=== PATIENT | female | born 1990 | race African-American/Black ===

== ENCOUNTER 2018-03-04 03:10 | Emergency (ER) | payer SELFPAY ==
[2018-03-04 03:32] LABS: Absolute Lymphocytes (CBC) 1.7 K/uL (0.7-4.9); Absolute Monocytes 0.6 K/uL (0.1-1.3); Absolute Neutrophil 3.7 K/uL (1.8-8.0); Basophils % 0.8 % (0-1.3); Eosinophils % 1.5 % (0-4.4); Hematocrit 34.4 % (36.0-45.0); Lymphocytes % 27.9 % (15.3-44.8); MCH 33.1 pg (27.0-35.0); MCV 94.8 fL (80-100); MPV 7.9 fL (7.6-11.3); Monocytes % 9.7 % (3.3-12.3); RBC Red Blood Cell Count 3.63 M/uL (3.86-4.86)
[2018-03-04] MEDS ORDERED: NA CHLORIDE 0.9% 1,000 ML ONE (03:33)
[2018-03-04] MEDS ORDERED: ONDANSETRON 4 MG/2 ML VIAL ONE (03:33)
[2018-03-04 03:39] LABS: Urine Blood 2+ (NEG); Urine Glucose NEGATIVE (NEG); Urine Protein TRACE (NEG); Urine Specific Gravity 1.025 (1.005-1.030); Urine pH 8.5 (5.0-7.0)
--- NOTE | 2018-03-04 03:50 | ER ---
Nurse's Notes [facility] Name: Gayle Ball Age: 28 yrs Sex: Female : 1990 Arrival Date: 03/04/2018 Time: 03:11 Bed 20 Private MD: Diagnosis: Vomiting Presentation: 03/04 03:19 Presenting complaint: Patient states: "I have vomited 8 times since about 2330 last jd3 night.". Transition of care: patient was not received from another setting of care. Onset of symptoms was March 04, 2018. Risk Assessment: Do you want to hurt yourself or someone else? Patient reports no desire to harm self or others. Initial Sepsis Screen: Does the patient meet any 2 criteria? No. Patient's initial sepsis screen is negative. Does the patient have a suspected source of infection? No. Patient's initial sepsis screen is negative. Care prior to arrival: None. 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 - Social history:: Smoking status: Patient uses tobacco products, smokes one-half pack cigarettes per day. - Ebola Screening: : Patient negative for fever greater than or equal to 101.5 degrees Fahrenheit, and additional compatible Ebola Virus Disease symptoms. - Family history:: not pertinent. Screenin:24 Abuse screen: Denies threats or abuse. Nutritional screening: No deficits noted. jd3 Tuberculosis screening: No symptoms or risk factors identified. Fall Risk IV access (20 points). Ambulatory Aid- None/Bed Rest/Nurse Assist (0 pts). Gait- Normal/Bed Rest/Wheelchair (0 pts) Mental Status- Oriented to own ability (0 pts). Total Dill Fall Scale indicates No Risk (0-24 pts). Assessment: 03:22 General: Appears in no apparent distress. uncomfortable, Behavior is cooperative, jd3 appropriate for age, anxious. Pain: Denies pain. Neuro: Level of Consciousness is awake, alert, obeys commands, Oriented to person, place, time, situation, Appropriate for age. Cardiovascular: Capillary refill < 3 seconds Patient's skin is warm and dry. Respiratory: Airway is patent Respiratory effort is even, unlabored, Respiratory pattern is regular, symmetrical. GI: Abdomen is round non-distended, Abd is soft and non tender X 4 quads. Reports nausea, vomiting, Patient currently denies abdominal pain. : No signs and/or symptoms were reported regarding the genitourinary system. EENT: No signs and/or symptoms were reported regarding the EENT system. Derm: Skin is intact, Skin is dry, Skin is normal, Skin temperature is warm. Musculoskeletal: Circulation, motion, and sensation intact. Range of motion: intact in all extremities. 04:12 Reassessment: Patient appears in no apparent distress at this time. Patient and/or jd3 family updated on plan of care and expected duration. Pain level reassessed. Patient is alert, oriented x 3, equal unlabored respirations, skin warm/dry/pink. Patient states feeling better. Vital Signs: 03:21 BP 142 / 98; Pulse 82; Resp 18 S; Temp 98.4(O); Pulse Ox 100% ; Weight 56.7 kg (R); jd3 Height 5 ft. 0 in. (152.40 cm) (R); Pain 0/10; 03:21 Body Mass Index 24.41 (56.70 kg, 152.40 cm) jd3 ED Course: 03:11 Patient arrived in ED. am2 03:19 Michael Pederson, RN is Primary Nurse. jd3 03:20 Triage completed. jd3 03:22 Arm band placed on. jd3 03:24 George Billings MD is Attending Physician. shawanda 03:24 Patient has correct armband on for positive identification. Placed in gown. Bed in low jd3 position. Call light in reach. Side rails up X 1. 03:48 Anupama Edmondson MD is Referral Physician. shawanda 04:13 No provider procedures requiring assistance completed. IV discontinued, intact, jd3 bleeding controlled, No redness/swelling at site. Pressure dressing applied. Inserted saline lock: 20 gauge in right antecubital area, using aseptic technique. [facility] Administered Medications: 03:32 Drug: NS 0.9% 1000 ml Route: IV; Rate: 1 bolus; Site: right antecubital; jd3 04:06 Follow up: Response: No adverse reaction; IV Status: Completed infusion jd3 03:32 Drug: Zofran 4 mg Route: IVP; Site: right antecubital; jd3 03:55 Follow up: Response: Nausea is decreased; Vomiting decreased jd3 03:54 Drug: Rocephin - (cefTRIAXone) 1 grams Route: IVPB; Infused Over: 30 mins; Site: right jd3 antecubital; 04:06 Follow up: Response: No adverse reaction; IV Status: Completed infusion jd3 03:55 Drug: Zithromax 1 grams Route: PO; jd3 04:06 Follow up: Response: No adverse reaction jd3 03:55 Drug: Flagyl 500 mg Route: PO; jd3 04:06 Follow up: Response: No adverse reaction jd3 Outcome: 03:49 Discharge ordered by MD. mayberry 04:14 Discharged to home ambulatory. jd3 04:14 Condition: stable 04:14 Discharge instructions given to patient, Instructed on discharge instructions, follow up and referral plans. medication usage, Demonstrated understanding of instructions, follow-up care, medications. 04:15 Patient left the ED. jd3 Signatures: George Billings MD MD cha Moreno, Amanda am2 Davies, Jonathon RN RN jd3 Corrections: (The following items were deleted from the chart) 03:26 03:22 GI: Abdomen is round non-distended, Bowel sounds present X 4 quads. Abd is soft jd3 and non tender X 4 quads. Reports nausea, vomiting, Patient currently denies abdominal pain, jd3
--- NOTE | 2018-03-04 03:50 | EDPHYS ---
Physician Documentation [facility] Name: Gayle Ball Age: 28 yrs Sex: Female : 1990 Arrival Date: 03/04/2018 Time: 03:11 Bed 20 Private MD: ED Physician George Billings HPI: 03/04 03:46 This 28 yrs old Black Female presents to ER via Ambulatory with complaints of Vomiting. shawanda 03:46 The patient presents to the emergency department with nausea, vomiting, that is shawanda continuous, 8 times since the onset of symptoms. Onset: The symptoms/episode began/occurred yesterday. Possible causes: unknown. The symptoms are aggravated by nothing. The symptoms are alleviated by nothing. Associated signs and symptoms: The patient has no apparent associated signs or symptoms. Severity of symptoms: At their worst the symptoms were mild moderate in the emergency department the symptoms are unchanged. The patient has not experienced similar symptoms in the past. 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 - Social history:: Smoking status: Patient uses tobacco products, smokes one-half pack cigarettes per day. - Ebola Screening: : Patient negative for fever greater than or equal to 101.5 degrees Fahrenheit, and additional compatible Ebola Virus Disease symptoms. - Family history:: not pertinent. ROS: 03:46 Constitutional: Negative for fever, chills, and weight loss, Eyes: Negative for injury, shawanda pain, redness, and discharge, ENT: Negative for injury, pain, and discharge, Neck: Negative for injury, pain, and swelling, Cardiovascular: Negative for chest pain, palpitations, and edema, Respiratory: Negative for shortness of breath, cough, wheezing, and pleuritic chest pain, Back: Negative for injury and pain, : Negative for injury, bleeding, discharge, and swelling, MS/Extremity: Negative for injury and deformity, Skin: Negative for injury, rash, and discoloration, Neuro: Negative for headache, weakness, numbness, tingling, and seizure, Psych: Negative for depression, anxiety, suicide ideation, homicidal ideation, and hallucinations, Allergy/Immunology: Negative for hives, rash, and allergies, Endocrine: Negative for neck swelling, polydipsia, polyuria, polyphagia, and marked weight changes, Hematologic/Lymphatic: Negative for swollen nodes, abnormal bleeding, and unusual bruising. 03:46 Abdomen/GI: Positive for nausea, vomiting. 03:46 : Positive for vaginal bleeding, vaginal discharge. Exam: 03:46 Constitutional: This is a well developed, well nourished patient who is awake, alert, shawanda and in no acute distress. Head/Face: Normocephalic, atraumatic. Eyes: Pupils equal round and reactive to light, extra-ocular motions intact. Lids and lashes normal. Conjunctiva and sclera are non-icteric and not injected. Cornea within normal limits. Periorbital areas with no swelling, redness, or edema. ENT: Nares patent. No nasal discharge, no septal abnormalities noted. Tympanic membranes are normal and external auditory canals are clear. Oropharynx with no redness, swelling, or masses, exudates, or evidence of obstruction, uvula midline. Mucous membranes moist. Neck: Trachea midline, no thyromegaly or masses palpated, and no cervical lymphadenopathy. Supple, full range of motion without nuchal rigidity, or vertebral point tenderness. No Meningismus. Chest/axilla: Normal chest wall appearance and motion. Nontender with no deformity. No lesions are appreciated. Cardiovascular: Regular rate and rhythm with a normal S1 and S2. No gallops, murmurs, or rubs. Normal PMI, no JVD. No pulse deficits. Respiratory: Lungs have equal breath sounds bilaterally, clear to auscultation and percussion. No rales, rhonchi or wheezes noted. No increased work of breathing, no retractions or nasal flaring. Abdomen/GI: Soft, non-tender, with normal bowel sounds. No distension or tympany. No guarding or rebound. No evidence of tenderness throughout. Back: No spinal tenderness. No costovertebral tenderness. Full range of motion. Skin: Warm, dry with normal turgor. Normal color with no rashes, no lesions, and no evidence of cellulitis. MS/ Extremity: Pulses equal, no cyanosis. Neurovascular intact. Full, normal range of motion. Neuro: Awake and alert, GCS 15, oriented to person, place, time, and situation. Cranial nerves II-XII grossly intact. Motor strength 5/5 in all extremities. Sensory grossly intact. Cerebellar exam normal. Normal gait. Psych: Awake, alert, with orientation to person, place and time. Behavior, mood, and affect are within normal limits. 03:46 : CVA tenderness, is absent, Pelvic Exam: The exam is refused by the patient/guardian. The risks and consequences are understood by the patient. Vital Signs: 03:21 BP 142 / 98; Pulse 82; Resp 18 S; Temp 98.4(O); Pulse Ox 100% ; Weight 56.7 kg (R); jd3 Height 5 ft. 0 in. (152.40 cm) (R); Pain 0/10; 03:21 Body Mass Index 24.41 (56.70 kg, 152.40 cm) jd3 MDM: 03:24 Patient medically screened. [facility] 03:50 Data reviewed: vital signs, nurses notes, lab test result(s), CBC, electrolytes, shawanda urinalysis. 03/04 03:17 Order name: Basic Metabolic Panel 03/04 03:17 Order name: CBC with Diff; Complete Time: 03:45 03/04 03:17 Order name: Creatinine for Radiology 03/04 03:17 Order name: Hepatic Function 03/04 03:17 Order name: Lipase 03/04 03:34 Order name: Urine Dipstick--Ancillary (enter results); Complete Time: 03:45 ga 03/04 03:17 Order name: IV Saline Lock; Complete Time: 03:25 03/04 03:17 Order name: Labs collected and sent; Complete Time: 03:25 03/04 03:34 Order name: Urine --Ancillary (enter results); Complete Time: 03:45 ga 03/04 03:26 Order name: Urine Test (obtain specimen); Complete Time: 03:33 [facility] 03/04 03:26 Order name: Urine Dipstick-Ancillary (obtain specimen); Complete Time: 03:33 [facility] Administered Medications: 03:32 Drug: NS 0.9% 1000 ml Route: IV; Rate: 1 bolus; Site: right antecubital; jd3 04:06 Follow up: Response: No adverse reaction; IV Status: Completed infusion jd3 03:32 Drug: Zofran 4 mg Route: IVP; Site: right antecubital; jd3 03:55 Follow up: Response: Nausea is decreased; Vomiting decreased jd3 03:54 Drug: Rocephin - (cefTRIAXone) 1 grams Route: IVPB; Infused Over: 30 mins; Site: right jd3 antecubital; 04:06 Follow up: Response: No adverse reaction; IV Status: Completed infusion jd3 03:55 Drug: Zithromax 1 grams Route: PO; jd3 04:06 Follow up: Response: No adverse reaction jd3 03:55 Drug: Flagyl 500 mg Route: PO; jd3 04:06 Follow up: Response: No adverse reaction jd3 Disposition: 03/04/18 03:49 Discharged to Home. Impression: Vomiting. - Condition is Stable. - Discharge Instructions: Nausea and Vomiting, Adult, Sexually Transmitted Disease, Sexually Transmitted Disease, [id number], Nausea and Vomiting, Adult, [id number], Safe Sex. - Prescriptions for Flagyl 500 mg Oral Tablet - take 1 tablet by ORAL route every 12 hours for 7 days; 14 tablet. Zofran 4 mg Oral Tablet - take 1 tablet by ORAL route every 12 hours As needed; 14 tablet. - Medication Reconciliation Form, Thank You Letter, Antibiotic Education, Prescription Opioid Use form. - Follow up: Private Physician; When: 2 - 3 days; Reason: Recheck today's complaints, Continuance of care, Re-evaluation by your physician. Follow up: Anupama Edmondson MD; When: 2 - 3 days; Reason: Recheck today's complaints, Re-evaluation by your physician. - Problem is new. - Symptoms have improved. Signatures: Dispatcher [employer] George Carranza MD MD cha Antunez, Elena, RN Michael Lacey ea, RN RN jd3 Corrections: (The following items were deleted from the chart) 04:15 03:49 03/04/2018 03:49 Discharged to Home. Impression: Vomiting. Condition is Stable. jd3 Forms are Medication Reconciliation Form, Thank You Letter, Antibiotic Education, Prescription Opioid Use. Follow up: Private Physician; When: 2 - 3 days; Reason: Recheck today's complaints, Continuance of care, Re-evaluation by your physician. Follow up: Anupama Edmondson; When: 2 - 3 days; Reason: Recheck today's complaints, Re-evaluation by your physician. Problem is new. Symptoms have improved. shawanda
[2018-03-04] MEDS ORDERED: CEFTRIAXONE/SWI 1gm 1 GM/10 ML SYR ONE (03:56)
[2018-03-04] MEDS ORDERED: AZITHROMYCIN 250 MG TAB ONE (03:56)
[2018-03-04] MEDS ORDERED: metroNIDAZOLE 500 MG TABLET ONE (03:59)
[2018-03-04 04:00] LABS: ALT/SGPT 14 U/L (12-78); AST/SGOT 16 U/L (15-37); Albumin 3.9 g/dL (3.4-5.0); Alkaline Phosphatase 60 U/L (45-117); BUN Blood Urea Nitrogen 11 mg/dL (7-18); Bicarbonate 31 mmol/L (21-32); Bilirubin Direct < 0.1 mg/dL (0-0.2); Bilirubin Total 0.1 mg/dL (0.2-1.0); Glucose Level 105 mg/dL (74-106); Lipase 152 U/L (73-393); Potassium 3.5 mmol/L (3.5-5.1); Protein, Total 8.2 g/dL (6.4-8.2); Sodium Level 141 mmol/L (136-145)
== END 2018-03-04 04:15 | disposition home or self-care (01) ==
LOC: ER 03:10
DX: R11.10 Vomiting, unspecified (principal); F17.210 Nicotine dependence, cigarettes, uncomplicated
CPT/HCPCS: 36415; 80048; 80076; 81003; 81025; 83690; 85025; 96361; 96374; 96375; 99283; J0696; J2405; J7030

== ENCOUNTER 2019-01-30 15:14 | Emergency (ER) | payer SELFPAY ==
--- OUTSIDE RECORDS SUMMARY | 2019-01-30 15:17 | XMS REPORT ---
:1990 [facility] [address] [place] [address] Care Team Providers Name Role Phone Unavailable Unavailable Unavailable Problems This patient has no known problems. Allergies, Adverse Reactions, Alerts This patient has no known allergies or adverse reactions. Medications This patient has no known medications.
[2019-01-30] MEDS ORDERED: NA CHLORIDE 0.9% 1,000 ML ONE (16:12)
[2019-01-30 16:37] LABS: Absolute Lymphocytes (CBC) 2.5 K/uL (0.7-4.9); Basophils % 0.8 % (0-1.3); Hematocrit 41.9 % (36.0-45.0); Lymphocytes % 29.2 % (15.3-44.8); MPV 7.6 fL (7.6-11.3); RBC Red Blood Cell Count 4.64 M/uL (3.86-4.86)
[2019-01-30 16:53] LABS: Albumin 4.6 g/dL (3.4-5.0); Bilirubin Direct 0.2 mg/dL (0-0.2); Bilirubin Total 0.8 mg/dL (0.2-1.0); Potassium 3.4 mmol/L (3.5-5.1); Protein, Total 9.8 g/dL (6.4-8.2)
[2019-01-30 17:29] LABS: Urine Blood 2+ (NEG); Urine Glucose NEGATIVE (NEG); Urine Protein 2+ (NEG); Urine Specific Gravity 1.015 (1.005-1.030); Urine pH 5.5 (5.0-7.0)
[2019-01-30 17:30] LABS: Urine Specific Gravity 1.015 (1.005-1.030)
[2019-01-30 17:35] LABS: Barbiturates NEGATIVE (NEGATIVE); Benzodiazepines NEGATIVE (NEGATIVE); Cocaine POSITIVE (NEGATIVE); METHAMPHETAM POSITIVE (NEGATIVE); Methadone NEGATIVE (NEGATIVE); Opiates NEGATIVE (NEGATIVE); Phencyclidine NEGATIVE (NEGATIVE); THC Cannibis POSITIVE (NEGATIVE)
--- NOTE | 2019-01-30 18:07 | ER ---
Nurse's Notes [facility] Name: Gayle Ball Age: 29 yrs Sex: Female : 1990 Arrival Date: 01/30/2019 Time: 15:16 Bed 17 Private MD: Diagnosis: Dehydration;Cocaine abuse;Cannabis abuse;Other stimulant abuse-methamphetamine Presentation: 01/30 15:17 Presenting complaint: EMS states: pt was fleeing from [facility], when she was caught, she tw2 started saying she felt faint and nauseous and dizziness, states she does have a hx of dizziness whenever she stands, hr in 120's bp 117/82. Transition of care: patient was not received from another setting of care. Onset of symptoms was January 30, 2019. Risk Assessment: Do you want to hurt yourself or someone else? Patient reports no desire to harm self or others. Initial Sepsis Screen: Does the patient meet any 2 criteria? No. Patient's initial sepsis screen is negative. Does the patient have a suspected source of infection? No. Patient's initial sepsis screen is negative. Care prior to arrival: None. 15:17 Method Of Arrival: EMS: [facility] tw2 15:17 Acuity: CAMILA 3 tw2 15:19 Presenting complaint: Patient states: i have anemia and i dont know if i have been tw2 taking care of it, i have a headache, i feel thirst and i havent been able to drink anything since we went to the [facility] earlier today and it was so hot outside. Triage Assessment: 15:23 General: Appears in no apparent distress. Behavior is cooperative, appropriate for age. tw2 15:23 Pain: Complains of pain in headache. 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 - Social history:: Smoking status: Patient uses tobacco products, 1 pack every 3 or 4 days, Patient uses street drugs, cocaine, marijuana, several times a day of marijuana, i use cocaine recreation like not that often so like maybe 2 times a month. - Ebola Screening: : Patient denies travel to an Ebola-affected area in the 21 days before illness onset. Screenin:25 Abuse screen: Denies threats or abuse. Nutritional screening: No deficits noted. tw2 Tuberculosis screening: No symptoms or risk factors identified. Fall Risk None identified. Assessment: 15:50 General: Appears in no apparent distress. comfortable, Behavior is calm, cooperative, ca1 appropriate for age. Pain: Denies pain. Neuro: Level of Consciousness is awake, alert, obeys commands, Oriented to person, place, time, situation, Reports dizziness. Cardiovascular: Heart tones S1 S2 present Capillary refill < 3 seconds Patient's skin is warm and dry. Pulses Rhythm is sinus tachycardia. Respiratory: Airway is patent Respiratory effort is even, unlabored, Respiratory pattern is regular, symmetrical, Breath sounds are clear bilaterally. GI: Abdomen is flat, non-distended, Bowel sounds present X 4 quads. Abd is soft and non tender X 4 quads. : No deficits noted. No signs and/or symptoms were reported regarding the genitourinary system. EENT: No deficits noted. No signs and/or symptoms were reported regarding the EENT system. Derm: Skin is intact, is healthy with good turgor, Skin is pink, warm \T\ dry. Musculoskeletal: Circulation, motion, and sensation intact. Capillary refill < 3 seconds, Range of motion: intact in all extremities. 16:42 Reassessment: Patient appears in no apparent distress at this time. Patient and/or ca1 family updated on plan of care and expected duration. Pain level reassessed. Patient is alert, oriented x 3, equal unlabored respirations, skin warm/dry/pink. 17:24 Reassessment: Patient appears in no apparent distress at this time. Patient and/or ca1 family updated on plan of care and expected duration. Pain level reassessed. Patient is alert, oriented x 3, equal unlabored respirations, skin warm/dry/pink. 18:11 Reassessment: Patient appears in no apparent distress at this time. Patient and/or ca1 family updated on plan of care and expected duration. Pain level reassessed. Patient is alert, oriented x 3, equal unlabored respirations, skin warm/dry/pink. Vital Signs: 15:21 BP 116 / 82; Pulse 112; Resp 17; Temp 98.6(TE); Pulse Ox 99% on R/A; Weight 56.7 kg tw2 (R); Height 5 ft. 0 in. (152.40 cm); Pain 4/10; 15:50 BP 120 / 96; Pulse 107; Resp 16 S; Pulse Ox 98% on R/A; ca1 16:15 BP 119 / 91 Supine; Pulse 96; Resp 16; Pulse Ox 98% on R/A; dh3 16:17 BP 112 / 97 Sitting; Pulse 103; Resp 16; Pulse Ox 100% on R/A; dh3 16:19 BP 119 / 94 Standing; Pulse 114; Resp 17; Pulse Ox 98% on R/A; dh3 16:42 BP 121 / 106; Pulse 99; Resp 17 S; Pulse Ox 100% on R/A; ca1 17:24 BP 135 / 105; Pulse 88; Resp 15 S; Pulse Ox 100% on R/A; ca1 18:11 BP 129 / 94; Pulse 89; Resp 18 S; Pulse Ox 98% on R/A; ca1 15:21 Body Mass Index 24.41 (56.70 kg, 152.40 cm) tw2 ED Course: 15:16 Patient arrived in ED. as 15:19 Triage completed. tw2 15:21 Arm band placed on. tw2 15:32 Jaymie Mckeon, SABRINA is Primary Nurse. ca1 15:37 Hans Jean NP is PHCP. pm1 15:37 French Otrega MD is Attending Physician. pm1 15:50 Patient has correct armband on for positive identification. Bed in low position. Call ca1 light in reach. Side rails up X 1. Pulse ox on. NIBP on. Warm blanket given. 16:20 No provider procedures requiring assistance completed. Inserted saline lock: 22 gauge ca1 in right antecubital area, using aseptic technique. 17:23 Urine collected: clean catch specimen, cloudy, Amount Voided: 90mL. ca1 18:12 IV discontinued, intact, bleeding controlled, No redness/swelling at site. Pressure ca1 dressing applied. Administered Medications: 16:20 Drug: NS 0.9% 1000 ml Route: IV; Rate: 1000 ml; Site: right antecubital; ca1 17:30 Follow up: Response: No adverse reaction; IV Status: Completed infusion ca1 Outcome: 18:06 Discharge ordered by . pm1 18:12 Discharged to home ambulatory, with family. ca1 18:12 Condition: stable 18:12 Discharge instructions given to patient, Instructed on discharge instructions, follow up and referral plans. Demonstrated understanding of instructions, follow-up care. 18:12 Patient left the ED. ca1 Signatures: Dian Villanueva Patrick, FINANCIAL CONTROLLER FINANCIAL CONTROLLER pm1 Claudia Green RN RN tw2 Saundra Garcia 3 Jaymie Mckeon RN RN ca1 Corrections: (The following items were deleted from the chart) 15:24 15:23 Pain: Denies pain. tw2 tw2
--- NOTE | 2019-01-30 18:07 | EDPHYS ---
Physician Documentation [facility] Name: Gayle Ball Age: 29 yrs Sex: Female : 1990 Arrival Date: 01/30/2019 Time: 15:16 Bed 17 Private MD: ED Physician French Ortega HPI: 01/30 16:10 This 29 yrs old Black Female presents to ER via EMS with complaints of Dizziness. pm1 16:10 The patient presents with dizziness. Onset: The symptoms/episode began/occurred just pm1 prior to arrival. Context: occurred outdoors, occurred while the patient was arguing, running, from the police. just prior to the episode the patient experienced no apparent symptoms. Modifying factors: The symptoms are alleviated by nothing, the symptoms are aggravated by nothing. Associated signs and symptoms: Pertinent negatives: abdominal pain, chest pain, numbness, shortness of breath, tingling. Severity of symptoms: in the emergency department the symptoms have resolved Pain is currently a 0 / 10. The patient has not recently seen a physician. patient reports some dizziness [place] today patient was arguing with the doper operator and attempted to flee from them. She started to feel dizzy and was brought to the ER by EMS. 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 - Social history:: Smoking status: Patient uses tobacco products, 1 pack every 3 or 4 days, Patient uses street drugs, cocaine, marijuana, several times a day of marijuana, i use cocaine recreation like not that often so like maybe 2 times a month. - Ebola Screening: : Patient denies travel to an Ebola-affected area in the 21 days before illness onset. ROS: 16:10 Constitutional: Negative for fever, chills, and weight loss, Eyes: Negative for injury, pm1 pain, redness, and discharge, ENT: Negative for injury, pain, and discharge, Neck: Negative for injury, pain, and swelling, Cardiovascular: Negative for chest pain, palpitations, and edema, Respiratory: Negative for shortness of breath, cough, wheezing, and pleuritic chest pain, Abdomen/GI: Negative for abdominal pain, nausea, vomiting, diarrhea, and constipation, Back: Negative for injury and pain, : Negative for injury, bleeding, discharge, and swelling, MS/Extremity: Negative for injury and deformity, Skin: Negative for injury, rash, and discoloration. 16:10 Neuro: Positive for dizziness, Negative for numbness, tingling, weakness. Exam: 16:10 Constitutional: This is a well developed, well nourished patient who is awake, alert, pm1 and in no acute distress. Head/Face: Normocephalic, atraumatic. Eyes: Pupils equal round and reactive to light, extra-ocular motions intact. Lids and lashes normal. Conjunctiva and sclera are non-icteric and not injected. Cornea within normal limits. Periorbital areas with no swelling, redness, or edema. ENT: Nares patent. No nasal discharge, no septal abnormalities noted. Tympanic membranes are normal and external auditory canals are clear. Oropharynx with no redness, swelling, or masses, exudates, or evidence of obstruction, uvula midline. Mucous membranes moist. Neck: Trachea midline, no thyromegaly or masses palpated, and no cervical lymphadenopathy. Supple, full range of motion without nuchal rigidity, or vertebral point tenderness. No Meningismus. Chest/axilla: Normal chest wall appearance and motion. Nontender with no deformity. No lesions are appreciated. Cardiovascular: Regular rate and rhythm with a normal S1 and S2. No gallops, murmurs, or rubs. Normal PMI, no JVD. No pulse deficits. Respiratory: Lungs have equal breath sounds bilaterally, clear to auscultation and percussion. No rales, rhonchi or wheezes noted. No increased work of breathing, no retractions or nasal flaring. Abdomen/GI: Soft, non-tender, with normal bowel sounds. No distension or tympany. No guarding or rebound. No evidence of tenderness throughout. Back: No spinal tenderness. No costovertebral tenderness. Full range of motion. Skin: Warm, dry with normal turgor. Normal color with no rashes, no lesions, and no evidence of cellulitis. MS/ Extremity: Pulses equal, no cyanosis. Neurovascular intact. Full, normal range of motion. 16:10 Neuro: Orientation: is normal, Mentation: is normal, Motor: is normal, moves all fours, strength is normal, strength is 5/5 in all extremities, Sensation: is normal, no obvious gross deficits. Vital Signs: 15:21 BP 116 / 82; Pulse 112; Resp 17; Temp 98.6(TE); Pulse Ox 99% on R/A; Weight 56.7 kg tw2 (R); Height 5 ft. 0 in. (152.40 cm); Pain 4/10; 15:50 BP 120 / 96; Pulse 107; Resp 16 S; Pulse Ox 98% on R/A; ca1 16:15 BP 119 / 91 Supine; Pulse 96; Resp 16; Pulse Ox 98% on R/A; dh3 16:17 BP 112 / 97 Sitting; Pulse 103; Resp 16; Pulse Ox 100% on R/A; dh3 16:19 BP 119 / 94 Standing; Pulse 114; Resp 17; Pulse Ox 98% on R/A; dh3 16:42 BP 121 / 106; Pulse 99; Resp 17 S; Pulse Ox 100% on R/A; ca1 17:24 BP 135 / 105; Pulse 88; Resp 15 S; Pulse Ox 100% on R/A; ca1 18:11 BP 129 / 94; Pulse 89; Resp 18 S; Pulse Ox 98% on R/A; ca1 15:21 Body Mass Index 24.41 (56.70 kg, 152.40 cm) tw2 MDM: 16:04 Patient medically screened. pm1 18:04 Data reviewed: vital signs. Data interpreted: Pulse oximetry: on room air is 100 %. pm1 Interpretation: normal. Counseling: I had a detailed discussion with the patient and/or guardian regarding: the historical points, exam findings, and any diagnostic results supporting the discharge/admit diagnosis, lab results, the need for outpatient follow up, to return to the emergency department if symptoms worsen or persist or if there are any questions or concerns that arise at home. 01/30 16:10 Order name: Basic Metabolic Panel; Complete Time: 17:32 pm1 01/30 16:10 Order name: CBC with Diff; Complete Time: 17:32 pm1 01/30 16:10 Order name: LFT's; Complete Time: 17:32 pm1 01/30 16:10 Order name: Magnesium; Complete Time: 17:32 pm1 01/30 16:10 Order name: CPK; Complete Time: 17:32 pm1 01/30 16:10 Order name: Urine Drug Screen; Complete Time: 18:03 pm1 01/30 16:10 Order name: EKG; Complete Time: 16:12 pm1 01/30 16:10 Order name: Cardiac monitoring; Complete Time: 16:30 pm1 01/30 16:10 Order name: EKG - Nurse/Tech; Complete Time: 16:30 pm1 01/30 16:10 Order name: IV Saline Lock; Complete Time: 16:31 pm1 01/30 16:10 Order name: ETOH Level; Complete Time: 17:32 pm1 01/30 17:23 Order name: Urine Dipstick--Ancillary (enter results); Complete Time: 17:32 ss 01/30 17:24 Order name: Urine --Ancillary (enter results); Complete Time: 17:32 ss 01/30 16:10 Order name: Labs collected and sent; Complete Time: 16:30 pm1 01/30 16:10 Order name: O2 Per Protocol; Complete Time: 16:30 pm1 01/30 16:10 Order name: O2 Sat Monitoring; Complete Time: 16:30 pm1 01/30 16:10 Order name: Orthostatics; Complete Time: 16:13 pm1 01/30 16:10 Order name: Urine Dipstick-Ancillary (obtain specimen); Complete Time: 17:23 pm1 01/30 16:10 Order name: Urine Test (obtain specimen); Complete Time: 17:22 pm1 Administered Medications: 16:20 Drug: NS 0.9% 1000 ml Route: IV; Rate: 1000 ml; Site: right antecubital; ca1 17:30 Follow up: Response: No adverse reaction; IV Status: Completed infusion ca1 Disposition: 01/30/19 18:06 Discharged to Home. Impression: Other stimulant abuse - methamphetamine, Dehydration, Cocaine abuse, Cannabis abuse. - Condition is Stable. - Discharge Instructions: Stimulant Use Disorder-Cocaine, Dehydration, Adult, Cannabis Use Disorder, Stimulant Use Disorder-Methamphetamines, Rehydration, Adult. - Medication Reconciliation Form, Thank You Letter, Antibiotic Education, Prescription Opioid Use form. - Follow up: Emergency Department; When: As needed; Reason: Worsening of condition. Follow up: Private Physician; When: 2 - 3 days; Reason: Recheck today's complaints, Continuance of care, Re-evaluation by your physician. - Problem is new. - Symptoms have improved. Addendum: 02/01/2019 15:36 Co-signature as Attending Physician, French Ortega MD. g s Signatures: Dispatcher [employer] EDMS Hans Jean NP FABRIC WORKER LEADER pm1 Claudia Green RN RN tw2 French Ortega MD MD Acob, Jaymie, RN RN ca1 Corrections: (The following items were deleted from the chart) 01/30 18:12 18:06 01/30/2019 18:06 Discharged to Home. Impression: Other stimulant abuse - ca1 methamphetamineDehydration; Cocaine abuse; Cannabis abuse. Condition is Stable. Forms are Medication Reconciliation Form, Thank You Letter, Antibiotic Education, Prescription Opioid Use. Follow up: Emergency Department; When: As needed; Reason: Worsening of condition. Follow up: Private Physician; When: 2 - 3 days; Reason: Recheck today's complaints, Continuance of care, Re-evaluation by your physician. Problem is new. Symptoms have improved. pm1
--- NOTE | 2019-01-31 10:00 | EKG ---
Test Date: 2019-01-30 Test Time: 16:25:20 Ring Conductor: EDITH MEASUREMENT RESULTS: Intervals: Rate: 89 [place]: 144 QRSD: 74 QT: 380 QTc: 462 [place]: P: 14 [place]: 144 QRS: 71 T: 60 INTERPRETIVE STATEMENTS: Normal sinus rhythm T wave abnormality, consider anterior ischemia Prolonged QT Abnormal ECG No previous ECG available for comparison Electronically Signed On 01-31-19 09:59:50 CDT by Joshua Headley
== END 2019-01-30 18:12 | disposition home or self-care (01) ==
LOC: ER 15:14
DX: E86.0 Dehydration (principal); F14.10 Cocaine abuse, uncomplicated; F12.10 Cannabis abuse, uncomplicated; F15.10 Other stimulant abuse, uncomplicated; Z72.0 Tobacco use
CPT/HCPCS: 36415; 80048; 80076; 80307; 80320; 81003; 81025; 82550; 83735; 85025; 93005; 96360; 99284; J7030

== ENCOUNTER 2019-03-28 13:55 | Emergency (ER) | payer SELFPAY ==
[2019-03-28] MEDS ORDERED: KETOROLAC 30 MG/ML INJ ONE (14:47)
[2019-03-28] MEDS ORDERED: CEFTRIAXONE 1000 MG/VIAL ONE (14:47)
[2019-03-28] MEDS ORDERED: LIDOCAINE 1% MPF 2 ML AMPULE ONE (14:47)
--- NOTE | 2019-03-28 14:51 | EDPHYS ---
Physician Documentation [facility] Name: Gayle Ball Age: 29 yrs Sex: Female : 1990 Arrival Date: 03/28/2019 Time: 13:58 Bed 11 Private MD: None, None ED Physician Connor Almanzar HPI: 03/28 14:48 This 29 yrs old Black Female presents to ER via Ambulatory with complaints of Sore ma2 Throat, Weakness. 14:48 The patient presents with sore throat, dysphagia. The patient describes throat pain as ma2 constant. Onset: The symptoms/episode began/occurred gradually, 1 day(s) ago. Severity of symptoms: At their worst the symptoms were moderate, in the emergency department the symptoms are unchanged. Associated signs and symptoms: Pertinent negatives diarrhea, dysphagia, flu-like symptoms, headache. The patient has not experienced similar symptoms in the past. 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 - Social history:: Smoking status: Patient uses tobacco products, "A FEW A NIGHT", Patient/guardian denies using alcohol, street drugs, The patient lives with family, with spouse. - Ebola Screening: : Patient denies exposure to infectious person Patient denies travel to an Ebola-affected area in the 21 days before illness onset. - Family history:: not pertinent. ROS: 14:48 Constitutional: Negative for fever, chills, and weight loss. ma2 14:48 All other systems are negative. Exam: 14:48 Constitutional: This is a well developed, well nourished patient who is awake, alert, ma2 and in no acute distress. Head/Face: Normocephalic, atraumatic. Eyes: Pupils equal round and reactive to light, extra-ocular motions intact. Lids and lashes normal. Conjunctiva and sclera are non-icteric and not injected. Cornea within normal limits. Periorbital areas with no swelling, redness, or edema. ENT: tonsillitis, otherwsie Nares patent. No nasal discharge, no septal abnormalities noted. Tympanic membranes are normal and external auditory canals are clear. Oropharynx with no redness, swelling, or masses, exudates, or evidence of obstruction, uvula midline. Mucous membranes moist. Neck: Trachea midline, no thyromegaly or masses palpated, and no cervical lymphadenopathy. Supple, full range of motion without nuchal rigidity, or vertebral point tenderness. No Meningismus. Chest/axilla: Normal chest wall appearance and motion. Nontender with no deformity. No lesions are appreciated. Cardiovascular: Regular rate and rhythm with a normal S1 and S2. No gallops, murmurs, or rubs. Normal PMI, no JVD. No pulse deficits. Respiratory: Lungs have equal breath sounds bilaterally, clear to auscultation and percussion. No rales, rhonchi or wheezes noted. No increased work of breathing, no retractions or nasal flaring. Abdomen/GI: Soft, non-tender, with normal bowel sounds. No distension or tympany. No guarding or rebound. No evidence of tenderness throughout. Back: No spinal tenderness. No costovertebral tenderness. Full range of motion. Skin: Warm, dry with normal turgor. Normal color with no rashes, no lesions, and no evidence of cellulitis. MS/ Extremity: Pulses equal, no cyanosis. Neurovascular intact. Full, normal range of motion. Neuro: Awake and alert, GCS 15, oriented to person, place, time, and situation. Cranial nerves II-XII grossly intact. Motor strength 5/5 in all extremities. Sensory grossly intact. Cerebellar exam normal. Normal gait. Vital Signs: 14:02 BP 133 / 99; Pulse 106; Resp 14; Temp 99.8(TE); Pulse Ox 98% on R/A; Weight 58.97 kg; ss Height 5 ft. 0 in. (152.40 cm); Pain 8/10; 15:09 BP 128 / 96; Pulse 99; Resp 16; Temp 99.5; Pulse Ox 99% on R/A; rv 14:02 Body Mass Index 25.39 (58.97 kg, 152.40 cm) ss MDM: 14:23 Patient medically screened. ma2 14:48 Differential diagnosis: gastroesophageal reflux disease, laryngitis, pharyngitis. Data ma2 reviewed: vital signs, nurses notes. Counseling: I had a detailed discussion with the patient and/or guardian regarding: the historical points, exam findings, and any diagnostic results supporting the discharge/admit diagnosis, the presence of at least one elevated blood pressure reading (>120/80) during this emergency department visit, the need for outpatient follow up. Response to treatment: the patient's symptoms have markedly improved after treatment. 03/28 14:17 Order name: Flu rv 03/28 14:17 Order name: Strep; Complete Time: 14:42 rv 03/28 14:39 Order name: Throat Culture EDMS Administered Medications: 14:56 Drug: TORadol 60 mg Route: IM; Site: right deltoid; rv 15:22 Follow up: Response: No adverse reaction rv 14:57 Drug: Rocephin (cefTRIAXone) 1 grams Route: IM; Site: right gluteus; rv 15:22 Follow up: Response: No adverse reaction rv Disposition: 03/28/19 14:50 Discharged to Home. Impression: Acute pharyngitis. - Condition is Stable. - Discharge Instructions: Sore Throat, [id number]. - Prescriptions for Tylenol- Codeine #3 300-30 mg Oral Tablet - take 2 tablet by ORAL route every 6 hours As needed; 30 tablet. Zithromax Z- Berny 250 mg Oral Tablet - take 1 tablet by ORAL route as directed for 5 days Day 1 - take two (2) tablets one time. Day 2, 3, 4 , 5 take one (1) tablet once daily.; 6 tablet. Medrol (Berny) 4 mg Oral Tablets, Dose Pack - take 1 tablet by ORAL route as directed - follow package instructions; 1 packet. - Medication Reconciliation Form, Thank You Letter, Antibiotic Education, Prescription Opioid Use form. - Follow up: Private Physician; When: Tomorrow; Reason: Continuance of care. Signatures: Dispatcher [facility] Radha White RN RN ss Connor Almanzar MD MD nj2 Nick Sutton RN RN rv Corrections: (The following items were deleted from the chart) 15:22 14:50 03/28/2019 14:50 Discharged to Home. Impression: Acute pharyngitis. Condition is rv Stable. Forms are Medication Reconciliation Form, Thank You Letter, Antibiotic Education, Prescription Opioid Use. Follow up: Private Physician; When: Tomorrow; Reason: Continuance of care. ma2
--- NOTE | 2019-03-28 14:51 | ER ---
Nurse's Notes [facility] Name: Gayle Ball Age: 29 yrs Sex: Female : 1990 Arrival Date: 03/28/2019 Time: 13:58 Bed 11 Private MD: None, None Diagnosis: Acute pharyngitis Presentation: 03/28 14:01 Presenting complaint: Patient states: SORE THROAT AND L EAR PAIN THAT BEGAN LAST NIGHT. ss Transition of care: patient was not received from another setting of care. Onset of symptoms was March 27, 2019. Risk Assessment: Do you want to hurt yourself or someone else? Patient reports no desire to harm self or others. Initial Sepsis Screen: Does the patient meet any 2 criteria? HR > 90 bpm. Does the patient have a suspected source of infection? No. Patient's initial sepsis screen is negative. Care prior to arrival: None. 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 - Social history:: Smoking status: Patient uses tobacco products, "A FEW A NIGHT", Patient/guardian denies using alcohol, street drugs, The patient lives with family, with spouse. - Ebola Screening: : Patient denies exposure to infectious person Patient denies travel to an Ebola-affected area in the 21 days before illness onset. - Family history:: not pertinent. Screenin:20 Abuse screen: Denies threats or abuse. Denies injuries from another. Nutritional rv screening: No deficits noted. Tuberculosis screening: No symptoms or risk factors identified. Fall Risk None identified. Assessment: 14:18 General: Appears in no apparent distress. ill, Behavior is calm, cooperative. Pain: rv Complains of pain in throat. Neuro: Level of Consciousness is awake, alert, obeys commands, Oriented to person, place, time, situation. Cardiovascular: Patient's skin is warm and dry. Respiratory: Airway is patent Respiratory effort is even, Breath sounds are clear bilaterally. GI: No signs and/or symptoms were reported involving the gastrointestinal system. : No signs and/or symptoms were reported regarding the genitourinary system. EENT: Throat complains of soreness. Derm: Skin is intact. Musculoskeletal: No signs and/or symptoms reported regarding the musculoskeletal system. 15:08 Reassessment: Patient appears in no apparent distress at this time. No changes from rv previously documented assessment. Reassessment: PATIENT UPDATED ON THE DISCHARGE PLANS. MONITORING FOR ANY SIGNS OF REACTION AFTER GIVING THE SHOT. Vital Signs: 14:02 BP 133 / 99; Pulse 106; Resp 14; Temp 99.8(TE); Pulse Ox 98% on R/A; Weight 58.97 kg; ss Height 5 ft. 0 in. (152.40 cm); Pain 8/10; 15:09 BP 128 / 96; Pulse 99; Resp 16; Temp 99.5; Pulse Ox 99% on R/A; rv 14:02 Body Mass Index 25.39 (58.97 kg, 152.40 cm) ED Course: 13:58 Patient arrived in ED. ag5 13:58 None, None is Private Physician. ag5 14:02 Triage completed. ss 14:02 Arm band placed on right wrist. ss 14:10 Nick Sutton RN is Primary Nurse. rv 14:20 Patient has correct armband on for positive identification. Call light in reach. rv Cardiac monitoring not applicable on this patient. 14:23 Connor Almanzar MD is Attending Physician. ma2 15:09 No provider procedures requiring assistance completed. Patient did not have IV access rv during this emergency room visit. Administered Medications: 14:56 Drug: TORadol 60 mg Route: IM; Site: right deltoid; rv 15:22 Follow up: Response: No adverse reaction rv 14:57 Drug: Rocephin (cefTRIAXone) 1 grams Route: IM; Site: right gluteus; rv 15:22 Follow up: Response: No adverse reaction rv Outcome: 14:50 Discharge ordered by . ma2 15:09 Discharged to home ambulatory. rv 15:09 Condition: good 15:09 Discharge instructions given to patient, Instructed on discharge instructions, follow up and referral plans. medication usage, Demonstrated understanding of instructions, follow-up care, medications, Prescriptions given X 3. 15:22 Patient left the ED. rv Signatures: Radha White RN RN ss Connor Almanzar MD MD ma2 Nick Sutton RN RN Niranjan Hernandez 5
[2019-03-28 15:35] VITALS: BP 128/96; TEMP 99.5; O2SAT 99
== END 2019-03-28 15:22 | disposition home or self-care (01) ==
LOC: ER 13:55
DX: J02.9 Acute pharyngitis, unspecified (principal); Z72.0 Tobacco use
CPT/HCPCS: 87070; 87081; 87804; 96372; 99283; J2001

== ENCOUNTER 2019-07-10 08:05 | Emergency (ER) | payer SELFPAY ==
--- OUTSIDE RECORDS SUMMARY | 2019-07-10 08:08 | XMS REPORT ---
:1990 [facility] Address [address] [place] [address] [address] [place] [address] Care Team Providers Name Role Phone Unavailable Unavailable Unavailable Problems This patient has no known problems. Allergies, Adverse Reactions, Alerts This patient has no known allergies or adverse reactions. Medications This patient has no known medications.
--- NOTE | 2019-07-10 08:58 | EDPHYS ---
Physician Documentation [facility] Name: Gayle Ball Age: 29 yrs Sex: Female : 1990 Arrival Date: 07/10/2019 Time: 08:07 Bed 6 Private MD: ED Physician Marcial Lamb HPI: 07/10 08:56 This 29 yrs old Black Female presents to ER via Ambulatory with complaints of Flu kb Symptoms. 08:56 The patient or guardian reports cough, flu symptoms, arthralgias, low-grade fever. kb Onset: The symptoms/episode began/occurred 3 day(s) ago. Severity of symptoms: At their worst the symptoms were moderate, in the emergency department the symptoms are unchanged. Modifying factors: The symptoms are alleviated by nothing, the symptoms are aggravated by nothing. Associated signs and symptoms: Pertinent positives: fever, rhinorrhea, sore throat, Pertinent negatives: chest pain, diarrhea, ear ache, nausea, vomiting. The patient has not experienced similar symptoms in the past. The patient has not recently seen a physician. Pt reports body aches, ear pain and sore throat for 3 days. Son recently diagnosed with flu. 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 - Coronavirus screen:: The patient has NOT traveled to [place], [place], or [place] in the past 14 days. Proceed with normal triage process as indicated. - Social history:: Smoking status: Patient reports the use of cigarette tobacco products, smokes one-half pack cigarettes per day. - Ebola Screening: : Patient denies exposure to infectious person Patient denies travel to an Ebola-affected area in the 21 days before illness onset. ROS: 08:55 Neck: Negative for injury, pain, and swelling, Cardiovascular: Negative for chest pain, kb palpitations, and edema, Abdomen/GI: Negative for abdominal pain, nausea, vomiting, diarrhea, and constipation, Back: Negative for injury and pain, MS/Extremity: Negative for injury and deformity, Skin: Negative for injury, rash, and discoloration, Neuro: Negative for headache, weakness, numbness, tingling, and seizure. 08:55 Constitutional: Positive for body aches, chills, fatigue, fever, malaise. 08:55 ENT: Positive for ear pain, rhinorrhea, sinus congestion, sore throat. 08:55 Respiratory: Positive for cough, Negative for dyspnea on exertion, hemoptysis, orthopnea, pleurisy, shortness of breath, sputum production, wheezing. Exam: 08:55 Constitutional: This is a well developed, well nourished patient who is awake, alert, kb and in no acute distress. Head/Face: Normocephalic, atraumatic. Neck: Trachea midline, no thyromegaly or masses palpated, and no cervical lymphadenopathy. Supple, full range of motion without nuchal rigidity, or vertebral point tenderness. No Meningismus. Chest/axilla: Normal chest wall appearance and motion. Nontender with no deformity. No lesions are appreciated. Cardiovascular: Regular rate and rhythm with a normal S1 and S2. No gallops, murmurs, or rubs. Normal PMI, no JVD. No pulse deficits. Respiratory: Lungs have equal breath sounds bilaterally, clear to auscultation and percussion. No rales, rhonchi or wheezes noted. No increased work of breathing, no retractions or nasal flaring. Abdomen/GI: Soft, non-tender, with normal bowel sounds. No distension or tympany. No guarding or rebound. No evidence of tenderness throughout. Skin: Warm, dry with normal turgor. Normal color with no rashes, no lesions, and no evidence of cellulitis. MS/ Extremity: Pulses equal, no cyanosis. Neurovascular intact. Full, normal range of motion. Neuro: Awake and alert, GCS 15, oriented to person, place, time, and situation. Cranial nerves II-XII grossly intact. Motor strength 5/5 in all extremities. Sensory grossly intact. Cerebellar exam normal. Normal gait. 08:55 ENT: External ear(s): are unremarkable, Ear canal(s): are normal, TM's: are normal, Nose: is normal, Mouth: is normal, Posterior pharynx: Airway: normal, no evidence of obstruction, Tonsils: bilaterally enlarged, with erythema, Uvula: normal, midline, swelling, that is mild, erythema, that is moderate, exudate, is not appreciated. Vital Signs: 08:19 BP 117 / 88; Pulse 84; Resp 15; Temp 98.5(O); Pulse Ox 98% on R/A; Weight 64.86 kg; ss Height 4 ft. 11 in. (149.86 cm); Pain 9/10; 08:19 Body Mass Index 28.88 (64.86 kg, 149.86 cm) ss MDM: 08:11 Patient medically screened. kb 08:55 Data reviewed: vital signs, nurses notes. Data interpreted: Pulse oximetry: on room air kb is 98 %. Interpretation: normal. Counseling: I had a detailed discussion with the patient and/or guardian regarding: the historical points, exam findings, and any diagnostic results supporting the discharge/admit diagnosis, lab results, the need for outpatient follow up, a family practitioner, to return to the emergency department if symptoms worsen or persist or if there are any questions or concerns that arise at home. 07/10 08:14 Order name: Flu; Complete Time: 08:48 ae4 07/10 08:14 Order name: Strep; Complete Time: 08:48 ae4 Administered Medications: 09:00 Drug: Bicillin L-A 1.2 million units Route: IM; Site: right gluteus; ae4 09:25 Follow up: Response: No adverse reaction ae4 Disposition: 21:23 Co-signature as Attending Physician, Marcial Lamb MD I agree with the assessment and kdr plan of care. Disposition: 07/10/19 08:57 Discharged to Home. Impression: Streptococcal pharyngitis. - Condition is Stable. - Discharge Instructions: Strep Throat, [id number]. - Medication Reconciliation Form, Thank You Letter, Antibiotic Education, Prescription Opioid Use form. - Follow up: Emergency Department; When: As needed; Reason: Worsening of condition. Follow up: Private Physician; When: 2 - 3 days; Reason: Recheck today's complaints, Continuance of care, Re-evaluation by your physician. Signatures: Dispatcher [employer] EDShannon Myles, BROKER ASSISTANT-C RAMON-Marcial Gerber MD MD kdr Smirch, Shelby, RN RN Venkatesh Abreu RN RN ae4 Corrections: (The following items were deleted from the chart) 09:24 08:57 07/10/2019 08:57 Discharged to Home. Impression: Streptococcal pharyngitis. ae4 Condition is Stable. Forms are Medication Reconciliation Form, Thank You Letter, Antibiotic Education, Prescription Opioid Use. Follow up: Emergency Department; When: As needed; Reason: Worsening of condition. Follow up: Private Physician; When: 2 - 3 days; Reason: Recheck today's complaints, Continuance of care, Re-evaluation by your physician. kb
--- NOTE | 2019-07-10 08:58 | ER ---
Nurse's Notes [facility] Name: Gayle Ball Age: 29 yrs Sex: Female : 1990 Arrival Date: 07/10/2019 Time: 08:07 Bed 6 Private MD: Diagnosis: Streptococcal pharyngitis Presentation: 07/10 08:16 Presenting complaint: Patient states: cough, fever, body aches, ear pain and headache x ss 2 days. Child at home was recently diagnosed with the flu. Transition of care: patient was not received from another setting of care. Onset of symptoms was July 08, 2019. Risk Assessment: Do you want to hurt yourself or someone else? Patient reports no desire to harm self or others. Initial Sepsis Screen: Does the patient meet any 2 criteria? No. Patient's initial sepsis screen is negative. Does the patient have a suspected source of infection? No. Patient's initial sepsis screen is negative. Care prior to arrival: None. 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 - Coronavirus screen:: The patient has NOT traveled to [place], [place], or [place] in the past 14 days. Proceed with normal triage process as indicated. - Social history:: Smoking status: Patient reports the use of cigarette tobacco products, smokes one-half pack cigarettes per day. - Ebola Screening: : Patient denies exposure to infectious person Patient denies travel to an Ebola-affected area in the 21 days before illness onset. Screenin:30 Abuse screen: Denies threats or abuse. Nutritional screening: No deficits noted. ae4 Tuberculosis screening: No symptoms or risk factors identified. Never had TB. Fall Risk None identified. Assessment: 08:23 General: Appears uncomfortable, unkempt, Behavior is anxious. General: Smells of ae4 cigarette smoke.. Pain: Complains of pain in Patient reports generalized body aches. Neuro: Level of Consciousness is awake, alert, obeys commands, Oriented to person, place, time, situation. Cardiovascular: Heart tones S1 S2 present Patient's skin is warm and dry. Rhythm is regular. Respiratory: Airway is patent Respiratory effort is even, unlabored, Respiratory pattern is regular, Breath sounds are clear bilaterally. GI: No signs and/or symptoms were reported involving the gastrointestinal system. : No signs and/or symptoms were reported regarding the genitourinary system. EENT: Throat has enlarged tonsils Reports nasal congestion painful swalllowing. Derm: Skin is normal. Musculoskeletal: Reports muscle aches. Vital Signs: 08:19 BP 117 / 88; Pulse 84; Resp 15; Temp 98.5(O); Pulse Ox 98% on R/A; Weight 64.86 kg; ss Height 4 ft. 11 in. (149.86 cm); Pain 9/10; 08:19 Body Mass Index 28.88 (64.86 kg, 149.86 cm) ED Course: 08:07 Patient arrived in ED. as 08:10 Marcial Lamb MD is Attending Physician. kdr 08:11 Shannon [facility]itez [facility]-C [facility] kb 08:14 Venkatesh Castano, RN is Primary Nurse. ae4 08:18 Triage completed. ss 08:19 Arm band placed on right wrist. 08:29 Bed in low position. Call light in reach. Side rails up X 1. Adult w/ patient. Cardiac ae4 monitor on. Pulse ox on. 09:24 No provider procedures requiring assistance completed. Patient did not have IV access ae4 during this emergency room visit. Administered Medications: 09:00 Drug: Bicillin L-A 1.2 million units Route: IM; Site: right gluteus; ae4 09:25 Follow up: Response: No adverse reaction ae4 Outcome: 08:57 Discharge ordered by . kb 09:24 Discharged to home ambulatory, with family. ae4 09:24 Condition: stable 09:24 Discharge instructions given to patient, Instructed on discharge instructions, follow up and referral plans. Demonstrated understanding of instructions. 09:24 Patient left the ED. ae4 Signatures: Shannon Benitez FNP-C FNP-Marcial Gerber MD MD kdr Martinez, Amelia as Smirch, Shelby, RN RN Eyad, Venkatesh, RN RN ae4
[2019-07-10] MEDS ORDERED: PEN G BENZ LA 1.2MU/2ML SYRINGE IM ONE (08:59)
[2019-07-10 09:31] VITALS: BP 117/88; TEMP 98.5; O2SAT 98
== END 2019-07-10 09:24 | disposition home or self-care (01) ==
LOC: ER 08:05
DX: J02.0 Streptococcal pharyngitis (principal)
CPT/HCPCS: 87081; 87804; 96372; 99284; J0561

== ENCOUNTER 2021-11-23 20:54 | Emergency (ER) | payer SELFPAY ==
--- OUTSIDE RECORDS SUMMARY | 2021-11-23 20:57 | XMS REPORT | Continuity of Care Document ---
:1990 Author Organization [facility] t Address [address] [place] [address] Dr. Stout [address] [place] [id number] Care Team Providers Name Role Phone Unavailable Unavailable Unavailable Problems This patient has no known problems. Allergies, Adverse Reactions, Alerts This patient has no known allergies or adverse reactions. Medications This patient has no known medications. Procedures This patient has no known procedures. Results This patient has no known results.
--- NOTE | 2021-11-23 21:35 | ER ---
Nurse's Notes [facility] Name: Gayle Ball Age: 31 yrs Sex: Female : 1990 Arrival Date: 11/23/2021 Time: 20:55 Bed 12 Private MD: Diagnosis: Otitis media, unspecified, left ear Presentation: 11/23 21:01 Chief complaint: Patient states: I am having left ear pain that has been present for jb4 about a month. Tonight is the worst and I am dizzy. Coronavirus screen: At this time, the client does not indicate any symptoms associated with coronavirus-19. Ebola Screen: No symptoms or risks identified at this time. Initial Sepsis Screen: Does the patient meet any 2 criteria? HR > 90 bpm. Yes Does the patient have a suspected source of infection? No. Patient's initial sepsis screen is negative. Risk Assessment: Do you want to hurt yourself or someone else? Patient reports no desire to harm self or others. Onset of symptoms was November 23, 2021. Transition of care: patient was not received from another setting of care. 21:01 Method Of Arrival: Wheelchair jb4 21:01 Acuity: CAMILA 3 jb4 Triage Assessment: 21:51 General: Appears in no apparent distress. Behavior is crying, inappropriate for age, vc1 restless. Pain: Complains of pain in left ear Pain does not radiate. Pain currently is 10 out of 10 on a pain scale. Pain began aprox 2-3 weeks Is continuous, Aggravated by cold, air. EENT: Reports pain in left ear. Historical: - Allergies: 21:02 No Known Allergies; jb4 - Home Meds: 21:02 None [Active]; jb4 - PMHx: 21:02 None; jb4 - PSHx: 21:02 ; jb4 - Immunization history:: Adult Immunizations up to date. - Social history:: Smoking status: Patient reports the use of cigarette tobacco products, smokes .25 packs per day. Screenin:50 Abuse screen: Denies threats or abuse. Nutritional screening: No deficits noted. vc1 Tuberculosis screening: No symptoms or risk factors identified. Fall Risk None identified. Vital Signs: 21:01 BP 127 / 96; Pulse 103; Resp 20; Temp 98.4; Pulse Ox 100% on R/A; Weight 65.77 kg (R); jb4 Height 5 ft. 1 in. (154.94 cm) (R); Pain 10/10; 21:01 Body Mass Index 27.40 (65.77 kg, 154.94 cm) jb4 ED Course: 20:55 Patient arrived in ED. bp1 21:01 Arm band placed on right wrist. jb4 21:02 Triage completed. jb4 21:21 Shannon Benitez FNP-C is [facility]. kb 21:21 Jus Trujillo MD is Attending Physician. kb 21:53 No provider procedures requiring assistance completed. Patient did not have IV access vc1 during this emergency room visit. 22:01 Patient has correct armband on for positive identification. Bed in low position. Adult vc1 w/ patient. Administered Medications: 21:33 Drug: HYDROcodone-acetaminophen 5 mg-325 mg 1 tabs Route: PO; vc1 21:34 Drug: Augmentin (Amoxicillin-Clavulanate) 875 mg Route: PO; vc1 Medication: 22:02 VIS not applicable for this client. vc1 Outcome: 21:34 Discharge ordered by . kb 21:53 Discharged to home ambulatory, with family. vc1 21:53 Condition: improved 21:53 Discharge instructions given to significant other. 22:02 Patient left the ED. vc1 Signatures: Shannon Benitez FNP-C FNP-Ckb Bryson, James RN RN jb4 Samantha Flores Vanessa, RN RN vc1 Corrections: (The following items were deleted from the chart) 21:03 21:01 Pulse 103bpm; Resp 20bpm; Pulse Ox 100% RA; Temp 98.4F; 65.77 kg Reported; Height jb4 5 ft. 1 in. Reported; BMI: 27.4; Pain 10/10; jb4
--- NOTE | 2021-11-23 21:35 | EDPHYS ---
Physician Documentation [facility] Name: Gayle Ball Age: 31 yrs Sex: Female : 1990 Arrival Date: 11/23/2021 Time: 20:55 Bed 12 Private MD: ED Physician Jus Trujillo HPI: 11/23 21:33 This 31 yrs old Black Female presents to ER via Wheelchair with complaints of Ear Pain, kb Dizziness. 21:33 The patient presents with pain, severe. The complaints affect the left ear. Onset: The kb symptoms/episode began/occurred 3 week(s) ago, and became worse today. Modifying factors: The symptoms are alleviated by nothing, the symptoms are aggravated by nothing. Associated signs and symptoms: The patient has no apparent associated signs or symptoms. Severity of symptoms: At their worst the symptoms were severe in the emergency department the symptoms are unchanged. The patient has not experienced similar symptoms in the past. The patient has not recently seen a physician. Historical: - Allergies: 21:02 No Known Allergies; jb4 - Home Meds: 21:02 None [Active]; jb4 - PMHx: 21:02 None; jb4 - PSHx: 21:02 ; jb4 - Immunization history:: Adult Immunizations up to date. - Social history:: Smoking status: Patient reports the use of cigarette tobacco products, smokes .25 packs per day. ROS: 21:33 Constitutional: Negative for fever, chills, and weight loss. kb 21:33 ENT: Positive for ear pain. 21:33 All other systems are negative. Exam: 21:32 Constitutional: This is a well developed, well nourished patient who is awake, alert, kb and in no acute distress. Head/Face: Normocephalic, atraumatic. Cardiovascular: Regular rate and rhythm with a normal S1 and S2. No gallops, murmurs, or rubs. No pulse deficits. Respiratory: Respirations even and unlabored. No increased work of breathing. Talking in full sentences Skin: Warm, dry with normal turgor. Normal color. MS/ Extremity: Pulses equal, no cyanosis. Neurovascular intact. Full, normal range of motion. Neuro: Awake and alert, GCS 15, oriented to person, place, time, and situation. Moves all extremities. Normal gait. Psych: Awake, alert, with orientation to person, place and time. Behavior, mood, and affect are within normal limits. 21:32 ENT: External ear(s): are unremarkable, Ear canal(s): are normal, TM's: bulging, on the left, erythema, that is moderate, on the left, fluid levels, on the left. Vital Signs: 21:01 BP 127 / 96; Pulse 103; Resp 20; Temp 98.4; Pulse Ox 100% on R/A; Weight 65.77 kg (R); jb4 Height 5 ft. 1 in. (154.94 cm) (R); Pain 10/10; 21:01 Body Mass Index 27.40 (65.77 kg, 154.94 cm) jb4 MDM: 21:21 Patient medically screened. kb 21:32 Data reviewed: vital signs, nurses notes. Data interpreted: Pulse oximetry: on room air kb is 100 %. Interpretation: normal. Counseling: I had a detailed discussion with the patient and/or guardian regarding: the historical points, exam findings, and any diagnostic results supporting the discharge/admit diagnosis, the need for outpatient follow up, a family practitioner, to return to the emergency department if symptoms worsen or persist or if there are any questions or concerns that arise at home. Administered Medications: 21:33 Drug: HYDROcodone-acetaminophen 5 mg-325 mg 1 tabs Route: PO; vc1 21:34 Drug: Augmentin (Amoxicillin-Clavulanate) 875 mg Route: PO; vc1 Disposition: 11/24 07:49 Co-signature as Attending Physician, Jus Trujillo MD. mh7 Disposition Summary: 11/23/21 21:34 Discharge Ordered Location: Home kb Condition: Stable kb Diagnosis - Otitis media, unspecified, left ear kb Followup: kb - With: Emergency Department - When: As needed - Reason: Worsening of condition Followup: kb - With: Private Physician - When: 2 - 3 days - Reason: Recheck today's complaints, Continuance of care, Re-evaluation by your physician Discharge Instructions: - Discharge Summary Sheet kb - Otitis Media, Adult, [id number] kb Forms: - Medication Reconciliation Form kb - Thank You Letter kb - Antibiotic Education kb - Prescription Opioid Use kb Prescriptions: - Amoxicillin 875 mg Oral Tablet - take 1 tablet by ORAL route every 12 hours for 10 days; 20 tablet; Refills: 0, kb Product Selection Permitted Signatures: Shannon Benitez, Unruly Leo, RN RN jb4 Jus Trujillo MD MD mh7 Mila Engle RN RN vc1
[2021-11-23] MEDS ORDERED: HYDROCODONE/APAP 5/325 MG TAB ONE (21:37)
[2021-11-23] MEDS ORDERED: AMOX/K CLAV 875 MG TAB ONE (21:37)
[2021-11-23 22:20] VITALS: BP 127/96; TEMP 98.4; O2SAT 100
== END 2021-11-23 22:02 | disposition home or self-care (01) ==
LOC: ER 20:54
DX: H66.92 Otitis media, unspecified, left ear (principal); F17.210 Nicotine dependence, cigarettes, uncomplicated
CPT/HCPCS: 99283

== ENCOUNTER 2023-01-26 01:40 | Emergency (ER) | payer SELFPAY ==
[2023-01-26] MEDS ORDERED: ACETAMINOPHEN 500 MG TAB ONE (04:09)
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
[2023-01-26 04:54] VITALS: TEMP 98.5; O2SAT 100
[2023-01-26 04:58] VITALS: BP 100/76
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
== END 2023-01-26 04:34 | disposition home or self-care (01) ==
LOC: ER 01:40
DX: S10.93XA Contusion of unspecified part of neck, initial encounter (principal)
CPT/HCPCS: 70450; 70498; 99283; Q9967

== ENCOUNTER 2023-04-28 17:56 | Emergency (ER) | payer SELFPAY ==
--- NOTE | 2023-04-28 18:18 | ER ---
Nurse's Notes [facility] Name: Gayle Ball Age: 33 yrs Sex: Female : 1990 Arrival Date: 04/28/2023 Time: 17:56 Bed 8 Private MD: Diagnosis: Otitis media, unspecified, right ear;Dental abscess Presentation: 04/28 18:05 Chief complaint: Patient states: She has been having right ear pain and right lower ap3 tooth pain for approx 2 days. patient reports the pain to be a 10/10 on the pain scale at this time. Coronavirus screen: At this time, the client does not indicate any symptoms associated with coronavirus-19. Ebola Screen: No symptoms or risks identified at this time. Initial Sepsis Screen: Does the patient meet any 2 criteria? HR > 90 bpm. Does the patient have a suspected source of infection? No. Patient's initial sepsis screen is negative. Risk Assessment: Do you want to hurt yourself or someone else? Patient reports no desire to harm self or others. Onset of symptoms was April 26, 2023. 18:05 Method Of Arrival: Ambulatory ap3 18:05 Acuity: CAMILA 4 ap3 Triage Assessment: 18:07 General: Appears uncomfortable, Behavior is calm, cooperative, appropriate for age. ap3 Pain: Complains of pain in right ear, lower right first molar, lower right second molar and lower right third molar Pain currently is 10 out of 10 on a pain scale. Pain began gradually, 2-3 days ago. EENT: Reports pain in right ear. Neuro: Level of Consciousness is awake, alert, obeys commands, Oriented to person, place, time, situation, Appropriate for age. Cardiovascular: Patient's skin is warm and dry. Respiratory: Airway is patent Respiratory effort is even, unlabored, Respiratory pattern is regular, symmetrical. 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 - Social history:: Smoking status: Patient reports the use of cigarette tobacco products, smokes one-half pack cigarettes per day. Screenin:08 [facility] ED Fall Risk Assessment (Adult) History of falling in the last 3 months, ap3 including since admission No falls in past 3 months (0 pts). Abuse screen: Denies threats or abuse. Nutritional screening: No deficits noted. Tuberculosis screening: No symptoms or risk factors identified. Assessment: 18:00 General: Appears in no apparent distress. uncomfortable, Behavior is calm, cooperative, ko1 appropriate for age. Pain: Complains of pain in lower right first molar (#30) and lower right second bicuspid (#29) and mouth and right ear and lower right third molar and lower right second molar and lower right first molar. Neuro: No deficits noted. Cardiovascular: No deficits noted. Respiratory: No deficits noted. GI: No deficits noted. : No deficits noted. EENT: No deficits noted. Derm: No deficits noted. Musculoskeletal: No deficits noted. Vital Signs: 18:05 BP 141 / 78; Pulse 118; Resp 19; Temp 98; Pulse Ox 100% ; Weight 77.11 kg; ap3 18:05 Pain 10/10; ap3 18:05 Pain Scale: Adult ap3 ED Course: 17:58 Patient arrived in ED. mg5 17:59 Shannon Benitez FNP-C is [facility]. kb 17:59 Elan Jurado MD is Attending Physician. kb 18:00 Provided Education on: na. Door closed. Noise minimized. Lights dimmed. Warm blanket ko1 given. 18:00 No provider procedures requiring assistance completed. ko1 18:07 Triage completed. ap3 18:08 Arm band placed on right wrist. ap3 18:08 Patient has correct armband on for positive identification. Bed in low position. Call ap3 light in reach. Side rails up X 1. Pulse ox on. NIBP on. 18:29 Jenny Welsh, SABRINA is Primary Nurse. ko1 18:30 Patient did not have IV access during this emergency room visit. ko1 Administered Medications: 18:31 Drug: Acetaminophen PO 1000 mg PO once Route: PO; hb 18:31 Follow up: Response: Medication administered at discharge. hb 18:31 Drug: Amoxicillin-Clavulanate PO 875 mg PO once Route: PO; hb 18:31 Follow up: Response: Medication administered at discharge. hb Medication: 18:08 VIS not applicable for this client. ap3 Outcome: 18:18 Discharge ordered by MD. mora 18:24 Discharged to home ambulatory, hb 18:24 Condition: stable 18:24 Discharge instructions given to patient, Instructed on discharge instructions, follow up and referral plans. medication usage, Demonstrated understanding of instructions, follow-up care, medications, Prescriptions given X 2, 19:05 Patient left the ED. as6 Signatures: Shannon Benitez, RAMON-C JAVA GROOVY DEVELOPER-Susie Jackson, SABRINA RN Rosaline Ruggiero RN RN ap3 Khalif Jaimes RN RN as6 Jenny Welsh RN RN ko1 Lilia France mg5
--- NOTE | 2023-04-28 18:18 | EDPHYS ---
Physician Documentation [facility] Name: Gayle Ball Age: 33 yrs Sex: Female : 1990 Arrival Date: 04/28/2023 Time: 17:56 Bed 8 Private MD: ED Physician Elan Jurado HPI: 04/28 18:16 This 33 yrs old Black Female presents to ER via Ambulatory with complaints of Ear Pain. kb 18:16 Patient is a 33-year-old female who presents for right ear pain and right dental pain kb that started 2 days ago. Denies fever.. 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 - Social history:: Smoking status: Patient reports the use of cigarette tobacco products, smokes one-half pack cigarettes per day. ROS: 18:15 Constitutional: Negative for fever, chills, and weight loss, kb 18:15 ENT: Positive for dental pain, ear pain, 18:15 All other systems are negative, Exam: 18:15 Constitutional: This is a well developed, well nourished patient who is awake, alert, kb and in no acute distress. Head/Face: Normocephalic, atraumatic. Cardiovascular: Regular rate Respiratory: Respirations even and unlabored. No increased work of breathing. Talking in full sentences Skin: Warm, dry with normal turgor. Normal color. MS/ Extremity: Pulses equal, no cyanosis. Neurovascular intact. Full, normal range of motion. Neuro: Awake and alert, GCS 15, oriented to person, place, time, and situation. Moves all extremities. Normal gait. 18:15 ENT: External ear(s): are unremarkable, Ear canal(s): are normal, TM's: erythema, that is moderate, on the right, Dental exam: abscess, that is mild, specifically in the lower right second bicuspid (#29), gum swelling, pain, that is moderate, specifically in the lower right second bicuspid (#29) and lower right first molar (#30), Vital Signs: 18:05 BP 141 / 78; Pulse 118; Resp 19; Temp 98; Pulse Ox 100% ; Weight 77.11 kg; ap3 18:05 Pain 10/10; ap3 18:05 Pain Scale: Adult ap3 MDM: 17:59 Patient medically screened. kb 18:15 Differential diagnosis: otitis media, otitis externa, ruptured TM, foreign body, acute kb otalgia, dental abscess, toothache, dental caries. Data reviewed: vital signs, nurses notes. Counseling: I had a detailed discussion with the patient and/or guardian regarding the historical points, exam findings, and any diagnostic results supporting the discharge/admit diagnosis, the need for outpatient follow up, a dentist, to return to the emergency department if symptoms worsen or persist or if there are any questions or concerns that arise at home. Administered Medications: 18:31 Drug: Acetaminophen PO 1000 mg PO once Route: PO; hb 18:31 Follow up: Response: Medication administered at discharge. hb 18:31 Drug: Amoxicillin-Clavulanate PO 875 mg PO once Route: PO; hb 18:31 Follow up: Response: Medication administered at discharge. Disposition: 18:35 I reviewed the patient's care provided by the Advanced Practice Provider and agree with jr the diagnosis and treatment plan. Disposition Summary: 04/28/23 18:18 Discharge Ordered Notes: Location: Home kb Condition: Stable kb Diagnosis - Otitis media, unspecified, right ear kb - Dental abscess kb Followup: kb - With: Emergency Department - When: As needed - Reason: Worsening of condition Followup: kb - With: Private Physician - When: 2 - 3 days - Reason: Recheck today's complaints, Continuance of care, Re-evaluation by your physician Discharge Instructions: - Discharge Summary Sheet kb - Otitis Media, Adult, [id number] kb - Dental Abscess, [id number] kb Forms: - Medication Reconciliation Form kb - Thank You Letter kb - Antibiotic Education kb - Prescription Opioid Use kb - Patient Portal Instructions kb - Leadership Thank You Letter kb Prescriptions: - Augmentin 875-125 mg Oral Tablet - take 1 tablet ORAL route every 12 hours for 10 days; 20 tablet; Refills: 0, kb Product Selection Permitted Signatures: Shannon Benitez, RAMON-C RAMON-Susie Jackson, RN RN hb Rosaline Ruggiero, RN RN ap3 Elan Jurado MD MD [id number]
[2023-04-28] MEDS ORDERED: ACETAMINOPHEN 500 MG TAB ONE (18:36)
[2023-04-28 19:24] VITALS: BP 141/78; TEMP 98; O2SAT 100
== END 2023-04-28 19:05 | disposition home or self-care (01) ==
LOC: ER 17:56
DX: H66.91 Otitis media, unspecified, right ear (principal); K04.7 Periapical abscess without sinus
CPT/HCPCS: 99283

== ENCOUNTER 2023-04-29 02:35 | Emergency (ER) | payer SELFPAY ==
--- NOTE | 2023-04-29 03:14 | EDPHYS ---
Physician Documentation [facility] Name: Gayle Ball Age: 33 yrs Sex: Female : 1990 Arrival Date: 04/29/2023 Time: 02:35 Bed 12 Private MD: ED Physician Kain Reeder HPI: 04/29 02:40 This 33 yrs old Black Female presents to ER via Unassigned with complaints of Ear Pain, sp4 rt side face pain. 02:41 Based on medical record patient was here on 04/28/2023 at 6 PM and was diagnosed with sp4 otitis media and dental abscess prescribed Augmentin p.o. . 03:30 Patient states she has developed moderate to severe right facial pain right dental pain sp4 that seems to be coming from the lower teeth #32, 31 and 30. Patient also reports associated right ear pain. Patient states that pain is intolerable. She was here yesterday and was given p.o. Tylenol and prescribed p.o. Augmentin. Patient is back with worsening right facial pain on the right dental pain.. 03:30 Patient is currently at EGA 26 weeks and 3 days, -0-0-2. sp4 Historical: - Allergies: 02:54 No Known Allergies; pf1 - PMHx: 02:54 None; pf1 - PSHx: 02:54 ; pf1 - Immunization history:: Adult Immunizations not up to date, Client reports having NOT received the Covid vaccine. Last tetanus immunization: > 10 years ago Flu vaccine is not up to date. - Social history:: Smoking status: Patient reports the use of cigarette tobacco products, denies chronic smoking, but will smoke occasionally, Patient/guardian denies using alcohol, street drugs. - Family history:: not pertinent. ROS: 03:30 Constitutional: Negative for fever, chills, and weight loss, ENT: Positive right facial sp4 pain, right lower dental pain, right ear pain 03:30 All other systems are negative, Exam: 03:30 Constitutional: This is a well developed, well nourished patient who is awake, alert, sp4 uncomfortable appearing female moderate distress secondary to pain. Head/Face: Normocephalic, atraumatic. Eyes: Pupils equal round and reactive to light, extra-ocular motions intact. Lids and lashes normal. Conjunctiva and sclera are not injected. Cornea within normal limits. Periorbital areas with no swelling, redness, or edema. ENT: Nares patent. No nasal discharge, no septal abnormalities noted. Tympanic membranes are normal and external auditory canals are clear. Oropharynx with no redness, swelling, or masses, exudates, or evidence of obstruction, uvula midline. Mucous membranes moist. There is moderate to severe decay teeth #32, 31, and 30. These dental structures decayed all the way to the gumline. There is moderate to severe tenderness and sensitivity right lower gingiva. There is extensive dental carious with associated periodontal disease with gum inflammation and irritation. Neck: Trachea midline, no thyromegaly or masses palpated, and no cervical lymphadenopathy. Supple, full range of motion without nuchal rigidity, or vertebral point tenderness. Chest/axilla: Normal chest wall appearance and motion. Nontender with no deformity. No lesions are appreciated. Cardiovascular: Regular rate and rhythm with a normal S1 and S2. No gallops, murmurs, or rubs. Normal PMI, no JVD. No pulse deficits. Respiratory: Lungs have equal breath sounds bilaterally, clear to auscultation and percussion. No rales, rhonchi or wheezes noted. No increased work of breathing, no retractions or nasal flaring. Abdomen/GI: Soft, non-tender, with normal bowel sounds. No distension or tympany. No guarding or rebound. No evidence of tenderness throughout. Positive gravid abdomen Back: No spinal tenderness. No costovertebral tenderness. Skin: Warm, dry with normal turgor. Normal color with no rashes, no lesions, and no evidence of cellulitis. MS/ Extremity: Pulses equal, no cyanosis. Neurovascular intact. Full, normal range of motion. Neuro: Awake and alert, GCS 15, oriented to person, place, time, and situation. Cranial nerves II-XII grossly intact. Motor strength 5/5 in all extremities. Sensory grossly intact. Psych: Awake, alert, with orientation to person, place and time. Behavior, mood, and affect are within normal limits Vital Signs: 02:51 BP 103 / 63; Pulse 70; Resp 16; Temp 97.8; Pulse Ox 98% on R/A; Weight 77.11 kg; Height pf1 5 ft. 0 in. ; Pain 10/10; 02:51 Body Mass Index 33.20 (77.11 kg, 152.4 cm) pf1 02:51 Pain Scale: Adult pf1 Procedures: 03:35 Nerve block: (dental) of right inferior alveolar nerve, Medication: Marcaine 0.5%, sp4 Amount: 10 mls were injected, Effect: the patient has resolution of the pain, Pain has completely resolved, Set up for procedure. Performed by Kain Reeder MD Patient tolerated well. Patient reported complete resolution of pain after the dental block. MDM: 03:04 Patient medically screened. sp4 03:33 Differential diagnosis: otitis media, otitis externa, foreign body, acute otalgia, sp4 cerumen impaction, barotrauma , serotympanum. Data reviewed: vital signs, nurses notes, old medical records. Consideration of Admission/Observation Escalation of care including admission/observation considered. ED course: Dental block was performed with bupivacaine 0.5 % with complete resolution of pain.. Patient was strongly advised to see dentist KENDRA for evaluation for dental extractions tooth #32, 31, 30. . Administered Medications: 03:15 Drug: [place] PO 10 mg-325 mg 1 tabs PO once Route: PO; pf1 03:39 Follow up: Response: No adverse reaction; Marked relief of symptoms; Pain is decreased; pf1 RASS: Alert and Calm (0) 03:15 Drug: Rocephin (cefTRIAXone) IM 1 grams IM once Route: IM; Site: right gluteus; pf1 03:39 Follow up: Response: No adverse reaction pf1 03:15 Drug: Promethazine PO 25 mg PO once Route: PO; pf1 03:39 Follow up: Response: No adverse reaction; Marked relief of symptoms; Pain is decreased; pf1 RASS: Alert and Calm (0) 03:25 Drug: Bupivacaine Infiltration (0.5 %) 20 ml 10 ml Infiltration once {Note: pf1 administered per Dr. Reeder.} Volume: 10 ml; Route: Infiltration; 03:38 Follow up: Response: No adverse reaction; Marked relief of symptoms; Pain is decreased; pf1 RASS: Alert and Calm (0) Disposition Summary: 04/29/23 03:13 Discharge Ordered Notes: Please visit Dentist KENDRA for dental extraction Location: Home sp4 Problem: new sp4 Symptoms: have improved sp4 Condition: Stable sp4 Diagnosis - Dental root caries sp4 - Dental caries, unspecified sp4 - Right upper dental pain sp4 - Dental decay teeth #32, 31, 30 sp4 Followup: sp4 - With: Curt Chicas DDS - When: 1 - 2 days - Reason: Recheck today's complaints Discharge Instructions: - Discharge Summary Sheet sp4 - Dental Pain, [id number] sp4 Forms: - Patient Portal Instructions sp4 Prescriptions: - acetaminophen-codeine 300-30 mg Oral tablet - take 1 tablet ORAL route every 8 hours PRN pain, Limit to 3 tablets per day; sp4 20 tablet; Refills: 0, Product Selection Permitted Signatures: Reina Angelo RN RN pf1 Kain Reeder MD MD sp4
--- NOTE | 2023-04-29 03:14 | ER ---
Nurse's Notes [facility] Name: Gayle Ball Age: 33 yrs Sex: Female : 1990 Arrival Date: 04/29/2023 Time: 02:35 Bed 12 Private MD: Diagnosis: Dental root caries;Dental caries, unspecified;Right upper dental pain;Dental decay teeth #32, 31, 30 Presentation: 04/29 02:51 Chief complaint: Patient states: right lower mouth/tooth pain of 10 that radiates to pf1 right ear,onset 2 days. Patient stated was seen here yesterday, was prescribed antibiotics, but has not been filled yet. Patient stated is currently 6 months . Coronavirus screen: Vaccine status: Patient reports being unvaccinated. Client denies travel out of the [place] in the last 14 days. Client presents with at least one sign or symptom that may indicate coronavirus-19. Ebola Screen: Patient negative for fever greater than or equal to 101.5 degrees Fahrenheit, and additional compatible Ebola Virus Disease symptoms. Initial Sepsis Screen: Does the patient meet any 2 criteria? No. Patient's initial sepsis screen is negative. Does the patient have a suspected source of infection? No. Patient's initial sepsis screen is negative. Risk Assessment: Do you want to hurt yourself or someone else? Patient reports no desire to harm self or others. 02:51 Method Of Arrival: Ambulatory pf1 02:51 Acuity: CAMILA 5 pf1 Triage Assessment: 02:57 General: see nurse assessment. pf1 Historical: - Allergies: 02:54 No Known Allergies; pf1 - PMHx: 02:54 None; pf1 - PSHx: 02:54 ; pf1 - Immunization history:: Adult Immunizations not up to date, Client reports having NOT received the Covid vaccine. Last tetanus immunization: > 10 years ago Flu vaccine is not up to date. - Social history:: Smoking status: Patient reports the use of cigarette tobacco products, denies chronic smoking, but will smoke occasionally, Patient/guardian denies using alcohol, street drugs. - Family history:: not pertinent. Screenin:57 [facility] ED Fall Risk Assessment (Adult) History of falling in the last 3 months, pf1 including since admission No falls in past 3 months (0 pts) Confusion or Disorientation No (0 pts) Intoxicated or Sedated No (0 pts) Impaired Gait No (0 pts) Mobility Assist Device Used No (0 pt) Altered Elimination No (0 pt) Score/Fall Risk Level 0 - 2 = Low Risk Oriented to surroundings, Maintained a safe environment, Educated pt \T\ family on fall prevention, incl call for assistance when getting out of bed, Assessed \T\ reinforced patient's understanding of fall precautions, Provided non-skid footwear, Hourly rounding (assess needs \T\ fall precautionary measures) done, Used ambulatory aids as needed (educated on \T\ assisted with), Used gait belt as appropriate. Abuse screen: Denies threats or abuse. Nutritional screening: No deficits noted. Tuberculosis screening: No symptoms or risk factors identified. Assessment: 02:55 General: Appears in no apparent distress. uncomfortable, well groomed, well developed, pf1 Behavior is cooperative, appropriate for age, restless. Pain: Complains of pain in mouth Pain currently is 10 out of 10 on a pain scale. Neuro: No deficits noted. Level of Consciousness is awake, alert, obeys commands, Oriented to person, place, time, situation. Cardiovascular: No deficits noted. Capillary refill < 3 seconds Patient's skin is warm and dry. Respiratory: No deficits noted. Airway is patent Respiratory effort is even, unlabored, Respiratory pattern is regular, symmetrical. GI: No deficits noted. No signs and/or symptoms were reported involving the gastrointestinal system. : No deficits noted. No signs and/or symptoms were reported regarding the genitourinary system. EENT: Reports pain. EENT: Reports pain in right lower mouth/tooth pain that radiates to right ear. Derm: No deficits noted. No signs and/or symptoms reported regarding the dermatologic system. Vital Signs: 02:51 BP 103 / 63; Pulse 70; Resp 16; Temp 97.8; Pulse Ox 98% on R/A; Weight 77.11 kg; Height pf1 5 ft. 0 in. ; Pain 10/10; 02:51 Body Mass Index 33.20 (77.11 kg, 152.4 cm) pf1 02:51 Pain Scale: Adult pf1 ED Course: 02:39 Patient arrived in ED. gm2 02:40 Kain Reeder MD is Attending Physician. sp4 02:54 Triage completed. pf1 02:57 Patient has correct armband on for positive identification. Bed in low position. Call pf1 light in reach. 02:57 Arm band placed on right wrist. pf1 02:57 No provider procedures requiring assistance completed. pf1 03:10 Curt Chicas DDS is Referral Physician. sp4 03:40 Provided Education on: follow up with dentist and prescription. pf1 03:40 Patient did not have IV access during this emergency room visit. pf1 Administered Medications: 03:15 Drug: Gary PO 10 mg-325 mg 1 tabs PO once Route: PO; pf1 03:39 Follow up: Response: No adverse reaction; Marked relief of symptoms; Pain is decreased; pf1 RASS: Alert and Calm (0) 03:15 Drug: Rocephin (cefTRIAXone) IM 1 grams IM once Route: IM; Site: right gluteus; pf1 03:39 Follow up: Response: No adverse reaction pf1 03:15 Drug: Promethazine PO 25 mg PO once Route: PO; pf1 03:39 Follow up: Response: No adverse reaction; Marked relief of symptoms; Pain is decreased; pf1 RASS: Alert and Calm (0) 03:25 Drug: Bupivacaine Infiltration (0.5 %) 20 ml 10 ml Infiltration once {Note: pf1 administered per Dr. Reeder.} Volume: 10 ml; Route: Infiltration; 03:38 Follow up: Response: No adverse reaction; Marked relief of symptoms; Pain is decreased; pf1 RASS: Alert and Calm (0) Medication: 03:41 VIS not applicable for this client. pf1 Outcome: 03:13 Discharge ordered by . sp4 03:39 Discharged to home ambulatory, with friend, pf1 03:39 Condition: improved 03:39 Discharge instructions given to patient, Instructed on discharge instructions, follow up and referral plans. Demonstrated understanding of instructions, follow-up care, medications, Prescriptions given X 1, 03:41 Patient left the ED. pf1 Signatures: Reina Angelo RN RN pf1 Kain Reeder MD MD sp4 Janeth Lassiter 2
[2023-04-29] MEDS ORDERED: CEFTRIAXONE 1000 MG/VIAL ONE (03:22)
[2023-04-29] MEDS ORDERED: PROMETHAZINE 25 MG TABLET ONE (03:22)
[2023-04-29] MEDS ORDERED: WATER FOR INJ,STERILE 10 ML ONE (03:23)
[2023-04-29] MEDS ORDERED: BUPIVACAINE 0.5% PF 10 ML VIAL ONE (03:35)
[2023-04-29 04:00] VITALS: BP 103/63; TEMP 97.8; O2SAT 98
== END 2023-04-29 03:41 | disposition home or self-care (01) ==
LOC: ER 02:35
DX: K02.7 Dental root caries (principal)
CPT/HCPCS: 96372; 99284; J0696; Q0169

== ENCOUNTER → 2023-06-05 | Emergency (ER) | payer SELFPAY ==
--- NOTE | 2023-06-05 06:35 | ER ---
Nurse's Notes [facility] Name: Gayle Ball Age: 33 yrs Sex: Female : 1990 Arrival Date: 06/05/2023 Time: 05:30 Bed 15 Private MD: Diagnosis: Upper respiratory infection, TM erythema/otitis media right side Presentation: 06/05 06:00 Chief complaint: Patient states: headache and right ear pain that started yesterday. as6 Coronavirus screen: At this time, the client does not indicate any symptoms associated with coronavirus-19. Ebola Screen: No symptoms or risks identified at this time. Initial Sepsis Screen: Does the patient meet any 2 criteria? No. Patient's initial sepsis screen is negative. Does the patient have a suspected source of infection? No. Patient's initial sepsis screen is negative. Risk Assessment: Do you want to hurt yourself or someone else? Patient reports no desire to harm self or others. Onset of symptoms was June 04, 2023. 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 - Social history:: Smoking status: Patient reports the use of cigarette tobacco products, smokes one-half pack cigarettes per day. Screenin:11 [facility] ED Fall Risk Assessment (Adult) History of falling in the last 3 months, tm6 including since admission No falls in past 3 months (0 pts). Abuse screen: Denies threats or abuse. Denies injuries from another. Nutritional screening: No deficits noted. Tuberculosis screening: No symptoms or risk factors identified. Assessment: 05:59 General: Appears in no apparent distress. Behavior is calm, cooperative. Pain: tm6 Complains of pain in right ear. 06:11 Pain: Pain currently is 9 out of 10 on a pain scale. Quality of pain is described as tm6 sharp, Pain began 1 day ago. Neuro: Level of Consciousness is awake, alert, obeys commands, Oriented to person, place, time, situation. Cardiovascular: Capillary refill < 3 seconds Patient's skin is warm and dry. Respiratory: Airway is patent Respiratory effort is even, unlabored, Respiratory pattern is regular, symmetrical. GI: Abdomen is round. : No signs and/or symptoms were reported regarding the genitourinary system. EENT: Reports pain in left ear Pain is 9 out of 10 on a pain scale. since yesterday evening. Derm: No signs and/or symptoms reported regarding the dermatologic system. Musculoskeletal: No signs and/or symptoms reported regarding the musculoskeletal system. Vital Signs: 05:58 BP 124 / 70; Pulse 111; Resp 19 S; Temp 98.6(TE); Pulse Ox 97% on R/A; Weight 82.1 kg as6 (R); Height 5 ft. 0 in. (R); Pain 9/10; 06:11 BP 108 / 67; Pulse 111; Pulse Ox 100% on R/A; Pain 9/10; tm6 06:46 BP 103 / 62; Pulse 114; Pulse Ox 100% on R/A; tm6 05:58 Body Mass Index 35.35 (82.10 kg, 152.4 cm) as6 05:58 Pain Scale: Adult as6 06:11 Pain Scale: Adult tm6 ED Course: 05:32 Patient arrived in ED. jj6 05:58 Arm band placed on. as6 05:59 Fernanda Pierce, RN is Primary Nurse. tm6 06:00 Triage completed. as6 06:11 Patient has correct armband on for positive identification. Bed in low position. Side tm6 rails up X2. Provided Education on: VS monitoring. Client placed on continuous cardiac and pulse oximetry monitoring. NIBP monitoring applied. Door closed. Noise minimized. Lights dimmed. Warm blanket given. 06:20 Mirza Martinez MD is Attending Physician. sp3 06:47 No provider procedures requiring assistance completed. Patient did not have IV access tm6 during this emergency room visit. Administered Medications: No medications were administered Medication: 06:11 VIS not applicable for this client. tm6 Outcome: 06:34 Discharge ordered by . sp3 06:47 Discharged to home ambulatory, tm6 06:47 Condition: stable 06:47 Discharge instructions given to patient, Instructed on discharge instructions, medication usage, Demonstrated understanding of instructions, follow-up care, medications, Prescriptions given X 1 06:47 Patient left the ED. tm6 Signatures: Mirza Martinez MD MD sp3 Kristen Mir6 Khalif Jaimes RN RN as6 Fernanda Pierce RN RN tm6
--- NOTE | 2023-06-05 06:35 | EDPHYS ---
Physician Documentation [facility] Name: Gayle Ball Age: 33 yrs Sex: Female : 1990 Arrival Date: 06/05/2023 Time: 05:30 Bed 15 Private MD: ED Physician Mirza Martinez HPI: 06/05 06:31 This 33 yrs old Black Female presents to ER via Ambulatory with complaints of Ear Pain, sp3 Headache. 06:31 33-year-old female who is 31 weeks presents with right-sided ear pain. Patient sp3 has had multiple episodes of this and prior has pain control related which she states she has already had her root canals that aspect is improved. Headache is mild and right-sided. Patient also has upper respiratory congestion. She is still not found an OB doctor because she states she only recently found out she was and she recently got her insurance in order. She states this is the week that she will get seen. Patient denies fever, left-sided headache, sore throat, chest pain, shortness of breath, back pain, abdominal pain, syncope, near syncope, rash, known sick contacts, travel history, or any other signs or symptoms on ROS at this time.. 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 - Social history:: Smoking status: Patient reports the use of cigarette tobacco products, smokes one-half pack cigarettes per day. ROS: 06:32 Constitutional: Negative for fever, chills, and weight loss, Eyes: Negative for injury, sp3 pain, redness, and discharge, Neck: Negative for injury, pain, and swelling, Cardiovascular: Negative for chest pain, palpitations, and edema, Respiratory: Negative for shortness of breath, cough, wheezing, and pleuritic chest pain, Abdomen/GI: Negative for abdominal pain, nausea, vomiting, diarrhea, and constipation, Back: Negative for injury and pain, MS/Extremity: Negative for injury and deformity, Skin: Negative for injury, rash, and discoloration, Neuro: Negative for headache, weakness, numbness, tingling, and seizure, Psych: Negative for depression, anxiety, suicide ideation, homicidal ideation, and hallucinations, Allergy/Immunology: Negative for hives, rash, and allergies, Endocrine: Negative for neck swelling, polydipsia, polyuria, polyphagia, and marked weight changes, Hematologic/Lymphatic: Negative for swollen nodes, abnormal bleeding, and unusual bruising, 06:32 All other systems are negative, Exam: 06:33 Constitutional: This is a well developed, well nourished patient who is awake, alert, sp3 and in no acute distress. Head/Face: Normocephalic, atraumatic. Eyes: Pupils equal round and reactive to light, extra-ocular motions intact. Lids and lashes normal. Conjunctiva and sclera are non-icteric and not injected. Cornea within normal limits. Periorbital areas with no swelling, redness, or edema. Neck: Trachea midline, no thyromegaly or masses palpated, and no cervical lymphadenopathy. Supple, full range of motion without nuchal rigidity, or vertebral point tenderness. No Meningismus. Chest/axilla: Normal chest wall appearance and motion. Nontender with no deformity. No lesions are appreciated. Cardiovascular: Regular rate and rhythm with a normal S1 and S2. No gallops, murmurs, or rubs. Normal PMI, no JVD. No pulse deficits. Respiratory: Lungs have equal breath sounds bilaterally, clear to auscultation and percussion. No rales, rhonchi or wheezes noted. No increased work of breathing, no retractions or nasal flaring. Back: No spinal tenderness. No costovertebral tenderness. Full range of motion. Skin: Warm, dry with normal turgor. Normal color with no rashes, no lesions, and no evidence of cellulitis. MS/ Extremity: Pulses equal, no cyanosis. Neurovascular intact. Full, normal range of motion. Neuro: Awake and alert, GCS 15, oriented to person, place, time, and situation. Cranial nerves II-XII grossly intact. Motor strength 5/5 in all extremities. Sensory grossly intact. Cerebellar exam normal. Normal gait. 06:33 ENT: Right TM with mild erythema.. 06:33 Abdomen/GI: Gravid uterus consistent with dates., Vital Signs: 05:58 BP 124 / 70; Pulse 111; Resp 19 S; Temp 98.6(TE); Pulse Ox 97% on R/A; Weight 82.1 kg as6 (R); Height 5 ft. 0 in. (R); Pain 9/10; 06:11 BP 108 / 67; Pulse 111; Pulse Ox 100% on R/A; Pain 9/10; tm6 06:46 BP 103 / 62; Pulse 114; Pulse Ox 100% on R/A; tm6 05:58 Body Mass Index 35.35 (82.10 kg, 152.4 cm) as6 05:58 Pain Scale: Adult as6 06:11 Pain Scale: Adult tm6 MDM: 06:20 Patient medically screened. sp3 06:33 Data reviewed: vital signs, nurses notes, old medical records. ED course: Will treat sp3 with Zithromax given and symptoms. I have urged patient to follow-up with OB and get proper care. No other emergency noted patient will be safely discharged home at this time. Heart rate on my exam was in the 90s.. Administered Medications: No medications were administered Disposition Summary: 06/05/23 06:34 Discharge Ordered Notes: Location: Home sp3 Condition: Stable sp3 Diagnosis - Upper respiratory infection, TM erythema/otitis media right side sp3 Followup: sp3 - With: Private Physician - When: Upon discharge from the Emergency Department - Reason: Continuance of care Discharge Instructions: - Discharge Summary Sheet sp3 - Upper Respiratory Infection, Adult sp3 Forms: - Medication Reconciliation Form sp3 - Thank You Letter sp3 - Antibiotic Education sp3 - Prescription Opioid Use sp3 - Patient Portal Instructions sp3 - Leadership Thank You Letter sp3 Prescriptions: - Zithromax Z-Berny 250 mg Oral Tablet - take 1 tablet ORAL route as directed for 5 days Day 1 - take two (2) tablets sp3 one time. Day 2, 3, 4 , 5 take one (1) tablet once daily.; 6 tablet; Refills: 0, Product Selection Permitted Signatures: Mirza Martinez MD MD sp3 Khalif Jaimes, RN RN as6
[2023-06-05 09:13] VITALS: TEMP 98.6
[2023-06-05 09:20] VITALS: BP 103/62; O2SAT 100
== END ==
LOC: ER 05:30
DX: O99.513 Diseases of the respiratory system complicating pregnancy, third trimester (principal); J06.9 Acute upper respiratory infection, unspecified; H66.91 Otitis media, unspecified, right ear; Z3A.33 33 weeks gestation of pregnancy; Z11.52 Encounter for screening for COVID-19
CPT/HCPCS: 99283

== ENCOUNTER → 2023-06-29 | Emergency (ER) | payer OTHER, SELFPAY ==
[~2023-06-29] MED LIST: ACETAMINOPHEN 500 MG TAB ONE; CEFTRIAXONE 1000 MG/VIAL ONE; NA CHLORIDE 0.9% 2,000 ML ONE
--- OUTSIDE RECORDS SUMMARY | 2023-06-29 13:24 | XMS REPORT | Continuity of Care Document ---
Author Name Unknown Address [address] [facility] [address] [place] [address] [facility] thconnect Address 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 Name Role Phone Pcp, Patient Does Not Have A Primary Care Physic raimundo MARY KAY THURSTON Attending Clinician Unavail able [facility] Attending Clinician Unavail able Jessie Mills RN Attending Clinician Unavailab le [facility] Admitting Clinician Unavail able Payers Payer Name Policy Type Policy Number Effective Date Expirati on Date Source Problems Condition Name Condition Details Condition Category Status Onset Date Resolution Date Last Treatment Date Treating Clinician Comments Source Well woman exam Well woman exam Disease Active 2016-06 00:00: 00 [facility] Tobacco use disorder Tobacco use disorder Disease Active 2016-06 00:00: 00 [facility] Depo-Prove ra contracept bowen status Depo-Prove ra contracept bowen status Disease Active 09-02 00:00: 00 [facility] Over weight Over weight Disease Active 09-02 00:00: 00 [facility] Contracept bowen management Contracept bowen management Disease Active 00:00: 00 [facility] Umbilical hernia, recurrence not specified Umbilical hernia, recurrence not specified Disease Active 00:00: 00 [facility] Allergies, Adverse Reactions, Alerts Allergy Name Allergy Type Status Severity Reaction(s) Onset Date Inactive Date Treating Clinician Comments Source NO KNOWN ALLERGIE S Drug Class Active [facility] Social History Social Habit Start Date Stop Date Quantity Comments Source History of tobacco use 2003-06-15 00:00:00 Cigarette Smoker [facility] of Social function 2019-03-08 00:00:00 2019-03-08 00:00:00 [facility] Alcohol intake 2018-10-03 00:00:00 2018-10-03 00:00:00 0 /d [facility] Tobacco use and exposure 2017-05-15 00:00:00 2017-05-15 00:00:00 Smokeless tobacco non-user [facility] Cigarettes smoked current (pack per day) - Reported 2017-05-15 00:00:00 2017-05-15 00:00:00 [facility] Cigarette pack-years 2017-05-15 00:00:00 2017-05-15 00:00:00 [facility] Sex Ass[birth year] At 1990 00:00:00 1990 00:00:00 [facility] Smoking Status Start Date Stop Date Source Smokes tobacco daily 2017-05-15 00:00:00 [facility] Medications Ordered Medication Name Filled Medication Name Start Date Stop Date Current Medication? Ordering Clinician Indication Dosage Frequency Signature (SIG) Comments Components Source ibuprofen 800 mg tablet 10-03 00:00: 00 Yes [id number] 800mg Take 1 tablet by mouth every 8 (eight) hours as needed (HEADACHE) . [facility] ibuprofen 800 mg tablet 10-03 00:00: 00 Yes [id number] 800mg Take 1 tablet by mouth every 8 (eight) hours as needed (HEADACHE) . [facility] HYDROcodone -acetaminop hen 5-325 mg tablet 2016-06 09:52: 37 Yes 1{tbl} Take 1 tablet by mouth every 6 (six) hours as needed. [facility] ferrous sulfate (IRON) 325 mg (65 mg iron) tablet 2016-06 09:52: 37 Yes 325mg Take 325 mg by mouth daily. [facility] HYDROcodone -acetaminop hen 5-325 mg tablet 2016-06 09:52: 37 Yes 1{tbl} Take 1 tablet by mouth every 6 (six) hours as needed. [facility] ferrous sulfate (IRON) 325 mg (65 mg iron) tablet 2016-06 09:52: 37 Yes 325mg Take 325 mg by mouth daily. [facility] metroNIDAZO LE 500 mg tablet 2016-06 00:00: 00 Yes [id number] 500mg Take 1 tablet by mouth 2 (two) times daily. [facility] metroNIDAZO LE 500 mg tablet 2016-06 00:00: 00 Yes [id number] 500mg Take 1 tablet by mouth 2 (two) times daily. [facility] Immunizations Ordered Immunization Name Filled Immunization Name Date Status Comments Source TD, NOS Unknown Completed [facility] TDAP Unknown Completed [facility] TD, NOS Unknown Completed [facility] TDAP Unknown Completed [facility] Encounters Start Date/Time End Date/Time Encounter Type Admission Type Attending [facility] Care Department Encounter ID Source 2023-06-26 00:00:00 2023-06-26 00:00:00 Outpatient [facility]G [facility] PRIV [id number] [facility] 2023-06-24 00:00:00 2023-06-24 00:00:00 Outpatient [facility] José Luis_G [facility] PRIV [id number] [facility] 2023-06-24 00:00:00 2023-06-24 00:00:00 Nurse Triage Jessie Mills [facility] [id number] [facility] 2023-06-23 00:00:00 2023-06-23 00:00:00 Outpatient PRIV PRIV [id number] [facility] Medical Notes Date/Time Note Provider Source 2023-06-24 11:41:00 [id number]+[id number]+ [id number]/YVUqbxP9wUqL82 08-07-091:41:00 Regardinmo preg - trouble walking - tightness in stomach - pain in vaginal area----- Message from Ruth Daly sent at 06/24/2023 11:41 AM 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 she has been having trouble walking and a tight feeling in her stomach x 1.5 weeks. Pain in vaginal area as if the baby is coming out.[phone] (home) [id number] encounter [id number]:41:40Telephon e encounter [id number]. [id number] for patient [id number] ed C-CDA narrative [id number] A Esber RN[address] Z[id number] [id number]- 10T11:41:401.2.840.456003.1.72.3. 15|[id number]. [id number] Jessie Mills RN [facility] 2023-06-24 11:41:00 [id number] [id number] HPajhWzqrw+dZmsahZqojvT9hdLreJt77 08-07-091:41:00 Reason for DispositionSecond attempt to contact family AND no contact made. Phone number verified.Protocols used: No Contact or Duplicate Contact Toqr-CPMQI-KZEE makes 2 unsuccessful attempts to reach patient. Message left on voicemail, if still needing to speak with a nurse call the AC. RN will close this encounter. [id number] encounter [id number]:50:28Telephon e encounter [id number]. [id number] for patient [id number] ed C-CDA narrative [address] D[id number] 2[id number]- 10T11:50:281.2.840.839432.1.72.3. 15|[id number]. [id number] [facility]"
[2023-06-29 14:11] LABS: Absolute Lymphocytes (CBC) 0.7 K/uL (0.7-4.9); Hematocrit 23.2 % (36.0-45.0); Lymphocytes % 6.7 % (15.3-44.8); MCV 71.9 fL (80-100); MPV 6.3 fL (7.6-11.3); Platelets 296 thou/uL (152-406); RBC Red Blood Cell Count 3.23 M/uL (3.86-4.86)
[2023-06-29 14:49] LABS: Albumin 2.4 g/dL (3.4-5.0); Bilirubin Total 0.5 mg/dL (0.2-1.0); Potassium 3.8 mEq/L (3.5-5.1); Protein, Total 7.2 g/dL (6.4-8.2)
[2023-06-29 14:49] LABS: SARS-CoV-2 Antigen Rapid Res Negative (Negative)
--- NOTE | 2023-06-29 14:55 | RAD REPORT ---
EXAM DESCRIPTION: US - OB Limited - 06/29/2023 2:46 pm CLINICAL HISTORY: ABD CRAMPING, , pain COMPARISON: <Comparisons> FINDINGS: A single cephalic presenting gestation is identified. Heart rate normal. Calculated ZA is 7.8 cm, lower end of normal range. Placenta is anterior, grade 2.
--- NOTE | 2023-06-29 15:09 | ER ---
Nurse's Notes [facility] [place] Name: Gayle Ball Age: 33 yrs Sex: Female : 1990 Arrival Date: 06/29/2023 Time: 13:21 Bed 1 Private MD: Diagnosis: 35 weeks gestation of ;Acute upper respiratory infection, unspecified;Fever, unspecified;Anemia, unspecified;Iron deficiency anemia, unspecified Presentation: 06/29 13:41 Chief complaint: Patient states: body aches, sore throat, and cough that began last aa5 night. Pt also c/o pain to right side of abdomen. Pt reports being 35 weeks . Coronavirus screen: cough unrelated to allergies. Ebola Screen: Patient denies travel to an Ebola-affected area in the 21 days before illness onset. Initial Sepsis Screen: Does the patient meet any 2 criteria? HR > 90 bpm. Does the patient have a suspected source of infection? No. Patient's initial sepsis screen is negative. Risk Assessment: Do you want to hurt yourself or someone else? Patient reports no desire to harm self or others. Onset of symptoms was June 2023. 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 - Social history:: Smoking status: Patient reports the use of cigarette tobacco products, denies chronic smoking, but will smoke occasionally. - Family history:: not pertinent. Screenin:06 [facility] ED Fall Risk Assessment (Adult) History of falling in the last 3 months, ap3 including since admission No falls in past 3 months (0 pts). Abuse screen: Denies threats or abuse. Nutritional screening: No deficits noted. Tuberculosis screening: No symptoms or risk factors identified. Assessment: 14:43 General: Appears distressed, uncomfortable, ill, Behavior is calm, cooperative, ko1 appropriate for age. Pain: Complains of pain in generalized. Neuro: No deficits noted. Cardiovascular: Rhythm is sinus tachycardia. Respiratory: No deficits noted. GI: No deficits noted. : No deficits noted. EENT: No deficits noted. Derm: No deficits noted. Musculoskeletal: No deficits noted. Vital Signs: 13:41 BP 125 / 79; Pulse 127; Resp 16 S; Temp 99.3(O); Pulse Ox 99% on R/A; Weight 84.82 kg aa5 (R); Height 5 ft. 0 in. (R); 14:43 BP 131 / 82; Pulse 112; Resp 16; Pulse Ox 100% on R/A; ko1 13:41 Body Mass Index 36.52 (84.82 kg, 152.4 cm) aa5 Vitals: 14:13 Heart Tones 162, found in RLQ. ko1 ED Course: 13:24 Patient arrived in ED. im 13:33 George Billings MD is Attending Physician. shawanda 13:40 Arm band placed on. aa5 13:42 Triage completed. aa5 13:44 Loni Stroud, RN is Primary Nurse. ph 14:06 Strep Sent. ap3 14:06 Flu Sent. ap3 14:06 SARS RAPID Sent. ap3 14:06 Comprehensive Metabolic Panel Sent. ap3 14:06 CBC with Diff Sent. ap3 14:06 Initial lab(s) drawn, by me, sent to lab. Inserted saline lock: 20 gauge in right ap3 antecubital area, using aseptic technique. Blood collected. 14:07 Patient has correct armband on for positive identification. Bed in low position. Call ap3 light in reach. Side rails up X2. Adult w/ patient. 14:43 Provided Education on: . Pulse ox on. NIBP on. Door closed. Noise minimized. Lights ko1 dimmed. Warm blanket given. 14:48 US OB Limited In Process Unspecified. EDMS 15:40 No provider procedures requiring assistance completed. IV discontinued, intact, ko1 bleeding controlled, No redness/swelling at site. Pressure dressing applied. Administered Medications: 14:27 Drug: Acetaminophen PO 1000 mg PO once Route: PO; tl4 14:28 Drug: NS 0.9% IV 1000 ml IV at 1 bolus Per protocol; 1000 mL bolus Route: IV; Rate: 1 tl4 bolus; Site: right antecubital; 14:28 Drug: NS 0.9% IV 1000 ml IV at 1 bolus Per protocol; 1000 mL bolus Route: IV; Rate: 1 tl4 bolus; Site: right antecubital; 15:21 Drug: Rocephin IV 1 grams IV at per protocol once; Given slow IV push per pharmacy ko1 instructions Route: IV; Rate: per protocol; Site: right antecubital; Medication: 15:40 VIS not applicable for this client. ko1 Outcome: 15:09 Discharge ordered by . shawanda 15:40 Discharged to home ambulatory, ko1 15:40 Condition: stable 15:40 Discharge instructions given to patient, Instructed on discharge instructions, follow up and referral plans. medication usage, Demonstrated understanding of instructions, follow-up care, medications, Prescriptions given X 3, 15:50 Patient left the ED. ko1 Signatures: Dispatcher [employer] EDMS George Billings MD MD cha Calderon, Audri, RN RN aa5 Loni Struod RN RN Rosaline Melgar RN RN ap3 Jenny Welsh RN RN ko1 Thelma Chapman Toni tl4
--- NOTE | 2023-06-29 15:09 | EDPHYS ---
Physician Documentation [facility] Name: Gayle Ball Age: 33 yrs Sex: Female : 1990 Arrival Date: 06/29/2023 Time: 13:21 Bed 1 Private MD: ED Physician George Billings HPI: 06/29 15:00 This 33 yrs old Black Female presents to ER via Wheelchair with complaints of Flu shawanda Symptoms, 35 weeks . 15:00 The patient presents to the emergency department with abdominal pain, described as shawanda achy. The estimated gestational age is 35 weeks. course: care: private OB physician. Previous pregnancies: in previous pregnancies patient has had vaginal delivery. Associated signs and symptoms: Pertinent positives: fever. The patient or guardian reports cough, that is intermittent, flu symptoms, arthralgias, low-grade fever, myalgias. Modifying factors: The symptoms are alleviated by nothing. the symptoms are aggravated by nothing. Onset: The symptoms/episode began/occurred 2 day(s) ago. 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 - Social history:: Smoking status: Patient reports the use of cigarette tobacco products, denies chronic smoking, but will smoke occasionally. - Family history:: not pertinent. ROS: 15:00 Eyes: Negative for injury, pain, redness, and discharge, Neck: Negative for injury, shawanda pain, and swelling, Cardiovascular: Negative for chest pain, palpitations, and edema, Abdomen/GI: Negative for abdominal pain, nausea, vomiting, diarrhea, and constipation, Back: Negative for injury and pain, : Negative for injury, bleeding, discharge, and swelling, MS/Extremity: Negative for injury and deformity, Skin: Negative for injury, rash, and discoloration, Neuro: Negative for headache, weakness, numbness, tingling, and seizure, Psych: Negative for depression, anxiety, suicide ideation, homicidal ideation, and hallucinations, Allergy/Immunology: Negative for hives, rash, and allergies, Endocrine: Negative for neck swelling, polydipsia, polyuria, polyphagia, and marked weight changes, Hematologic/Lymphatic: Negative for swollen nodes, abnormal bleeding, and unusual bruising, 15:00 Constitutional: Positive for body aches, chills, fatigue, fever, malaise, 15:00 Cardiovascular: Positive for palpitations, 15:00 Respiratory: Positive for cough, 15:00 Abdomen/GI: Positive for abdominal distension, 15:00 : Negative for urinary symptoms, urinary frequency, small amounts, hematuria, burning with urination, difficulty urinating, Exam: 15:00 Constitutional: This is a well developed, well nourished patient who is awake, alert, shawanda and in no acute distress. Head/Face: Normocephalic, atraumatic. Eyes: Pupils equal round and reactive to light, extra-ocular motions intact. Lids and lashes normal. Conjunctiva and sclera are non-icteric and not injected. Cornea within normal limits. Periorbital areas with no swelling, redness, or edema. Neck: Trachea midline, no thyromegaly or masses palpated, and no cervical lymphadenopathy. Supple, full range of motion without nuchal rigidity, or vertebral point tenderness. No Meningismus. Chest/axilla: Normal chest wall appearance and motion. Nontender with no deformity. No lesions are appreciated. Cardiovascular: Regular rate and rhythm with a normal S1 and S2. No gallops, murmurs, or rubs. Normal PMI, no JVD. No pulse deficits. Respiratory: Lungs have equal breath sounds bilaterally, clear to auscultation and percussion. No rales, rhonchi or wheezes noted. No increased work of breathing, no retractions or nasal flaring. Abdomen/GI: Soft, non-tender, with normal bowel sounds. No distension or tympany. No guarding or rebound. No evidence of tenderness throughout. Back: No spinal tenderness. No costovertebral tenderness. Full range of motion. Skin: Warm, dry with normal turgor. Normal color with no rashes, no lesions, and no evidence of cellulitis. MS/ Extremity: Pulses equal, no cyanosis. Neurovascular intact. Full, normal range of motion. Neuro: Awake and alert, GCS 15, oriented to person, place, time, and situation. Cranial nerves II-XII grossly intact. Motor strength 5/5 in all extremities. Sensory grossly intact. Cerebellar exam normal. Normal gait. Psych: Awake, alert, with orientation to person, place and time. Behavior, mood, and affect are within normal limits. 15:00 ENT: Mouth: Oral mucosa: normal, pink and intact, Gums: normal with healthy appearance, Tongue: is normal, Posterior pharynx: Tonsils: with erythema, Vital Signs: 13:41 BP 125 / 79; Pulse 127; Resp 16 S; Temp 99.3(O); Pulse Ox 99% on R/A; Weight 84.82 kg aa5 (R); Height 5 ft. 0 in. (R); 14:43 BP 131 / 82; Pulse 112; Resp 16; Pulse Ox 100% on R/A; ko1 13:41 Body Mass Index 36.52 (84.82 kg, 152.4 cm) aa5 MDM: 13:33 Patient medically screened. [facility] 15:07 Differential diagnosis: bronchitis, flu, URI, viral Infection, bacterial infection, shawanda URI, bronchitis, pneumonia UTI. Antibiotic administration: The patient is discharged and will get outpatient antibiotics, Amoxicillin. Differential Diagnosis sepsis, flu. Data reviewed: vital signs, nurses notes, lab test result(s), CBC, electrolytes, Flu: negative hepatic panel. Consideration of Admission/Observation Escalation of care including admission/observation considered. I considered the following discharge prescriptions or medication management in the emergency department Medications were administered in the Emergency Department. See MAR. Test considered but Not performed: X-ray: NO CHEST X RAY. Historians other than the Patient: Family Member: GRADFATHER. 06/29 13:34 Order name: CBC with Diff; Complete Time: 14:54 [facility] 06/29 13:34 Order name: Comprehensive Metabolic Panel; Complete Time: 14:54 [facility] 06/29 13:34 Order name: SARS RAPID; Complete Time: 14:54 [facility] 06/29 13:34 Order name: Flu; Complete Time: 14:54 [facility] 06/29 13:34 Order name: Strep [facility] 06/29 14:37 Order name: Throat Culture [facility] 06/29 14:03 Order name: US OB Limited; Complete Time: 14:59 [facility] 06/29 13:34 Order name: FHT's; Complete Time: 14:13 [facility] 06/29 14:10 Order name: Labs - recollect needed: recollect sars, use foam tip; Complete Time: 14:27 bd Administered Medications: 14:27 Drug: Acetaminophen PO 1000 mg PO once Route: PO; tl4 14:28 Drug: NS 0.9% IV 1000 ml IV at 1 bolus Per protocol; 1000 mL bolus Route: IV; Rate: 1 tl4 bolus; Site: right antecubital; 14:28 Drug: NS 0.9% IV 1000 ml IV at 1 bolus Per protocol; 1000 mL bolus Route: IV; Rate: 1 tl4 bolus; Site: right antecubital; 15:21 Drug: Rocephin IV 1 grams IV at per protocol once; Given slow IV push per pharmacy ko1 instructions Route: IV; Rate: per protocol; Site: right antecubital; Disposition Summary: 06/29/23 15:09 Discharge Ordered Notes: Location: Home shawanda Problem: new shawanda Symptoms: have improved shawanda Condition: Stable shawanda Diagnosis - 35 weeks gestation of shawanda - Acute upper respiratory infection, unspecified shawanda - Fever, unspecified shawanda - Anemia, unspecified shawanda - Iron deficiency anemia, unspecified shawanda Followup: [facility] - With: Private Physician - When: 2 - 3 days - Reason: Recheck today's complaints, Continuance of care, Re-evaluation by your physician Discharge Instructions: - Discharge Summary Sheet shawanda - Iron Deficiency Anemia, Adult shawanda - Anemia shawanda - Iron-Rich Diet shawanda - Fever, Adult shawanda - Care shawanda - Upper Respiratory Infection, Adult shawanda - Viral Respiratory Infection shawanda - Cool Mist Vaporizer shawanda - Upper Respiratory Infection, Adult, [id number] shawanda - Viral Respiratory Infection, [id number] shawanda - Cough, Adult shawanda - Preventing Iron Deficiency Anemia, Adult shawanda Forms: - Medication Reconciliation Form [facility] - Thank You Letter [facility] - Antibiotic Education [facility] - Prescription Opioid Use [facility] - Patient Portal Instructions [facility] - Leadership Thank You Letter [facility] Prescriptions: - ondansetron 4 mg Oral Tablet,disintegrating - take 1 tablet ORAL route every 6 to 8 hours for 3 days as needed for nausea and shawanda vomiting; 15 tablet; Refills: 0, Product Selection Permitted - Augmentin 875-125 mg Oral Tablet - take 1 tablet ORAL route every 12 hours for 10 days; 20 tablet; Refills: 0, shawanda Product Selection Permitted - Ferrous Sulfate 325 mg (65 mg Iron) Oral Tablet - take 1 tablet ORAL route every 8 hours; 90 tablet; Refills: 0, Product [facility] Selection Permitted Signatures: Dispatcher [employer] Hilda Mcdonald Corey, MD MD cha Calderon, Audri, RN RN aa5 Jenny Welsh RN RN ko1 Farhad Slaughter4
[2023-06-29 15:59] VITALS: BP 131/82; TEMP 99.3; O2SAT 100
== END ==
LOC: ER 13:21
DX: O99.513 Diseases of the respiratory system complicating pregnancy, third trimester (principal); J06.9 Acute upper respiratory infection, unspecified; O99.013 Anemia complicating pregnancy, third trimester; D50.9 Iron deficiency anemia, unspecified; Z3A.35 35 weeks gestation of pregnancy; O99.333 Smoking (tobacco) complicating pregnancy, third trimester; F17.210 Nicotine dependence, cigarettes, uncomplicated; Z11.52 Encounter for screening for COVID-19
CPT/HCPCS: 87070; 85025; 36415; 87081; 80053; 87804 ×2; 76815; 96374; 99284; 87811; J7030; J0696

== ENCOUNTER 2023-09-29 13:08 | Emergency (ER) | payer OTHER ==
--- OUTSIDE RECORDS SUMMARY | 2023-09-29 13:12 | XMS REPORT | Continuity of Care Document ---
Author Name Unknown Address [address] [facility] [place] [address] [facility] thconnect Address [address] [facility] [address] [place] [address] Care Team Providers Care Funding Analyst Name Role Phone PCP, PATIENT DOES NOT HAVE A Primary Care Physic raimundo Unavailable SARA Attending Clinician Unavailable MARY KAY TAFOYA Attending Clinician Unavail able MOY HUTTON Attending Clinician Unavailable Reinaldo TAPIA, Moy Benavides Attending Clinician [phone] Visit, [facility] Nurse Attending Clinician Unava ilmaksim Tafoya Mary Kay RUIZ Attending Clinician + Doctor Unassigned, [place] Attending Clinician U Mindy Stoner MD Attending Clinician [phone] MARGIE NEWBERRY Attending Clinician MARGIE Arnold Attending Clinician Miguel Mcgowan CRNA Attending Clinician [phone] MINDY PULLIAM Attending Clinician Unavailable EDILIA_DIONISIO_José Luis_Bailey Attending Clinician Unavail able Jessie Mills RN Attending Clinician Unavailab MYO Rose Admitting Clinician Unavailable SARA Admitting Clinician Unavailable Moy Hutton MD Admitting Clinician [phone] MARGIE NEWBERRY Admitting Clinician MINDY Addison Admitting Clinician Mindy Jensen MD Admitting Clinician _DIONISIO_José Luis_Bailey Admitting Clinician Unavail able Payers Payer Name Policy Type Policy Number Effective Date Expirati on Date Source [employer] [place] [id number] 2023 00:00:00 [facility] JAMEY [id number] 2023 00:00:00 Problems Condition Name Condition Details Condition Category Status Onset Date Resolution Date Last Treatment Date Treating Clinician Comments Source Liveborn infant, of [place] , born in hospital by delivery Liveborn infant, of [place] , born in hospital by delivery Disease Active 07-21 00:00: 00 [facility] Other immediate hemorrhage Other immediate hemorrhage Disease Active 07-21 00:00: 00 [facility] Acute on chronic anemia Acute on chronic anemia Disease Active 07-21 00:00: 00 [facility] Obesity (BMI 30-39.9) Obesity (BMI 30-39.9) Disease Active 07-20 00:00: 00 [facility] 38 weeks gestation of 38 weeks gestation of Disease Active 07-20 00:00: 00 [facility] History of section History of section Disease Active 07-14 00:00: 00 Overview: Formattin g of this note might be different from the original. x2 [facility] Multiparit y Multiparit y Disease Active 07-14 00:00: 00 [facility] Supervisio n of high-risk with insufficie nt care Supervisio n of high-risk with insufficie nt care Disease Active 07-14 00:00: 00 [facility] History of pre-eclamp wendy History of pre-eclamp wendy Disease Active 07-14 00:00: 00 Overview: Formattin g of this note might be different from the original. With first baby in [facility] Obesity in Obesity in Disease Active 07-10 00:00: 00 [facility] Obesity (BMI 30-39.9) Obesity (BMI 30-39.9) Disease Active 07-10 00:00: 00 [facility] Tobacco use in Tobacco use in Disease Active 2016-06 00:00: 00 [facility] Well woman exam Well woman exam Disease Active 2016-06 00:00: 00 [facility] Tobacco use disorder Tobacco use disorder Disease Active 2016-06 00:00: 00 [facility] Depo-Prove ra contracept bowen status Depo-Prove ra contracept bowen status Disease Active 09-02 00:00: 00 [facility] Over weight Over weight Disease Active 09-02 00:00: 00 [facility] Contracept bowen management Contracept bowen management Disease Active 00:00: 00 [facility] Umbilical hernia, recurrence not specified Umbilical hernia, recurrence not specified Disease Active 00:00: 00 [facility] Allergies, Adverse Reactions, Alerts Allergy Name Allergy Type Status Severity Reaction(s) Onset Date Inactive Date Treating Clinician Comments Source NO KNOWN ALLERGIE S Drug Class Active [facility] Social History Social Habit Start Date Stop Date Quantity Comments Source ASSERTION 2022-11-05 00:00:00 [facility] History of tobacco use 2003-06-15 00:00:00 Passive smoker [facility] Alcohol intake 2023-07-29 00:00:00 2023-07-29 00:00:00 0 /d [facility] Tobacco use and exposure 2023-07-20 00:00:00 2023-07-20 00:00:00 Smokeless tobacco non-user [facility] Education - What is the highest level of school you have completed or the highest degree you have received? 2023-07-20 00:00:00 2023-07-20 00:00:00 12th grade [facility] Cigarettes smoked current (pack per day) - Reported 2023-07-20 00:00:00 2023-07-20 00:00:00 [facility] Cigarette pack-years 2023-07-20 00:00:00 2023-07-20 00:00:00 [facility] History of Social function 2023-07-14 00:00:00 2023-07-14 00:00:00 [facility] Sex Assigned At 1990 00:00:00 1990 00:00:00 [facility] Smoking Status Start Date Stop Date Source Ex-smoker 2023-07-20 00:00:00 2023-07-20 [facility] Sm[facility] tobacco daily 2017-05-15 00:00:00 [facility] Medications Ordered Medication Name Filled Medication Name Start Date Stop Date Current Medication? Ordering Clinician Indication Dosage Frequency Signature (SIG) Comments Components Source acetaminoph en (TYLENOL) tablet 1,000 mg 07-30 03:00: 00 07-30 05:06 :00 No 1000mg 1,000 mg, Oral, ONCE, 1 dose, On Thu07/29/23 at 2100, Routine [facility] PNV 67-iron ps-folate no.1-dha (VITAFOL ULTRA) 29 mg iron- 1 mg-200 mg Cap 07-23 00:00: 00 Yes 1{tbl} Take 1 tablet by mouth in the morning. If insurance does not cover can substituen t with any other mediation that contains components . [facility] medroxyPROG ESTERone (DEPO-PROVE RA) injection 150 mg 07-22 14:30: 00 Yes 150mg 150 mg, Intramuscu lar, [id number], First dose on Thu07/22/23 at 0830, Until Discontinu ed, Routine [facility] HYDROcodone -acetaminop hen 5-325 mg tablet 07-22 08:33: 21 07-22 00:00 :00 No 1{tbl} Take 1 tablet by mouth every 6 (six) hours as needed. [facility] ferrous sulfate (IRON) 325 mg (65 mg iron) tablet 07-22 08:33: 21 07-22 00:00 :00 No 325mg Take 1 tablet by mouth in the morning. [facility] ferrous sulfate 325 mg (65 mg iron) tablet 07-22 00:00: 00 Yes [id number] 325mg Take 1 tablet by mouth in the morning and 1 tablet in the evening. [facility] ibuprofen 600 mg tablet 07-22 00:00: 00 Yes [id number] 600mg Take 1 tablet by mouth every 6 (six) hours. [facility] gabapentin 300 mg capsule 07-22 00:00: 00 Yes [id number] 300mg Take 1 capsule by mouth in the morning and 1 capsule at noon and 1 capsule in the evening. [facility] docusate 100 mg capsule 07-22 00:00: 00 Yes [id number] 200mg Take 2 capsules by mouth once daily as needed for Constipati on. [facility] HYDROcodone -acetaminop hen 5-325 mg tablet 07-22 00:00: 00 07-30 05:59 :00 No [id number] 1{tbl} Take 1 tablet by mouth every 6 (six) hours as needed for Pain (scale 7-10) (Alternate with Ibuprofen) for up to 7 days. Indication s: acute pain [facility] vitamin w/FA tablet 07-22 00:00: 00 07-23 00:00 :00 No [id number] 1{tbl} Take 1 tablet by mouth in the morning. [facility] ibuprofen (IBU) tablet 600 mg 07-21 20:14: 00 Yes 600mg 600 mg, Oral, Q6H ABX, First dose (after last modificati on) on Thu07/21/23 at 1415, Until Discontinu ed, Routine [facility] acetaminoph en (TYLENOL) tablet 650 mg 07-21 15:00: 00 Yes 650mg 650 mg, Oral, Q6H ABX, First dose (after last reorder) on Thu07/21/23 at 0900, Until Discontinu ed, Routine [facility] gabapentin (NEURONTIN) capsule 300 mg 07-21 14:45: 00 Yes 300mg 300 mg, Oral, TID, First dose on Thu07/21/23 at 0845, Until Discontinu ed, Routine [facility] HYDROcodone -acetaminop hen (NORCO 5) 5-325 mg tablet 1 tablet 07-21 14:34: 49 Yes 1{tbl} 1 tablet, Oral, Q6HPRN, Starting on Thu07/21/23 at 0834, Until Discontinu ed, Routine, Pain (scale 7-10), Alternate with Ibuprofen [facility] ferrous sulfate tablet 325 mg 07-21 14:00: 00 Yes 325mg 325 mg, Oral, BID, First dose on Thu07/21/23 at 0800, Until Discontinu ed, [facility]am (UNASYN) 3 g in NaCl 0.9% (NS) 100 mL MINI-BAG 07-21 02:00: 00 07-21 02:57 :00 No 3g 3 g, IV Piggyback, ONCE, 1 dose, On Thu07/20/23 at 2014, Administer over 30 Minutes, 100 mL
Reas on for Anti-Infec tive: Empiric Non-Surgic al Prophylaxi s
Durat ion of therapy: Once (ED) [facility] methylergon ovine (METHERGINE ) injection 0.2 mg 07-20 22:00: 00 07-21 02:43 :10 No .2mg 0.2 mg, Intramuscu lar, Q4H, First dose on Thu07/20/23 at 1600, Until Discontinu ed, Routine [facility] miSOPROStoL (CYTOTEC) tablet 800 mcg 07-20 22:00: 00 07-21 02:43 :10 No 800ug 800 mcg, Oral, QID, First dose on Thu07/20/23 at 1600, Until Discontinu ed, Routine [facility] rho(D) immune globulin (RHOGAM) syringe 300 mcg 07-20 20:12: 19 Yes 300ug 300 mcg, Intramuscu lar, ONCE, For 1 dose, Conditiona l, Routine [facility] HYDROcodone -acetaminop hen (NORCO 5) 5-325 mg tablet 2 tablet 07-20 20:11: 45 07-21 14:35 :53 No 2{tbl} 2 tablet, Oral, Q6HPRN, Starting on Thu07/20/23 at 1411, Until Thu07/21/23 at 0835, Routine, Pain (scale 7-10), Alternate with Ibuprofen [facility] HYDROcodone -acetaminop hen (NORCO 5) 5-325 mg tablet 1 tablet 07-20 20:11: 41 07-21 14:35 :53 No 1{tbl} 1 tablet, Oral, Q6HPRN, Starting on Thu07/20/23 at 1411, Until Thu07/21/23 at 0835, Routine, Pain (scale 4-6), Alternate with Ibuprofen [facility] ibuprofen (IBU) tablet 600 mg 07-20 20:11: 11 07-21 14:35 :53 No 600mg 600 mg, Oral, Q6HPRN, Starting on Thu07/20/23 at 1411, Until Thu07/21/23 at 0835, Routine, Pain (scale 1-3) [facility] diphenhydrA MINE (BENADRYL) injection 25 mg 07-20 20:10: 18 Yes 25mg 25 mg, Slow IV Push, Q6HPRN, Starting on Thu07/20/23 at 1410, Until Discontinu ed, Routine, Itching [facility] diphenhydrA MINE (BENADRYL) tablet 25 mg 07-20 20:10: 18 Yes 25mg 25 mg, Oral, Q6HPRN, Starting on Thu07/20/23 at 1410, Until Discontinu ed, Routine, Sleep, Itching [facility] ondansetron (ZOFRAN (PF)) injection 4 mg 07-20 20:10: 18 Yes 4mg 4 mg, Slow IV Push, Q8HPRN, Starting on Thu07/20/23 at 1410, Until Discontinu ed, Routine, Nausea and Vomiting (N/V) [facility] bisacodyL (DULCOLAX) suppository 10 mg 07-20 20:10: 18 Yes 10mg 10 mg, Rectal, QDAILYPRN, Starting on Thu07/20/23 at 1410, Until Discontinu ed, Routine, Constipati on [facility] simethicone (GAS RELIEF (SIMETHICON E)) chewable tablet 160 mg 07-20 20:10: 18 Yes 160mg 160 mg, Oral, PC+HSPRN, Starting on Thu07/20/23 at 1410, Until Discontinu ed, Routine, Gas [facility] docusate (COLACE) capsule 200 mg 07-20 20:10: 18 Yes 200mg 200 mg, Oral, QDAILYPRN, Starting on Thu07/20/23 at 1410, Until Discontinu ed, Routine, Constipati on [facility] magnesium hydroxide (MILK OF MAGNESIA) 400 mg/5 mL suspension 30 mL 07-20 20:10: 18 Yes 30mL 30 mL, Oral, QDAILYPRN, Starting on Thu07/20/23 at 1410, Until Discontinu ed, Routine, Constipati on [facility] lactated ringers IV infusion 1,000 mL 07-20 20:10: 18 Yes 1000mL at 125 mL/hr, 1,000 mL, IV Infusion, PRN, 1 dose, Starting on Thu07/20/23 at 1410, Until Discontinu ed, Routine [facility] acetaminoph en (TYLENOL) tablet 650 mg 07-20 15:45: 00 07-20 20:12 :17 No 650mg 650 mg, Oral, ONCE, 1 dose, On Thu07/20/23 at 0945, Routine [facility] sodium citrate-cit lyn acid (BICITRA) 500-334 mg/5 mL solution 30 mL 07-20 15:34: 08 07-20 18:31 :00 No 30mL 30 mL, Oral, PRE-PROCED URE ONCE, 1 dose, Starting on Thu07/20/23 at 0934, Until Thu07/22/23 at 2359, Routine, Surgery/Pr ocedure [facility] acetaminoph en (TYLENOL) tablet 650 mg 07-20 15:30: 00 07-20 17:30 :00 No 650mg 650 mg, Oral, ONCE, 1 dose, On Thu07/20/23 at 0930, Routine [facility] lactated ringers IV infusion 1,000 mL 07-20 14:45: 00 07-20 20:12 :17 No 1000mL at 125 mL/hr, 1,000 mL, IV Infusion, CONTINUOUS , Starting on Thu07/20/23 at 0845, Until Thu07/20/23 at 1412, Routine [facility] lactated ringers IV infusion 1,000 mL 07-20 14:30: 00 07-20 13:45 :00 No 1000mL at 999 mL/hr, 1,000 mL, IV Infusion, ONCE, 1 dose, On Thu07/20/23 at 0830, STAT [facility] HYDROcodone -acetaminop hen 5-325 mg tablet 07-20 14:12: 20 Yes 1{tbl} Take 1 tablet by mouth every 6 (six) hours as needed. [facility] ferrous sulfate (IRON) 325 mg (65 mg iron) tablet 07-20 14:12: 20 Yes 325mg Take 1 tablet by mouth in the morning. [facility] Iron Fum & P-FA-Vit B & C No.9 (INTEGRA PLUS) 125 mg iron- 1 mg Cap 07-16 00:00: 00 07-22 00:00 :00 No [id number] 1{tbl} Take 1 tablet by mouth in the morning. [facility] HYDROcodone -acetaminop hen 5-325 mg tablet 07-14 14:19: 36 Yes 1{tbl} Take 1 tablet by mouth every 6 (six) hours as needed. [facility] ferrous sulfate (IRON) 325 mg (65 mg iron) tablet 07-14 14:19: 36 Yes 325mg Take 1 tablet by mouth in the morning. [facility] cfv80-zwuj- folic acid 29 mg iron- 1 mg per tablet 07-14 00:00: 00 07-22 00:00 :00 No [id number] 1{tbl} Take 1 tablet by mouth in the morning. [facility] fluconazole (DIFLUCAN) tablet 150 mg 07-10 18:15: 00 07-10 18:20 :00 No 150mg 150 mg, Oral, DAILY, 1 dose, First dose on Thu07/10/23 at 1215, KENDRA
Re ason for Anti-Infec tive: Empiric Therapy for Suspected Infection< br>Empiric Therapy Site: Pelvic
Duration of therapy: Once (ED) [facility] HYDROcodone -acetaminop hen 5-325 mg tablet 07-10 13:40: 20 Yes 1{tbl} Take 1 tablet by mouth every 6 (six) hours as needed. [facility] ferrous sulfate (IRON) 325 mg (65 mg iron) tablet 07-10 13:40: 20 Yes 325mg Take 325 mg by mouth daily. [facility] ibuprofen 800 mg tablet 10-03 00:00: 00 07-22 00:00 :00 No [id number] 800mg Take 1 tablet by mouth every 8 (eight) hours as needed (HEADACHE) . [facility] HYDROcodone -acetaminop hen 5-325 mg tablet 2016-06 09:52: 37 Yes 1{tbl} Take 1 tablet by mouth every 6 (six) hours as needed. [facility] ferrous sulfate (IRON) 325 mg (65 mg iron) tablet 2016-06 09:52: 37 Yes 325mg Take 325 mg by mouth daily. [facility] metroNIDAZO LE 500 mg tablet 2016-06 00:00: 00 07-22 00:00 :00 No [id number] 500mg Take 1 tablet by mouth 2 (two) times daily. [facility] Immunizations Ordered Immunization Name Filled Immunization Name Date Status Comments Source TD, NOS Unknown Completed [facility] TDAP Unknown Completed [facility] TD, NOS Unknown Completed [facility] TDAP Unknown Completed [facility] TD, NOS Unknown Completed [facility] TDAP Unknown Completed [facility] TD, NOS Unknown Completed [facility] TDAP Unknown Completed [facility] TD, NOS Unknown Completed [facility] TDAP Unknown Completed [facility] TD, NOS Unknown Completed [facility] TDAP Unknown Completed [facility] TD, NOS Unknown Completed [facility] TDAP Unknown Completed [facility] TD, NOS Unknown Completed [facility] TDAP Unknown Completed [facility] TD, NOS Unknown Completed [facility] TDAP Unknown Completed [facility] TD, NOS Unknown Completed [facility] TDAP Unknown Completed [facility] TD, NOS Unknown Completed [facility] TDAP Unknown Completed [facility] TD, NOS Unknown Completed [facility] TDAP Unknown Completed [facility] TD, NOS Unknown Completed [facility] TDAP Unknown Completed [facility] TD, NOS Unknown Completed [facility] TDAP Unknown Completed [facility] TD, NOS Unknown Completed [facility] TDAP Unknown Completed [facility] TD, NOS Unknown Completed [facility] TDAP Unknown Completed [facility] TD, NOS Unknown Completed [facility] TDAP Unknown Completed [facility] TD, NOS Unknown Completed [facility] TD, NOS Unknown Completed [facility] TDAP Unknown Completed [facility] TDAP Unknown Completed [facility] TD, NOS Unknown Completed [facility] TDAP Unknown Completed [facility] TD, NOS Unknown Completed [facility] TDAP Unknown Completed [facility] TD, NOS Unknown Completed [facility] TDAP Unknown Completed [facility] TD, NOS Unknown Completed [facility] TDAP Unknown Completed [facility] TD, NOS Unknown Completed [facility] TDAP Unknown Completed [facility] Vital Signs Vital Name Observation Time Observation Value Comments S ource Systolic blood pressure 2023-07-30 06:15:00 119 mm[Hg] [facility] Diastolic blood pressure 2023-07-30 06:15:00 76 mm[Hg] [facility] Oxygen saturation in Arterial blood by Pulse oximetry 2023-07-30 06:15:00 98 /min [facility] Heart rate 2023-07-30 06:00:00 95 /min [facility] Body temperature 2023-07-30 02:17:00 37 Christina [facility] Respiratory rate 2023-07-30 02:17:00 16 /min [facility] Body height 2023-07-30 02:17:00 152.4 cm [facility] Body weight 2023-07-30 02:17:00 83.915 kg [facility] BMI 2023-07-30 02:17:00 36.13 kg/m2 [facility] Systolic blood pressure 2023-07-29 19:26:00 143 mm[Hg] [facility] Diastolic blood pressure 2023-07-29 19:26:00 88 mm[Hg] [facility] Heart rate 2023-07-29 19:26:00 80 /min [facility] Body temperature 2023-07-29 19:26:00 36.78 Christina [facility] Respiratory rate 2023-07-29 19:26:00 18 /min [facility] Body height 2023-07-29 19:26:00 152.4 cm [facility] Body weight 2023-07-29 19:26:00 90.175 kg [facility] BMI 2023-07-29 19:26:00 38.83 kg/m2 [facility] Systolic blood pressure 2023-07-22 14:09:00 123 mm[Hg] [facility] Diastolic blood pressure 2023-07-22 14:09:00 66 mm[Hg] [facility] Heart rate 2023-07-22 14:09:00 82 /min [facility] Body temperature 2023-07-22 14:09:00 36.61 Christina [facility] Respiratory rate 2023-07-22 14:09:00 18 /min [facility] Oxygen saturation in Arterial blood by Pulse oximetry 2023-07-22 14:09:00 100 /min [facility] Body weight 2023-07-20 16:56:00 89.4 kg [facility] BMI 2023-07-20 16:56:00 38.49 kg/m2 [facility] Body height 2023-07-20 11:05:00 152.4 cm [facility] Heart rate 2023-07-21 05:30:00 85 /min [facility] Oxygen saturation in Arterial blood by Pulse oximetry 2023-07-21 05:30:00 100 /min [facility] Systolic blood pressure 2023-07-21 05:00:00 123 mm[Hg] [facility] Diastolic blood pressure 2023-07-21 05:00:00 86 mm[Hg] [facility] Body temperature 2023-07-21 01:53:00 36.5 Christina [facility] Respiratory rate 2023-07-21 01:53:00 20 /min [facility] Body weight 2023-07-20 16:56:00 89.4 kg [facility] BMI 2023-07-20 16:56:00 38.49 kg/m2 [facility] Body height 2023-07-20 11:05:00 152.4 cm [facility] Systolic blood pressure 2023-07-14 20:18:00 118 mm[Hg] [facility] Diastolic blood pressure 2023-07-14 20:18:00 80 mm[Hg] [facility] Heart rate 2023-07-14 20:18:00 103 /min [facility] 2023-07-14 20:18:00 36.33 Christina [facility] Respiratory rate 2023-07-14 20:18:00 18 /min [facility] Body height 2023-07-14 20:18:00 165.1 cm [facility] Body weight 2023-07-14 20:18:00 87.091 kg [facility] BMI 2023-07-14 20:18:00 31.95 kg/m2 [facility] Heart rate 2023-07-10 17:45:00 98 /min [facility] Oxygen saturation in Arterial blood by Pulse oximetry 2023-07-10 17:45:00 100 /min [facility] Systolic blood pressure 2023-07-10 16:00:00 122 mm[Hg] [facility] Diastolic blood pressure 2023-07-10 16:00:00 81 mm[Hg] [facility] Body temperature 2023-07-10 16:00:00 36.67 Christina [facility] Respiratory rate 2023-07-10 16:00:00 20 /min [facility] Body height 2023-07-10 15:53:00 165.1 cm [facility] Body weight 2023-07-10 15:53:00 87.408 kg [facility] BMI 2023-07-10 15:53:00 32.07 kg/m2 [facility] Procedures Procedure Date / Time Performed Performing Clinician Source SGOT (ASPARTATE AMINO TRANSFER) 2023-07-30 02:36:00 Moy Hutton [facility] CREATININE 2023-07-30 02:36:00 Moy Hutton [facility] ALANINE AMINO TRANSFERASE(SGPT 2023-07-30 02:36:00 Moy Hutton [facility] LACTATE DEHYDROGENASE 2023-07-30 02:36:00 Moy Hutton [facility] URIC ACID 2023-07-30 02:36:00 Moy Hutton [facility] CBC WITH DIFF 2023-07-30 02:36:00 Moy Hutton [facility] URINALYSIS 2023-07-30 02:36:00 Moy Hutton [facility] PROTEIN CREAT RATIO URINE RANDOM 2023-07-30 02:36:00 Moy Hutton [facility] CONSENT/REFUSAL FOR DIAGNOSIS AND TREATMENT 2023-07-30 01:53:27 Doctor Unassigned, [place] [facility] NO SHOW OR MISSED APPOINTMENT POLICY ACKNOWLEDGEMENT 2023-07-29 18:54:25 Doctor Unassigned, [place] [facility] PREPARE PACKED RBC 2023-07-22 20:50:51 Fleming-So sylvain, [facility] CBC WITH DIFF 2023-07-21 10:04:00 Bernadette-Kobi , [facility] CBC WITH DIFF 2023-07-21 10:04:00 Bernadette-Kobi , [facility] CBC WITH DIFF 2023-07-21 02:10:00 Bernadette-Kobi , [facility] CBC WITH DIFF 2023-07-21 02:10:00 Bernadette-Kobi , [facility] TRANSFUSE PACKED RBC 2023-07-21 00:35:00 Bernadette- Kobi [facility] TRANSFUSE PACKED RBC 2023-07-21 00:35:00 Lemuel Peace [facility] PREPARE PACKED RBC 2023-07-21 00:14:00 Fleming-So sylvain [facility] PREPARE PACKED RBC 2023-07-21 00:14:00 Fleming[facility]So [facility] PREPARE PACKED RBC 2023-07-20 21:46:07 Fleming-So [facility], [facility] PREPARE PACKED RBC 2023-07-20 21:46:07 Fleming-So [facility] TRANSFUSE PACKED RBC 2023-07-20 17:38[facility]00 [facility] TRANSFUSE PACKED RBC 2023-07-20 17:38:00 [facility] HEPATITIS B SURFACE ANTIGEN 2023-07-20 15:56:00 [facility] HB ABO GROUPING 2023-07-20 15:56:00 [facility] RHO (D) IMMUNE GLOBULIN 2023-07-20 15:56:00 [facility] ADC OR HILDA ONLY - RPR 2023-07-20 15:56:00 Ca rpio-Peace, [facility] HIV 1/2 AG-AB WITH REFLEX 2023-07-20 15:56:[address] [facility] HEPATITIS B SURFACE ANTIGEN 2023-07-20 15:56:00 LemuelPeace, [facility] HB ABO GROUPING 2023-07-20 15:56:00 [facility] RHO (D) IMMUNE GLOBULIN 2023-07-20 15:56:00 [facility] ADC OR HILDA ONLY - RPR 2023-07-20 15:56:00 [facility] HIV 1/2 AG-AB WITH REFLEX 2023-07-20 15:56:00 [facility] URINE DRUG (IMMUNOASSAY) - COMPREHENSIVE DRUG SCREEN 2023-07-20 13:38:00 Fleming-Peace, [facility] CBC WITH DIFF 2023-07-20 13:38:00 [facility] URINE DRUG (IMMUNOASSAY) - COMPREHENSIVE DRUG SCREEN 2023-07-20 13:38:00 FlemingPhil [facility] CBC WITH DIFF 2023-07-20 13:38:00 [facility] EXTERNAL PROVIDER RECORDS 2023-07-15 06:01:00 Do ctor Unassigned, [place] [facility] NON-STRESS TEST 2023-07-14 21:58:30 Neil Tafoya [facility] GROUP B STREPTOCOCCUS BY PCR 2023-07-14 21:58:00 Mary Kay Tafoya [facility] CBC WITH DIFF 2023-07-14 21:07:00 Mary Kay Tafoya [facility] RUBELLA SCREEN IGG 2023-07-14 21:07:00 Paulina Tafoya [facility] HEPATITIS B SURFACE ANTIGEN 2023-07-14 21:07:00 Mary Kay Tafoya [facility] HB ABO GROUPING 2023-07-14 21:07:00 Mary Kay Tafoya [facility] HIV 1/2 AG-AB WITH REFLEX 2023-07-14 21:07:00 Mary Kay Tafoya [facility] SYPHILIS IGG/IGM 2023-07-14 21:07:00 Edie Tafoya [facility] AUTHORIZATION FOR RELEASE OF PHI 2023-07-14 06:01:00 Doctor Unassigned, [place] [facility] URINALYSIS 2023-07-10 16:35:00 Adum, Mindy Charlton [facility] ADC CLC OR LCC ONLY - WET PREP 2023-07-10 16:35:00 Adum, Mindy Charlton [facility] ASSIGNMENT OF BENEFITS 2023-07-10 15:52:02 Docto r Unassigned, [place] [facility] CONSENT/REFUSAL FOR DIAGNOSIS AND TREATMENT 2023-07-10 15:44:33 Doctor Unassigned, [place] [facility] SECTION [facility] SECTION [facility] Encounters Start Date/Time End Date/Time Encounter Type Admission Type Attending Clinicians Care Facility Care Department Encounter ID Source 2023-07-30 01:23:24 Outpatient P [facility] [id number] [facility] 2023-09-09 00:00:00 2023-09-09 00:00:00 Outpatient ROSS_DOUGLAS GALARZA [facility] [id number] [facility] Outre h Program 2023-08-27 09:30:00 2023-08-27 09:30:00 Outpatient R MARY KAY TAFOYA [facility] [id number] [facility] 2023-07-29 20:02:00 2023-07-30 01:20:00 Outpatient P MOY HUTTON [facility] [id number] [facility] 2023-07-29 20:02:00 2023-07-30 01:20:00 Hospital Encounter Moy Hutton [facility] 1.2840.114 350.1.13.10 4.2.7.2.686 [id number] [facility] 2023-07-29 13:00:00 2023-07-29 13:44:14 Outpatient MARY KAY BARRAGAN [facility] [id number] [facility] 2023-07-29 13:00:00 2023-07-29 13:44:14 [facility] Kay [facility]afoya [facility] FIELD SUPPORT REP [facility] MATERNAL & CHILD [facility] 1.840.114 350.1.13.10 4.2.7.2.686 [id number] [facility] 2023-07-29 00:00:00 2023-07-29 00:00:00 Orders Only Doctor Unassigned, [place] [facility] 1..114 350.1.13.10 4.2.7.2.686 [id number] [facility] 2023-07-29 00:00:00 2023-07-29 00:00:00 Telephone Mary Kay Tafoya [facility] FIELD SUPPORT REP [facility] 1..114 350.1.13.10 4.2.7.2.686 [id number] [facility] 2023-07-28 08:30:00 2023-07-28 08:30:00 Outpatient MARY KAY BARRAGAN [facility] [id number] [facility] 2023-07-23 00:00:00 2023-07-23 00:00:00 Telephone Mindy Pulliam [facility] 1..114 350.1.13.10 4.2.7.2.686 [id number] [facility] 2023-07-20 05:10:00 2023-07-22 14:15:00 Inpatient MARGIE WARRENMAHI S, [facility] [id number] [facility] 2023-07-20 05:10:00 2023-07-22 14:15:00 [facility] 1.2.840.114 350.1.13.10 4.2.7.2.686 [id number] [facility] 2023-07-21 20:02:04 2023-07-21 20:02:04 Anesthesia Event Miguel Ambrose [facility] 1.2.840.114 350.1.13.10 4.2.7.2.686 [id number] [facility] 2023-07-21 12:45:00 2023-07-21 12:45:00 Outpatient R MARY KAY TAFOYA [facility] [id number] [facility] 2023-07-20 00:00:00 2023-07-20 00:00:00 Surgery James bustillo [facility] 1.2.840.114 350.1.13.10 4.2.7.2.686 [id number] [facility] 2023-07-16 00:00:00 2023-07-16 00:00:00 Telephone Mary Kay Tafoya [facility] FIELD SUPPORT [facility] 1.2.840.114 350.1.13.10 4.2.7.2.686 [id number] [facility] 2023-07-15 00:00:00 2023-07-15 00:00:00 Orders Only Doctor Unassigned, [place] [facility] 1.2.840.114 350.1.13.10 4.2.7.2.686 [id number] [facility] 2023-07-14 13:00:00 2023-07-14 15:27:03 Initial Visit Mary Kay Tafoya [facility] FIELD SUPPORT REP [facility] 1.2.840.114 350.1.13.10 4.2.7.2.686 [id number] [facility] 2023-07-14 13:00:00 2023-07-14 15:27:03 Outpatient R MARY KAY TAFOYA [facility] [id number] [facility] 2023-07-14 12:30:00 2023-07-14 14:14:30 Outpatient R MARY KAY TAFOYA [facility] [id number] [facility] 2023-07-14 00:00:00 2023-07-14 00:00:00 Orders Only Doctor Unassigned, [place] [facility] 1.2840.114 350.1.13.10 4.2.7.2.686 [id number] [facility] 2023-07-10 09:54:00 2023-07-10 13:35:00 Outpatient X ADUM, MINDY [facility] [id number] [facility] 2023-07-10 09:54:00 2023-07-10 13:35:00 Emergency AdumMindy [facility] 1.2.840.114 350.1.13.10 4.2.7.2.686 [id number] [facility] 2023-07-10 00:00:00 2023-07-10 00:00:00 Orders Only Doctor Unassigned, [place] [facility] 1.2840.114 350.1.13.10 4.2.7.2.686 [id number] [facility] 2023-07-08 13:45:00 2023-07-08 13:45:00 Outpatient R MARY KAY TAFOYA [facility] [id number] [facility] 2023-07-03 08:00:00 2023-07-03 08:00:00 Outpatient R MARY KAY TAFOYA [facility] [id number] [facility] 2023-07-03 00:00:00 2023-07-03 00:00:00 Telephone Kykavya Mary Kay Wu [facility] FIELD SUPPORT REP [facility] 1.2.840.114 350.1.13.10 4.2.7.2.686 [id number] [facility] 2023-07-01 00:00:00 2023-07-01 00:00:00 Outpatient GC_S[facility]OM[facility]_ Shelton_G PRIV PRIV [id number] [facility] 2023-06-26 00:00:00 2023-06-26 00:00:00 Outpatient GC_[facility]OM[facility]_ Shelton_G PRIV PRIV [id number] [facility] 2023-06-24 00:00:00 2023-06-24 00:00:00 Outpatient GC_[facility]OM[facility]_ Shelton_G PRIV PRIV [id number] [facility] 2023-06-24 00:00:00 2023-06-24 00:00:00 Nurse Triage Jessie Mills [facility] 1.2.840.114 350.1.13.10 4.2.7.2.686 [id number] [facility] 2023-06-23 00:00:00 2023-06-23 00:00:00 Outpatient PRIV PRIV [id number] [facility] Results Test Description Test Time Test Comments Results Result Co mments Source [facility] Transferase (SGPT)2023-07-30 03:01:18* Test Item Value Reference Range Interpretation Comme nts ALTv (test code = 1742-6) 28 U/L 5-35 Lab Interpretation (test cod e = 15265-8) Normal [facility]act[facility] Abwocjbohvuip8769-14-12 03:01:18* Test Item Value Reference Range Interpretation Comme nts LDH (test code = 7985094464) 441 U/L 120-246 H Lab Interpretation (test cod e = 59967-1) Abnormal [facility] Vjucjqmgge9854-97-24 03:00:58* Test Item Value Reference Range Interpretation Comme [facility] CREATININE (test code = 2160-0) 0.61 mg/dL 0.50-1.04 eGFR (test code = 17273-6) 119.7 mL/min/1.73m2 CKD-EPI eGFR (20 21). Assuming creatinine has been stable day-to-day for at least three months, the eGFR indicates Category G1 (>= 90 mL/min/1.73 m2) [facility] (Asparate Amino Transfer)2023-07-30 03:00:58* Test Item Value Reference Range Interpretation Comme [facility] AST(SGOT) (test code = 1773259960) 49 U/L 13-40 H Lab Interpretation (test cod e = 89278-6) Abnormal [facility] with Xyfrwngngwqr9924-26-88 02:49:53* Test Item Value Reference Range Interpretation Comme nts WBC (test code = 6690-2) 12.32 4.30-11.10 H RBC (test code = 789-8) 3.34 3.93-5.25 L HGB (test code = 718-7) 8.6 g/dL 11.6-15.0 L HCT (test code = 4544-3) 28.4 % 35.7-45.2 L MCV (test code = 787-2) 85.0 fL 80.6-95.5 MCH (test code = 785-6) 25.7 pg 25.9-32.8 L MCHC (test code = 786-4) 30.3 g/dL 31.6-35.1 L RDW-SD (test code = 68371-9) 73.4 fL 39.0-49.9 H RDW-CV (test code = 788-0) 23.9 % 12.0-15.5 H PLT (test code = 777-3) 412 166-358 H MPV (test code = 67121-0) 8.3 fL 9.5-12.9 L NRBC/100 WBC (test code = 3607408811) 0.3 0.0-10.0 NRBC x10^3 (test code = 2591317046) 0.04 See_Comment [Automated messa ge] The system which generated this result transmitted reference range: 10*3/?L. The reference range was not used to interpret this result as normal/abnormal. GRAN MAT (NEUT) % (test code = 770-8) 68.5 % IMM GRAN % (test code = 0835839583) 0.80 % LYMPH % (test code = 736-9) 20.0 % MONO % (test code = 5905-5) 8.5 % EOS % (test code = 713-8) 1.9 % BASO % (test code = 706-2) 0.3 % GRAN MAT x10^3(ANC) (test code = 9181195296) 8.42 10*3/uL 1.88-7.09 H IMM GRAN x10^3 (test code = 3642604379) 0.10 10*3/uL 0.00-0.06 H LYMPH x10^3 (test code = 731-0) 2.47 10*3/uL 1.32-3.29 MONO x10^3 (test code = 742-7) 1.05 10*3/uL 0.33-0.92 H EOS x10^3 (test code = 711-2) 0.24 10*3/uL 0.03-0.39 BASO x10^3 (test code = 704-7) 0.04 10*3/uL 0.01-0.07 Lab Interpretation (test code = 23845-9) Abnormal [facility] with Owpiugywwsqj8916-56-47 13:58:25* Test Item Value Reference Range Interpretation Comme nts WBC (test code = 6690-2) 16.08 4.30-11.10 H RBC (test code = 789-8) 3.06 3.93-5.25 L HGB (test code = 718-7) 7.8 g/dL 11.6-15.0 L HCT (test code = 4544-3) 24.5 % 35.7-45.2 L MCV (test code = 787-2) 80.1 fL 80.6-95.5 L MCH (test code = 785-6) 25.5 pg 25.9-32.8 L MCHC (test code = 786-4) 31.8 g/dL 31.6-35.1 RDW-SD (test code = 34295-1) 54.5 fL 39.0-49.9 H RDW-CV (test code = 788-0) 19.0 % 12.0-15.5 H PLT (test code = 777-3) 242 166-358 MPV (test code = 70077-8) 8.9 fL 9.5-12.9 L NRBC/100 WBC (test code = 6098441328) 0.9 0.0-10.0 NRBC x10^3 (test code = 7268259010) 0.15 See_Comment [Automated message] The system which generated this result transmitted reference range: 10*3/?L. The reference range was not used to interpret this result as normal/abnormal. SEG % (test code = 65221-0) 84 % 33-76 H BAND % (test code = 08622-7) 4 % 0-1 H LYMPH % (test code = 63618-3) 12 % 14-54 L ANC (test code = 753-4) 14.15 10*3/uL 1.88-7.09 H POLYCHROMASIA (test code = 29958-2) 2+ See_Comment [Automated message] The system which generated this result transmitted reference range: 2+. The reference range was not used to interpret this result as normal/abnormal. Lab Interpretation (test code = 08069-6) Abnormal [facility] with Ajqqupulygfa4794-41-63 13:58:25* Test Item Value Reference Range Interpretation Comme nts WBC (test code = 6690-2) 16.08 4.30-11.10 H RBC (test code = 789-8) 3.06 3.93-5.25 L HGB (test code = 718-7) 7.8 g/dL 11.6-15.0 L HCT (test code = 4544-3) 24.5 % 35.7-45.2 L MCV (test code = 787-2) 80.1 fL 80.6-95.5 L MCH (test code = 785-6) 25.5 pg 25.9-32.8 L MCHC (test code = 786-4) 31.8 g/dL 31.6-35.1 RDW-SD (test code = 33221-9) 54.5 fL 39.0-49.9 H RDW-CV (test code = 788-0) 19.0 % 12.0-15.5 H PLT (test code = 777-3) 242 166-358 MPV (test code = 33336-3) 8.9 fL 9.5-12.9 L NRBC/100 WBC (test code = 1445582917) 0.9 0.0-10.0 NRBC x10^3 (test code = 8472726036) 0.15 See_Comment [Automated message] The system which generated this result transmitted reference range: 10*3/?L. The reference range was not used to interpret this result as normal/abnormal. SEG % (test code = 12704-3) 84 % 33-76 H BAND % (test code = 24529-5) 4 % 0-1 H LYMPH % (test code = 40216-1) 12 % 14-54 L ANC (test code = 753-4) 14.15 10*3/uL 1.88-7.09 H POLYCHROMASIA (test code = 63378-5) 2+ See_Comment [Automated message] The system which generated this result transmitted reference range: 2+. The reference range was not used to interpret this result as normal/abnormal. Lab Interpretation (test code = 97186-3) Abnormal [facility] with Uplsgqhrotcu9816-56-34 13:58:25* Test Item Value Reference Range Interpretation Comme nts WBC (test code = 6690-2) 16.08 4.30-11.10 H RBC (test code = 789-8) 3.06 3.93-5.25 L HGB (test code = 718-7) 7.8 g/dL 11.6-15.0 L HCT (test code = 4544-3) 24.5 % 35.7-45.2 L MCV (test code = 787-2) 80.1 fL 80.6-95.5 L MCH (test code = 785-6) 25.5 pg 25.9-32.8 L MCHC (test code = 786-4) 31.8 g/dL 31.6-35.1 RDW-SD (test code = 27441-8) 54.5 fL 39.0-49.9 H RDW-CV (test code = 788-0) 19.0 % 12.0-15.5 H PLT (test code = 777-3) 242 166-358 MPV (test code = 47675-1) 8.9 fL 9.5-12.9 L NRBC/100 WBC (test code = 3255307178) 0.9 0.0-10.0 NRBC x10^3 (test code = 1541201019) 0.15 See_Comment [Automated message] The system which generated this result transmitted reference range: 10*3/?L. The reference range was not used to interpret this result as normal/abnormal. SEG % (test code = 38011-4) 84 % 33-76 H BAND % (test code = 35132-9) 4 % 0-1 H LYMPH % (test code = 70913-1) 12 % 14-54 L ANC (test code = 753-4) 14.15 10*3/uL 1.88-7.09 H POLYCHROMASIA (test code = 50642-5) 2+ See_Comment [Automated message] The system which generated this result transmitted reference range: 2+. The reference range was not used to interpret this result as normal/abnormal. Lab Interpretation (test code = 07084-2) Abnormal [facility] with Zldn5594-87-65 02:59:40* Test Item Value Reference Range Interpretation Comme nts WBC (test code = 6690-2) 17.58 4.30-11.10 H RBC (test code = 789-8) 3.50 3.93-5.25 L HGB (test code = 718-7) 9.1 g/dL 11.6-15.0 L HCT (test code = 4544-3) 28.3 % 35.7-45.2 L MCV (test code = 787-2) 80.9 fL 80.6-95.5 MCH (test code = 785-6) 26.0 pg 25.9-32.8 MCHC (test code = 786-4) 32.2 g/dL 31.6-35.1 RDW-SD (test code = 36349-7) 55.5 fL 39.0-49.9 H RDW-CV (test code = 788-0) 19.5 % 12.0-15.5 H PLT (test code = 777-3) 232 166-358 MPV (test code = 56392-3) 8.6 fL 9.5-12.9 L NRBC/100 WBC (test code = 0473839081) 0.8 0.0-10.0 NRBC x10^3 (test code = 7853578031) 0.14 See_Comment [Automated message] The system which generated this result transmitted reference range: 10*3/?L. The reference range was not used to interpret this result as normal/abnormal. GRAN MAT (NEUT) % (test code = 770-8) 77.6 % IMM GRAN % (test code = 6869536875) 1.20 % LYMPH % (test code = 736-9) 12.2 % MONO % (test code = 5905-5) 8.6 % EOS % (test code = 713-8) 0.1 % BASO % (test code = 706-2) 0.3 % GRAN MAT x10^3(ANC) (test code = 7764245758) 13.64 10*3/uL 1.88-7.09 H IMM GRAN x10^3 (test code = 9184706288) 0.21 10*3/uL 0.00-0.06 H LYMPH x10^3 (test code = 731-0) 2.15 10*3/uL 1.32-3.29 MONO x10^3 (test code = 742-7) 1.51 10*3/uL 0.33-0.92 H EOS x10^3 (test code = 711-2) 0.03-0.39 L BASO x10^3 (test code = 704-7) 0.06 10*3/uL 0.01-0.07 Lab Interpretation (test code = 19388-3) Abnormal [facility] with Yzpf0508-32-96 02:59:40* Test Item Value Reference Range Interpretation Comme nts WBC (test code = 6690-2) 17.58 4.30-11.10 H RBC (test code = 789-8) 3.50 3.93-5.25 L HGB (test code = 718-7) 9.1 g/dL 11.6-15.0 L HCT (test code = 4544-3) 28.3 % 35.7-45.2 L MCV (test code = 787-2) 80.9 fL 80.6-95.5 MCH (test code = 785-6) 26.0 pg 25.9-32.8 MCHC (test code = 786-4) 32.2 g/dL 31.6-35.1 RDW-SD (test code = 33509-8) 55.5 fL 39.0-49.9 H RDW-CV (test code = 788-0) 19.5 % 12.0-15.5 H PLT (test code = 777-3) 232 166-358 MPV (test code = 03180-7) 8.6 fL 9.5-12.9 L NRBC/100 WBC (test code = 4572563937) 0.8 0.0-10.0 NRBC x10^3 (test code = 8619297569) 0.14 See_Comment [Automated message] The system which generated this result transmitted reference range: 10*3/?L. The reference range was not used to interpret this result as normal/abnormal. GRAN MAT (NEUT) % (test code = 770-8) 77.6 % IMM GRAN % (test code = 3984090762) 1.20 % LYMPH % (test code = 736-9) 12.2 % MONO % (test code = 5905-5) 8.6 % EOS % (test code = 713-8) 0.1 % BASO % (test code = 706-2) 0.3 % GRAN MAT x10^3(ANC) (test code = 2711016666) 13.64 10*3/uL 1.88-7.09 H IMM GRAN x10^3 (test code = 3872820659) 0.21 10*3/uL 0.00-0.06 H LYMPH x10^3 (test code = 731-0) 2.15 10*3/uL 1.32-3.29 MONO x10^3 (test code = 742-7) 1.51 10*3/uL 0.33-0.92 H EOS x10^3 (test code = 711-2) 0.03-0.39 L BASO x10^3 (test code = 704-7) 0.06 10*3/uL 0.01-0.07 Lab Interpretation (test code = 66576-7) Abnormal [facility] with Iwsf6217-43-32 02:59:40* Test Item Value Reference Range Interpretation Comme nts WBC (test code = 6690-2) 17.58 4.30-11.10 H RBC (test code = 789-8) 3.50 3.93-5.25 L HGB (test code = 718-7) 9.1 g/dL 11.6-15.0 L HCT (test code = 4544-3) 28.3 % 35.7-45.2 L MCV (test code = 787-2) 80.9 fL 80.6-95.5 MCH (test code = 785-6) 26.0 pg 25.9-32.8 MCHC (test code = 786-4) 32.2 g/dL 31.6-35.1 RDW-SD (test code = 21738-1) 55.5 fL 39.0-49.9 H RDW-CV (test code = 788-0) 19.5 % 12.0-15.5 H PLT (test code = 777-3) 232 166-358 MPV (test code = 04628-1) 8.6 fL 9.5-12.9 L NRBC/100 WBC (test code = 9671913779) 0.8 0.0-10.0 NRBC x10^3 (test code = 0417550614) 0.14 See_Comment [Automated message] The system which generated this result transmitted reference range: 10*3/?L. The reference range was not used to interpret this result as normal/abnormal. GRAN MAT (NEUT) % (test code = 770-8) 77.6 % IMM GRAN % (test code = 8077331735) 1.20 % LYMPH % (test code = 736-9) 12.2 % MONO % (test code = 5905-5) 8.6 % EOS % (test code = 713-8) 0.1 % BASO % (test code = 706-2) 0.3 % GRAN MAT x10^3(ANC) (test code = 1839967656) 13.64 10*3/uL 1.88-7.09 H IMM GRAN x10^3 (test code = 7191417132) 0.21 10*3/uL 0.00-0.06 H LYMPH x10^3 (test code = 731-0) 2.15 10*3/uL 1.32-3.29 MONO x10^3 (test code = 742-7) 1.51 10*3/uL 0.33-0.92 H EOS x10^3 (test code = 711-2) 0.03-0.39 L BASO x10^3 (test code = 704-7) 0.06 10*3/uL 0.01-0.07 Lab Interpretation (test code = 78592-9) Abnormal [facility] () IMMUNE [id number] 22:18:07* Test Item Value Reference Range Interpretation Comme nts RHIG CANDIDATE? (test code = 5188) No- see comment Patient is not a candidate for RhIg- Patient is Rh Positive.Performed at [facility] Blood [address] Free: [phone] No. [id number] [facility] () IMMUNE [id number] 22:18:07* Test Item Value Reference Range Interpretation Comme nts RHIG CANDIDATE? (test code = 5188) No- see comment Patient is not a candidate for RhIg- Patient is Rh Positive.Performed at [facility] Blood [place] [address]Toll Free: [phone] No. [id number] [facility] () IMMUNE [id number] 22:18:07* Test Item Value Reference Range Interpretation Comme nts RHIG CANDIDATE? (test code = 5188) No- see comment Patient is not a candidate for RhIg- Patient is Rh Positive.Performed at [facility] Laboratory [facility] Blood [id number] [place], [place] [address]Toll Free: [phone] No. [id number] [facility] Packed RBC (in units), 2 Units 2023-07-20 21:46:07* Test Item Value Reference Range Interpretation Comme nts Cross Match Result (test code = 4409) Compatible ISBT Blood Type Code (test code = 721384) 7300 Unit Blood Type (test code = 4410) B Pos Unit Number (test code = 4411) [id number] Blood Expiration Date & Time (test code = 845732) [id number] Status Information (test code = 4412) Issued Product Identification (test code = 4413) Red Blood Cells Product Code (test code = 4414) [id number] Performed at [facility] Laboratory [facility] Blood [place] [address]Toll Free: [phone] No. [id number] [facility] Packed RBC (in units), 2 Units 2023-07-20 21:46:07* Test Item Value Reference Range Interpretation Comme nts Cross Match Result (test code = 4409) Compatible ISBT Blood Type Code (test code = 410806) 7300 Unit Blood Type (test code = 4410) B Pos Unit Number (test code = 4411) [id number] Blood Expiration Date & Time (test code = 068876) [id number] Status Information (test code = 4412) Issued Product Identification (test code = 4413) Red Blood Cells Product Code (test code = 4414) [id number] Performed at [facility] Laboratory Services [facility] Blood [address] [place], [place] [id number] Free: [phone] No. [id number] [facility] Packed RBC (in units), 2 Units 2023-07-20 21:46:07* Test Item Value Reference Range Interpretation Comme nts Cross Match Result (test code = 4409) Compatible ISBT Blood Type Code (test code = 556604) 7300 Unit Blood Type (test code = 4410) B Pos Unit Number (test code = 4411) [id number] Blood Expiration Date & Time (test code = 914618) [id number] Status Information (test code = 4412) Issued Product Identification (test code = 4413) Red Blood Cells Product Code (test code = 4414) [id number] Performed at [facility] Laboratory Services - [facility] Blood [address] [place], [place] [id number] Free: [phone] No. [id number] [facility] History and Physical Notes Date/Time Note Provider Source 2023-07-20 10:04:59 RJ6ipIh0a/cie5On+X26 AP6pO/awaR6Ed/z6x9tdyT 6+PZhTq97zFvfeOCM6F2to7438-10-95E00:04:59F ormatting of this note is different from the original.ANTEPARTUM HISTORY & PHYSICALIDENTIFYING DATAJulisa Ball is 33 year old, Black or , 38w5d, female with RAMONE 07/29/2023, by Other Basis.: 1990MRN: [id number] Care Physician: PATIENT DOES NOT HAVE A PCPHospital Day: 1CHIEF COMPLAINTcontractionsHISTORY OF PRESENT HEKZBYY14 year old @38w5d presents with low back pain pain comes and goes. Denies vaginal bleeding or leakage.Previous CS x2.PNC: [facility] ClinicPAST OBSTETRIC HISTORYOB HistoryGravida Para Term AB Living3 2 2 0 0 2SAB IAB Ectopic Multiple Live Births0 0 0 0 2# Outcome Date GA Lbr Karel/2nd Weight Sex Delivery Anes PTL Lv3 Current2 Term 2012 39w0d SEC N LIV1 Term 2009 40w0d SEC N LIVComplications: Preeclampsia in periodObstetric CommentsCS x 2PAST MEDICAL HISTORYProblem list:Patient Active Problem ListDiagnosis Date NotedObesity (BMI 30-39.9) 8 weeks gestation of 07/20/2023History of section 07/14/2023Multiparity 07/14/2023Supervision of high-risk with insufficient care 07/14/2023History of pre-eclampsia 07/14/2023Obesity in 07/10/2023Tobacco use in 05/15/2017Umbilical hernia, recurrence not specified 08/13/2015Operations:Past Surgical History:Procedure Laterality DateCESAREAN SECTION 2009, 2013x 2DIAGNOSTIC LAPAROSCOPY 09/06/2016DIAGNOSTIC LAPAROSCOPY N/A 09/06/2016Surgeon: Moy Hutton MD; Location: [facility] OR [facility] OVARIAN CYST DRAINAGE 09/06/2016Prior surgeries at outside hospitals: nonePast Medical History:Diagnosis DateAbnormal uterine bleeding 2015while on the depo proveraAnemia 2009during pregnancyScreen for STD (sexually transmitted disease) 2009unsure the name thinks gonorrheaTobacco use disorder 05/15/2017Umbilical herniastates that she was diagnosed at and was never repairedCURRENT HEALTH STATUSMedications:Current Facility-Administered MedicationsMedication Dose Route Frequency Last Rate Last Adminacetaminophen (TYLENOL) tablet 650 mg 650 mg Oral ONCEacetaminophen (TYLENOL) tablet 650 mg 650 mg Oral ONCEceFAZolin (ANCEF) 2,000 mg in NaCl 0.9% (NS) 100 mL MINI-BAG 2,000 mg IV Piggyback O.R. HOLDING ONCElactated ringers IV infusion 1,000 mL 1,000 mL IV Infusion CONTINUOUS 125 mL/hr at 07/20/23 0755 1,000 mL at 07/20/23 0755lactated ringers IV infusion 1,000 mL 1,000 mL IV Infusion CONTINUOUSlactated ringers IV infusion 500 mL 500 mL IV Infusion ONCEsodium citrate-citric acid (BICITRA) 500-334 mg/5 mL solution 30 mL 30 mL Oral PRE-PROCEDURE ONCEAllergies and drug reactions: Patient has no known allergies.HOME MEDICATIONSMedications Prior to AdmissionMedication Sig Dispense Refill Last DoseIron Fum & P-FA-Vit B & C No.9 (INTEGRA PLUS) 125 mg iron- 1 mg Cap Take 1 tablet by mouth in the morning. 30 capsule 1prenatal ruy17-fdym-uvoeg acid 29 mg iron- 1 mg per tablet Take 1 tablet by mouth in the morning. 90 tablet 3ibuprofen 800 mg tablet Take 1 tablet by mouth every 8 (eight) hours as needed (HEADACHE). 21 tablet 0 Not Takingferrous sulfate (IRON) 325 mg (65 mg iron) tablet Take 1 tablet by mouth in the morning. Not TakingmetroNIDAZOLE 500 mg tablet Take 1 tablet by mouth 2 (two) times daily. 14 tablet 0 Not TakingHYDROcodone-acetaminophen 5-325 mg tablet Take 1 tablet by mouth every 6 (six) hours as needed. Not TakingLast taken: yesterdaySOCIAL HISTORYTobacco History:Social HistoryTobacco UseSmoking Status Every DayPacks/day: 0.50Years: 13.00Additional pack years: 0.00Total pack years: 6.50Types: CigarettesStart date: 06/15/2003Smokeless Tobacco NeverDrug History:Social HistorySubstance and Sexual ActivityDrug Use NoAlcohol History:Social HistorySubstance and Sexual ActivityAlcohol Use NoAlcohol/week: 0.0 standard drinks of alcoholFAMILY HISTORYFamily HistoryProblem Relation Age of OnsetDiabetes FatherCancer Maternal AuntUnsure what kind or ageCancer Maternal Grandmotherunsure what type or ageArthritis NoFHxAsthma NoFHxBirth defects NoFHxBreast Cancer NoFHxOvarian Cancer NoFHxColon Cancer NoFHxUterine Cancer NoFHxDepression NoFHxGenetic NoFHxHeart NoFHxHigh cholesterol NoFHxHypertension NoFHxMental retardation NoFHxPsychiatry NoFHxOsteoporosis NoFHxNeurological NoFHxREVIEW OF SYSTEMSGeneral: (+) fatigueConstitutional: negativeEyes: negativeENT/Mouth: negativeCardiovascular: negativeRespiratory: negativeGastrointestinal:painGenitourinary : negativeMusculoskeletal: negativeSkin/breast: negativeNeurological: negativePsychiatric: negativeEndocrine: negativeHemat/Lymph: anemiaAllergic/Immuno:noneVITAL SIGNSBP: (121-135)/(78-92)Temp: [37 ?C (98.6 ?F)-37.3 ?C (99.1 ?F)]Temp source: Oral (07/20 0700)Pulse: [83-102]Resp: [18-22]SpO2: [99 %-100 %]Height: [152.4 cm (5')]Weight: [89.4 kg (197 lb 3.2 oz)]BMI (calculated): [38.51]PHYSICAL EXAMINATIONSGeneral: well-developed, well-nourishedLungs: clear to auscultation bilaterallyCardiology: regular rate and rhythmAbdomen: tenderness - normalGU: OB pelvic exam performed? 1 cm by RNExtremities: no clubbing, cyanosis, or edemaNeuro: cranial nerves II through XII grossly intact; sensation grossly intact; muscle strength 5 out of 5 in all four extremitiesREVIEW OF LABORATORY, PATHOLOGY, AND RADIOLOGY DATALab results:CBC BMP PT/INRWBC x10^3 (/CMM)Date Value03/06/2010 7.6WBC (10*3/?L)Date Value07/20/2023 11.50 (H)NA (mmol/L)Date Value10/03/2018 144No results found for: "PT"RBC x10^6 (/CMM)Date Value03/06/2010 3.48 (L)RBC (10*6/?L)Date Value07/20/2023 2.89 (L)K (mmol/L)Date Value10/03/2018 3.4 (L)INR (no units)Date Value10/03/2018 1.0PLT x10^3 (/CMM)Date Value03/06/2010 407 (H)PLT (10*3/?L)Date Value07/20/2023 267CALCIUM (mg/dL)Date Value10/03/2018 9.6HGBDate Value07/20/2023 6.5 g/dL (L)03/06/2010 10.5 G/DL (L)CL (mmol/L)Date Value10/03/2018 105aPTTHCT (%)Date Value07/20/2023 22.1 (L)03/06/2010 31.9 (L)BUN (mg/dL)Date Value10/03/2018 18APTT Patient (Seconds)Date Value10/03/2018 28CREATININEDate Value10/03/2018 0.80 mg/dL03/06/2010 0.80 MG/DLGLUCOSE (mg/dL)Date Value10/03/2018 93CO2 TOTAL (mmol/L)Date Value10/03/2018 31Type & Screen Rubella VaricellaABO & RH (no units)Date Value07/14/2023 B POSITIVERUBELLA (no units)Date Value07/16/2009 POSITIVERubella screen IgG (no units)Date Value07/14/2023 PositiveNo results found for: "VZVG"ANTIBODY SCREEN (no units)Date Value02/19/2010 NEGATIVEHep B HIVSyphilis HBsAg (no units)Date Value02/19/2010 NEGATIVEHIV 1/2 Ab (no units)Date Value01/18/2010 NEGATIVENo results found for: "SYPG"Group B StrepChlamydia Group B Streptococcus Screen Culture (no units)Date Value01/18/2010(0000)[id number] JULISA BALL 20 YRS GROU P B STREP SCREEN CULTURE DATE:SOURCE: VAGINAL/ANAL RECEIVE DATE: 01/19/10410VAGANA START DATE: 01/19/10410FINAL REPORT:01/22/10 1137NO GROUP B STREPTOCOCCI ISOLATEDChlamydia Amplified Assay (no units)Date Value08/20/2009 NEGATIVEC. trachomatis Nucleic Acid (no units)Date Value07/10/2023 NegativeX-ray results: nonePlacenta Accreta ScreeningPrior ? : YesScreening outcome:A positive screening outcome indicates a history of prior delivery or prior uterine surgery, AND the presence of either a placenta low lying/previa or ultrasound suspicion of PASD in the current .Negative screening.DELIVERY PLANRepeat CSFETAL HEART [id number] cat 1Contractions q2-3 minASSESSMENT AND PLAN33 year old @38w5d with painful contractions--previous CSX 2--severe anaemiaWill transfuse RBCs prior to repeat CSNPOAdmit to L&DInformed [place] [address]-3Fpgovge and physical htjoTV2469-50-61G69:12:22History and physical noteTXT1.2.840.177654.1.13.104.2.7.2.50086 9|[id number] for patient dqof11356-5Sazjxqp and physical noteLNNARRATIVEFormatted C-CDA narrative text[address] Jm[id number] JJDDASDLDEFXRRWU6516-07-89J30:12:221.2.840 .053145.1.72.3.15|1.2.840.671818.1.13.104. 2.7.2.727879_[id number] [facility] Notes Date/Time Note Provider Source 2023-07-29 19:58:43 8baI6Wk1pWgUhMZ8hzwn+REXkE2Ju29/uAb BtITDTIk99qdjaTSjLzmCxM943yQt0163-8 9:58:43 Patient arrived ambulatory to ED c/o high BP and bilateral lower extremity swelling. Patient delivered 07/20/[address] Newberry. Patient states heavy vaginal bleeding stating 10+ pads changed today. BP at [facility] systolic 140's. 61084-5Ilgaxhszt department Triage yozrLT3444-60-91H36:02:49Emergency department Triage noteTXT1.2.840.746332.1.13.104.2.7. 2.326702|[id number] for patient oxhb73030-8Bjcwqwmsy department NoteLNNARRATIVEFormatted C-CDA narrative [id number]-Zlkpr McInnis RNUT[address] Mo[id number] 6XXUFYEZSEOOADAKCZDEVER0450-17-06P3 0:02:491.2.840.286815.1.72.3.15|1.2 .840.427515.1.13.104.2.7.2.727879_2 [id number] Lianet Flores RN [facility] 2023-07-29 15:13:46 cst9xtfs3PDTsIu45YyIXcVnXGpiXnFipTP 0w+oV8Nut2vxUwf6FtLlcHVC8YqWi6809-2 07-29T15:13:46 Pt called clinic to inform us she can not make it to [facility] for evaluation per providers orders at ID today. Pt states she went to [facility] for evaluation and was turned away. Educated pt to go to [facility] ER for evaluation. Strict er warnings given. Pt verbalized understanding.Ena Nicolas RN 07/29/23 3:15 PM 91728-4Gvonvmcey encounter RgekTK9810-95-33S57:16:27Telephone encounter NoteTXT1.2.840.551402.1.13.104.2.7. 2.409749|[id number] for patient wegu48420-6PeiuKRXNDJNULAZKvxwoeoux C-CDA narrative textUT[address] Yo[id number] 4XBWXZDIRZWLJUJBMIFDOCD1559-81-18T1 5:16:271.2.840.153514.1.72.3.15|1.2 .840.313372.1.13.104.2.7.2.727879_2 [id number] [facility] 2023-07-23 14:29:52 rB/ZOËKsfiKorTYUgKshqVmmwMUjozCnhBD CPWIUrdF1q8BUNz991W5psDwxuOga2798-6 4:29:52 Pt says pharmacy is telling her med called in by Dr Pulliam is discontinued they need new rx for alternative. They do have Vitasol Ultra. 91628-5Fzavvtwhv encounter RflpKG0398-87-70A14:30:52Telephone encounter NoteTXT1.2.840.149470.1.13.104.2.7. 2.055730|[id number] for patient whjz61293-0GmpfUXBEMYSSMQHFomcjxxzv C-CDA narrative [id number] [address] HqsvO[id number] 8WWLVBRYVDYADCUGOTTMDLM1994-27-76C3 4:30:521.2.840.696050.1.72.3.15|1.2 .840.473080.1.13.104.2.7.2.727879_2 [id number] Tameka Santiago [facility] 2023-07-22 07:14:25 ky64c+FMf4kL0BiisV5lda0a/eN0VkmyS5U w4QvkjJWYEby1ZMg7LuD56Xu6IcI01882-7 07:14:25 Problem: Discharge Planning - PostpartumGoal: Adequate for dischargeOutcome: Progressing as expectedGoal: Mood stableOutcome: Progressing as expectedProblem: Complications of hemorrhage (risk or actual)Goal: Absence of active bleedingOutcome: Progressing as expectedGoal: Absence of complicationsOutcome: Progressing as expectedProblem: PainGoal: Control of pain at or below patient's documented comfort goalOutcome: Progressing as expectedGoal: Reduction in pain sensationOutcome: Progressing as expected 13524-8Wnbf of care uikoFW6172-10-90P32:14:27Plan of care noteTXT1.2.840.252927.1.13.104.2.7. 2.914322|[id number] for patient onut72726-5FyjpHHZJYAJCVFTIfbekkrze C-CDA narrative [id number] Avilez RN[address] Mf[id number] 3MLKEZQQHFJYPIQRBXKKQRM1535-60-17G9 7:14:271.2.840.252461.1.72.3.15|1.2 .840.471352.1.13.104.2.7.2.727879_2 [id number] Felicia Avilez RN [facility] 2023-07-21 13:50:00 yS2VxWnG3cx0hWBVje+gGciuubLIp96IgHO XAqM9sIy/42q9zxdURvl2ousRRVLa1114-5 07-21T13:50:00 Images from the original note were not included.This note was copied from a baby's chart.Stopping Breast Milk ProductionBreast stimulation encourages milk production. The more milk is removed the body responds by making more milk. When the breast stays full it signals the body to stop making milk. Breast fullness and swelling can be painful. This is normal and may last 3- 4 days.Helpful tips to stop breast milk productionDo not bind your breast. This can lead to plugged ducts, mastitis, and increased pain.Wear a supportive bra day and night. Nursing pads are helpful for leaking milk.Talk to your provider about over the counter pain relievers such as ibuprofen or acetaminophen to help relieve pain.Ice packs or cold cabbage leaves on the breast can help decrease swelling and pain. Use 3-4 times per day for 15-20 minutes.Drink when you are thirsty. Drinking less fluids does not help and can make you dehydrated.If your breasts become very uncomfortable express just enough milk to reduce the pressure.Call your healthcare providerCall your healthcare provider right away if you have any of the following:A fever or chillsExtreme tiredness and body aches, as if you have the fluBurning or pain in one or both breastsRed streaks on a breastHard or lumpy spots in one or both breastsA feeling of warmth or heat in one or both breastsIt can take some women up to 10 days or longer for the breasts to stop making milk. Please contact your primary care provider for questions or concerns.If you have a fever over 101?F (38.3?C), pain and/or redness in a specificarea of the breast, feel like you are coming down with the flu, it couldbe a sign of breast or other infection. It may be temporarily necessaryto remove a majority of the milk from the breasts by hand expressionor pumping to help the infection clear, along with the use of antibiotics.Contact your primary care provider.Melissa RICHTER, RN, IBCLC 09564-6Hjinbqzpsn TbwuHQ5700-87-91A74:04:00Obstetrics NoteTXT1.2.840.302326.1.13.104.2.7. 2.919987|[id number] for patient bonf74273-8GvqtBWLPZCONVRKQpopwnyyq C-CDA narrative [id number] K Randolph RNUT[address] Qu[id number] 5HSPWYSHZULEZYBCANQPEWQ5210-50-28I2 5:04:001.2.840.028203.1.72.3.15|1. .840.362736.1.13.104.2.7.2.727879_2 [id number] Melissa Worthington RN [facility] 2023-07-21 08:53:38 g1OI2yqZUzXuh+ESOSM16hFrc3vA6bWLwqB SWRP0qtiNJaa24aF6epkWoU1yfW4N3769-7 08:53:38 Delivery Date: 07/20/2023 Delivery Time: 1:14 PMDELIVERY BY SECTIONDate of Service: : 07/20/2023 at 1:14 PMAdmitted for: contraction, prior CS x2, 38w5d, Repeat Lower uterine transverse section with no extension, no BTL, Pfannenstiel, Closed with 0- vicryl, EBL 500 cc, No complications none, Findings: FTLMC, some bladder adhesionsDelivery SummaryNewborn Sex: maleNewborn Weight: 2900 g1 Minute 5 Minute 10 MinuteApgar Totals: 8 9Primary Indication:The patient was taken to the operating room for a repeat section due to: labor/previous CS x2 at 38w5d weeks.Procedures:Repeat Lower uterine transverse section with no extensionSpecimens Removed:PlacentaSurgeon:Margie Fleming-Peace, MDReport:Prophylactic antibiotic, Ancef 2 grams was given before patient was taken to OR. 1 unit of blood started for severe anemia. After arrival to the operating room patient was placed in the supine position with left lateral tilt after administration of spinal anesthesia.LaparotomyA pfannenstiel incision was made through the anterior abdominal wall with #10 scalpel. The incision was extended sharply with the #10 scalpel through the subcutaneous tissue to the level of fascia. The fascia was entered sharply with a #10 scalpel (Pfannenstiel) in the midline and extended in semi-elliptical fashion with Jc scissor. The underlying muscles were dissected off the overlying fascia by grasping the superior aspect of fascia with two joann clamps and blunt dissection was used along the midline. The fascia was further from rectus muscle with Jc scissor and/or cautery. In similar fashion, the lower aspect of fascia was also grsaped with two Joann clamps and both blunt and sharp dissection was used to separate fascia from rectus muscle. The rectus muscles were in the midline bluntly with Mary Ann hemostat. The peritoneum was then entered bluntly. The peritoneal incision was then extended superiorly and inferiorly under direct visualization with care being taken to avoid bladder and bowel. There were minimal filmy adhesions which were taken down with autery and/or Metzebaum scissor. The peritoneal incision was enlarged bluntly by lateral traction from the surgeon's and litigation legal assistant's hand.DeliveryA bladder flap was not developed. A low transverse hysterotomy was made then with #10 scalpel and extended laterally and cephalad with fingers in a low transverse fashion with Manu Oro technique with care being taken to avoid injury to the fetus. The amniotic (membranes) were then entered with spontaneous rupture of membrane, and the amniotic fluid was noted to be clear . The head was delivered manually without aid of vaginal hand. The head was flexed and delivered through the hysterotomy incision in a non-traumatic fashion with aid of fundal pressure applied by the special ed assistant surgeon . The body was delivered with traction on the head along with fundal pressure.After delivery of body-bulb suction was performed from oropharynx and nostril with removal of clear amniotic fluid. Fetus was delivered in cephalic presentation. With delivery the baby, no extension was noted.Delayed cord clamping was performed for 30-60 seconds.Placenta was delivered spontaneously with steady traction on cord and manual separation of placenta from uterine wall.ClosureUterine cavity was cleaned after placental delivery with lap sponge x 2. The hysterotomy was closed in two layers using 0 vicryl with continuous locking stitches and followed by vertical imbricating stitches. Hemostasis was achieved as needed with electrocautery and 1 figure eight suture ligation. The ovaries/tubes/uterine surface were evaluated. They were found to be normal.Oozing in serosal surface so agent-powde placed.NoFascia was closed with running stitches using 0 vicryl. Hemostasis was checked for and found to be adequate. The subcutaneous tissue was irrigated and hemostasis was achieved where needed with electrocautery. Subcutaneous layer was closed with 2-0 plain gut. The skin was then closed with subcutaneous stitches using 2-0 vicryl sutures. The incision was cleaned and covered with a compression bandage and the procedure considered to be complete at this time.Intraoperative Complications: noneEBL: 500Uterotonics: noneDisposition:The patient tolerated the procedure well. She was recovered in Birthing Room in stable condition, with a contracted uterus and normal transvaginal bleeding. The infant was sent to Transition Nursery. A segment of the cord was obtained for umbilical cord gases. Cord blood gas was not available at time of operative note entered. Please see [facility] for update. The placenta was not sent to pathology. 61735-6Uyeeo and delivery summary evdvDF9825-37-02K81:58:39Labor and delivery summary noteTXT1.2.840.576462.1.13.104.2.7. 2.688663|[id number] for patient srzd98025-9CkwgWGQORAGMUOOYtodtnkus C-CDA narrative textUT[address] Zg[id number] 0DLABOIZCQEKLQLXQBLRZGO8149-11-10Q4 8:58:391.2.840.153482.1.72.3.15|1.2 .840.974853.1.13.104.2.7.2.727879_2 [id number] [facility] 2023-07-21 08:05:33 /nLDZXZpC6J4qEcyuC6dh51urRnDDOZQZXS nv/SdoLDOfhwj71PngqrnpAWdpolW5069-6 2-06T08:05:33 Problem: Discharge Planning - PostpartumGoal: Adequate for dischargeOutcome: Progressing as expectedGoal: Mood stableOutcome: Progressing as expectedProblem: Complications of hemorrhage (risk or actual)Goal: Absence of active bleedingOutcome: Progressing as expectedGoal: Absence of complicationsOutcome: Progressing as expectedProblem: PainGoal: Control of pain at or below patient's documented comfort goalOutcome: Progressing as expectedGoal: Reduction in pain sensationOutcome: Progressing as expected 32167-4Qkio of care kqqaNR8445-54-25N46:05:37Plan of care noteTXT1.2.840.050041.1.13.104.2.7. 2.682112|[id number] for patient klrn54515-6PemeJHMBHWKLSPHVcfangcgj C-CDA narrative bsbh017801171Ygozizx N Kamla BENNETT[address] [id number] 1AYNZJVRFMMGYWEQTXHOJPE1660-86-26F7 8:05:371.2.840.422796.1.72.3.15|1.2 .840.203585.1.13.104.2.7.2.727879_2 [id number] Jennifer Youssefre RN [facility] 2023-07-20 20:55:40 i5sWHf57zJvpCMR+L7zC0Q6bjXL9vMQnoQh X8Jj81xXa2or4Y/njDOxx5ubXGz0t1272-5 07-20T20:55:40 Problem: Discharge Planning - PostpartumGoal: Adequate for dischargeOutcome: Progressing as expectedGoal: Mood stableOutcome: Progressing as expectedProblem: Complications of hemorrhage (risk or actual)Goal: Absence of active bleedingOutcome: Progressing as expectedGoal: Absence of complicationsOutcome: Progressing as expectedProblem: PainGoal: Control of pain at or below patient's documented comfort goalOutcome: Progressing as expectedGoal: Reduction in pain sensationOutcome: Progressing as expected 51305-8Lhbv of care nerbKO5042-88-53H05:55:56Plan of care noteTXT1.2.840.285900.1.13.104.2.7. 2.551086|[id number] for patient azer30720-1MlmwAHBFZDYQFMORdpatkuka C-CDA narrative [id number] Polanco RN[id number] 8BLRRYQWQUCDJWBLXUXTWXC3479-93-84Q5 0:55:561.2.840.946936.1.72.3.15|1.2 .840.993889.1.13.104.2.7.2.727879_2 [id number] Yanni Polanco RN [facility] 2023-07-20 07:05:39 XaQjKNYSvl4HyvWrPNBQxFLuLNVuZBXz+w0 mbwxk9j4uBzimwj5GhhS6EzBjvBt12048-4 07:05:39 Name/ MRN / Age / Gender:Julisa Ball, [id number] year old femaleBMI:Estimated body mass index is 38.51 kg/m? as calculated from the following:Height as of this encounter: 1.524 m (5').Weight as of this encounter: 89.4 kg (197 lb 3.2 oz).Allergies:Patient has no known allergies.Last Vitals:BP Readings from Last 1 Encounters:07/20/23 135/89Pulse Readings from Last 1 Encounters:07/20/23 94SpO2 Readings from Last 1 Encounters:07/20/23 100%Date of Surgery:Surgeon: * Surgery not found *Procedure: LABOR CONSULTOR Location: * No surgery found *Anesthesia Preop Eval (physical exam)Anesthesia Preop: Sjxv-sy-GrqlYVB Status VerifiedClear Liquids: > 2 HoursSolid Food/Non-Clear Liquids: > 8 HoursPONV Risk Factors: female and non-smokerAnesthesia HistoryAnesthesia History NegativePrevious Anesthetics/AirwaysCardiovascularNe gative Cardiac ROSPulmonary(+) Cigarette useNeuro/Musculoskeletal(+) ObesityGI/HepaticNegative GI/Hepatic ROSHematology(+) AnemiaRenalNegative Renal ROSSkin(+) Current IV access and 18gEndo/OtherNegative Endo/Other ROSOther(+) Cigarette useOB/GYNP: 2Gestational Age: 36w1xGzxrk c-sections: x 2PediatricPediatric N/ANeonatalNeonatal N/APreoperative Medication InstructionsContinue taking all prescribed medications except:JOSE CRUZ inhibitors, ARBs, diuretics, all oral diabetes medicationsAnticoagulant Therapy: Defer to surgeonsInsulin: Take 1/2 dose the night prior to surgery. Hold on DOS.Phentermine: Alert [facility] anesthesiologistSGLT2 Inhibitors: "gliflozins" to be held for 3 days prior to elective surgeriesGLP1 Agonosit: stop 7 days prior to surgeryMAC Cases: Continue taking JOSE CRUZ inhibitors and ARBsASA ClassificationASA: 3ASA Comments: [id number]/H 6.9/23.7Qep9HPD45+smokerCurrent Medications:No outpatient medications have been marked as taking for the 07/20/23 encounter (Hospital Encounter).Previous Surgeries:Past Surgical History:Procedure Laterality Date SECTION 2009, 2013x 2 DIAGNOSTIC LAPAROSCOPY 09/06/2016 DIAGNOSTIC LAPAROSCOPY N/A 09/06/2016Surgeon: Moy Hutton MD; Location: [facility] Location HB OVARIAN CYST DRAINAGE 09/06/2016Anesthesia Physical ExamGeneralno apparent distress and alert and oriented x 3Neuro/PsychneurologicalDentalno notable dental hxAbdominal(+) obesity and gravidAirwayMallampati score:IITM distance:> 5 cmNeck ROM: fullMouth opening:normal(+) Normal faciesExtremityNormal extremityPulmonarypulmonary exam normal OtherCardiovascularRhythm:regularRa te: normalAnesthesia PlanASA Status: 3 78519-8Wogwilpnoutqwa Preoperative evaluation and management vtpeCE8383-69-44N55:15:15Anesthesio logy Preoperative evaluation and management noteTXT1.2.840.700815.1.13.104.2.7. 2.086651|[id number] for patient dvoh76593-2Kvsjmfpr operation noteLNNARRATIVEFormatted C-CDA narrative textNACR-NURSE INSTANT POTATO PROCESSING SUPERVISOR,CERTIFIED REGISTERED NURSE ANESTHETISTNACR-NURSE INSTANT POTATO PROCESSING SUPERVISOR,CERTIFIED REGISTERED NURSE ANESTHETISTUTPRESBYTER[facility] - [address] Vm[id number] 3MJIJATFEXJVFQLDRWSJLBU4684-34-93K7 7:15:151.2.840.255535.1.72.3.15|1.2 .840.332319.1.13.104.2.7.2.727879_2 [id number] NACR-NURSE INSTANT POTATO PROCESSING SUPERVISOR,CERTIFI ED REGISTERED NURSE INSTANT POTATO PROCESSING SUPERVISOR [facility] 2023-07-20 05:04:00 q4uuBPXNF3dDAceapCEKxa5SCv7eHVelM8c +ZbZFUhAW28OCqn2VKwyd8iAvLoFV4074-5 05:04:00 Pt arrived c/o contractions that began at 10pm on 07/19/2023. Pt reports contractions A4Sfdynbz. Dr. PulliamAayeV4F0Epkvyrrhzcfesy signed by Molly Marcus RN at 07/20/2023 5:05 AM JTI38864-2Qfqgnrqsk department Triage bglyME9313-12-32R51:05:29[facility] Triage noteTXT1.2.840.369538.1.13.104.2.7. 2.099905|[id number] for patient jjof36402-0Jnmvclvge department NoteLNNARRATIVEFormatted C-CDA narrative [id number] A Diaz RN[address] Vz[id number] 5XRKHMUJJJTUENUXMJJSGSS9309-58-13Q6 5:05:291.2.840.715904.1.72.3.15|1.2 .840.239124.1.13.104.2.7.2.727879_2 [id number] Molly Marcus RN [facility] 2023-07-17 15:10:30 UpQba6beZhvMHfFj83U8kYmJR/S3epF8iBU spbtTDSydJZqaOs6nq/rtD6SAAzEH5028-7 07-17T15:10:30 Report called and given to Charu BENNETT. Pt to report to L&D for iron infusionDamilola C Kysipe, WHCNP 07/17/2023 3:10 PM 19777-2Jnalqducd encounter EvpnDN0626-26-72E88:11:35Telephone encounter NoteTXT1.2.840.594817.1.13.104.2.7. 2.436697|[id number] for patient hwmu87297-0SiegXWIUIJJPDZSByfittdbe C-CDA narrative text[address] Ozg[id number] 2FOLSUSSTEPCPNADKBZHFYC5079-64-85Y2 5:11:351.2.840.118487.1.72.3.15|1.2 .840.910175.1.13.104.2.7.2.727879_2 [id number] [facility] 2023-07-17 14:25:53 s5wb8AjHHZc2tuPCrQRGY85c13xubdQapj9 /QADw1EQhvt4ZXr2BAOM7szlqsK8X6606-7 07-17T14:25:53 Patient notified of low H/H and need for IV iron transfusion. Pt instructed to go to [place] L&D for IV iron transfusion today. Pt notified of iron/pnv rx sent to pharmacy on file. Pt states she is at Food [employer] appointment now and will go to L&D when she is done. Will route to provider. NORBERT SANTIAGO RN 07/17/2023 2:27 PM 39749-6Dobtzzpyh encounter FjzbTD5204-24-64F78:28:17Telephone encounter NoteTXT1.2.840.483895.1.13.104.2.7. 2.224362|[id number] for patient ckrq22552-5WykiZYJTBRTHTTITobnjahzk C-CDA narrative vtmb399107102Omrxdv Rodriguez [id number] 6MUGNQQYTULVRWCXRGVSDZY6534-21-89B6 4:28:171.2.840.903312.1.72.3.15|1.2 .840.751658.1.13.104.2.7.2.727879_2 [id number] Norbert Santiago RN [facility] 2023-07-17 09:57:44 jW/tS9xnlnZkNv6Mdpv9wGYFKJaB+Sbq9LR eWkYPMlUIn6+kQsRDMfJ4zslKxmDQ3163-6 09:57:44 Attempt#2. Called, no answer. Left VM. NORBERT SANTIAGO RN 07/17/2023 9:58 AM 80104-0Wnsykvbig encounter ZwngHE9181-78-54Q91:58:03Telephone encounter NoteTXT1.2.840.553411.1.13.104.2.7. 2.493229|[id number] for patient abys04649-1GibkOGWHPEBWBQNWypugsjcm C-CDA narrative [id number] Rodriguez [id number] 6VWYVIVOXSEZYDXEGOXVAWQ5663-97-93V0 9:58:031.2.840.307895.1.72.3.15|1.2 .840.287173.1.13.104.2.7.2.727879_2 [id number] Norbert Santiago RN [facility] 2023-07-16 14:24:33 jVRdQbKNe8qJHViY+gU5tET5gBCvRUhHG5v 4/3VrP50n8/HslIhvNMd1ZfRIkO0q4256-5 :24:33Addended by: MARY KAY WELCH on: 07/16/2023 02:24 PMModules accepted: Orders 15136-0Spyudjux GqwsmpwkXY6459-38-05O81:24:33Addend um DocumentTXT1.2.840.843130.1.13.104. 2.7.2.552518|[id number] for patient qmib21886-4LzbiZQHNDGOAJJQWxcajxnhc C-CDA narrative text[id number] 8LSHYAGBYEFSDSHIQIIPPLT7947-85-84G0 4:24:331.2.840.994900.1.72.3.15|1.2 .840.113762.1.13.104.2.7.2.727879_2 [id number] [facility] 2023-07-16 14:24:32 EFdBUlGSC0cmfcPFNJygtDg01c9U2T+wJOI Nrhr9vWWroWb55Rr6tOmMx7Q90T1o0209-8 4:24:32 Attempt#1. Called, no answer. Left VM. NORBERT SANTIAGO RN 07/16/2023 2:24 PM 54030-3Hsgxdehnt encounter MhfjLI2172-70-83O53:24:54Telephone encounter NoteTXT1.2.840.509514.1.13.104.2.7. 2.297741|[id number] for patient xage10218-1DixpNZNIVLNNUFGIfqeuvouq C-CDA narrative [id number] Rodriguez RN[id number] 0CWBZYTECLKKGOQLVNJMGXX2824-78-16X0 4:24:541.2.840.956115.1.72.3.15|1.2 .840.246392.1.13.104.2.7.2.727879_2 [id number] Norbert Santiago RN [facility] 2023-07-16 14:10:10 JFaWsfUm3yAAwU/jdIaeNsiJ31WL1HttPhS 6hRVvuk90ICxz37k5XZbZf7mqWNs69500-4 4:10:10 Please notify the patient her H/H is very low, please advise her she will need to go to L&D for IV iron infusion. I will call to get her set up once she is notifiedIron/pnv sent to pharmacy on FRANCIS Umanzor 07/16/2023 2:11 PM 12473-3Mpftufvaw encounter RiinDT5492-26-68R42:24:29Telephone encounter NoteTXT1.2.840.516471.1.13.104.2.7. 2.113641|[id number] for patient wulo09397-7UclrMEMHUIRPZBHKptgubvfh C-CDA narrative text[address] Fo[id number] 5QNHYHYHKDPKOJTEAUGZMJJ7314-20-44N1 4:24:291.2.840.533992.1.72.3.15|1.2 .840.668814.1.13.104.2.7.2.727879_2 [id number] [facility] 2023-07-10 09:54:07 3Z+iQtWjNaZ/UwSqP1r2zGe7I/vOYf/ASN7 HmKhAkNsGlWIcqD6+MsJZUjyvp+ML2247-4 1-26T09:54:07 Pt report to SABRINA Koch in L&D. Pt taken to unit via wheelchair by ERT. 60366-5Eqsnnttuu department OngyBM5832-74-73M93:54:28Emergency department NoteTXT1.2.840.524207.1.13.104.2.7. 2.972932|[id number] for patient shon63978-5DuaaGPRXJLZIHAWZjveupshb C-CDA narrative [id number] N Dewoody RN[address] Dpzl[id number] 0KXMGAYBDCSCXZOANZSVJBU3951-57-40G0 9:54:281.2.840.524601.1.72.3.15|1.2 .840.134824.1.13.104.2.7.2.727879_2 [id number] Reva Feldman RN [facility] 2023-07-03 14:35:04 k5pjV8JenchTsCDUgk322SMlghY+oWMcZ5q QMLYXb8CdjcuGGU5WjbaPOdDi5PWG0726-9 07-03T14:35:04 Pt in clinic for appointment. Pt scheduled this AM and no showed. Per pt she thought appointment was this afternoon. Okay to work pt in per provider. Pt declined, has no documents for financial screening. Pt reports RAMONE 07/29/2023 determined by [facility] at the [facility]. Pt reports intermittent vaginal bleeding and abdominal pain 01/22. Pt ambulating with walker due to pain per pt. Pt denies any DFM and or LOF. Provider notified. Per provider pt to go to [facility] L&D for evaluation. Pt to follow up in clinic for New ob visit. Strict er warnings given. Pt verbalized understanding and reports will go to hospital now.Ena Nicolas RN 07/03/23 2:39 PM 96994-6Kdwxxwiiq encounter RaziUC5138-79-90O10:40:42Telephone encounter NoteTXT1.2.840.954013.1.13.104.2.7. 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 she has been having trouble walking and a tight feeling in her stomach x 1.5 weeks. Pain in vaginal area as if the baby is coming out.[phone] (home) 06940-1Lhemugmvk encounter TqwlMB5401-04-77U70:41:40Telephone encounter NoteTXT1.2.840.598114.1.13.104.2.7. 2.841410|[id number] for patient cwop99046-2YhpiMCDRBSBOWGNNflzkclzo C-CDA narrative [id number] A Esber RNUT[id number] 9JADPAPOLYSHWECDTEBJCMO0825-39-15V4 1:41:401.2.840.261382.1.72.3.15|1.2 .840.770317.1.13.104.2.7.2.727879_1 [id number] Jessie Mills RN [facility] 2023-06-24 11:41:00 bYDRZh23LfegorqsAJ6HcgkhiMA9m1ZUKXU ajhWzqrw+xOmsygUoefvU7fiYyjPa8904-7 1:41:00 Reason for DispositionSecond attempt to contact family AND no contact made. Phone number verified.Protocols used: No Contact or Duplicate Contact Ezci-GCUMZ-EZRA makes 2 unsuccessful attempts to reach patient. Message left on voicemail, if still needing to speak with a nurse call the . RN will close this encounter. 59335-4Hllyujojs encounter UuomBJ8426-48-13W17:50:28Telephone encounter NoteTXT1.2.840.664965.1.13.104.2.7. 2.616165|[id number] for patient kwdk30762-7XsmdGNZFYAGDGUWMepvgauzm C-CDA narrative textUT[id number] 7PCKXGFBBBJUHLKCZQNFJSF1697-04-67T1 1:50:281.2.840.861281.1.72.3.15|1.2 .840.695337.1.13.104.2.7.2.727879_1 [id number] [facility]
[2023-09-29] MEDS ORDERED: LIDOCAINE 1% MPF 5 ML VIAL ONE (13:32)
--- NOTE | 2023-09-29 13:54 | ER ---
Nurse's Notes [facility] Name: Gayle Ball Age: 33 yrs Sex: Female : 1990 Arrival Date: 09/29/2023 Time: 13:08 Bed 18 Private MD: Diagnosis: Laceration without foreign body of right wrist Presentation: 09/28 13:17 Chief complaint: Patient states: accidentally put her right hand through a window , iw laceration to right wrist , bleeding has stopped , dressing applied. Coronavirus screen: At this time, the client does not indicate any symptoms associated with coronavirus-19. Ebola Screen: Patient negative for fever greater than or equal to 101.5 degrees Fahrenheit, and additional compatible Ebola Virus Disease symptoms Patient denies exposure to infectious person. Patient denies travel to an Ebola-affected area in the 21 days before illness onset. No symptoms or risks identified at this time. Initial Sepsis Screen: Does the patient meet any 2 criteria? No. Patient's initial sepsis screen is negative. Does the patient have a suspected source of infection? No. Patient's initial sepsis screen is negative. Risk Assessment: Do you want to hurt yourself or someone else? Patient reports no desire to harm self or others. Onset of symptoms was September 29, 2023. 13:17 Method Of Arrival: Ambulatory iw 13:17 Acuity: CAMILA 4 iw 13:20 Complicating Factors: There are no complicating factors for this patient. 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 - Infectious Disease History:: Denies. - Social history:: Smoking status: Patient denies any tobacco usage or history of. Screenin:21 [facility] ED Fall Risk Assessment (Adult) History of falling in the last 3 months, mb9 including since admission No falls in past 3 months (0 pts) Confusion or Disorientation No (0 pts) Intoxicated or Sedated No (0 pts) Impaired Gait No (0 pts) Mobility Assist Device Used No (0 pt) Altered Elimination No (0 pt) Score/Fall Risk Level 0 - 2 = Low Risk Oriented to surroundings, Maintained a safe environment, Educated pt \T\ family on fall prevention, incl call for assistance when getting out of bed. Abuse screen: Denies threats or abuse. Nutritional screening: No deficits noted. Tuberculosis screening: No symptoms or risk factors identified. Assessment: 13:19 General: Appears in no apparent distress. Behavior is calm, cooperative. Pain: mb9 Complains of pain in right wrist. Neuro: Pantoja Agitation-Sedation Scale (RASS): 0 - Alert and Calm Level of Consciousness is awake, alert, obeys commands, Oriented to person, place, time, situation, Appropriate for age. Cardiovascular: Patient's skin is warm and dry. Respiratory: Airway is patent Respiratory effort is even, unlabored, Respiratory pattern is regular, symmetrical. GI: No signs and/or symptoms were reported involving the gastrointestinal system. : No signs and/or symptoms were reported regarding the genitourinary system. EENT: No signs and/or symptoms were reported regarding the EENT system. Derm: Skin is pink, warm \T\ dry. Musculoskeletal: Range of motion: intact in all extremities. Injury Description: Laceration sustained to right wrist is 0.5 to 2.5 cm long, not bleeding. Vital Signs: 13:20 BP 103 / 78; Pulse 101; Resp 18; Temp 98; Pulse Ox 100% ; Weight 81.65 kg; Height 5 ft. mb9 4 in. ; 13:54 BP 107 / 76; Pulse 90; Resp 16; Pulse Ox 100% on R/A; mb9 13:20 Body Mass Index 30.90 (81.65 kg, 162.56 cm) mb9 ED Course: 13:09 Patient arrived in ED. im 13:10 Shannon Benitez FNP-C is PHCP. kb 13:10 Tr Verma MD is Attending Physician. kb 13:14 Arm band placed on. mb9 13:14 Placed in gown. Bed in low position. Call light in reach. Side rails up X 1. Client mb9 placed on continuous cardiac and pulse oximetry monitoring. NIBP monitoring applied. 13:18 Triage completed. iw 13:19 Maria Luz Uriarte RN is Primary Nurse. mb9 13:49 Assist provider with laceration repair on right wrist that was 2.5 cm. or less using mb9 sutures. Set up tray. Performed by Shannon LENNON Dressed with Kerlix, Xeroform, Patient tolerated well. 13:49 Wound care: to laceration located on right wrist was cleaned with Hibiclens, soaked in mb9 normal saline solution, dressed with Kerlix. 13:50 Provided Education on: wound care. mery 13:50 Patient did not have IV access during this emergency room visit. [email or web address] Administered Medications: 13:43 Drug: Lidocaine Infiltration (1 %) 1 vials 5 ml Infiltration once; to bedside Volume: 5 mb9 ml; Route: Infiltration; Medication: 13:21 VIS not applicable for this client. [email or web address] Outcome: 13:53 Discharge ordered by MD. mora 13:54 Discharged to home ambulatory, mbRia 13:54 Condition: stable 13:54 Discharge instructions given to patient, Instructed on discharge instructions, follow up and referral plans. Demonstrated understanding of instructions, follow-up care, 13:58 Patient left the ED. mery Signatures: Shannon Benitez, SAJI NAVARRO-Fabienne Escobar, RN RN Maria Luz Laam RN RN [email or web address] Thelma Chapman
--- NOTE | 2023-09-29 13:54 | EDPHYS ---
Physician Documentation [facility] Name: Gayle Ball Age: 33 yrs Sex: Female : 1990 Arrival Date: 09/29/2023 Time: 13:08 Bed 18 Private MD: ED Physician Tr Verma HPI: 09/28 13:57 This 33 yrs old Black Female presents to ER via Ambulatory with complaints of kb Laceration To Hand. 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 States she was taking out an old window to put a new one in and accidentally cut her wrist on the glass. . 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 - Infectious Disease History:: Denies. - Social history:: Smoking status: Patient denies any tobacco usage or history of. ROS: 13:56 Constitutional: As per HPI kb Exam: 13:56 Constitutional: This is a well developed, well nourished patient who is awake, alert, kb and in no acute distress. Head/Face: Normocephalic, atraumatic. ENT: Moist Mucous membranes Cardiovascular: Regular rate Respiratory: Respirations even and unlabored. No increased work of breathing. Talking in full sentences MS/ Extremity: Pulses equal, no cyanosis. Neurovascular intact. Full, normal range of motion. Neuro: Awake and alert, GCS 15, oriented to person, place, time, and situation. Moves all extremities. Normal gait. 13:56 Skin: injury, laceration(s), the wound is approximately 2 cm(s), of the right wrist, that can be described as clean, no foreign body, irregular, without bleeding, 13:58 Constitutional: The patient appears anxious, kb Vital Signs: 13:20 BP 103 / 78; Pulse 101; Resp 18; Temp 98; Pulse Ox 100% ; Weight 81.65 kg; Height 5 ft. mb9 4 in. ; 13:54 BP 107 / 76; Pulse 90; Resp 16; Pulse Ox 100% on R/A; mb9 13:20 Body Mass Index 30.90 (81.65 kg, 162.56 cm) mb9 Laceration: 13:56 Wound Repair of 2cm ( 0.8in ) subcutaneous laceration to right wrist. Irregularly kb shaped.. Distal neuro/vascular/tendon intact. Anesthesia: Local anesthetic administered with 2.5 mls of 1% lidocaine. Wound prep: Extensive cleansing with hibiclenz by me, Wound irrigation with saline by me. Skin closed with 4 4-0 Prolene using simple sutures and sterile technique. Patient tolerated well. MDM: 13:10 Patient medically screened. kb 13:57 Differential diagnosis: superficial laceration, tendon injury, vascular injury. Data kb reviewed: vital signs, nurses notes. Counseling: I had a detailed discussion with the patient and/or guardian regarding the historical points, exam findings, and any diagnostic results supporting the discharge/admit diagnosis, the need for outpatient follow up, a family practitioner, to return to the emergency department if symptoms worsen or persist or if there are any questions or concerns that arise at home. 09/28 13:28 Order name: Dressing - Wound; Complete Time: 13:50 kb 09/28 13:28 Order name: Gloves, Sterile: size 6; Complete Time: 13:32 kb 09/28 13:28 Order name: Prolene, Sutures: 4.0; Complete Time: 13:33 kb 09/28 13:28 Order name: Setup Suture Tray; Complete Time: 13:33 kb Administered Medications: 13:43 Drug: Lidocaine Infiltration (1 %) 1 vials 5 ml Infiltration once; to bedside Volume: 5 mb9 ml; Route: Infiltration; Disposition Summary: 09/29/23 13:53 Discharge Ordered Condition: Stable kb Diagnosis - Laceration without foreign body of right wrist kb Followup: kb - With: Emergency Department - When: As needed - Reason: Worsening of condition Followup: kb - With: Private Physician - When: 2 - 3 days - Reason: Recheck today's complaints, Continuance of care, Re-evaluation by your physician Discharge Instructions: - Discharge Summary Sheet kb - Laceration Care, Adult, Tfzp-wj-Bxzl kb Forms: - Medication Reconciliation Form kb - Thank You Letter kb - Antibiotic Education kb - Prescription Opioid Use kb - Patient Portal Instructions kb - Leadership Thank You Letter kb Addendum: 10/02/2023 01:03 I was immediately available for consultation during this patient's visit. I did not e c2 personally see the patient or discuss the patient with the JUAN. . Signatures: Shannon Benitez, Maria Luz Underwood, RN RN mb9 Tr Verma MD MD ec2
[2023-09-29 18:11] VITALS: BP 107/76; TEMP 98; O2SAT 100
== END 2023-09-29 13:58 | disposition home or self-care (01) ==
LOC: ER 13:08
PROC: 0HQDXZZ Repair Right Lower Arm Skin, External Approach (ICD-10-PCS; principal; 2023-09-29)
DX: S61.511A Laceration without foreign body of right wrist, initial encounter (principal)
CPT/HCPCS: 99284; 12001; J2001

== ENCOUNTER 2023-10-22 21:15 | Emergency (ER) | payer OTHER ==
--- OUTSIDE RECORDS SUMMARY | 2023-10-22 21:18 | XMS REPORT | Continuity of Care Document ---
Author Name Unknown Address [address] [facility] [address] [place] [address] [facility] thconnect Address [address] [facility] [address] [place] [address] Care Team Providers Care Stereoptic Projection Topographer Name Role Phone PCP, PATIENT DOES NOT HAVE A Primary Care Physic raimundo Unavailable SARA Attending Clinician Unavailable MARY KAY TAFOYA Attending Clinician Unavail able MOY HUTTON Attending Clinician Unavailable Moy Hutton MD Attending Clinician [phone] [facility]ician Unava ilmaksim Tafoya Mary Kay RUIZ Attending Clinician + Doctor Unassigned, [place] Attending Clinician Mindy White MD Attending Clinician [phone] MARGIE NEWBERRY Attending Clinician MARGIE Arnold Attending Clinician Miguel Mcgowan CRNA Attending Clinician [phone] MINDY PULLIAM Attending Clinician Unavailable EDILIA_DIONISIO_José Luis_Bailey Attending Clinician Unavail able Jessie Mills RN Attending Clinician Unavailab MOY Rose Admitting Clinician Unavailable SARA Admitting Clinician Unavailable Moy Hutton MD Admitting Clinician [phone] FLEMING-PEACE, MARGIE Admitting Clinician MINDY Addison Admitting Clinician Mindy Jensen MD Admitting Clinician _DIONISIO_José Luis_Bailey Admitting Clinician Unavail able Payers Payer Name Policy Type Policy Number Effective Date Expirati on Date Source [place] [id number] 2023 00:00:00 [facility] [id number] 2023 00:00:00 Problems Condition Name Condition Details Condition Category Status Onset Date Resolution Date Last Treatment Date Treating Clinician Comments Source Liveborn infant, of [place] , born in hospital by delivery Liveborn infant, of [place] , born in hospital by delivery Disease Active 07-21 00:00: 00 [facility] Other immediate hemorrhage Other immediate hemorrhage Disease Active 07-21 00:00: 00 [facility] Acute on chronic anemia Acute on chronic anemia Disease Active 07-21 00:00: 00 [facility] Obesity (BMI 30-39.9) Obesity (BMI 30-39.9) Disease Active 2 00:00: 00 [facility] 38 weeks gestation of 38 weeks gestation of Disease Active 07-20 00:00: 00 [facility] History of section History of section Disease Active 07-14 00:00: 00 Overview: Formattin g of this note might be different from the original. x2 [facility] Multiparit y Multiparit y Disease Active 07-14 00:00: 00 [facility] Supervisio n of high-risk with insufficie nt care Supervisio n of high-risk with insufficie nt care Disease Active 07-14 00:00: 00 [facility] History of pre-eclamp wendy History of pre-eclamp wendy Disease Active 07-14 00:00: 00 Overview: Formattin g of this note might be different from the original. With first baby in [facility] Obesity in Obesity in Disease Active 07-10 00:00: 00 [facility] Obesity (BMI 30-39.9) Obesity (BMI 30-39.9) Disease Active 07-10 00:00: 00 [facility] Tobacco use in Tobacco use in Disease Active 2016-06 00:00: 00 [facility] Well woman exam Well woman exam Disease Active 2016-06 00:00: 00 [facility] Tobacco use disorder Tobacco use disorder Disease Active 2016-06 00:00: 00 [facility] Depo-Prove ra contracept bowen status Depo-Prove ra contracept bowen status Disease Active 09-02 00:00: 00 [facility] Over weight Over weight Disease Active 09-02 00:00: 00 [facility] Contracept bowen management Contracept bowen management Disease Active 00:00: 00 [facility] Umbilical hernia, recurrence not specified Umbilical hernia, recurrence not specified Disease Active 00:00: 00 [facility] Allergies, Adverse Reactions, Alerts Allergy Name Allergy Type Status Severity Reaction(s) Onset Date Inactive Date Treating Clinician Comments Source NO KNOWN ALLERGIE S Drug Class Active [facility] Social History Social Habit Start Date Stop Date Quantity Comments Source ASSERTION 2022-11-05 00:00:00 [facility] History of tobacco use 2003-06-15 00:00:00 Passive smoker [facility] Alcohol intake 2023-07-29 00:00:00 2023-07-29 00:00:00 0 /d [facility] Tobacco use and exposure 2023-07-20 00:00:00 2023-07-20 00:00:00 Smokeless tobacco non-user [facility] Education - What is the highest level of school you have completed or the highest degree you have received? 2023-07-20 00:00:00 2023-07-20 00:00:00 12th grade [facility] Cigarettes smoked current (pack per day) - Reported 2023-07-20 00:00:00 2023-07-20 00:00:00 [facility] Cigarette pack-years 2023-07-20 00:00:00 2023-07-20 00:00:00 [facility] History of Social function 2023-07-14 00:00:00 2023-07-14 00:00:00 [facility] Sex Assigned At 1990 00:00:00 1990 00:00:00 [facility] Smoking Status Start Date Stop Date Source Ex-smoker 2023-07-20 00:00:00 2023-07-20 [facility]00 [facility] Sm[facility] tobacco daily 2017-05-15 00:00:00 [facility] Medications Ordered Medication Name Filled Medication Name Start Date Stop Date Current Medication? Ordering Clinician Indication Dosage Frequency Signature (SIG) Comments Components Source acetaminoph en (TYLENOL) tablet 1,000 mg 07-30 03:00: 00 07-30 05:06 :00 No 1000mg 1,000 mg, Oral, ONCE, 1 dose, On Thu07/29/23 at 2100, Routine [facility] PNV 67-iron ps-folate no.1-dha (VITAFOL ULTRA) 29 mg iron- 1 mg-200 mg Cap 07-23 00:00: 00 Yes 1{tbl} Take 1 tablet by mouth in the morning. If insurance does not cover can substituen t with any other mediation that contains components . [facility] medroxyPROG ESTERone (DEPO-PROVE RA) injection 150 mg 07-22 14:30: 00 Yes 150mg 150 mg, Intramuscu lar, [id number], First dose on Thu07/22/23 at 0830, Until Discontinu ed, Routine [facility] HYDROcodone -acetaminop hen 5-325 mg tablet 07-22 08:33: 21 07-22 00:00 :00 No 1{tbl} Take 1 tablet by mouth every 6 (six) hours as needed. [facility] ferrous sulfate (IRON) 325 mg (65 mg iron) tablet 07-22 08:33: 21 07-22 00:00 :00 No 325mg Take 1 tablet by mouth in the morning. [facility] ferrous sulfate 325 mg (65 mg iron) tablet 07-22 00:00: 00 Yes [id number] 325mg Take 1 tablet by mouth in the morning and 1 tablet in the evening. [facility] ibuprofen 600 mg tablet 07-22 00:00: 00 Yes [id number] 600mg Take 1 tablet by mouth every 6 (six) hours. [facility] gabapentin 300 mg capsule 07-22 00:00: 00 Yes [id number] 300mg Take 1 capsule by mouth in the morning and 1 capsule at noon and 1 capsule in the evening. [facility] docusate 100 mg capsule 07-22 00:00: 00 Yes [id number] 200mg Take 2 capsules by mouth once daily as needed for Constipati on. [facility] HYDROcodone -acetaminop hen 5-325 mg tablet 07-22 00:00: 00 07-30 05:59 :00 No [id number] 1{tbl} Take 1 tablet by mouth every 6 (six) hours as needed for Pain (scale 7-10) (Alternate with Ibuprofen) for up to 7 days. Indication s: acute pain [facility] vitamin w/FA tablet 07-22 00:00: 00 07-23 00:00 :00 No [id number] 1{tbl} Take 1 tablet by mouth in the morning. [facility] ibuprofen (IBU) tablet 600 mg 07-21 20:14: 00 Yes 600mg 600 mg, Oral, Q6H ABX, First dose (after last modificati on) on Thu07/21/23 at 1415, Until Discontinu ed, Routine [facility] acetaminoph en (TYLENOL) tablet 650 mg 07-21 15:00: 00 Yes 650mg 650 mg, Oral, Q6H ABX, First dose (after last reorder) on Thu07/21/23 at 0900, Until Discontinu ed, Routine [facility] gabapentin (NEURONTIN) capsule 300 mg 07-21 14:45: 00 Yes 300mg 300 mg, Oral, TID, First dose on Thu07/21/23 at 0845, Until Discontinu ed, Routine [facility] HYDROcodone -acetaminop hen (NORCO 5) 5-325 mg tablet 1 tablet 07-21 14:34: 49 Yes 1{tbl} 1 tablet, Oral, Q6HPRN, Starting on Thu07/21/23 at 0834, Until Discontinu ed, Routine, Pain (scale 7-10), Alternate with Ibuprofen [facility] ferrous sulfate tablet 325 mg 07-21 14:00: 00 Yes 325mg 325 mg, Oral, BID, First dose on Thu07/21/23 at 0800, Until Discontinu ed, Routine [facility] ampicillin- sulbactam (UNASYN) 3 g in NaCl 0.9% (NS) 100 mL MINI-BAG 07-21 02:00: 00 07-21 02:57 :00 No 3g 3 g, IV Piggyback, ONCE, 1 dose, On Thu07/20/23 at 2014, Administer over 30 Minutes, 100 mL
Reas on for Anti-Infec tive: Empiric Non-Surgic al Prophylaxi s
Durat ion of therapy: Once (ED) [facility] methylergon ovine (METHERGINE ) injection 0.2 mg 07-20 22:00: 00 07-21 02:43 :10 No .2mg 0.2 mg, Intramuscu lar, Q4H, First dose on Thu07/20/23 at 1600, Until Discontinu ed, Routine [facility] miSOPROStoL (CYTOTEC) tablet 800 mcg 07-20 22:00: 00 07-21 02:43 :10 No 800ug 800 mcg, Oral, QID, First dose on Thu07/20/23 at 1600, Until Discontinu ed, Routine [facility] rho(D) immune globulin (RHOGAM) syringe 300 mcg 07-20 20:12: 19 Yes 300ug 300 mcg, Intramuscu lar, ONCE, For 1 dose, Conditiona l, Routine [facility] HYDROcodone -acetaminop hen (NORCO 5) 5-325 mg tablet 2 tablet 07-20 20:11: 45 07-21 14:35 :53 No 2{tbl} 2 tablet, Oral, Q6HPRN, Starting on Thu07/20/23 at 1411, Until Thu07/21/23 at 0835, Routine, Pain (scale 7-10), Alternate with Ibuprofen [facility] HYDROcodone -acetaminop hen (NORCO 5) 5-325 mg tablet 1 tablet 07-20 20:11: 41 07-21 14:35 :53 No 1{tbl} 1 tablet, Oral, Q6HPRN, Starting on Thu07/20/23 at 1411, Until Thu07/21/23 at 0835, Routine, Pain (scale 4-6), Alternate with Ibuprofen [facility] ibuprofen (IBU) tablet 600 mg 07-20 20:11: 11 07-21 14:35 :53 No 600mg 600 mg, Oral, Q6HPRN, Starting on Thu07/20/23 at 1411, Until Thu07/21/23 at 0835, Routine, Pain (scale 1-3) [facility] diphenhydrA MINE (BENADRYL) injection 25 mg 07-20 20:10: 18 Yes 25mg 25 mg, Slow IV Push, Q6HPRN, Starting on Thu07/20/23 at 1410, Until Discontinu ed, Routine, Itching [facility] diphenhydrA MINE (BENADRYL) tablet 25 mg 07-20 20:10: 18 Yes 25mg 25 mg, Oral, Q6HPRN, Starting on Thu07/20/23 at 1410, Until Discontinu ed, Routine, Sleep, Itching [facility] ondansetron (ZOFRAN (PF)) injection 4 mg 07-20 20:10: 18 Yes 4mg 4 mg, Slow IV Push, Q8HPRN, Starting on Thu07/20/23 at 1410, Until Discontinu ed, Routine, Nausea and Vomiting (N/V) [facility] bisacodyL (DULCOLAX) suppository 10 mg 07-20 20:10: 18 Yes 10mg 10 mg, Rectal, QDAILYPRN, Starting on Thu07/20/23 at 1410, Until Discontinu ed, Routine, Constipati on [facility] simethicone (GAS RELIEF (SIMETHICON E)) chewable tablet 160 mg 07-20 20:10: 18 Yes 160mg 160 mg, Oral, PC+HSPRN, Starting on Thu07/20/23 at 1410, Until Discontinu ed, Routine, Gas [facility] docusate (COLACE) capsule 200 mg 07-20 20:10: 18 Yes 200mg 200 mg, Oral, QDAILYPRN, Starting on Thu07/20/23 at 1410, Until Discontinu ed, Routine, Constipati on [facility] magnesium hydroxide (MILK OF MAGNESIA) 400 mg/5 mL suspension 30 mL 07-20 20:10: 18 Yes 30mL 30 mL, Oral, QDAILYPRN, Starting on Thu07/20/23 at 1410, Until Discontinu ed, Routine, Constipati on [facility] lactated ringers IV infusion 1,000 mL 07-20 20:10: 18 Yes 1000mL at 125 mL/hr, 1,000 mL, IV Infusion, PRN, 1 dose, Starting on Thu07/20/23 at 1410, Until Discontinu ed, Routine [facility] acetaminoph en (TYLENOL) tablet 650 mg 07-20 15:45: 00 07-20 20:12 :17 No 650mg 650 mg, Oral, ONCE, 1 dose, On Thu07/20/23 at 0945, Routine [facility] sodium citrate-cit lyn acid (BICITRA) 500-334 mg/5 mL solution 30 mL 07-20 15:34: 08 07-20 18:31 :00 No 30mL 30 mL, Oral, PRE-PROCED URE ONCE, 1 dose, Starting on Thu07/20/23 at 0934, Until Thu07/22/23 at 2359, Routine, Surgery/Pr ocedure [facility] acetaminoph en (TYLENOL) tablet 650 mg 07-20 15:30: 00 07-20 17:30 :00 No 650mg 650 mg, Oral, ONCE, 1 dose, On Thu07/20/23 at 0930, Routine [facility] lactated ringers IV infusion 1,000 mL 07-20 14:45: 00 07-20 20:12 :17 No 1000mL at 125 mL/hr, 1,000 mL, IV Infusion, CONTINUOUS , Starting on Thu07/20/23 at 0845, Until Thu07/20/23 at 1412, Routine [facility] lactated ringers IV infusion 1,000 mL 07-20 14:30: 00 07-20 13:45 :00 No 1000mL at 999 mL/hr, 1,000 mL, IV Infusion, ONCE, 1 dose, On Thu07/20/23 at 0830, STAT [facility] HYDROcodone -acetaminop hen 5-325 mg tablet 07-20 14:12: 20 Yes 1{tbl} Take 1 tablet by mouth every 6 (six) hours as needed. [facility] ferrous sulfate (IRON) 325 mg (65 mg iron) tablet 07-20 14:12: 20 Yes 325mg Take 1 tablet by mouth in the morning. [facility] Iron Fum & P-FA-Vit B & C No.9 (INTEGRA PLUS) 125 mg iron- 1 mg Cap 07-16 00:00: 00 07-22 00:00 :00 No [id number] 1{tbl} Take 1 tablet by mouth in the morning. [facility] HYDROcodone -acetaminop hen 5-325 mg tablet 07-14 14:19: 36 Yes 1{tbl} Take 1 tablet by mouth every 6 (six) hours as needed. [facility] ferrous sulfate (IRON) 325 mg (65 mg iron) tablet 07-14 14:19: 36 Yes 325mg Take 1 tablet by mouth in the morning. [facility] cdd73-miza- folic acid 29 mg iron- 1 mg per tablet 07-14 00:00: 00 07-22 00:00 :00 No [id number] 1{tbl} Take 1 tablet by mouth in the morning. [facility] fluconazole (DIFLUCAN) tablet 150 mg 07-10 18:15: 00 07-10 18:20 :00 No 150mg 150 mg, Oral, DAILY, 1 dose, First dose on Thu07/10/23 at 1215, KENDRA
Re ason for Anti-Infec tive: Empiric Therapy for Suspected Infection< br>Empiric Therapy Site: Pelvic
Duration of therapy: Once (ED) [facility] HYDROcodone -acetaminop hen 5-325 mg tablet 07-10 13:40: 20 Yes 1{tbl} Take 1 tablet by mouth every 6 (six) hours as needed. [facility] ferrous sulfate (IRON) 325 mg (65 mg iron) tablet 07-10 13:40: 20 Yes 325mg Take 325 mg by mouth daily. [facility] ibuprofen 800 mg tablet - 00:00: 00 07-22 00:00 :00 No [id number] 800mg Take 1 tablet by mouth every 8 (eight) hours as needed (HEADACHE) . [facility] HYDROcodone -acetaminop hen 5-325 mg tablet 2016-06 09:52: 37 Yes 1{tbl} Take 1 tablet by mouth every 6 (six) hours as needed. [facility] ferrous sulfate (IRON) 325 mg (65 mg iron) tablet 2016-06 09:52: 37 Yes 325mg Take 325 mg by mouth daily. [facility] metroNIDAZO LE 500 mg tablet 2016-06 00:00: 00 07-22 00:00 :00 No [id number] 500mg Take 1 tablet by mouth 2 (two) times daily. [facility] Immunizations Ordered Immunization Name Filled Immunization Name Date Status Comments Source TD, NOS Unknown Completed [facility] TDAP Unknown Completed [facility] TD, NOS Unknown Completed [facility] TDAP Unknown Completed [facility] TD, NOS Unknown Completed [facility] TDAP Unknown Completed [facility] TD, NOS Unknown Completed [facility] TDAP Unknown Completed [facility] TD, NOS Unknown Completed [facility] TDAP Unknown Completed [facility] TD, NOS Unknown Completed [facility] TDAP Unknown Completed [facility] TD, NOS Unknown Completed [facility] TDAP Unknown Completed [facility] TD, NOS Unknown Completed [facility] TDAP Unknown Completed [facility] TD, NOS Unknown Completed [facility] TDAP Unknown Completed [facility] TD, NOS Unknown Completed [facility] TDAP Unknown Completed [facility] TD, NOS Unknown Completed [facility] TDAP Unknown Completed [facility] TD, NOS Unknown Completed [facility] TDAP Unknown Completed [facility] TD, NOS Unknown Completed [facility] TDAP Unknown Completed [facility] TD, NOS Unknown Completed [facility] TDAP Unknown Completed [facility] TD, NOS Unknown Completed [facility] TDAP Unknown Completed [facility] TD, NOS Unknown Completed [facility] TDAP Unknown Completed [facility] TD, NOS Unknown Completed [facility] TDAP Unknown Completed [facility] TD, NOS Unknown Completed [facility] TD, NOS Unknown Completed [facility] TDAP Unknown Completed [facility] TDAP Unknown Completed [facility] TD, NOS Unknown Completed [facility] TDAP Unknown Completed [facility] TD, NOS Unknown Completed [facility] TDAP Unknown Completed [facility] TD, NOS Unknown Completed [facility] TDAP Unknown Completed [facility] TD, NOS Unknown Completed [facility] TDAP Unknown Completed [facility] TD, NOS Unknown Completed [facility] TDAP Unknown Completed [facility] Vital Signs Vital Name Observation Time Observation Value Comments S ource Systolic blood pressure 2023-07-30 06:15:00 119 mm[Hg] [facility] Diastolic blood pressure 2023-07-30 06:15:00 76 mm[Hg] [facility] Oxygen saturation in Arterial blood by Pulse oximetry 2023-07-30 06:15:00 98 /min [facility] Heart rate 2023-07-30 06:00:00 95 /min [facility] Body temperature 2023-07-30 02:17:00 37 Christina [facility] Respiratory rate 2023-07-30 02:17:00 16 /min [facility] Body height 2023-07-30 02:17:00 152.4 cm [facility] Body weight 2023-07-30 02:17:00 83.915 kg [facility] BMI 2023-07-30 02:17:00 36.13 kg/m2 [facility] Systolic blood pressure 2023-07-29 19:26:00 143 mm[Hg] [facility] Diastolic blood pressure 2023-07-29 19:26:00 88 mm[Hg] [facility] Heart rate 2023-07-29 19:26:00 80 /min [facility] Body temperature 2023-07-29 19:26:00 36.78 Christina [facility] Respiratory rate 2023-07-29 19:26:00 18 /min [facility] Body height 2023-07-29 19:26:00 152.4 cm [facility] Body weight 2023-07-29 19:26:00 90.175 kg [facility] BMI 2023-07-29 19:26:00 38.83 kg/m2 [facility] Systolic blood pressure 2023-07-22 14:09:00 123 mm[Hg] [facility] Diastolic blood pressure 2023-07-22 14:09:00 66 mm[Hg] [facility] Heart rate 2023-07-22 14:09:00 82 /min [facility] Body temperature 2023-07-22 14:09:00 36.61 Christina [facility] Respiratory rate 2023-07-22 14:09:00 18 /min [facility] Oxygen saturation in Arterial blood by Pulse oximetry 2023-07-22 14:09:00 100 /min [facility] Body weight 2023-07-20 16:56:00 89.4 kg [facility] BMI 2023-07-20 16:56:00 38.49 kg/m2 [facility] Body height 2023-07-20 11:05:00 152.4 cm [facility] Heart rate 2023-07-21 05:30:00 85 /min [facility] Oxygen saturation in Arterial blood by Pulse oximetry 2023-07-21 05:30:00 100 /min [facility] Systolic blood pressure 2023-07-21 05:00:00 123 mm[Hg] [facility] Diastolic blood pressure 2023-07-21 05:00:00 86 mm[Hg] [facility] Body temperature 2023-07-21 01:53:00 36.5 Christina [facility] Respiratory rate 2023-07-21 01:53:00 20 /min [facility] Body weight 2023-07-20 16:56:00 89.4 kg [facility] BMI 2023-07-20 16:56:00 38.49 kg/m2 [facility] Body height 2023-07-20 11:05:00 152.4 cm [facility] Systolic blood pressure 2023-07-14 20:18:00 118 mm[Hg] [facility] Diastolic blood pressure 2023-07-14 20:18:00 80 mm[Hg] [facility] Heart rate 2023-07-14 20:18:00 103 /min [facility] Body temperature 2023-07-14 20:18:00 36.33 Christina [facility] Respiratory rate 2023-07-14 20:18:00 18 /min [facility] Body height 2023-07-14 20:18:00 165.1 cm [facility] Body weight 2023-07-14 20:18:00 87.091 kg [facility] BMI 2023-07-14 20:18:00 31.95 kg/m2 [facility] Heart rate 2023-07-10 17:45:00 98 /min [facility] Oxygen saturation in Arterial blood by Pulse oximetry 2023-07-10 17:45:00 100 /min [facility] Systolic blood pressure 2023-07-10 16:00:00 122 mm[Hg] [facility] Diastolic blood pressure 2023-07-10 16:00:00 81 mm[Hg] [facility] Body temperature 2023-07-10 16:00:00 36.67 Christina [facility] Respiratory rate 2023-07-10 16:00:00 20 /min [facility] Body height 2023-07-10 15:53:00 165.1 cm [facility] Body weight 2023-07-10 15:53:00 87.408 kg [facility] BMI 2023-07-10 15:53:00 32.07 kg/m2 [facility] Procedures Procedure Date / Time Performed Performing Clinician Source SGOT (ASPARTATE AMINO TRANSFER) 2023-07-30 02:36:00 Moy Hutton [facility] CREATININE 2023-07-30 02:36:00 Moy Hutton [facility] ALANINE AMINO TRANSFERASE(SGPT 2023-07-30 02:36:00 Moy Hutton [facility] LACTATE DEHYDROGENASE 2023-07-30 02:36:00 Moy Hutton [facility] URIC ACID 2023-07-30 02:36:00 Moy Hutton [facility] CBC WITH DIFF 2023-07-30 02:36:00 Moy Hutton [facility] URINALYSIS 2023-07-30 02:36:00 Moy Hutton [facility] PROTEIN CREAT RATIO URINE RANDOM 2023-07-30 02:36:00 Moy Hutton [facility] CONSENT/REFUSAL FOR DIAGNOSIS AND TREATMENT 2023-07-30 01:53:27 Doctor Unassigned, [place] [facility] NO SHOW OR MISSED APPOINTMENT POLICY ACKNOWLEDGEMENT 2023-07-29 18:54:25 Doctor Unassigned, [place] [facility] PREPARE PACKED RBC 2023-07-22 20:50:51 [facility] CBC WITH DIFF 2023-07-21 10:04:00 [facility] CBC WITH DIFF 2023-07-21 10:04:00 [facility] CBC WITH DIFF 2023-07-21 02:10:00 [facility] CBC WITH DIFF 2023-07-21 02:10:00 [facility] TRANSFUSE PACKED RBC 2023-07-21 00:35:00 [facility] TRANSFUSE PACKED RBC 2023-07-21 00:35:00 [facility] PREPARE PACKED RBC 2023-07-21 00:14:00 [facility] PREPARE PACKED RBC 2023-07-21 00:14:00 [facility] PREPARE PACKED RBC 2023-07-20 21:46:07 [facility] PREPARE PACKED RBC 2023-07-20 21:46:07 [facility] [facility] TRANSFUSE PACKED RBC 2023-07-20 17:38:00 Lemuel [facility], [facility] TRANSFUSE PACKED RBC 2023-07-20 17:38:00 Lemuel [facility], [facility] HEPATITIS B SURFACE ANTIGEN 2023-07-20 15:56:00 [facility] HB ABO GROUPING 2023-07-20 15:56:[address] [facility] RHO (D[facility] IMMUNE GLOBULIN 2023-07-20 15:56:00 Estuardo smithPeace, [facility] ADC OR HILDA ONLY - RPR 2023-07-20 15:56[facility]00 [facility]/2 AG-AB WITH REFLEX 2023-07-20 15:56:00 Fanny mccrackenPeace, [facility] HEPATITIS B SURFACE ANTIGEN 2023-07-20 15:56:00 Coni [facility] HB ABO GROUPING 2023-07-20 15:56:00 [facility] RHO (D) IMMUNE GLOBULIN 2023-07-20 15:56:00 Estuardo Villarreal [facility] ADC OR HILDA ONLY - RPR 2023-07-20 15:56:00 Fanny sarahPeace, [facility] HIV 1/2 AG-AB WITH REFLEX 2023-07-20 15:56:00 [facility] URINE DRUG (IMMUNOASSAY) - COMPREHENSIVE DRUG SCREEN 2023-07-20 13:38:00 [facility] CBC WITH DIFF 2023-07-20 13:38:00 Con[facility] URINE DRUG (IMMUNOASSAY) - COMPREHENSIVE DRUG SCREEN 2023-07-20 13:38:00 [facility] CBC WITH DIFF 2023-07-20 13:38:00 Con[facility] EXTERNAL PROVIDER RECORDS 2023-07-15 06:01:00 Do ctor Unassigned, [place] [facility] NON-STRESS TEST 2023-07-14 21:58:30 Neil Tafoya [facility] GROUP B STREPTOCOCCUS BY PCR 2023-07-14 21:58:00 Mary Kay Tafoya [facility] CBC WITH DIFF 2023-07-14 21:07:00 Mary Kay Tafoya [facility] RUBELLA SCREEN IGG 2023-07-14 21:07:00 Paulina Tafoya [facility] HEPATITIS B SURFACE ANTIGEN 2023-07-14 21:07:00 Mary Kay Tafoya [facility] HB ABO GROUPING 2023-07-14 21:07:00 Mary Kay Tafoya [facility] HIV 1/2 AG-AB WITH REFLEX 2023-07-14 21:07:00 Mary Kay Tafoya [facility] SYPHILIS IGG/IGM 2023-07-14 21:07:00 Edie Tafoya [facility] AUTHORIZATION FOR RELEASE OF PHI 2023-07-14 06:01:00 Doctor Unassigned, [place] [facility] URINALYSIS 2023-07-10 16:35:00 Adum, Mindy [facility] ADC CLC OR LCC ONLY - WET PREP 2023-07-10 16:35:00 Adum, Mindy [facility] ASSIGNMENT OF BENEFITS 2023-07-10 15:52:02 Docto r Unassigned, [place] [facility] CONSENT/REFUSAL FOR DIAGNOSIS AND TREATMENT 2023-07-10 15:44:33 Doctor Unassigned, [place] [facility] SECTION [facility] SECTION [facility] Encounters Start Date/Time End Date/Time Encounter Type Admission Type Attending [facility] Care Facility Care Department Encounter ID Source 2023-07-30 01:23:24 Outpatient P [facility] [id number] [facility] 2023-09-09 00:00:00 2023-09-09 00:00:00 Outpatient ROSS_DOUGLAS TEE PRJOSE [facility] [id number] [facility] 2023-08-27 09:30:00 2023-08-27 09:30:00 Outpatient R MARY KAY TAFOYA [facility] [id number] [facility] 2023-07-29 20:02:00 2023-07-30 01:20:00 Outpatient P MOY HUTTON [facility] [id number] [facility] 2023-07-29 20:02:00 2023-07-30 01:20:00 Hospital Encounter Moy Hutton [facility] 1.2.840.114 350.1.13.10 4.2.7.2.686 [id number] [facility] 2023-07-29 13:00:00 2023-07-29 13:44:14 Outpatient MARY KAY BARRAGAN [facility] [id number] [facility] 2023-07-29 13:00:00 2023-07-29 13:44:14 Nurse Visit Visit, [facility] Mary Kay Tafoya [facility] 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 [facility] 1.84.114 350.1.13.10 4.2.7.2.686 [id number] [facility] 2023-07-29 00:00:00 2023-07-29 00:00:00 Orders Only Doctor Unassigned, [place] [facility] 1..114 350.1.13.10 4.2.7.2.686 [id number] 009 [id number] [facility] 2023-07-29 00:00:00 2023-07-29 00:00:00 Telephone Mary Kay Tafoya [facility] 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 [facility] 1..114 350.1.13.10 4.2.7.2.686 [id number] [facility] 2023-07-28 08:30:00 2023-07-28 08:30:00 Outpatient MARY KAY BARRAGAN [facility] [id number] [facility] 2023-07-23 00:00:00 2023-07-23 00:00:00 Telephone Mindy Pulliam [facility] 1..114 350.1.13.10 4.2.7.2.686 [id number] [facility] 2023-07-20 05:10:00 2023-07-22 14:15:00 Inpatient P JAMES S, [facility] [id number] [facility] 2023-07-20 05:10:00 2023-07-22 14:15:00 Hospital Encounter Moy Hutton, [facility] 1.2.840.114 350.1.13.10 4.2.7.2.686 [id number] [facility] 2023-07-21 20:02:04 2023-07-21 20:02:04 Anesthesia Event Miguel Ambrose [facility] 1.2.840.114 350.1.13.10 4.2.7.2.686 [id number] [facility] 2023-07-21 12:45:00 2023-07-21 12:45:00 Outpatient R MARY KAY TAFOYA [facility] [id number] [facility] 2023-07-20 00:00:00 2023-07-20 00:00:00 [facility] 1.2.840.114 350.1.13.10 4.2.7.2.686 [id number] [facility] 2023-07-16 00:00:00 2023-07-16 00:00:00 Telephone Mary Kay Tafoya [facility] 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 [facility] 1.2.840.114 350.1.13.10 4.2.7.2.686 [id number] [facility] 2023-07-15 00:00:00 2023-07-15 00:00:00 Orders Only Doctor Unassigned, [place] [facility] 1.2.840.114 350.1.13.10 4.2.7.2.686 [id number] [facility] 2023-07-14 13:00:00 2023-07-14 15:27:03 Initial Visit Mary Kay Tafoya [facility] 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 [facility] 1.2.840.114 350.1.13.10 4.2.7.2.686 [id number] [facility] 2023-07-14 13:00:00 2023-07-14 15:27:03 Outpatient R MARY KAY TAFOYA [facility] [id number] [facility] 2023-07-14 12:30:00 2023-07-14 14:14:30 Outpatient R MARY KAY TAFOYA [facility] [id number] [facility] 2023-07-14 00:00:00 2023-07-14 00:00:00 Orders Only Doctor Unassigned, [place] [facility] 1.2.840.114 350.1.13.10 4.2.7.2.686 [id number] [facility] 2023-07-10 09:54:00 2023-07-10 13:35:00 Outpatient X ADMIDNY JOHNSON [facility] [id number] [facility] 2023-07-10 09:54:00 2023-07-10 13:35:00 Emergency AdMindy johnson Laetsha [facility] 1.2.840.114 350.1.13.10 4.2.7.2.686 [id number] [facility] 2023-07-10 00:00:00 2023-07-10 00:00:00 Orders Only Doctor Unassigned, [place] [facility] 1.2840.114 350.1.13.10 4.2.7.2.686 [id number] [facility] 2023-07-08 13:45:00 2023-07-08 13:45:00 Outpatient R MARY KAY TAFOYA [facility] [id number] [facility] 2023-07-03 08:00:00 2023-07-03 08:00:00 Outpatient R MRAY KAY TAFOYA [facility] [id number] [facility] 2023-07-03 00:00:00 2023-07-03 00:00:00 Telephone Lottie Mary Kay Wu [facility] 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 [facility] 1.2.840.114 350.1.13.10 4.2.7.2.686 [id number] [facility] 2023-07-01 00:00:00 2023-07-01 00:00:00 Outpatient GC_SWHAOMC_ [place]_G PRIV PRIV [id number] [facility] 2023-06-26 00:00:00 2023-06-26 00:00:00 Outpatient GC_SWHAOMC_ [place]_G PRIV PRIV [id number] [facility] 2023-06-24 00:00:00 2023-06-24 00:00:00 Outpatient GC_SWHAOMC_ [place]_G PRIV PRIV [id number] [facility] 2023-06-24 00:00:00 2023-06-24 00:00:00 Nurse Triage Jessie Mills [facility] 1.2.840.114 350.1.13.10 4.2.7.2.686 [id number] [facility] 2023-06-23 00:00:00 2023-06-23 00:00:00 Outpatient PRIV PRIV [id number] [facility] Results Test Description Test Time Test Comments Results Result Co mments Source [facility] (SGPT)2023-07-30 03:01:18* Test Item Value Reference Range Interpretation Comme nts ALTv (test code = 1742-6) 28 U/L 5-35 Lab Interpretation (test cod e = 07890-6) Normal [facility] Center[facility] Puviedchocaba4298-87-29 03:01:18* Test Item Value Reference Range Interpretation Comme nts LDH (test code = 1657408031) 441 U/L 120-246 H Lab Interpretation (test cod e = 46859-7) Abnormal [facility] Center[facility]um Nacizxlyaf8147-06-18 03:00:58* Test Item Value Reference Range Interpretation Comme [facility] CREATININE (test code = 2160-0) 0.61 mg/dL 0.50-1.04 eGFR (test code = 72129-8) 119.7 mL/min/1.73m2 CKD-EPI eGFR (20 21). Assuming creatinine has been stable day-to-day for at least three months, the eGFR indicates Category G1 (>= 90 mL/min/1.73 m2) [facility] Center[facility] (Asparate Amino Transfer)2023-07-30 03:00:58* Test Item Value Reference Range Interpretation Comme nts AST(SGOT) (test code = 6209661857) 49 U/L 13-40 H Lab Interpretation (test cod e = 59061-6) Abnormal [facility] with Ukjvrrnxzldo7323-48-52 02:49:53* Test Item Value Reference Range Interpretation [...] g/dL 31.6-35.1 L RDW-SD (test code = 23943-1) 73.4 fL 39.0-49.9 H RDW-CV (test code = 788-0) 23.9 % 12.0-15.5 H PLT (test code = 777-3) 412 166-358 H MPV (test code = 14622-7) 8.3 fL 9.5-12.9 L NRBC/100 WBC (test code = 8547895528) 0.3 0.0-10.0 NRBC x10^3 (test code = 7858570137) 0.04 See_Comment [Automated messa ge] The system which generated this result transmitted reference range: 10*3/?L. The reference range was not used to interpret this result as normal/abnormal. GRAN MAT (NEUT) % (test code = 770-8) 68.5 % IMM GRAN % (test code = 7371657760) 0.80 % LYMPH % (test code = 736-9) 20.0 % MONO % (test code = 5905-5) 8.5 % EOS % (test code = 713-8) 1.9 % BASO % (test code = 706-2) 0.3 % GRAN MAT x10^3(ANC) (test code = 4690151211) 8.42 10*3/uL 1.88-7.09 H IMM GRAN x10^3 (test code = 7303853373) 0.10 10*3/uL 0.00-0.06 H LYMPH x10^3 (test code = 731-0) 2.47 10*3/uL 1.32-3.29 MONO x10^3 (test code = 742-7) 1.05 10*3/uL 0.33-0.92 H EOS x10^3 (test code = 711-2) 0.24 10*3/uL 0.03-0.39 BASO x10^3 (test code = 704-7) 0.04 10*3/uL 0.01-0.07 Lab Interpretation (test code = 18693-6) Abnormal [facility] with Ihjlbpcpdhuu8002-80-15 13:58:25* Test Item Value Reference Range Interpretation [...] 31.8 g/dL 31.6-35.1 RDW-SD (test code = 88931-6) 54.5 fL 39.0-49.9 H RDW-CV (test code = 788-0) 19.0 % 12.0-15.5 H PLT (test code = 777-3) 242 166-358 MPV (test code = 69069-1) 8.9 fL 9.5-12.9 L NRBC/100 WBC (test code = 0520009948) 0.9 0.0-10.0 NRBC x10^3 (test code = 1750881714) 0.15 See_Comment [Automated message] The system which generated this result transmitted reference range: 10*3/?L. The reference range was not used to interpret this result as normal/abnormal. SEG % (test code = 51380-2) 84 % 33-76 H BAND % (test code = 46693-7) 4 % 0-1 H LYMPH % (test code = 18866-8) 12 % 14-54 L ANC (test code = 753-4) 14.15 10*3/uL 1.88-7.09 H POLYCHROMASIA (test code = 55483-8) 2+ See_Comment [Automated message] The system which generated this result transmitted reference range: 2+. The reference range was not used to interpret this result as normal/abnormal. Lab Interpretation (test code = 39307-6) Abnormal [facility] with Zyiloampngeh8258-63-95 13:58:25* Test Item Value Reference Range Interpretation [...] 31.8 g/dL 31.6-35.1 RDW-SD (test code = 18350-9) 54.5 fL 39.0-49.9 H RDW-CV (test code = 788-0) 19.0 % 12.0-15.5 H PLT (test code = 777-3) 242 166-358 MPV (test code = 77686-8) 8.9 fL 9.5-12.9 L NRBC/100 WBC (test code = 2595625302) 0.9 0.0-10.0 NRBC x10^3 (test code = 9308196632) 0.15 See_Comment [Automated message] The system which generated this result transmitted reference range: 10*3/?L. The reference range was not used to interpret this result as normal/abnormal. SEG % (test code = 08601-8) 84 % 33-76 H BAND % (test code = 86243-3) 4 % 0-1 H LYMPH % (test code = 46102-1) 12 % 14-54 L ANC (test code = 753-4) 14.15 10*3/uL 1.88-7.09 H POLYCHROMASIA (test code = 73337-4) 2+ See_Comment [Automated message] The system which generated this result transmitted reference range: 2+. The reference range was not used to interpret this result as normal/abnormal. Lab Interpretation (test code = 84068-6) Abnormal [facility] with Hoiljydohyxs5597-09-90 13:58:25* Test Item Value Reference Range Interpretation [...] 31.8 g/dL 31.6-35.1 RDW-SD (test code = 73875-5) 54.5 fL 39.0-49.9 H RDW-CV (test code = 788-0) 19.0 % 12.0-15.5 H PLT (test code = 777-3) 242 166-358 MPV (test code = 17450-0) 8.9 fL 9.5-12.9 L NRBC/100 WBC (test code = 6883970668) 0.9 0.0-10.0 NRBC x10^3 (test code = 5082068881) 0.15 See_Comment [Automated message] The system which generated this result transmitted reference range: 10*3/?L. The reference range was not used to interpret this result as normal/abnormal. SEG % (test code = 96591-0) 84 % 33-76 H BAND % (test code = 53893-1) 4 % 0-1 H LYMPH % (test code = 74233-2) 12 % 14-54 L ANC (test code = 753-4) 14.15 10*3/uL 1.88-7.09 H POLYCHROMASIA (test code = 39217-9) 2+ See_Comment [Automated message] The system which generated this result transmitted reference range: 2+. The reference range was not used to interpret this result as normal/abnormal. Lab Interpretation (test code = 81140-2) Abnormal [facility] with Tjdc2050-34-35 02:59:40* Test Item Value Reference Range Interpretation [...] 32.2 g/dL 31.6-35.1 RDW-SD (test code = 04845-3) 55.5 fL 39.0-49.9 H RDW-CV (test code = 788-0) 19.5 % 12.0-15.5 H PLT (test code = 777-3) 232 166-358 MPV (test code = 57116-0) 8.6 fL 9.5-12.9 L NRBC/100 WBC (test code = 0410511099) 0.8 0.0-10.0 NRBC x10^3 (test code = 4816941850) 0.14 See_Comment [Automated message] The system which generated this result transmitted reference range: 10*3/?L. The reference range was not used to interpret this result as normal/abnormal. GRAN MAT (NEUT) % (test code = 770-8) 77.6 % IMM GRAN % (test code = 3325938442) 1.20 % LYMPH % (test code = 736-9) 12.2 % MONO % (test code = 5905-5) 8.6 % EOS % (test code = 713-8) 0.1 % BASO % (test code = 706-2) 0.3 % GRAN MAT x10^3(ANC) (test code = 1775634660) 13.64 10*3/uL 1.88-7.09 H IMM GRAN x10^3 (test code = 0932803969) 0.21 10*3/uL 0.00-0.06 H LYMPH x10^3 (test code = 731-0) 2.15 10*3/uL 1.32-3.29 MONO x10^3 (test code = 742-7) 1.51 10*3/uL 0.33-0.92 H EOS x10^3 (test code = 711-2) 0.03-0.39 L BASO x10^3 (test code = 704-7) 0.06 10*3/uL 0.01-0.07 Lab Interpretation (test code = 81361-0) Abnormal [facility] with Ttdc0953-56-54 02:59:40* Test Item Value Reference Range Interpretation [...] 32.2 g/dL 31.6-35.1 RDW-SD (test code = 74905-0) 55.5 fL 39.0-49.9 H RDW-CV (test code = 788-0) 19.5 % 12.0-15.5 H PLT (test code = 777-3) 232 166-358 MPV (test code = 93560-9) 8.6 fL 9.5-12.9 L NRBC/100 WBC (test code = 0657019517) 0.8 0.0-10.0 NRBC x10^3 (test code = 9389962548) 0.14 See_Comment [Automated message] The system which generated this result transmitted reference range: 10*3/?L. The reference range was not used to interpret this result as normal/abnormal. GRAN MAT (NEUT) % (test code = 770-8) 77.6 % IMM GRAN % (test code = 3729466057) 1.20 % LYMPH % (test code = 736-9) 12.2 % MONO % (test code = 5905-5) 8.6 % EOS % (test code = 713-8) 0.1 % BASO % (test code = 706-2) 0.3 % GRAN MAT x10^3(ANC) (test code = 3852374124) 13.64 10*3/uL 1.88-7.09 H IMM GRAN x10^3 (test code = 4736620397) 0.21 10*3/uL 0.00-0.06 H LYMPH x10^3 (test code = 731-0) 2.15 10*3/uL 1.32-3.29 MONO x10^3 (test code = 742-7) 1.51 10*3/uL 0.33-0.92 H EOS x10^3 (test code = 711-2) 0.03-0.39 L BASO x10^3 (test code = 704-7) 0.06 10*3/uL 0.01-0.07 Lab Interpretation (test code = 48567-9) Abnormal [facility] with Pyvr0461-87-69 02:59:40* Test Item Value Reference Range Interpretation [...] 32.2 g/dL 31.6-35.1 RDW-SD (test code = 60712-1) 55.5 fL 39.0-49.9 H RDW-CV (test code = 788-0) 19.5 % 12.0-15.5 H PLT (test code = 777-3) 232 166-358 MPV (test code = 13451-2) 8.6 fL 9.5-12.9 L NRBC/100 WBC (test code = 1104002930) 0.8 0.0-10.0 NRBC x10^3 (test code = 5124763132) 0.14 See_Comment [Automated message] The system which generated this result transmitted reference range: 10*3/?L. The reference range was not used to interpret this result as normal/abnormal. GRAN MAT (NEUT) % (test code = 770-8) 77.6 % IMM GRAN % (test code = 7959773644) 1.20 % LYMPH % (test code = 736-9) 12.2 % MONO % (test code = 5905-5) 8.6 % EOS % (test code = 713-8) 0.1 % BASO % (test code = 706-2) 0.3 % GRAN MAT x10^3(ANC) (test code = 2473526501) 13.64 10*3/uL 1.88-7.09 H IMM GRAN x10^3 (test code = 3337280784) 0.21 10*3/uL 0.00-0.06 H LYMPH x10^3 (test code = 731-0) 2.15 10*3/uL 1.32-3.29 MONO x10^3 (test code = 742-7) 1.51 10*3/uL 0.33-0.92 H EOS x10^3 (test code = 711-2) 0.03-0.39 L BASO x10^3 (test code = 704-7) 0.06 10*3/uL 0.01-0.07 Lab Interpretation (test code = 95676-0) Abnormal [facility] () IMMUNE SXXTTMYY5364-82-74 22:18:07* Test Item Value Reference Range Interpretation Comme nts RHIG CANDIDATE? (test code = 5188) No- see comment Patient is not a candidate for RhIg- Patient is Rh Positive.Performed at [facility] Blood [address] Free: [phone] No. [id number] [facility] () IMMUNE IVKPAAWW7345-92-67 22:18:07* Test Item Value Reference Range Interpretation Comme nts RHIG CANDIDATE? (test code = 5188) No- see comment Patient is not a candidate for RhIg- Patient is Rh Positive.Performed at [facility] Blood [address] [place], [place] [id number] Free: [phone] No. [id number] [facility] () IMMUNE YHCOFXEQ5768-63-75 22:18:07* Test Item Value Reference Range Interpretation Comme nts RHIG CANDIDATE? (test code = 5188) No- see comment Patient is not a candidate for RhIg- Patient is Rh Positive.Performed at [facility] Laboratory [facility] Blood [place] [address]Toll Free: [phone] No. [id number] [facility] Packed RBC (in units), 2 Units 2023-07-20 21:46:07* Test Item Value Reference Range Interpretation Comme nts Cross Match Result (test code = 4409) Compatible ISBT Blood Type Code (test code = 929366) 7300 Unit Blood Type (test code = 4410) B Pos Unit Number (test code = 4411) [id number] Blood Expiration Date & Time (test code = 989664) 791958009835 Status Information (test code = 4412) Issued Product Identification (test code = 4413) Red Blood Cells Product Code (test code = 4414) [id number] Performed at [facility] Blood [address] [place] [address] Free: [phone] No. [id number] [facility] Packed RBC (in units), 2 Units 2023-07-20 21:46:07* Test Item Value Reference Range Interpretation Comme nts Cross Match Result (test code = 4409) Compatible ISBT Blood Type Code (test code = 841266) 7300 Unit Blood Type (test code = 4410) B Pos Unit Number (test code = 4411) [id number] Blood Expiration Date & Time (test code = 190354) 085969489549 Status Information (test code = 4412) Issued Product Identification (test code = 4413) Red Blood Cells Product Code (test code = 4414) [id number] Performed at [facility] Blood [address] [place], [place] [address]Toll Free: [phone] No. [id number] [facility] Packed RBC (in units), 2 Units 2023-07-20 21:46:07* Test Item Value Reference Range Interpretation Comme nts Cross Match Result (test code = 4409) Compatible ISBT Blood Type Code (test code = 746787) 7300 Unit Blood Type (test code = 4410) B Pos Unit Number (test code = 4411) [id number] Blood Expiration Date & Time (test code = 536130) 775916861079 Status Information (test code = 4412) Issued Product Identification (test code = 4413) Red Blood Cells Product Code (test code = 4414) [id number] Performed at [facility] B Laboratory Services - [facility] Blood [address] [place], [place] [address]Toll Free: [phone] No. [id number] [facility] History and Physical Notes Date/Time Note Provider Source 2023-07-20 10:04:59 GC9oiKg9r/cie5On+X26 AP6pO/uesO3Ck/b7w6cymO 6+DYnHy38iLjfdIMG5Q8da0716-13-32K47:04:59F ormatting of this note is different from the original.ANTEPARTUM HISTORY & PHYSICALIDENTIFYING DATAKavickey Ball is 33 year old, Black or , 38w5d, female with RAMONE 07/29/2023, by Other Basis.: 1990MRN: [id number] Care Physician: PATIENT DOES NOT HAVE A PCPHospital Day: 1CHIEF COMPLAINTcontractionsHISTORY OF PRESENT NWJMHTA45 year old @38w5d presents with low back [...] LAPAROSCOPY N/A 09/06/2016Surgeon: Moy Hutton MD; [facility] 09/06/2016Prior surgeries at outside hospitals: nonePast Medical History:Diagnosis DateAbnormal uterine bleeding 2016while on the depo proveraAnemia 2009during pregnancyScreen for [...] mouth in the morning. 30 capsule 1prenatal zbf28-tpvb-cxiib acid 29 mg iron- 1 mg per [...] Group B Streptococcus Screen Culture (no units)Date Value01/18/2010([id number] JULISA BALL 20 YRS GROU P B [...] the current .Negative screening.DELIVERY PLANRepeat CSFETAL HEART [id number] cat 1Contractions q2-3 minASSESSMENT AND PLAN33 year old @38w5d with painful contractions--previous CSX 2--severe anaemiaWill transfuse RBCs prior to repeat CSNPOAdmit to L&DInformed [place] [address]-6Rnfyvhm and physical hmhmTB6799-59-39Q13:12:22History and physical noteTXT1.2.840.632342.1.13.104.2.7.2.67290 9|[id number] for patient ikns00458-1Twdmzuw and physical noteLNNARRATIVEFormatted C-CDA narrative text[address] V[id number] KEGJFXPLFLJBOMAZ6266-31-12C53:12:221.2.840 .720179.1.72.3.15|1.2.840.880352.1.13.104. 2.7.2.727879_[id number] [facility] Notes Date/Time Note Provider Source 2023-07-29 19:58:43 9fyN4Pi7vLjSeXO5zvyc+DQFkX0Pb83/uAb AnQFIQEa53ttkgWSnNriKyJ752bOu4074-7 07-29T19:58:43 Patient arrived ambulatory to ED c/o high BP and bilateral lower extremity swelling. Patient delivered 07/20/[address] Newberry. Patient states heavy vaginal bleeding stating 10+ pads changed today. BP at [facility] systolic 140's. 98264-2Rrjavckex department Triage jsglQD6604-61-38L35:02:49Emergency department Triage noteTXT1.2.840.277173.1.13.104.2.7. 2.446925|[id number] for patient degy11084-9Cwxvcsamf department NoteLNNARRATIVEFormatted C-CDA narrative [id number]-Bmibb McInnis RNUT[address] Fy[id number] 1XQMLTOTNLCKFWVVPTWERBQ1510-29-77R0 0:02:491.2.840.686764.1.72.3.15|1.2 .840.493780.1.13.104.2.7.2.727879_2 [id number] Lianet Flores RN [facility] 2023-07-29 15:13:46 xse6grjl9GORbRm17MxHYiByJMfqRlTylHE 0w+gL2Mjq3naSqz7AhFpsUZQ2PhZf1913-5 07-29T15:13:46 Pt called clinic to inform us she can not make it to [facility] for evaluation per providers orders at [facility] today. Pt states she went to [facility] for evaluation and was turned away. Educated pt to go to [facility] for evaluation. Strict er warnings given. Pt verbalized understanding.Ena Nicolas RN 07/29/23 3:15 PM 32578-2Offyemukz encounter IfskDW5607-23-65W84:16:27Telephone encounter NoteTXT1.2.840.079343.1.13.104.2.7. 2.026533|[id number] for patient pmiq69489-1OiyxXXQMYSQOQDCFkeiahvaw C-CDA narrative text[address] ZhqcZdtsfwptpUqthpubydNSEX072642593 3LNTWJZXPDCHILIWLHTJJZH9048-92-96N7 5:16:271.2.840.355345.1.72.3.15|1.2 .840.717895.1.13.104.2.7.2.727879_2 [id number] [facility] 2023-07-23 14:29:52 rB/BrooksKFKsfiKorTYUgKshqVmmwMUjozCnhBD ZPOLHxyJ9c6XPBh472C9nrIuvuRzh7262-3 4:29:52 Pt says pharmacy is telling her med called in by Dr Pulliam is discontinued they need new rx for alternative. They do have Vitasol Ultra. 39151-5Svvjngsbs encounter QgecDS4261-81-47B91:30:52Telephone encounter NoteTXT1.2.840.150208.1.13.104.2.7. 2.542521|[id number] for patient jref90892-9EqgnTWHQIHRRIRIHsmberbrd C-CDA narrative [id number] Jack[address] Rz[id number] 3UPHDPIBFFMCDKXHZSJJQGA8935-89-91Z9 4:30:521.2.840.379158.1.72.3.15|1.2 .840.104889.1.13.104.2.7.2.727879_2 [id number] Tameka Santiago [facility] 2023-07-22 07:14:25 ky64c+WYw6dW3ZewgZ7unz1o/oT7XnpsX2N p3JcjpSXIIij5KAd8SbK79Ku0RvJ63054-0 07:14:25 Problem: Discharge Planning - PostpartumGoal: Adequate for dischargeOutcome: Progressing as expectedGoal: Mood stableOutcome: Progressing as expectedProblem: Complications of hemorrhage (risk or actual)Goal: Absence of active bleedingOutcome: Progressing as expectedGoal: Absence of complicationsOutcome: Progressing as expectedProblem: PainGoal: Control of pain at or below patient's documented comfort goalOutcome: Progressing as expectedGoal: Reduction in pain sensationOutcome: Progressing as expected 83343-3Jmkk of care suftMS3591-77-86Z83:14:27Plan of care noteTXT1.2.840.740602.1.13.104.2.7. 2.869131|[id number] for patient ryjh55938-9JnqwXILEYSBDRIPMvewlmsei C-CDA narrative bidt985282222VpsureFelicia Avilez RN[address] GisqWn[id number] 7PPCECQPIEOLTTNHBXLCBUS9198-99-99T4 7:14:271.2.840.360091.1.72.3.15|1.2 .840.057992.1.13.104.2.7.2.727879_2 [id number] Felicia Avilez RN [facility] 2023-07-21 13:50:00 nN1OsKyP3ju2xKDAzb+nLiyuowZXs25SnHG OVnV3eXw/01g0lvaXCgd1dpdKDVSp3961-2 07-21T13:50:00 Images from the original note were [...] your primary care provider.Melissa RICHTER, RN, IBCLC 65508-0Qedxxcdubm NykvQY1009-63-68M15:04:00Obstetrics NoteTXT1.2.840.240934.1.13.104.2.7. 2.160709|[id number] for patient gtrk83088-3GnnwGXXRLXHNDLWCkdzeshls C-CDA narrative nsvc695255311Czapog K Randolph RNUT[address] RojhLtpzdyyjtCvdquqtfgQLVF096905081 5EJSEXOKIDJCZUTOXFCHTGI5557-18-70I9 5:04:001.2.840.023941.1.72.3.15|1. .840.938100.1.13.104.2.7.2.727879_2 [id number] Melissa Worthington RN [facility] 2023-07-21 08:53:38 m6HZ3bzKGlQrf+PGLOJ97xImx5mW2sFRxfN HVZD4finERek70pG4dsvMkY0aoH4T3660-9 08:53:38 Delivery Date: 07/20/2023 Delivery Time: 1:14 [...] uterine transverse section with no extensionSpecimens Removed:PlacentaSurgeon:Margie Marteio-Peace, MDReport:Prophylactic antibiotic, Ancef 2 grams was given [...] by lateral traction from the surgeon's and rehab assistant's hand.DeliveryA bladder flap was not developed. [...] aid of fundal pressure applied by the medical technician assistant surgeon . The body was delivered [...] time of operative note entered. Please see Epic for update. The placenta was not sent to pathology. 22250-5Nvfcj and delivery summary xboyHR0829-26-21M20:58:39Labor and delivery summary noteTXT1.2.840.210098.1.13.104.2.7. 2.201061|[id number] for patient arcj41598-7TxdeXOZHBAEIWFYVeodaddtz C-CDA narrative textUT[address] HndvStmovvblnMljtclrlySYNU108463213 8EVXOHLQLUBXIMWHNKZGTWR1270-86-50O3 8:58:391.2.840.845490.1.72.3.15|1.2 .840.443566.1.13.104.2.7.2.727879_2 [id number] [facility] 2023-07-21 08:05:33 /sPYBOShQ2L8wBsryG1bt36ecTaAJQKLFUA tx/GczKPRwtay53ZytkqahVFbfqmM3164-0 08:05:33 Problem: Discharge Planning - PostpartumGoal: Adequate for dischargeOutcome: Progressing as expectedGoal: Mood stableOutcome: Progressing as expectedProblem: Complications of hemorrhage (risk or actual)Goal: Absence of active bleedingOutcome: Progressing as expectedGoal: Absence of complicationsOutcome: Progressing as expectedProblem: PainGoal: Control of pain at or below patient's documented comfort goalOutcome: Progressing as expectedGoal: Reduction in pain sensationOutcome: Progressing as expected 07635-8Hhph of care swjnXK9127-85-08T93:05:37Plan of care noteTXT1.2.840.764489.1.13.104.2.7. 2.140388|[id number] for patient jssc13334-6HkduBTIRMCCPSFZAwolesfyo C-CDA narrative wlqb923094288Sgdbwvr N Ehlinger RN[id number] 5MFLLUNKJOWNJKVENNOFYEN9060-09-54K3 8:05:371.2.840.491153.1.72.3.15|1.2 .840.274058.1.13.104.2.7.2.727879_2 [id number] Jennifer Kramersharad RN [facility] 2023-07-20 20:55:40 j7eIQp18wQzmIDO+A0fU5S5ptQT2tQYzzQt N4Mq81uJr2lc2V/mxFXvg1wwFNd9t9504-7 0:55:40 Problem: Discharge Planning - PostpartumGoal: Adequate for dischargeOutcome: Progressing as expectedGoal: Mood stableOutcome: Progressing as expectedProblem: Complications of hemorrhage (risk or actual)Goal: Absence of active bleedingOutcome: Progressing as expectedGoal: Absence of complicationsOutcome: Progressing as expectedProblem: PainGoal: Control of pain at or below patient's documented comfort goalOutcome: Progressing as expectedGoal: Reduction in pain sensationOutcome: Progressing as expected 36947-0Yzge of care mquoDB0756-51-83J70:55:56Plan of care noteTXT1.2.840.062243.1.13.104.2.7. 2.756957|[id number] for patient mktg27019-1EbufGZWSFSTXWSODqcxadlid C-CDA narrative lthu876452505AjfzmvaYanni Polanco RN[id number] 6CZQQFMMFDTSEBOODQFZJFV8710-31-73S5 0:55:561.2.840.584955.1.72.3.15|1.2 .840.570995.1.13.104.2.7.2.727879_2 [id number] Yanni Polanco RN [facility] 2023-07-20 07:05:39 ZkSwDTOQnf4AhjZeMKSOuQWgGSVwYWMf+w0 xhoub8p7zIrqcbc4PqfF9EwMvcYs73965-3 07-20T07:05:39 Name/ MRN / Age / Gender:Julisa Ball, [id number] year old femaleBMI:Estimated body mass index is [...] found *Anesthesia Preop Eval (physical exam)Anesthesia Preop: Fesa-an-NkcyKEN Status VerifiedClear Liquids: > 2 HoursSolid Food/Non-Clear Liquids: > 8 HoursPONV Risk Factors: female and non-smokerAnesthesia HistoryAnesthesia History NegativePrevious Anesthetics/AirwaysCardiovascularNe gative Cardiac ROSPulmonary(+) Cigarette useNeuro/Musculoskeletal(+) ObesityGI/HepaticNegative GI/Hepatic ROSHematology(+) AnemiaRenalNegative Renal ROSSkin(+) Current IV access and 18gEndo/OtherNegative Endo/Other ROSOther(+) Cigarette useOB/GYNP: 2Gestational Age: 77k1zOrrcq c-sections: x 2PediatricPediatric N/ANeonatalNeonatal N/APreoperative Medication InstructionsContinue taking all prescribed medications except:JOSE CRUZ inhibitors, ARBs, diuretics, all oral diabetes medicationsAnticoagulant Therapy: Defer to surgeonsInsulin: Take 1/2 dose the night prior to surgery. Hold on DOS.Phentermine: Alert [facility] anesthesiologistSGLT2 Inhibitors: "gliflozins" to be held for 3 days prior to elective surgeriesGLP1 Agonosit: stop 7 days prior to surgeryMAC Cases: Continue taking JOSE CRUZ inhibitors and ARBsASA ClassificationASA: 3ASA Comments: [id number]/H 6.9/23.7Mbj1LKH76+smokerCurrent Medications:No outpatient medications have been marked as taking for the 07/20/23 encounter (Hospital Encounter).Previous Surgeries:Past Surgical History:Procedure Laterality Date SECTION 2009, 2013x 2 DIAGNOSTIC LAPAROSCOPY 09/06/2016 DIAGNOSTIC LAPAROSCOPY N/A 09/06/2016Surgeon: Moy Hutton MD; Location: [facility] Location HB OVARIAN CYST DRAINAGE 09/06/2016Anesthesia Physical ExamGeneralno apparent distress and alert and oriented x 3Neuro/PsychneurologicalDentalno notable dental hxAbdominal(+) obesity and gravidAirwayMallampati score:IITM distance:> 5 cmNeck ROM: fullMouth opening:normal(+) Normal faciesExtremityNormal extremityPulmonarypulmonary exam normal OtherCardiovascularRhythm:regularRa te: normalAnesthesia PlanASA Status: 3 76819-8Dodmswbrveupyy Preoperative evaluation and management gkdiSQ2603-54-44H35:15:15Anesthesio logy Preoperative evaluation and management noteTXT1.2.840.886381.1.13.104.2.7. 2.627268|[id number] for patient yxqg08397-2Vxnrwhov operation noteLNNARRATIVEFormatted C-CDA narrative textNACR-NURSE SPOOLER OPERATOR AUTOMATIC,CERTIFIED REGISTERED NURSE ANESTHETISTNACR-NURSE SPOOLER OPERATOR AUTOMATIC,CERTIFIED REGISTERED NURSE ANESTHETISTUTPRES[facility] - [address] [id number] 7YSPSTTZTZUZCKHOIGBNMYW0884-17-92U2 7:15:151.2.840.268803.1.72.3.15|1.2 .840.130556.1.13.104.2.7.2.727879_2 [id number] NACR-NURSE SPOOLER OPERATOR AUTOMATIC,CERTIFI ED REGISTERED NURSE SPOOLER OPERATOR AUTOMATIC [facility] 2023-07-20 05:04:00 p0arBSEOR1wVGgbupFVWpd2HUx2eLOtmJ0k +UzIHPcVX48UDup0DQnmh6fTjLxHR7228-9 05:04:00 Pt arrived c/o contractions that began at 10pm on 07/19/2023. Pt reports contractions F2Tpfjexh. Dr. PulliamNkihW8R1Nirguftorftkfl signed by Molly Marcus RN at 07/20/2023 5:05 AM LPN84821-8Hcfabdumd department Triage shemTH3353-60-60F06:05:29[facility] Triage noteTXT1.2.840.487529.1.13.104.2.7. 2.624878|[id number] for patient iglh98236-9Wzhwytxxl department NoteLNNARRATIVEFormatted C-CDA narrative xmmq257893474Hzlyqsr A Diaz RN[address] LqsbXtgeebnwxVrlmuqdakOKEV968792312 2NYFSRRFNZXFMKKDXELFFPD6419-24-88D8 5:05:291.2.840.264820.1.72.3.15|1.2 .840.505747.1.13.104.2.7.2.727879_2 [id number] Molly Marcus RN [facility] 2023-07-17 15:10:30 MqGhk5leAxmEXgUw13J7hCsCN/C6sbC2cYQ cdhnBSLunRFmlSk8ii/nvM4XDMsYT9939-9 07-17T15:10:30 Report called and given to Charu BENNETT. Pt to report to L&D for iron infusionDamilola FRANCIS Granda 07/17/2023 3:10 PM 72240-4Zjyceyllf encounter PbqqIJ3943-54-53K20:11:35Telephone encounter NoteTXT1.2.840.338538.1.13.104.2.7. 2.024022|[id number] for patient amek20289-5XecwQNTLZTKZRUJBlxumyppe C-CDA narrative textUT[address] EiwyJvzjcbljfHdhdpxcjtKVVZ907774339 5DWSCEUBJPUAUSLQOKJCEDU5940-10-90B9 5:11:351.2.840.873754.1.72.3.15|1.2 .840.553874.1.13.104.2.7.2.727879_2 [id number] [facility] 2023-07-17 14:25:53 u1ph7LsGJLf9ceJUhGPYY01h29ijtzQbfx0 /HKXo6MXccd6ENh7YPXB9hlwdkD0Z0922-4 07-17T14:25:53 Patient notified of low H/H and need for IV iron transfusion. Pt instructed to go to [facility] for IV iron transfusion today. Pt notified of iron/pnv rx sent to pharmacy on file. Pt states she is at [employer] appointment now and will go to L&D when she is done. Will route to provider. NORBERT SANTIAGO RN 07/17/2023 2:27 PM 67473-3Jcxdjmqxq encounter VvsnHG8403-28-12F48:28:17Telephone encounter NoteTXT1.2.840.946622.1.13.104.2.7. 2.401708|[id number] for patient chll92890-6YnupSRGPAIRNAEBRqkblrunp C-CDA narrative [id number] Rodriguez [address] YvhbHb[id number] 7YQAZJZHYVADAMMOSUHGVCS6771-61-99L8 4:28:171.2.840.774050.1.72.3.15|1.2 .840.426773.1.13.104.2.7.2.727879_2 [id number] Norbert Santiago RN [facility] 2023-07-17 09:57:44 jW/iN1xclqMuHt7Pien7aXMLQXsH+Sbq9LR eWkYPMlUIn6+sUjZJQnC1klmAdlNI7763-2 07-17T09:57:44 Attempt#2. Called, no answer. Left VM. NORBERT SANTIAGO RN 07/17/2023 9:58 AM 04051-9Cfbfnhysd encounter LbtyLF7844-32-36P98:58:03Telephone encounter NoteTXT1.2.840.360405.1.13.104.2.7. 2.462832|[id number] for patient drpz80633-7IdcePPXFVHYMOQEPwlzveeww C-CDA narrative [id number] Rodriguez [address][id number] 8WQDLNDIUVZJMQVUXJSCSGN1875-43-05B8 9:58:031.2.840.642321.1.72.3.15|1.2 .840.696040.1.13.104.2.7.2.727879_2 [id number] Norbert Santiago RN [facility] 2023-07-16 14:24:33 hTOtBkFJa4gFCKmM+oJ9tAK5bRJrBQbHM3t 4/9ObY48f2/IrgOkbRHu1PoWTzU7b7758-9 2-01T14:24:33Addended by: MARY KAY WELCH on: 07/16/2023 02:24 PMModules accepted: Orders 66831-5Umriwajv FwnpdmpaLI2995-13-11L87:24:33Addend um DocumentTXT1.2.840.057625.1.13.104. 2.7.2.447847|[id number] for patient spve69175-9TuwgKRZEPWTXJMFSadrqczvj C-CDA narrative text[address] [id number] 5BRGHECIMXPLURZZLVIVHMB0009-24-20Z5 4:24:331.2.840.875253.1.72.3.15|1.2 .840.952865.1.13.104.2.7.2.727879_2 [id number] [facility] 2023-07-16 14:24:32 UCnSTeCPZ3trvvHNCCgxyFc46c1O7X+wJOI Secr9qTNqmEq05Ah8wFvCs1F44A6x4021-8 07-16T14:24:32 Attempt#1. Called, no answer. Left VM. NORBERT SANTIAGO RN 07/16/2023 2:24 PM 84075-8Udcfoqstx encounter IxqfKB6003-78-61W17:24:54Telephone encounter NoteTXT1.2.840.584705.1.13.104.2.7. 2.286876|6116371251PYKicsteyao for patient ylwa99485-6SsfmUFRVYCZRMSNDbiqdsjfy C-CDA narrative jccg335941700Wtvlks Rodriguez RN[id number] 0MVDKNWBKPQAIRNPQOCLCYX5914-92-31T2 4:24:541.2.840.470673.1.72.3.15|1.2 .840.225977.1.13.104.2.7.2.727879_2 [id number] Norbert Santiago RN [facility] 2023-07-16 14:10:10 DqjEBYvf4c1FtaQlkPLca3LHPvkpiL8jgtZ U7dg7t07Zy4uQqG+OtXgdM1iGKQ+23594-8 4:10:10 Please notify the patient her H/H is very low, please advise her she will need to go to L&D for IV iron infusion. I will call to get her set up once she is notifiedIron/pnv sent to pharmacy on FRANCIS Umanzor 07/16/2023 2:11 PM 85285-8Uqixsmbfv encounter OoxnVM7540-41-15P96:24:29Telephone encounter NoteTXT1.2.840.430019.1.13.104.2.7. 2.659320|[id number] for patient dxzw89883-2PdrkFCWWOQNAOWSGppwafpda C-CDA narrative textUT[address] EkfwZ[id number] 6BWHIJYLNBNNETITJXJJOXP2888-22-67B8 4:24:291.2.840.973998.1.72.3.15|1.2 .840.724702.1.13.104.2.7.2.727879_2 [id number] [facility] 2023-07-10 09:54:07 3Z+iQtWjNaZ/VjIbH5a5oWd7F/vOYf/ASN7 HmKhAkNsGlWIcqD6+MsJZUjyvp+VJ7889-5 1-26T09:54:07 Pt report to SABRINA Koch in L&D. Pt taken to unit via wheelchair by ERT. 58673-6Jwopyrjor department YrgbUT2780-37-50Z83:54:28Emergency department NoteTXT1.2.840.404192.1.13.104.2.7. 2.392076|[id number] for patient jbym11047-2NazfQTXWCXZZAAEPzdgehxsv C-CDA narrative xfpk614900756Lpcfm N Dewoody RN[id number] 3TGSRYGTGTIUFUPSTWQHZIZ0375-24-43H1 9:54:281.2.840.357437.1.72.3.15|1.2 .840.018161.1.13.104.2.7.2.727879_2 [id number] Reva Feldman RN [facility] 2023-07-03 14:35:04 r0uaT9AmzgrVeNESfo355PWlckN+kTGsP8k DSDPHj1OwgyvYIR3StnjKOqQk1RTC8937-7 4:35:04 Pt in clinic for appointment. Pt scheduled this AM and no showed. Per pt she thought appointment was this afternoon. Okay to work pt in per provider. Pt declined, has no documents for financial screening. Pt reports [facility] 07/29/2023 determined by [facility] at [facility]. Pt reports intermittent vaginal bleeding and abdominal pain 01/22. Pt ambulating with walker due to pain per pt. Pt denies any DFM and or LOF. Provider notified. Per provider pt to go to [facility] L&[facility] for evaluation. Pt to follow up in clinic for New ob visit. Strict er warnings given. Pt verbalized understanding and reports will go to hospital now.Ena Nicolas RN 07/03/23 2:39 PM 47462-0Rqprbgfdu encounter TstnEV5337-95-16K39:40:42Telephone encounter NoteTXT1.2.840.375163.1.13.104.2.7. 2.860449|2464267000NVVxjwffcue for patient aiwt43451-8BehmDKWZSPXVKJOYusvbuejg C-CDA narrative wtme484101318Wrqdxxxz Hernandez RN[address] OqveMvkbopsuiHpplcgcoxFUFK049895308 3HZLTOYDOIEDQISXBQPKROR3767-28-45N8 4:40:421.2.840.006597.1.72.3.15|1.2 .840.143567.1.13.104.2.7.2.727879_2 [id number] Ena Nicolas RN [facility] 2023-06-24 11:41:00 WSWi8Nm73NC6Btu+MiX+af5UGoW2YhHhFD5 qZo5iNcVWPiYD8tj/CFPegmM4rRsV2518-5 :41:00 Regardinmo preg - trouble walking - tightness in stomach - pain in vaginal area----- Message from Ruth Daly sent at 06/24/2023 11:41 AM BOOK PUBLISHER -----Julisa Ball is a 33 year old femalePt recently found out she was 5mo . she has been having trouble walking and a tight feeling in her stomach x 1.5 weeks. Pain in vaginal area as if the baby is coming out.[phone] (home) 26010-8Eolcrcbvy encounter FvrqSR7169-42-30J37:41:40Telephone encounter NoteTXT1.2.840.324057.1.13.104.2.7. 2.876890|3828754869WXKslyvmhai for patient jvrq38590-9OhseUUOUWVKKKZQIavogkphk C-CDA narrative wxgj431413569Nmyzkl A Esber RNUT[address] [id number] 8MSROTTNCOZIJSRRMOIYKIA7752-88-07H9 1:41:401.2.840.744065.1.72.3.15|1.2 .840.991622.1.13.104.2.7.2.727879_1 [id number] Jessie Mills RN [facility] 2023-06-24 11:41:00 tISMOw75TugkxariTE8ZruniwDW5j8ONJLQ ajhWzqrw+hAntqqYhhhoZ9niMdhXe7147-5 1:41:00 Reason for DispositionSecond attempt to contact family AND no contact made. Phone number verified.Protocols used: No Contact or Duplicate Contact Sfif-VDZJR-EHHJ makes 2 unsuccessful attempts to reach patient. Message left on voicemail, if still needing to speak with a nurse call the AC. RN will close this encounter. 40194-9Dasscvoez encounter LnixFE5223-91-11P45:50:28Telephone encounter NoteTXT1.2.840.141924.1.13.104.2.7. 2.495108|3702055155GXXsqgutrsr for patient bhcg43140-9HlmbNZYRATDHZRAHsiypvfrx C-CDA narrative textUT03 Johnson [id number] 7BHKKHFOMYNZBGJWOHOWGRW0377-43-15H6 1:50:281.2.840.511552.1.72.3.15|1.2 .840.020040.1.13.104.2.7.2.727879_1 [id number] [facility]
[2023-10-22 21:49] LABS: Absolute Basophils 0.1 K/uL (0-0.5); Absolute Eosinophils 0.1 K/uL (0-0.5); Absolute Lymphocytes (CBC) 1.7 K/uL (0.7-4.9); Absolute Monocytes 0.7 K/uL (0.1-1.3); Absolute Neutrophil 6.4 K/uL (1.8-8.0); Basophils % 0.7 % (0-1.3); Eosinophils % 1.2 % (0-4.4); Hematocrit 36.8 % (36.0-45.0); Hemoglobin 12.2 g/dL (12.0-15.0); Lymphocytes % 18.7 % (15.3-44.8); MCH 31.7 pg (27.0-35.0); MCHC 33.1 g/dL (32.0-36.0); MCV 95.8 fL (80-100); Monocytes % 7.9 % (3.3-12.3); Neutrophils % 71.5 % (41.7-73.7); Nucleated Red Blood Cells % 0.1 % (0-0); Platelets 368 thou/uL (152-406); RBC Red Blood Cell Count 3.84 M/uL (3.86-4.86); Red Cell Distribution Width 17.1 % (12.1-15.2)
[2023-10-22 21:59] LABS: PT Prothrombin Time 13.2 SECONDS (9.5-12.5); PTT, Activated Partial Thromb 29.6 SECONDS (24.3-36.9); Protime INR 1.21
[2023-10-22 22:12] LABS: ALT/SGPT 29 U/L (13-56); AST/SGOT 20 U/L (15-37); Albumin 3.5 g/dL (3.4-5.0); Albumin/Globulin Ratio 0.8 (1.1-1.8); Alkaline Phosphatase 79 U/L (45-117); Anion Gap 7.4 mEq/L (5.0-15.0); BUN Blood Urea Nitrogen 7 mg/dL (7-18); Bicarbonate 27 mEq/L (21-32); Bilirubin Direct 0.2 mg/dL (0-0.2); Bilirubin Indirect, Calculated 0.3 mg/dL (0.2-0.8); Bilirubin Total 0.5 mg/dL (0.2-1.0); Globulin 4.2 g/dL (2.3-3.5); Glomerular Filtration Rate 83 ml/min (=/>90); Glucose Level 92 mg/dL (74-106); Potassium 3.4 mEq/L (3.5-5.1); Protein, Total 7.7 g/dL (6.4-8.2); Sodium Level 137 mEq/L (136-145)
[2023-10-22] MEDS ORDERED: NA CHLORIDE 0.9% 1,000 ML ONE (22:55)
--- NOTE | 2023-10-22 22:55 | RAD REPORT ---
EXAM DESCRIPTION: CT - Head Brain Wo Cont - 10/22/2023 10:16 pm CLINICAL HISTORY: SEIZURE COMPARISON: Head Brain Wo Cont dated 01/26/2023 TECHNIQUE: Noncontrast head CT images were obtained without IV contrast. Multiplanar reformats were generated and reviewed. All CT scans are performed using dose optimization technique as appropriate and may include automated exposure control or mA/KV adjustment according to patient size. FINDINGS: No intracranial hemorrhage, mass, or edema. Midline structures are unremarkable. Normal ventricular caliber for age. Huitron-white matter differentiation is preserved, without evidence of acute infarct. No abnormal extra- axial fluid collections. Mastoid air cells and visualized portions of the paranasal sinuses are clear. No acute bony findings. IMPRESSION: No evidence of an acute intracranial process.
[2023-10-23 00:17] LABS: Specific Gravity > 1.030 (1.005-1.030)
[2023-10-23 00:19] LABS: Specific Gravity > 1.030 (1.005-1.030); Urine Bacteria <20 /HPF (<20); Urine Bilirubin NEGATIVE (Negative); Urine Blood 3+ (OVER) (Negative); Urine Clarity Extremely Turbid (Clear); Urine Color Light-Orange (Yellow); Urine Culture Reflex Order REFLEXED; Urine Glucose NEGATIVE (Negative); Urine Ketones TRACE (Negative); Urine Microscopic Reflex YN ORDER UMIC; Urine Mucus 4+ /HPF (None Seen); Urine Nitrite NEGATIVE (Negative); Urine Protein 2+ (Negative); Urine RBC >50 /HPF (None Seen); Urine Urobilinogen 2+ (Normal); Urine WBC 20-50 /HPF (<5); Urine pH 6.5 (5.0-7.0)
[2023-10-23 00:33] LABS: Barbiturates NEGATIVE (NEGATIVE); Benzodiazepines NEGATIVE (NEGATIVE); Cocaine POSITIVE (NEGATIVE); METHAMPHETAM POSITIVE (NEGATIVE); Methadone NEGATIVE (NEGATIVE); Opiates NEGATIVE (NEGATIVE); Phencyclidine NEGATIVE (NEGATIVE); THC Cannibis POSITIVE (NEGATIVE)
--- NOTE | 2023-10-23 01:13 | EDPHYS ---
Physician Documentation [facility] Name: Gayle Ball Age: 33 yrs Sex: Female : 1990 Arrival Date: 10/22/2023 Time: 21:15 Bed 18 Private MD: ED Physician Neri Selby HPI: 10/21 21:30 This 33 yrs old Black Female presents to ER via EMS with complaints of Seizure. cp 21:30 The patient presents with a history of multiple seizures, a total of 2, in status cp epilepticus, the episode(s) was witnessed, by EMS personnel, law enforcement. 21:30 Character of seizure(s): Loss of consciousness: the patient experienced loss of cp consciousness, Motor activity: generalized, Incontinence: none. Seizure onset: just prior to arrival. Context: occurred mcfp after arrest, Contributing factors: unknown. Seizure Hx: the patient has no previous seizure history. Associated injury: The patient did not suffer any apparent associated injury. Current symptoms: decreased level of consciousness, is sleeping but easy to arouse. EMS administered 2 mg Ativan. 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 Last tetanus immunization: < 10 years ago Flu vaccine is not up to date. - Infectious Disease History:: Denies. - Social history:: Smoking status: Patient reports the use of cigarette tobacco products, denies chronic smoking, but will smoke occasionally, Patient uses alcohol, occasionally. street drugs, marijuana. ROS: 21:35 Constitutional: Negative for body aches, chills, fever, cp 21:35 Cardiovascular: Negative for chest pain, cp 21:35 Respiratory: Negative for cough, shortness of breath, wheezing, 21:35 Neuro: Positive for history of seizure, 21:35 ENT: Negative for drainage from ear(s), ear pain, sore throat, difficulty swallowing, cp difficulty handling secretions, 21:35 Abdomen/GI: Negative for abdominal pain, vomiting, diarrhea, constipation, 21:35 All other systems are negative, Exam: 21:40 Constitutional: The patient appears in no acute distress, non-diaphoretic, non-toxic, cp well developed, well nourished, 21:40 Head/Face: Normocephalic, atraumatic. cp 21:40 Eyes: Periorbital structures: appear normal, Pupils: equal, round, and reactive to light and accomodation, Conjunctiva: normal, no exudate, no injection, Sclera: no appreciated abnormality, Lids and lashes: appear normal, bilaterally, 21:40 ENT: External ear(s): are unremarkable, Nose: is normal, Mouth: Lips: moist, Oral mucosa: pink and intact, moist, Posterior pharynx: Airway: no evidence of obstruction, patent, 21:40 Neck: C-spine: vertebral tenderness, is not appreciated, crepitus, is not appreciated, ROM/movement: is normal, is supple, without pain, no range of motions limitations, no meningismus, no nuchal rigidity, 21:40 Chest/axilla: Inspection: normal, Palpation: is normal, no crepitus, no tenderness, 21:40 Cardiovascular: Rate: normal, Rhythm: regular, 21:40 Respiratory: the patient does not display signs of respiratory distress, Respirations: normal, no use of accessory muscles, no retractions, labored breathing, is not present, Breath sounds: are clear throughout, no decreased breath sounds, no stridor, no wheezing, 21:40 Abdomen/GI: Inspection: 22:06 ECG was reviewed by the Attending Physician. cp Vital Signs: 21:18 BP 119 / 91; Pulse 93; Resp 18; Temp 97.4; Pulse Ox 100% on R/A; Weight 79.38 kg; pf1 Height 5 ft. 0 in. ; Pain 0/10; 21:59 BP 107 / 73; Pulse 105; Pulse Ox 98% on R/A; Pain 0/10; tm6 22:53 BP 127 / 92; Pulse 90; Resp 17; Pulse Ox 98% on R/A; Pain 0/10; tm6 23:42 BP 125 / 94; Pulse 104; Pulse Ox 97% on R/A; Pain 0/10; tm6 05/10 00:36 BP 98 / 78; Pulse 92; Pulse Ox 100% on R/A; Pain 0/10; tm6 01:30 BP 116 / 87; Pulse 84; Resp 18; Pulse Ox 100% on R/A; pf1 02:30 BP 103 / 75; Pulse 80; Resp 16; Pulse Ox 99% on R/A; pf1 03:30 BP 112 / 80; Pulse 81; Resp 16; Pulse Ox 100% ; pf1 04:30 BP 121 / 87; Pulse 82; Resp 16; Pulse Ox 98% on R/A; pf1 05:30 BP 131 / 86; Pulse 79; Resp 16; Pulse Ox 98% ; pf1 06:20 BP 129 / 84; Pulse 85; Resp 16; Temp 98; Pulse Ox 97% on R/A; Pain 0/10; pf1 10/21 21:18 Body Mass Index 34.18 (79.38 kg, 152.4 cm) pf1 10/21 21:18 Pain Scale: Adult pf1 21:59 Pain Scale: Adult tm6 22:53 Pain Scale: Adult tm6 23:42 Pain Scale: Adult tm6 10/22 00:36 Pain Scale: Adult tm6 06:20 Pain Scale: Adult pf1 [place] Coma Score: 10/21 21:20 Eye Response: spontaneous(4). Motor Response: obeys commands(6). Verbal Response: pf1 oriented(5). Total: 15. MDM: 21:24 Patient medically screened. 10/22 01:12 Data reviewed: vital signs, nurses notes, lab test result(s), EKG, radiologic studies, cp CT scan, and as a result, I will discharge patient. 01:12 Differential diagnosis: cerebral vascular accident, drug overdose, cardiac arrhythmia, cp seizure. Consideration of Admission/Observation Escalation of care including admission/observation considered. Counseling: I had a detailed discussion with the patient and/or guardian regarding the historical points, exam findings, and any diagnostic results supporting the discharge/admit diagnosis, lab results. 10/21 21:23 Order name: Acetaminophen; Complete Time: 22:55 cp 10/21 21:23 Order name: Basic Metabolic Panel; Complete Time: 22:55 cp 10/22 00:15 Interpretation: Normal except: K 3.4; GFR 83. cp 10/21 21:23 Order name: CBC with Diff; Complete Time: 22:55 cp 10/22 00:15 Interpretation: Normal except: RBC 3.84; RDW 17.1; MPV 7.0. cp 10/21 21: Order name: ETOH Level; Complete Time: 22:55 cp 10/21 20: Order name: Hepatic Function; Complete Time: 22:55 cp 10/22 00:18 Interpretation: Normal except: GLOB 4.2; A/G 0.8. cp 10/21 21:23 Order name: PT-INR; Complete Time: 22:55 cp 10/22 00:18 Interpretation: Reviewed. 10/21 20: Order name: Test, Urine; Complete Time: 00:36 cp 10/22 00:18 Interpretation: Normal except: Urine SG > 1.030. cp 10/21 20: Order name: Ptt, Activated; Complete Time: 22:55 cp 10/21 20: Order name: Salicylate; Complete Time: 22:55 cp 10/21 20: Order name: Urinalysis w/ reflexes; Complete Time: 00:36 cp 10/21 20:23 Order name: Urine Drug Screen; Complete Time: 00:36 10/22 00:39 Interpretation: Normal except: SAWYER POSITIVE; METHAMPHETAMINE POSITIVE; THC POSITIVE. cp 10/22 00:23 Order name: Urine Culture EDMS 10/21 20:23 Order name: CT Head Brain wo Cont; Complete Time: 23:01 cp 10/21 23:01 Interpretation: Report reviewed. 10/21 20: Order name: EKG; Complete Time: 21:24 cp 10/21 20:23 Order name: EKG - Nurse/Tech; Complete Time: 22:04 cp 10/21 20:23 Order name: IV Saline Lock; Complete Time: 21:52 cp 10/21 20: Order name: Labs collected and sent; Complete Time: 21:52 cp EC/09 22:06 Rate is 88 beats/min. Rhythm is regular. ID interval is normal. QRS interval is normal. cp QT interval is normal. T waves are Inverted in leads aVR, V2. Interpreted by me. Reviewed by me. Administered Medications: 22:55 Drug: NS 0.9% IV 1000 ml IV at 1 bolus Per protocol; 1000 mL bolus Route: IV; Rate: 1 tm6 bolus; Site: right antecubital; 10/22 00:04 Follow up: IV Status: Completed infusion; IV Intake: 1000ml tm6 Disposition: 01:42 Co-signature as Attending Physician, Neri Selby MD I reviewed the patient's care rt provided by the Advanced Practice Provider and agree with the diagnosis and treatment plan. Disposition Summary: 10/23/23 01:13 Discharge Ordered Notes: Location: Home cp Problem: new cp Symptoms: have improved cp Condition: Stable cp Diagnosis - Other seizures cp - Adverse effect of cocaine, initial encounter cp - Adverse effect of amphetamines, initial encounter cp Followup: cp - With: Private Physician - When: 2 - 3 days - Reason: Recheck today's complaints Discharge Instructions: - Discharge Summary Sheet cp - Cocaine Use Disorder cp - Seizure, Adult cp - Methamphetamines Use Disorder cp Forms: - Medication Reconciliation Form cp - Antibiotic Education cp - Prescription Opioid Use cp - Patient Portal Instructions cp - Leadership Thank You Letter cp Signatures: Dispatcher [employer] EDMS George Sharpe PA PA cp Neri Selby MD MD rt Reina Angelo RN RN pf1 Fernanda Pierce RN RN tm6 Corrections: (The following items were deleted from the chart) 10/21 21:24 21:24 ACETAMINOPHEN+C.LAB.BRZ ordered. EDMS EDMS 21:24 21:24 BASIC METABOLIC PANEL+C.LAB.BRZ ordered. EDMS EDMS 21:24 21:24 CBC+H.LAB.BRZ ordered. EDMS EDMS 21:24 21:24 ETHANOL+C.LAB.BRZ ordered. EDMS EDMS 21:24 21:24 HEPATIC FUNCTION+C.LAB.BRZ ordered. EDMS EDMS 21:24 21:24 PROTIME (+INR)+COAG.LAB.BRZ ordered. EDMS EDMS 21:24 21:24 Test, Urine+UC.LAB.BRZ ordered. EDMS EDMS 21:24 21:24 PTT, ACTIVATED+COAG.LAB.BRZ ordered. EDMS EDMS 21:24 21:24 SALICYLATE+C.LAB.BRZ ordered. EDMS EDMS 21:24 21:24 Urinalysis+U.LAB.BRZ ordered. EDMS EDMS 21:24 21:24 URINE DRUG SCREEN+UC.LAB.BRZ ordered. EDCA EDMS 10/22 00:15 10/21 21:23 Suicide Screening (Myra) ordered. cp cp
--- NOTE | 2023-10-23 01:13 | ER ---
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 EMS stated patient was sitting in a chair upon onset of seizure, denies any fall. EMS stated gave patient 2mg of Ativan IM PHOTOGRAPHY COLORIST. EMS stated patient is 2 months . Patient denies any pain. 21:18 Coronavirus screen: Vaccine status: Patient reports being unvaccinated. Client denies pf1 travel out of the [place] in the last 14 days. At this time, the client does not indicate any symptoms associated with coronavirus-19. Ebola Screen: Patient negative for fever greater than or equal to 101.5 degrees Fahrenheit, and additional compatible Ebola Virus Disease symptoms. Initial Sepsis Screen: Does the patient meet any 2 criteria? No. Patient's initial sepsis screen is negative. Does the patient have a suspected source of infection? No. Patient's initial sepsis screen is negative. Risk Assessment: Do you want to hurt yourself or someone else? Patient reports no desire to harm self or others. Onset of symptoms was October 22, 2023. Care prior to arrival: Medication(s) given: Ativan 2mg IM IV initiated. 20 GA, in the right antecubital area. 21:18 Method Of Arrival: EMS: [facility] pf1 21:18 Acuity: CAMILA 3 pf1 Triage Assessment: 21:20 General: Appears in no apparent distress. comfortable, well groomed, well developed, pf1 Behavior is calm, cooperative, appropriate for age, quiet. Pain: Denies pain. Neuro: Level of Consciousness is awake, alert, obeys commands, Oriented to person, place, time, situation, Seizure activity reported prior to arrival. Seizure lasted approximately 4 minutes. 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 Last tetanus immunization: < 10 years ago Flu vaccine is not up to date. - Infectious Disease History:: Denies. - Social history:: Smoking status: Patient reports the use of cigarette tobacco products, denies chronic smoking, but will smoke occasionally, Patient uses alcohol, occasionally. street drugs, marijuana. Screenin:[address] [facility] ED Fall Risk Assessment (Adult) History of falling in the last 3 months, tm6 including since admission Yes- physiologic fall (2 pts) Confusion or Disorientation Yes (5 pts) Intoxicated or Sedated No (0 pts) Impaired Gait No (0 pts) Mobility Assist Device Used No (0 pt) Altered Elimination No (0 pt) Score/Fall Risk Level 3 or more points = High Risk Oriented to surroundings, Maintained a safe environment, Educated pt \T\ family on fall prevention, incl call for assistance when getting out of bed. Abuse screen: Denies threats or abuse. Denies injuries from another. Nutritional screening: No deficits noted. Tuberculosis screening: No symptoms or risk factors identified. Assessment: 21:57 General: Appears in no apparent distress. Behavior is calm, drowsy, listless. Pain: tm6 Denies pain. Neuro: Level of Consciousness is listless, Oriented to person. Neuro: Seizure activity reported prior to arrival. Patient is post-ictal at this time. Cardiovascular: No deficits noted. Patient's skin is warm and dry. Rhythm is sinus rhythm. Respiratory: Airway is patent Respiratory effort is even, unlabored, Respiratory pattern is regular, symmetrical. GI: Abdomen is round non-distended. : No signs and/or symptoms were reported regarding the genitourinary system. EENT: No signs and/or symptoms were reported regarding the EENT system. Derm: No signs and/or symptoms reported regarding the dermatologic system. Musculoskeletal: No signs and/or symptoms reported regarding the musculoskeletal system. 22:52 Reassessment: purewick placed. Patient unable to pee at this time. tm6 22:53 Reassessment: No changes from previously documented assessment. tm6 23:42 Reassessment: Patient appears in no apparent distress at this time. No changes from tm6 previously documented assessment. 23:43 General: Behavior is drowsy. tm6 10/22 00:40 Reassessment: No changes from previously documented assessment. tm6 01:30 Reassessment: Pending discharge, waiting on ride. pf1 01:45 Reassessment: Patient appears in no apparent distress at this time. No changes from pf1 previously documented assessment. Patient's brother Roopa stated will call back for an update of who can transport patient home. 02:30 Reassessment: Patient appears in no apparent distress at this time. No changes from pf1 previously documented assessment. 03:30 Reassessment: Patient appears in no apparent distress at this time. Patient and/or pf1 family updated on plan of care and expected duration. Pain level reassessed. Patient states symptoms have improved. 04:30 Reassessment: Patient appears in no apparent distress at this time. Patient and/or pf1 family updated on plan of care and expected duration. Pain level reassessed. Patient states feeling better. Patient states symptoms have improved. 05:24 Reassessment: Patient appears in no apparent distress at this time. No changes from cm10 previously documented assessment. 06:24 Reassessment: Patient appears in no apparent distress at this time. No changes from pf1 previously documented assessment. Patient denies pain at this time. Patient states symptoms have improved. Vital Signs: 10/21 21:18 BP 119 / 91; Pulse 93; Resp 18; Temp 97.4; Pulse Ox 100% on R/A; Weight 79.38 kg; pf1 Height 5 ft. 0 in. ; Pain 0/10; 21:59 BP 107 / 73; Pulse 105; Pulse Ox 98% on R/A; Pain 0/10; tm6 22:53 BP 127 / 92; Pulse 90; Resp 17; Pulse Ox 98% on R/A; Pain 0/10; tm6 23:42 BP 125 / 94; Pulse 104; Pulse Ox 97% on R/A; Pain 0/10; tm6 10/22 00:36 BP 98 / 78; Pulse 92; Pulse Ox 100% on R/A; Pain 0/10; tm6 01:30 BP 116 / 87; Pulse 84; Resp 18; Pulse Ox 100% on R/A; pf1 02:30 BP 103 / 75; Pulse 80; Resp 16; Pulse Ox 99% on R/A; pf1 03:30 BP 112 / 80; Pulse 81; Resp 16; Pulse Ox 100% ; pf1 04:30 BP 121 / 87; Pulse 82; Resp 16; Pulse Ox 98% on R/A; pf1 05:30 BP 131 / 86; Pulse 79; Resp 16; Pulse Ox 98% ; pf1 06:20 BP 129 / 84; Pulse 85; Resp 16; Temp 98; Pulse Ox 97% on R/A; Pain 0/10; pf1 10/21 21:18 Body Mass Index 34.18 (79.38 kg, 152.4 cm) pf1 10/21 21:18 Pain Scale: Adult pf1 21:59 Pain Scale: Adult tm6 22:53 Pain Scale: Adult tm6 23:42 Pain Scale: Adult tm6 10/22 00:36 Pain Scale: Adult tm6 06:20 Pain Scale: Adult pf1 [place] Coma Score: 10/21 21:20 Eye Response: spontaneous(4). Motor Response: obeys commands(6). Verbal Response: pf1 oriented(5). Total: 15. ED Course: 21:18 Patient arrived in ED. wm 21:18 No provider procedures requiring assistance completed. Maintain EMS IV. Dressing pf1 intact. Good blood return noted. Site clean \T\ dry. Gauge \T\ site: 20 gauge to RAC. 21:21 George Sharpe PA is PHCP. cp 21:21 Neri Selby MD is Attending Physician. cp 21:23 Triage completed. pf1 21:52 Fernanda Pierce, RN is Primary Nurse. tm6 21:53 Acetaminophen Sent. tm6 21:53 Basic Metabolic Panel Sent. tm6 21:53 ETOH Level Sent. tm6 21:53 Hepatic Function Sent. tm6 21:53 PT-INR Sent. tm6 21:53 Ptt, Activated Sent. tm6 21:53 Salicylate Sent. tm6 21:57 Patient has correct armband on for positive identification. Placed in gown. Bed in low tm6 position. Call light in reach. Side rails up X2. Seizure precautions initiated. Provided Education on: use of call cuello. Client placed on continuous cardiac and pulse oximetry monitoring. NIBP monitoring applied. library monitor on. Pulse ox on. NIBP on. Noise minimized. Warm blanket given. 21:57 Arm band placed on right wrist. pf1 22:05 EKG done, by ED staff, reviewed by George REYES. pf1 22:18 CT Head Brain wo Cont In Process Unspecified. EDMS 10/22 00:05 Test, Urine Sent. tm6 00:05 Urinalysis w/ reflexes Sent. tm6 00:05 Urine Drug Screen Sent. tm6 01:48 Primary Nurse role handed off by Fernanda Pierce RN 06:24 IV discontinued, intact, bleeding controlled, No redness/swelling at site. Pressure pf1 dressing applied. Administered Medications: 10/21 22:55 Drug: NS 0.9% IV 1000 ml IV at 1 bolus Per protocol; 1000 mL bolus Route: IV; Rate: 1 tm6 bolus; Site: right antecubital; 10/22 00:04 Follow up: IV Status: Completed infusion; IV Intake: 1000ml tm6 Medication: 10/21 21:57 VIS not applicable for this client. tm6 Intake: 10/22 00:04 IV: 1000ml; Total: 1000ml. tm6 Outcome: 01:13 Discharge ordered by MD. cp 06:24 Discharged to home via wheelchair, pf1 06:24 Condition: improved 06:24 Discharge instructions given to patient, Instructed on discharge instructions, follow up and referral plans. Demonstrated understanding of instructions, follow-up care, 06:36 Patient left the ED. pf1 Addendum: 10/26/2023 09:06 Addendum: Other Patient doing well since last visit. No urinary symptoms reported. l l1 Signatures: Dispatcher [employer] EDID George Sharpe PA PA cp Lewis, Lynsay, RN RN ll1 Netta Comer Reina Angelo RN RN pf1 Annel Villanueva RN RN cm10 Fernanda Pierce, SABRINA RN tm6 Corrections: (The following items were deleted from the chart) 10/21 21:39 21:39 Triage completed. pf1 pf1
[2023-10-23 07:20] VITALS: BP 129/84; TEMP 98; O2SAT 97
--- NOTE | 2023-10-26 13:29 | EKG ---
Test Date: 2023-10-22 Test Time: 22:02:06 Post Acute Care Nurse Practitioner: REX MEASUREMENT RESULTS: Intervals: Rate: 88 MO: 152 QRSD: 78 QT: 352 QTc: 425 [place]: P: 49 MO: 152 QRS: 29 T: 48 INTERPRETIVE STATEMENTS: Normal sinus rhythm Normal ECG Compared to ECG 01/30/2019 16:25:20 T-wave abnormality no longer present Possible ischemia no longer present Prolonged QT interval no longer present Electronically Signed On 10-26-23 13:19:49 CDT by Praveen Jackson
== END 2023-10-23 06:36 | disposition home or self-care (01) ==
LOC: ER 21:15
DX: G40.909 Epilepsy, unspecified, not intractable, without status epilepticus (principal); T40.5X5A Adverse effect of cocaine, initial encounter; F17.210 Nicotine dependence, cigarettes, uncomplicated
CPT/HCPCS: 87088; 85025; 81001; 87086; 80048; 36415; 81025; 85610; 80076; 85730; 87077; 87186; 80307; 70450; 96360; 99285; 80143; 80179; 82077; J7030; 93005

== ENCOUNTER 2024-07-16 12:55 | Emergency (ER) | payer OTHER ==
--- OUTSIDE RECORDS SUMMARY | 2024-07-16 13:01 | XMS REPORT | Continuity of Care Document ---
Author Name Unknown Address [address] [facility] [place] [address] [facility] Address [address] [facility] [address] [place] [address] Care Team Providers Care Objects Conservator Name Role Phone HOLLIE GUEVARA Primary Care Physician UnavailZAK Crawlye Attending Clinician UnavailZAK Mojica Attending Clinician UnavailMARGIE Malone Attending Clinician MARGIE Arnold Attending Clinician Hollie Thompson Attending Clinician [phone] HOLLIE GUEVARA Attending Clinician Unavailable James Hayden Attending Clinician Unavailable Micki Calzada PA-C Attending Clinician [phone] MICKI CALAZDA Attending Clinician Unavailable MICKI CALZADA Attending Clinician Unavailable LEYDI ROD Attending Clinician Unavailable Hollie Clayton Attending Clinician + [phone] James Hayden Attending Clinician Unavailable RUSSELL BOTELLO Attending Clinician Unavailable Jenny Honeycutt Attending Clinician [phone] JENNY MCKEON Attending Clinician Unavailable Unknown, Attending Attending Clinician Unavailab ANNIE Aleman Attending Clinician Unavailable SARA Attending Clinician Unavailable MARY KAY TAFOYA Attending Clinician Unavail able MOY HUTTON Attending Clinician Unavailable Moy Hutton MD Attending Clinician [phone] [facility], [facility] Attending Clinician UnaMary Kay Taylor Attending Clinician + Doctor Unassigned, [place] Attending Clinician U Mindy Stoner MD Attending Clinician [phone] Miguel Ambrose CRNA Attending Clinician [phone] MINDY PULLIAM Attending Clinician Unavailable GC_DIONISIO_José Luis_G Attending Clinician Unavail able Lina BENNETT, Jessie Bhagat Attending Clinician Unavailab ZAK Diallo Admitting Clinician Unavailabl MOY Olivera Admitting Clinician Unavailable SARA Admitting Clinician Unavailable Moy Hutton MD Admitting Clinician [phone] MARGIE NEWBERRY Admitting Clinician MINDY Addison Admitting Clinician Unavailable EDILIA_DIONISIO_José Luis_Bailey Admitting Clinician Unavail able Payers Payer Name Policy Type Policy Number Effective Date Expirati on Date Source [facility] [id number] 2023 00:00:00 [employer] [id number] 2023 00:00:00 MAILE YATES [id number] 2023 00:00:00 Problems Condition Name Condition Details Condition Category Status Onset Date Resolution Date Last Treatment Date Treating Clinician Comments Source 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 Active 02-17 00:00: 00 [facility] Pre-op testing Pre-op testing Disease Active 02-17 00:00: 00 [facility] Liveborn infant, of [place] , born in hospital by delivery Liveborn , of [place] , born in hospital by delivery Disease Active 07-21 00:00: 00 [facility] Other immediate hemorrhage Other immediate hemorrhage Disease Active 07-21 00:00: 00 [facility] Acute on chronic anemia Acute on chronic anemia Disease Active 2-06 00:00: 00 [facility] Obesity (BMI 30-39.9) Obesity (BMI 30-39.9) Disease Active 2-05 00:00: 00 [facility] History of section History of section Disease Active 07-14 00:00: 00 Overview: Formattin g of this note might be different from the original. x2 [facility] Multiparit y Multiparit y Disease Active 07-14 00:00: 00 [facility] Supervisio n of high-risk with insufficie nt care Supervisio n of high-risk with insufficie nt care Disease Active 07-14 00:00: 00 [facility] History of pre-eclamp wendy History of pre-eclamp wendy Disease Active 07-14 00:00: 00 Overview: Formattin g of this note might be different from the original. With first baby in [facility] Obesity in Obesity in Disease Active 07-10 00:00: 00 [facility] Obesity (BMI 30-39.9) Obesity (BMI 30-39.9) Disease Active 07-10 00:00: 00 [facility] Tobacco use in Tobacco use in Disease Active 2016-06 00:00: 00 [facility] Tobacco use disorder Tobacco use disorder Disease Active 2016-06 00:00: 00 [facility] Umbilical hernia, recurrence not specified Umbilical hernia, recurrence not specified Disease Active 00:00: 00 [facility] 38 weeks gestation of 38 weeks gestation of Disease Resolve d 2 00:00: 00 2023-12-31 00:00:00 2023-12-31 07:59:06 [facility] Well woman exam Well woman exam Disease Resolve d 2016-06 00:00: 00 2023-07-14 00:00:00 2023-07-14 14:44:10 [facility] Depo-Prove ra contracept bowen status Depo-Prove ra contracept bowen status Disease Resolve d 09-02 00:00: 00 2023-07-14 00:00:00 2023-07-14 14:43:52 [facility] Over weight Over weight Disease Resolve d 09-02 00:00: 00 2023-07-14 00:00:00 2023-07-14 14:44:05 [facility] Screen for STD (sexually transmitte d disease) Screen for STD (sexually transmitte d disease) Disease Resolve d 09-02 00:00: 00 2017-05-15 00:00:00 2017-05-15 10:03:59 [facility] Well woman exam without gynecologi thea exam Well woman exam without gynecologi thea exam Disease Resolve d 00:00: 00 2015-09-03 00:00:00 2015-09-03 21:32:03 [facility] Pain pelvic Pain pelvic Disease Resolve d 00:00: 00 2015-09-03 00:00:00 2015-09-03 21:31:17 [facility] delivery delivered delivery delivered Disease Resolve d 02-20 00:00: 00 2015-08-13 00:00:00 2021-12-29 00:17:28 [facility] Supervisio n of other normal Supervisio n of other normal Disease Resolve d 02-19 00:00: 00 2010-02-20 00:00:00 [facility] Allergies, Adverse Reactions, Alerts Allergy Name Allergy Type Status Severity Reaction(s) Onset Date Inactive Date Treating Clinician Comments Source NO KNOWN ALLERGIE S Drug Class Active [facility] Social History Social Habit Start Date Stop Date Quantity Comments Source ASSERTION 2022-11-05 00:00:00 [facility] History of tobacco use 2003-06-15 00:00:00 Passive smoker [facility] Alcoholic beverage intake 2024-03-30 00:00:00 2024-03-30 00:00:00 0 /d [facility] Tobacco use and exposure 2023-12-17 00:00:00 2023-12-17 00:00:00 Smokeless tobacco non-user [facility] Cigarettes smoked current (pack per day) - Reported 2023-12-17 00:00:00 2023-12-17 00:00:00 [facility] Cigarette pack-years 2023-12-17 00:00:00 2023-12-17 00:00:00 [facility] Alcohol intake 2023-07-29 00:00:00 2023-07-29 00:00:00 0 /d [facility] Education 2023-07-20 00:00:00 2023-07-20 00:00:00 12 [facility] History of Social function 2023-07-14 00:00:00 2023-07-14 00:00:00 [facility] Sex assigned at 1990 00:00:00 1990 00:00:00 [facility] Smoking Status Start Date Stop Date Source Ex-smoker 2023-12-17 00:00:00 2023-12-17 00:00:00 [facility] Smokes tobacco daily 2017-05-15 00:00:00 [facility] Medications Ordered Medication Name Filled Medication Name Start Date Stop Date Current Medication? Ordering Clinician Indication Dosage Frequency Signature (SIG) Comments Components Source metroNIDAZO LE 500 mg tablet 2023-06 00:00: 00 Yes [id number] 500mg Take 1 tablet by mouth every 12 (twelve) hours. [facility] metroNIDAZO LE 500 mg tablet 2023-06 00:00: 00 04-07 00:00 :00 No [id number] 500mg Take 1 tablet by mouth every 12 (twelve) hours for 7 days. [facility] iron bis-gly/FA/ C/B12/Ca/chow cc (IRON / ORAL) 2023-0616 14:48: 07 Yes Take by mouth. [facility] triamcinolo ne acetonide (KENALOG) injection 16 mg 12-29 19:45: 12-29 18:52 :00 No [id number] 16mg 16 mg, Intramuscu lar, ONCE, 1 dose, On Thu12/30/23 at 1445, Routine [facility] dexamethaso ne (DECADRON) injection 10 mg 12-16 19:45: 00 12-16 19:01 :00 No [id number] 10mg 10 mg, Intramuscu lar, ONCE, 1 dose, On Thu12/17/23 at 1445, Routine [facility] ketorolac (TORADOL) injection 30 mg 12-16 19:30: 00 12-16 19:02 :00 No [id number] 30mg 30 mg, Intramuscu lar, ONCE, 1 dose, On Thu12/17/23 at 1430, Routine [facility] acetaminoph en (TYLENOL) tablet 1,000 mg 07-30 03:00: 00 07-30 05:06 :00 No 1000mg 1,000 mg, Oral, ONCE, 1 dose, On Thu07/29/23 at 2100, Routine [facility] PNV 67-iron ps-folate no.1-dha (VITAFOL ULTRA) 29 mg iron- 1 mg-200 mg Cap 07-23 00:00: 00 12-24 00:00 :00 No 1{tbl} Take 1 tablet by mouth in the morning. If insurance does not cover can substituen t with any other mediation that contains components . [facility] medroxyPROG ESTERone (DEPO-PROVE RA) injection 150 mg 07-22 14:30: 00 Yes 150mg 150 mg, Intramuscu lar, [id number], First dose on Thu07/22/23 at 0830, Until Discontinu ed, Routine [facility] HYDROcodone -acetaminop hen 5-325 mg tablet 07-22 08:33: 21 07-22 00:00 :00 No 1{tbl} Take 1 tablet by mouth every 6 (six) hours as needed. [facility] ferrous sulfate (IRON) 325 mg (65 mg iron) tablet 07-22 08:33: 21 07-22 00:00 :00 No 325mg Take 1 tablet by mouth in the morning. [facility] ferrous sulfate 325 mg (65 mg iron) tablet 07-22 00:00: 00 12-24 00:00 :00 No [id number] 325mg Take 1 tablet by mouth in the morning and 1 tablet in the evening. [facility] ibuprofen 600 mg tablet 07-22 00:00: 12-24 00:00 :00 No [id number] 600mg Take 1 tablet by mouth every 6 (six) hours. [facility] gabapentin 300 mg capsule 07-22 00:00: 00 12-24 00:00 :00 No [id number] 300mg Take 1 capsule by mouth in the morning and 1 capsule at noon and 1 capsule in the evening. [facility] docusate 100 mg capsule 07-22 00:00: 00 12-24 00:00 :00 No [id number] 200mg Take 2 capsules by mouth once daily as needed for Constipati on. [facility] HYDROcodone -acetaminop hen 5-325 mg tablet 07-22 00:00: 00 07-30 05:59 :00 No [id number] 1{tbl} Take 1 tablet by mouth every 6 (six) hours as needed for Pain (scale 7-10) (Alternate with Ibuprofen) for up to 7 days. Indication s: acute pain [facility] vitamin w/FA tablet 07-22 00:00: 00 07-23 00:00 :00 No [id number] 1{tbl} Take 1 tablet by mouth in the morning. [facility] ibuprofen (IBU) tablet 600 mg 07-21 20:14: 00 Yes 600mg 600 mg, Oral, Q6H ABX, First dose (after last modificati on) on Thu07/21/23 at 1415, Until Discontinu ed, Routine [facility] acetaminoph en (TYLENOL) tablet 650 mg 07-21 15:00: 00 Yes 650mg 650 mg, Oral, Q6H ABX, First dose (after last reorder) on Thu07/21/23 at 0900, Until Discontinu ed, Routine [facility] gabapentin (NEURONTIN) capsule 300 mg 07-21 14:45: 00 Yes 300mg 300 mg, Oral, TID, First dose on Thu07/21/23 at 0845, Until Discontinu ed, Routine [facility] HYDROcodone -acetaminop hen (NORCO 5) 5-325 mg tablet 1 tablet 07-21 14:34: 49 Yes 1{tbl} 1 tablet, Oral, Q6HPRN, Starting on Thu07/21/23 at 0834, Until Discontinu ed, Routine, Pain (scale 7-10), Alternate with Ibuprofen [facility] ferrous sulfate tablet 325 mg 07-21 14:00: 00 Yes 325mg 325 mg, Oral, BID, First dose on Thu07/21/23 at 0800, Until Discontinu ed, Routine [facility] ampicillin- sulbactam (UNASYN) 3 g in NaCl 0.9% (NS) 100 mL MINI-BAG 07-21 02:00: 00 07-21 02:57 :00 No 3g 3 g, IV Piggyback, ONCE, 1 dose, On Thu07/20/23 at 2014, Administer over 30 Minutes, 100 mL
Reas on for Anti-Infec tive: Empiric Non-Surgic al Prophylaxi s
Durat ion of therapy: Once (ED) [facility] methylergon ovine (METHERGINE ) injection 0.2 mg 07-20 22:00: 00 07-21 02:43 :10 No .2mg 0.2 mg, Intramuscu lar, Q4H, First dose on Thu07/20/23 at 1600, Until Discontinu ed, Routine [facility] miSOPROStoL (CYTOTEC) tablet 800 mcg 07-20 22:00: 00 07-21 02:43 :10 No 800ug 800 mcg, Oral, QID, First dose on Thu07/20/23 at 1600, Until Discontinu ed, Routine [facility] rho(D) immune globulin (RHOGAM) syringe 300 mcg 07-20 20:12: 19 Yes 300ug 300 mcg, Intramuscu lar, ONCE, For 1 dose, Conditiona l, Routine [facility] HYDROcodone -acetaminop hen (NORCO 5) 5-325 mg tablet 2 tablet 07-20 20:11: 45 07-21 14:35 :53 No 2{tbl} 2 tablet, Oral, Q6HPRN, Starting on Thu07/20/23 at 1411, Until Thu07/21/23 at 0835, Routine, Pain (scale 7-10), Alternate with Ibuprofen [facility] HYDROcodone -acetaminop hen (NORCO 5) 5-325 mg tablet 1 tablet 07-20 20:11: 41 07-21 14:35 :53 No 1{tbl} 1 tablet, Oral, Q6HPRN, Starting on Thu07/20/23 at 1411, Until Thu07/21/23 at 0835, Routine, Pain (scale 4-6), Alternate with Ibuprofen [facility] ibuprofen (IBU) tablet 600 mg 07-20 20:11: 11 07-21 14:35 :53 No 600mg 600 mg, Oral, Q6HPRN, Starting on Thu07/20/23 at 1411, Until Thu07/21/23 at 0835, Routine, Pain (scale 1-3) [facility] diphenhydrA MINE (BENADRYL) injection 25 mg 07-20 20:10: 18 Yes 25mg 25 mg, Slow IV Push, Q6HPRN, Starting on Thu07/20/23 at 1410, Until Discontinu ed, Routine, Itching [facility] diphenhydrA MINE (BENADRYL) tablet 25 mg 07-20 20:10: 18 Yes 25mg 25 mg, Oral, Q6HPRN, Starting on Thu07/20/23 at 1410, Until Discontinu ed, Routine, Sleep, Itching [facility] ondansetron (ZOFRAN (PF)) injection 4 mg 07-20 20:10: 18 Yes 4mg 4 mg, Slow IV Push, Q8HPRN, Starting on Thu07/20/23 at 1410, Until Discontinu ed, Routine, Nausea and Vomiting (N/V) [facility] bisacodyL (DULCOLAX) suppository 10 mg 07-20 20:10: 18 Yes 10mg 10 mg, Rectal, QDAILYPRN, Starting on Thu07/20/23 at 1410, Until Discontinu ed, Routine, Constipati on [facility] simethicone (GAS RELIEF (SIMETHICON E)) chewable tablet 160 mg 07-20 20:10: 18 Yes 160mg 160 mg, Oral, PC+HSPRN, Starting on Thu07/20/23 at 1410, Until Discontinu ed, Routine, Gas [facility] docusate (COLACE) capsule 200 mg 07-20 20:10: 18 Yes 200mg 200 mg, Oral, QDAILYPRN, Starting on Thu07/20/23 at 1410, Until Discontinu ed, Routine, Constipati on [facility] magnesium hydroxide (MILK OF MAGNESIA) 400 mg/5 mL suspension 30 mL 07-20 20:10: 18 Yes 30mL 30 mL, Oral, QDAILYPRN, Starting on Thu07/20/23 at 1410, Until Discontinu ed, Routine, Constipati on [facility] lactated ringers IV infusion 1,000 mL 07-20 20:10: 18 Yes 1000mL at 125 mL/hr, 1,000 mL, IV Infusion, PRN, 1 dose, Starting on Thu07/20/23 at 1410, Until Discontinu ed, Routine [facility] acetaminoph en (TYLENOL) tablet 650 mg 07-20 15:45: 00 07-20 20:12 :17 No 650mg 650 mg, Oral, ONCE, 1 dose, On Thu07/20/23 at 0945, Routine [facility] sodium citrate-cit lyn acid (BICITRA) 500-334 mg/5 mL solution 30 mL 07-20 15:34: 08 07-20 18:31 :00 No 30mL 30 mL, Oral, PRE-PROCED URE ONCE, 1 dose, Starting on Thu07/20/23 at 0934, Until Thu07/22/23 at 2359, Routine, Surgery/Pr ocedure [facility] acetaminoph en (TYLENOL) tablet 650 mg 07-20 15:30: 00 07-20 17:30 :00 No 650mg 650 mg, Oral, ONCE, 1 dose, On Thu07/20/23 at 0930, Routine [facility] lactated ringers IV infusion 1,000 mL 07-20 14:45: 00 07-20 20:12 :17 No 1000mL at 125 mL/hr, 1,000 mL, IV Infusion, CONTINUOUS , Starting on Thu07/20/23 at 0845, Until Thu07/20/23 at 1412, Routine [facility] lactated ringers IV infusion 1,000 mL 07-20 14:30: 00 07-20 13:45 :00 No 1000mL at 999 mL/hr, 1,000 mL, IV Infusion, ONCE, 1 dose, On Thu07/20/23 at 0830, STAT [facility] HYDROcodone -acetaminop hen 5-325 mg tablet 07-20 14:12: 20 Yes 1{tbl} Take 1 tablet by mouth every 6 (six) hours as needed. [facility] ferrous sulfate (IRON) 325 mg (65 mg iron) tablet 07-20 14:12: 20 Yes 325mg Take 1 tablet by mouth in the morning. [facility] Iron Fum & P-FA-Vit B & C No.9 (INTEGRA PLUS) 125 mg iron- 1 mg Cap 07-16 00:00: 00 07-22 00:00 :00 No [id number] 1{tbl} Take 1 tablet by mouth in the morning. [facility] HYDROcodone -acetaminop hen 5-325 mg tablet 07-14 14:19: 36 Yes 1{tbl} Take 1 tablet by mouth every 6 (six) hours as needed. [facility] ferrous sulfate (IRON) 325 mg (65 mg iron) tablet 07-14 14:19: 36 Yes 325mg Take 1 tablet by mouth in the morning. [facility] olp52-kigj- folic acid 29 mg iron- 1 mg per tablet 07-14 00:00: 00 07-22 00:00 :00 No [id number] 1{tbl} Take 1 tablet by mouth in the morning. [facility] fluconazole (DIFLUCAN) tablet 150 mg 07-10 18:15: 00 07-10 18:20 :00 No 150mg 150 mg, Oral, DAILY, 1 dose, First dose on Thu07/10/23 at 1215, KENDRA
Re ason for Anti-Infec tive: Empiric Therapy for Suspected Infection< br>Empiric Therapy Site: Pelvic
Duration of therapy: Once (ED) [facility] HYDROcodone -acetaminop hen 5-325 mg tablet 07-10 13:40: 20 Yes 1{tbl} Take 1 tablet by mouth every 6 (six) hours as needed. [facility] ferrous sulfate (IRON) 325 mg (65 mg iron) tablet 07-10 13:40: 20 Yes 325mg Take 325 mg by mouth daily. [facility] ibuprofen 800 mg tablet 10-03 00:00: 00 07-22 00:00 :00 No [id number] 800mg Take 1 tablet by mouth every 8 (eight) hours as needed (HEADACHE) . [facility] HYDROcodone -acetaminop hen 5-325 mg tablet 2016-06 09:52: 37 Yes 1{tbl} Take 1 tablet by mouth every 6 (six) hours as needed. [facility] ferrous sulfate (IRON) 325 mg (65 mg iron) tablet 2016-06 09:52: 37 Yes 325mg Take 325 mg by mouth daily. [facility] metroNIDAZO LE 500 mg tablet 2016-06 00:00: 00 07-22 00:00 :00 No [id number] 500mg Take 1 tablet by mouth 2 (two) times daily. [facility] Immunizations Ordered Immunization Name Filled Immunization Name Date Status Comments Source TDAP 2012-06-15 00:00:00 Completed [facility] TD, NOS 2002-06-15 00:00:00 Completed [facility] TD, NOS Unknown Completed [facility] TDAP Unknown Completed [facility] TD, NOS Unknown Completed [facility] TDAP Unknown Completed [facility] TD, NOS Unknown Completed [facility] TDAP Unknown Completed [facility] TD, NOS Unknown Completed [facility] TDAP Unknown Completed [facility] TD, NOS Unknown Completed [facility] TDAP Unknown Completed [facility] TD, NOS Unknown Completed [facility] TDAP Unknown Completed [facility] TD, NOS Unknown Completed [facility] TDAP Unknown Completed [facility] TD, NOS Unknown Completed [facility] TDAP Unknown Completed [facility] TD, NOS Unknown Completed [facility] TDAP Unknown Completed [facility] TD, NOS Unknown Completed [facility] TD, NOS Unknown Completed [facility] TDAP Unknown Completed [facility] TDAP Unknown Completed [facility] TD, NOS Unknown Completed [facility] TDAP Unknown Completed [facility] TD, NOS Unknown Completed [facility] TDAP Unknown Completed [facility] TD, NOS Unknown Completed [facility] TDAP Unknown Completed [facility] TD, NOS Unknown Completed [facility] TDAP Unknown Completed [facility] TD, NOS Unknown Completed [facility] TDAP Unknown Completed [facility] TD, NOS Unknown Completed [facility] TD, NOS Unknown Completed [facility] TDAP Unknown Completed [facility] TDAP Unknown Completed [facility] TD, NOS Unknown Completed [facility] TDAP Unknown Completed [facility] TD, NOS Unknown Completed [facility] TDAP Unknown Completed [facility] TD, NOS Unknown Completed [facility] TDAP Unknown Completed [facility] TD, NOS Unknown Completed [facility] TDAP Unknown Completed [facility] TD, NOS Unknown Completed [facility] TDAP Unknown Completed [facility] TD, NOS Unknown Completed [facility] TDAP Unknown Completed [facility] TD, NOS Unknown Completed [facility] TDAP Unknown Completed [facility] TD, NOS Unknown Completed [facility] TDAP Unknown Completed [facility] TD, NOS Unknown Completed [facility] TDAP Unknown Completed [facility] TD, NOS Unknown Completed [facility] TDAP Unknown Completed [facility] Vital Signs Vital Name Observation Time Observation Value Comments S ource Systolic blood pressure 2024-03-30 19:43:00 106 mm[Hg] [facility] Diastolic blood pressure 2024-03-30 19:43:00 75 mm[Hg] [facility] Heart rate 2024-03-30 19:43:00 88 /min [facility] Body temperature 2024-03-30 19:43:00 36.67 Christina [facility] Body height 2024-03-30 19:43:00 152.4 cm [facility] Body weight 2024-03-30 19:43:00 77.111 kg [facility] BMI 2024-03-30 19:43:00 33.20 kg/m2 [facility] Oxygen saturation in Arterial blood by Pulse oximetry 2024-03-30 19:43:00 97 /min [facility] Body height 2024-02-18 14:44:00 152.4 cm [facility] Body weight 2024-02-18 14:44:00 76.386 kg [facility] BMI 2024-02-18 14:44:00 32.89 kg/m2 [facility] Body height 2023-12-30 18:06:00 152.4 cm [facility] Body weight 2023-12-30 18:06:00 74.208 kg [facility] BMI 2023-12-30 18:06:00 31.95 kg/m2 [facility] Systolic blood pressure 2023-12-25 18:59:00 114 mm[Hg] [facility] Diastolic blood pressure 2023-12-25 18:59:00 85 mm[Hg] [facility] Heart rate 2023-12-25 18:59:00 83 /min [facility] Body temperature 2023-12-25 18:59:00 36.94 Christina [facility] Body height 2023-12-25 18:59:00 152.4 cm [facility] Body weight 2023-12-25 18:59:00 74.39 kg [facility] BMI 2023-12-25 18:59:00 32.03 kg/m2 [facility] Systolic blood pressure 2023-12-17 18:09:00 112 mm[Hg] [facility] Diastolic blood pressure 2023-12-17 18:09:00 80 mm[Hg] [facility] Heart rate 2023-12-17 18:09:00 113 /min [facility] Body temperature 2023-12-17 18:09:00 36.67 Christina [facility] Respiratory rate 2023-12-17 18:09:00 16 /min [facility] [facility] Body height 2023-12-17 18:09:00 152.4 cm [facility] Body weight 2023-12-17 18:09:00 73.171 kg [facility] BMI 2023-12-17 18:09:00 31.50 kg/m2 [facility] Oxygen saturation in Arterial blood by Pulse oximetry 2023-12-17 18:09:00 98 /min [facility] Systolic blood pressure 2023-07-30 06:15:00 119 mm[Hg] [facility] Diastolic blood pressure 2023-07-30 06:15:00 76 mm[Hg] [facility] Oxygen saturation in Arterial blood by Pulse oximetry 2023-07-30 06:15:00 98 /min [facility] Heart rate 2023-07-30 06:00:00 95 /min Unive [facility] Body temperature 2023-07-30 02:17:00 37 Christina [facility] Respiratory rate 2023-07-30 02:17:00 16 /min [facility] Body height 2023-07-30 02:17:00 152.4 cm [facility] Body weight 2023-07-30 02:17:00 83.915 kg [facility] BMI 2023-07-30 02:17:00 36.13 kg/m2 [facility] Systolic blood pressure 2023-07-29 19:26:00 143 mm[Hg] [facility] Diastolic blood pressure 2023-07-29 19:26:00 88 mm[Hg] [facility] Heart rate 2023-07-29 19:26:00 80 /min [facility] Body temperature 2023-07-29 19:26:00 36.78 Christina [facility] Respiratory rate 2023-07-29 19:26:00 18 /min [facility] Body height 2023-07-29 19:26:00 152.4 cm [facility] Body weight 2023-07-29 19:26:00 90.175 kg [facility] BMI 2023-07-29 19:26:00 38.83 kg/m2 [facility] Systolic blood pressure 2023-07-22 14:09:00 123 mm[Hg] [facility] Diastolic blood pressure 2023-07-22 14:09:00 66 mm[Hg] [facility] Heart rate 2023-07-22 14:09:00 82 /min [facility] Body temperature 2023-07-22 14:09:00 36.61 Christina [facility] Respiratory rate 2023-07-22 14:09:00 18 /min [facility] Oxygen saturation in Arterial blood by Pulse oximetry 2023-07-22 14:09:00 100 /min [facility] Body weight 2023-07-20 16:56:00 89.4 kg [facility] BMI 2023-07-20 16:56:00 38.49 kg/m2 [facility] Body height 2023-07-20 11:05:00 152.4 cm [facility] Heart rate 2023-07-21 05:30:00 85 [facility]terial blood by Pulse oximetry 2023-07-21 05:30:00 100 /min [facility] Systolic blood pressure 2023-07-21 05:00:00 123 mm[Hg] [facility] Diastolic blood pressure 2023-07-21 05:00:00 86 mm[Hg] [facility] Body temperature 2023-07-21 01:53:00 36.5 Christina [facility] Respiratory rate 2023-07-21 01:53:00 20 /min [facility] Body weight 2023-07-20 16:56:00 89.4 kg [facility] BMI 2023-07-20 16:56:00 38.49 kg/m2 [facility] Body height 2023-07-20 11:05:00 152.4 cm [facility] Systolic blood pressure 2023-07-14 20:18:00 118 mm[Hg] [facility] Diastolic blood pressure 2023-07-14 20:18:00 80 mm[Hg] [facility] Heart rate 2023-07-14 20:18:00 103 /min Unive [facility] Body temperature 2023-07-14 20:18:00 36.33 Christina [facility] Respiratory rate 2023-07-14 20:18:00 18 /min [facility] Body height 2023-07-14 20:18:00 165.1 cm [facility] Body weight 2023-07-14 20:18:00 87.091 kg [facility] BMI 2023-07-14 20:18:00 31.95 kg/m2 [facility] Heart rate 2023-07-10 17:45:00 98 /min Unive [facility] Oxygen saturation in Arterial blood by Pulse oximetry 2023-07-10 17:45:00 100 /min [facility] Systolic blood pressure 2023-07-10 16:00:00 122 mm[Hg] [facility] Diastolic blood pressure 2023-07-10 16:00:00 81 mm[Hg] [facility] Body temperature 2023-07-10 16:00:00 36.67 Christina [facility] Respiratory rate 2023-07-10 16:00:00 20 /min [facility] Body height 2023-07-10 15:53:00 165.1 cm [facility] Body weight 2023-07-10 15:53:00 87.408 kg [facility] BMI 2023-07-10 15:53:00 32.07 kg/m2 [facility] Procedures Procedure Date / Time Performed Performing Clinician Source POCT TEST 2024-03-30 20:19:00 Hollie Guevara [facility] FREE T4 2024-03-30 20:05:00 Hollie Guevara [facility] THYROID STIMULATING HORMONE 2024-03-30 20:05:00 Hollie Guevara [facility] BASIC METABOLIC PANEL (NA, K, CL, CO2, GLUCOSE, BUN, CREATININE, CA) 2024-03-30 20:05:00 Zak Gil [facility] CBC WITH DIFF 2024-03-30 20:05:00 [facility]24-[facility]-30 20:05:00 Zak Gil Uni [facility] HEPATITIS B SURFACE ANTIGEN 2024-03-30 20:05:00 Hollie Guevara [facility] HCV ANTIBODY 2024-03-30 20:05:00 Hollie Guevara [facility] HSV 1 AND 2 GLYCOPROTEIN G IGG 2024-03-30 20:05:00 Hollie Guevara [facility] FREE T3 2024-03-30 20:05:00 Hollie Guevara [facility] ADC OR DEBRA ONLY - RPR 2024-03-30 20:05:00 Hollie Guevara [facility] HIV 1/2 AG-AB WITH REFLEX 2024-03-30 20:05:00 Hollie Guevara [facility] FERRITIN SERUM 2023-12-25 19:37:00 [facility] LEV[facility] 2023-12-25 19:37:00 Hollie Guevara [facility] FOLATE 2023-12-25 19:37:00 Hollie Guevara [facility] TEST, SERUM 2023-12-25 19:37:00 Jane Guevara [facility] RHEUMATOID FACTOR 2023-12-25 19:37:00 Hollie Guevara [facility] THYROID STIMULATING HORMONE 2023-12-25 19:37:00 Hollie Guevara [facility] COMP. METABOLIC PANEL (41617) 2023-12-25 19:37:00 Hollie Guevara [facility] IRON PANEL 2023-12-25 19:37:00 Hollie Guevara [facility] SEDIMENTATION RATE 2023-12-25 19:37:00 Hollie Guevara [facility] CBC WITH DIFF 2023-12-25 19:37:00 Hollie Guevara [facility] ANTI-NUCLEAR ANTIBODY SCREEN 2023-12-25 19:37:00 Hollie Guevraa [facility] XR WRIST 3+ VW BILATERAL 2023-12-17 18:58:51 Jenny Mckeon [facility] SGOT (ASPARTATE AMINO TRANSFER) 2023-07-30 02:36:00 Moy Hutton [facility] CREATININE 2023-07-30 02:36:00 Moy Hutton [facility] ALANINE AMINO TRANSFERASE(SGPT 2023-07-30 02:36:00 Moy Hutton [facility] LACTATE DEHYDROGENASE 2023-07-30 02:36:00 Moy Hutton [facility] URIC ACID 2023-07-30 02:36:00 Moy Hutton [facility] CBC WITH DIFF 2023-07-30 02:36:00 Moy Hutton [facility] URINALYSIS 2023-07-30 02:36:00 Moy Hutton [facility] PROTEIN CREAT RATIO URINE RANDOM 2023-07-30 02:36:00 Moy Hutton [facility] CONSENT/REFUSAL FOR DIAGNOSIS AND TREATMENT 2023-07-30 01:53:27 Doctor Unassigned, [place] [facility] NO SHOW OR MISSED APPOINTMENT POLICY ACKNOWLEDGEMENT 2023-07-29 18:54:25 Doctor Unassigned, [place] [facility] PREPARE PACKED RBC 2023-07-22 20:50:51 Fleming-Bessie narayan [facility] CBC WITH DIFF 2023-07-21 10:04:00 Laureano-Kobi [facility] CBC WITH DIFF 2023-07-21 10:04:00 Laureano-Kobi [facility] CBC WITH DIFF 2023-07-21 02:10:00 Coni [facility] CBC WITH DIFF 2023-07-21 02:10:00 Coni [facility] TRANSFUSE PACKED RBC 2023-07-21 00:35:00 Laureano- Kobi [facility] TRANSFUSE PACKED RBC 2023-07-21 00:35:00 Lemuel Peace [facility] PREPARE PACKED RBC 2023-07-21 00:14:00 Fleming-So sylvain [facility] PREPARE PACKED RBC 2023-07-21 00:14:00 Fleming-So sylvain [facility] PREPARE PACKED RBC 2023-07-20 21:46:07 Fleming-So sylvain [facility] PREPARE PACKED RBC 2023-07-20 21:46:07 Fleming-So sylvain [facility] TRANSFUSE PACKED RBC 2023-07-20 17:38:00 Lemuel Peace [facility] TRANSFUSE PACKED RBC 2023-07-20 17:38:00 Lemuel Peace [facility] HEPATITIS B SURFACE ANTIGEN 2023-07-20 15:56:00 Coni [facility] HB ABO GROUPING 2023-07-20 15:56:00 Fleming-Peace , [facility] RHO (D) IMMUNE GLOBULIN 2023-07-20 15:56:00 Carp io-Peace, [facility] ADC OR DEBRA ONLY - RPR 2023-07-20 15:56:00 Ca io-[place], [facility] HIV 1/2 AG-AB WITH REFLEX 2023-07-20 15:56:00 Ca [facility] issaquah-Peace, [facility] HEPATITIS B SURFACE ANTIGEN 2023-07-20 15:56:00 Fleming-Peace, [facility] HB ABO GROUPING 2023-07-20 15:56:00 Fleming-Peace , [facility] RHO (D) IMMUNE GLOBULIN 2023-07-20 15:56:00 Carp io-Peace, [facility] ADC OR DEBRA ONLY - RPR 2023-07-20 15:56:00 Ca rpio-Peace, [facility] HIV 1/2 AG-AB WITH REFLEX 2023-07-20 15:56:00 Ca io-[place], [facility] URINE DRUG (IMMUNOASSAY) - COMPREHENSIVE DRUG SCREEN 2023-07-20 13:38:00 Coni [facility] CBC WITH DIFF 2023-07-20 [facility] URINE DRUG (IMMUNOASSAY) - COMPREHENSIVE DRUG SCREEN 2023-07-20 13:38:00 Fleming-Kobi [facility] CBC WITH DIFF 2023-07-20 13:38:00 [facility] , [facility] EXTERNAL PROVIDER RECORDS 2023-07-15 06:01:00 Do ctor Unassigned, [place] [facility] NON-STRESS TEST 2023-07-14 21:58:30 Neil Tafoya [facility] GROUP B STREPTOCOCCUS BY PCR 2023-07-14 21:58:00 Mary Kay Tafoya [facility] CBC WITH DIFF 2023-07-14 21:07:00 Mary Kay Tafoya [facility] RUBELLA SCREEN IGG 2023-07-14 21:07:00 Paulina Tafoya [facility] HEPATITIS B SURFACE ANTIGEN 2023-07-14 21:07:00 Mary Kay Tafoya [facility] HB ABO GROUPING 2023-07-14 21:07:00 Mary Kay Tafoya [facility] HIV 1/2 AG-AB WITH REFLEX 2023-07-14 21:07:00 Mary Kay Tafoya [facility] SYPHILIS IGG/IGM 2023-07-14 21:07:00 Edie Tafoya [facility] AUTHORIZATION FOR RELEASE OF PHI 2023-07-14 06:01:00 Doctor Unassigned, [place] [facility] URINALYSIS 2023-07-10 16:35:00 Adum, Mindy Charlton [facility] ADC CLC OR LCC ONLY - WET PREP 2023-07-10 16:35:00 AdumMindy [facility] ASSIGNMENT OF BENEFITS 2023-07-10 15:52:02 Docto r Unassigned, [place] [facility] CONSENT/REFUSAL FOR DIAGNOSIS AND TREATMENT 2023-07-10 15:44:33 Doctor Unassigned, [place] [facility] SECTION Rossana Newberrysol [facility] SECTION Rossana Newberrysol [facility] Encounters Start Date/Time End Date/Time Encounter Type Admission Type Attending Clinicians Care Facility Care Department Encounter ID Source 2024-02-18 16:01:58 Outpatient R ZAK GIL CRAIG [facility] SOR [id number] [facility] 2023-07-30 01:23:24 Outpatient P GAMB PRINCE [id number] [facility] 2024-05-17 15:00:00 2024-05-17 15:00:00 Outpatient MARGIE LUCAS MARISOL [facility] [id number] [facility] 2024-04-15 00:00:00 2024-04-21 15:05:44 Patient Secure Msg [facility] MEDICAL OFFICE BUILDING 1.2.840.114 350.1.13.10 4.2.7.2.686 [id number] [facility] 2024-04-06 00:00:00 2024-04-07 12:32:41 Patient Secure Msg Hollie [facility]uevar[facility] MEDICAL OFFICE BUILDING 1.2840.114 350.1.13.10 4.2.7.2.686 [id number] [facility] 2024-04-06 00:00:00 2024-04-07 07:24:49 Telephone RaheemHollie Leola [facility] MEDICAL OFFICE BUILDING 1.2840.114 350.1.13.10 4.2.7.2.686 [id number] [facility] 2024-04-06 11:00:00 2024-04-06 11:00:00 Outpatient R RAHEEMHOLLIE [facility] [id number] [facility] 2024-04-06 00:00:00 2024-04-06 08:04:32 Telephone Raheem Hollie Leola [facility] ELAINE?[facility] MEDICAL OFFICE BUILDING 1.2.840.114 350.1.13.10 4.2.7.2.686 [id number] [facility] 2024-03-30 15:00:00 2024-03-30 15:18:07 Senior Electrical Project Manager Visit Lab, Ang - Tariq TorresorsHollie, Ang - Tariq [facility] MEDICAL OFFICE BUILDING 1.2.840.114 350.1.13.10 4.2.7.2.686 [id number] [facility] 2024-03-30 14:30:00 2024-03-30 14:56:29 Outpatient R HOLLIE GUEVARA [facility] [id number] [facility] 2024-03-30 14:30:00 2024-03-30 14:56:29 Office Visit Hollie [facility]uevara [facility] MEDICAL OFFICE BUILDING 1.2.840.114 350.1.13.10 4.2.7.2.686 [id number] [facility] 2024-03-29 00:00:00 2024-03-30 07:34:18 Patient Secure Msg Hollie Guevara [facility] ELAINE?[facility] MEDICAL OFFICE BUILDING 1.2.840.114 350.1.13.10 4.2.7.2.686 [id number] [facility] 2024-02-24 00:00:00 2024-03-26 18:18:28 Patient Secure Msg Micki Calzada [facility] MEDICAL OFFICE BUILDING 1.2.840.114 350.1.13.10 4.2.7.2.686 [id number] [facility] 2024-03-15 09:30:00 2024-03-15 09:30:00 Outpatient R MICKI CALZADA SELENA [facility] [id number] [facility] 2024-02-18 00:00:00 2024-02-18 14:56:10 Prep For Surgery Micki Calzada [facility] ELAINE?W[facility]I [facility] MEDICAL OFFICE BUILDING 1.2.840.114 350.1.13.10 4.2.7.2.686 [id number] [facility] 2024-02-18 09:30:00 2024-02-18 10:42:46 Outpatient R MICKI CALZADA SELENA [facility] [id number] [facility] 2024-02-18 09:30:00 2024-02-18 10:42:46 Office Visit Micki Calzada [facility] ELAINE?ROGELeola [facility] MEDICAL OFFICE BUILDING 1.2.840.114 350.1.13.10 4.2.7.2.686 [id number] [facility] 2024-02-10 16:00:00 2024-02-10 16:00:00 Outpatient R MICKI CALZADA SELENA [facility] [id number] [facility] 2024-02-01 00:00:00 2024-02-09 08:21:02 Telephone oHllie Guevara [facility] ELAINE?[facility] MEDICAL OFFICE BUILDING 1..840.114 350.1.13.10 4.2.7.2.686 [id number] [facility] 2024-02-01 11:45:00 2024-02-01 11:45:00 Outpatient R [facility] [id number] [facility] 2024-01-19 12:30:00 2024-01-19 12:30:00 Outpatient R LEYDI ROD [facility] [id number] [facility] 2024-01-15 00:00:00 2024-01-15 10:29:17 Letter (Out) [facility] 1..840.114 350.1.13.10 4.2.7.2.686 [id number] [facility] 2024-01-08 00:00:00 2024-01-15 10:01:31 Patient Secure Msg Hollie Guevara [facility] ELAINE?[facility] MEDICAL OFFICE BUILDING 1.2.840.114 350.1.13.10 4.2.7.2.686 [id number] [facility] 2024-01-11 00:00:00 2024-01-12 14:02:55 Telephone Hollie Guevara [facility] ELAINE?[facility] MEDICAL OFFICE BUILDING 1.2.840.114 350.1.13.10 4.2.7.2.686 [id number] [facility] 2023-12-31 00:00:00 2023-12-31 07:38:15 Telephone Hollie Guevara [facility] MEDICAL OFFICE BUILDING 1.2840.114 350.1.13.10 4.2.7.2.686 [id number] [facility] 2023-12-30 13:30:00 2023-12-30 13:46:00 Outpatient R [facility]GENIS [facility] [id number] [facility] 2023-12-30 13:30:00 2023-12-30 13:46:00 Office Visit Argenis Micki [facility] ELAINE?[facility] MEDICAL OFFICE BUILDING 1.840.114 350.1.13.10 4.2.7.2.686 [id number] [facility] 2023-12-25 14:30:00 2023-12-25 14:58:11 Senior Electrical Project Manager Visit Lab, James - Tariq TorresHollie hurt [facility] MEDICAL OFFICE BUILDING 1.2.840.114 350.1.13.10 4.2.7.2.686 [id number] [facility] 2023-12-25 13:30:00 2023-12-25 14:21:42 Outpatient R RAHEEMMARBINHOLLIE [facility] [id number] [facility] 2023-12-25 13:30:00 2023-12-25 14:21:42 Office Visit RaheemHollie [facility] MEDICAL OFFICE BUILDING 1.2.840.114 350.1.13.10 4.2.7.2.686 [id number] [facility] 2023-12-23 10:00:00 2023-12-23 10:00:00 Outpatient R RUSSELL BOTELLO [facility] [id number] [facility] 2023-12-17 13:43:48 2023-12-17 23:59:00 Hospital Encounter Jenny Mckeon [facility] MEDICAL OFFICE BUILDING 1.2.840.114 350.1.13.10 4.2.7.2.686 [id number] [facility] 2023-12-17 13:20:00 2023-12-17 14:25:54 Outpatient R JENNY MCKEON [facility] [id number] [facility] 2023-12-17 13:20:00 2023-12-17 13:40:00 Urgent Care Jenny Mckeon Unknown, Attending [facility] MEDICAL OFFICE BUILDING 1.2.840.114 350.1.13.10 4.2.7.2.686 [id number] [facility] 2023-09-09 00:00:00 2023-09-09 00:00:00 Outpatient XIMENA GALARZA [facility] [id number] 2023-08-27 09:30:00 2023-08-27 09:30:00 Outpatient R MARY KAY TAFOYA [facility] [id number] [facility] 2023-07-29 20:02:00 2023-07-30 01:20:00 Outpatient P MOY HUTTON [facility] [id number] [facility] 2023-07-29 20:02:00 2023-07-30 01:20:00 Hospital Encounter Moy Hutton [facility] 1..840.114 350.1.13.10 4.2.7.2.686 [id number] [facility] 2023-07-29 13:00:00 2023-07-29 13:44:14 Outpatient R AKINSIPE, MARY KAY [facility] [id number] [facility] 2023-07-29 13:00:00 2023-07-29 13:44:14 Nurse Visit Visit, Ang-Rmchp Nurse Mary Kay Tafoya [facility]ILD [facility] 1.840.114 350.1.13.10 4.2.7.2.686 [id number] [facility] 2023-07-29 00:00:00 2023-07-29 00:00:00 Orders Only Doctor Unassigned, [place] [facility] 1.840.114 350.1.13.10 4.2.7.2.686 [id number] [facility] 2023-07-29 00:00:00 2023-07-29 00:00:00 Telephone Mary Kay Tafoya [facility] & CHILD [facility] 1.840.114 350.1.13.10 4.2.7.2.686 [id number] [facility] 2023-07-28 08:30:00 2023-07-28 08:30:00 Outpatient MARY KAY BARRAGAN [facility] [id number] [facility] 2023-07-23 00:00:00 2023-07-23 00:00:00 Telephone Mindy Pulliam [facility] 1.840.114 350.1.13.10 4.2.7.2.686 [id number] [facility] 2023-07-20 05:10:00 2023-07-22 14:15:00 Inpatient P LAUREANO-MAHI S, MARGIE AMI S, MARGIE [facility] [id number] [facility] 2023-07-20 05:10:00 2023-07-22 14:15:00 Hospital Encounter Moy HuttonMahi Margie bustillo [facility] 1.2.840.114 350.1.13.10 4.2.7.2.686 [id number] [facility] 2023-07-21 20:02:04 2023-07-21 20:02:04 Anesthesia Event Miguel Ambrose [facility] 1.2.840.114 350.1.13.10 4.2.7.2.686 [id number] [facility] 2023-07-21 12:45:00 2023-07-21 12:45:00 Outpatient R MARY KAY TAFOYA [facility] [id number] [facility] 2023-07-20 00:00:00 2023-07-20 00:00:00 Surgery FlemingGiovannyMahi bustillo [facility] 1.2.840.114 350.1.13.10 4.2.7.2.686 [id number] [facility] 2023-07-16 00:00:00 2023-07-16 00:00:00 Telephone Mary Kay Tafoya [facility] & CHILD [facility] 1.2.840.114 350.1.13.10 4.2.7.2.686 [id number] [facility] 2023-07-15 00:00:00 2023-07-15 00:00:00 Orders Only Doctor Unassigned, [place] [facility] 1.2.840.114 350.1.13.10 4.2.7.2.686 [id number] [facility] 2023-07-14 13:00:00 2023-07-14 15:27:03 Initial Visit Mary Kay Tafoya [facility] MATERNAL & CHILD [facility] 1.2.840.114 350.1.13.10 4.2.7.2.686 [id number] [facility] 2023-07-14 13:00:00 2023-07-14 15:27:03 Outpatient R MARY KAY TAFOYA [facility] [id number] [facility] 2023-07-14 12:30:00 2023-07-14 14:14:30 Outpatient R MARY KAY TAFOYA [facility] [id number] [facility] 2023-07-14 00:00:00 2023-07-14 00:00:00 Orders Only Doctor Unassigned, [place] [facility] 1.2.840.114 350.1.13.10 4.2.7.2.686 [id number] [facility] 2023-07-10 09:54:00 2023-07-10 13:35:00 Outpatient X ADUM, MINDY PULLIAM [facility] [id number] [facility] 2023-07-10 09:54:00 2023-07-10 13:35:00 Emergency Adum, Mindy Latesha [facility] 1.2.840.114 350.1.13.10 4.2.7.2.686 [id number] [facility] 2023-07-10 00:00:00 2023-07-10 00:00:00 Orders Only Doctor Unassigned, [place] [facility] 1.2.840.114 350.1.13.10 4.2.7.2.686 [id number] [facility] 2023-07-08 13:45:00 2023-07-08 13:45:00 Outpatient R MARY KAY TAFOYA [facility] [id number] [facility] 2023-07-03 08:00:00 2023-07-03 08:00:00 Outpatient R MARY KAY TAFOYA [facility] [id number] [facility] 2023-07-03 00:00:00 2023-07-03 00:00:00 Telephone Mary Kay Tafoya Jazmin [facility] 1.2.840.114 350.1.13.10 4.2.7.2.686 [id number] [facility] 2023-07-01 00:00:00 2023-07-01 00:00:00 Outpatient GC_[facility]_ [place]_G PRIV PRIV [id number] [facility] 2023-06-26 00:00:00 2023-06-26 00:00:00 Outpatient [facility]_ Shel[place]_G PRIV PRIV [id number] [facility] 2023-06-24 00:00:00 2023-06-24 00:00:00 Outpatient GC_[facility]_ Shel[place]_G PRIV PRIV [id number] [facility] 2023-06-24 00:00:00 2023-06-24 00:00:00 Nurse Triage Jessie [place] [facility] 1.2.840.114 350.1.13.10 4.2.7.2.686 [id number] [facility] 2023-06-23 00:00:00 2023-06-23 00:00:00 Outpatient PRIV PRIV [id number] [facility] Results Test Description Test Time Test Comments Results Result Co mments Source [facility]cv Tcmoqljy3439-52-48 09:08:10* Test Item Value Reference Range Interpretation Comme nts HCV Ab (test code = 84238-2) Negative HCV Semi-Quantitative (test code = 17595-2) 0.02 [facility] CenterHepatitis B Surface Uywiaff8332-10-13 08:50:47 * Test Item Value Reference Range Interpretation Comme nts HBsAg Semi-Quantitative (la nena t code = 5195-3) 0.15 Negative [facility] CenterAD or Debra Only - Ttf8330-39-27 06:30:43* Test Item Value Reference Range Interpretation Comme nts RPR (Qualitative) (test code = 85534-3) Nonreactive Nonreactive Lab Interpretation (test cod e = 94818-6) Normal [facility] CenterHIV 1/2 Ag-Ab with Cwrmtn3803-34-40 03:29:06* Test Item Value Reference Range Interpretation Comme nts HIV Semi-quantitative (test code = 66887-7) 0.15 Negative AREN (test code = AREN) Non-reactive for HIV-1 antigen and HIV-1/HIV-2 antibodies. ?No laboratory evidence of HIV infection. ?Repeat in 2-4 weeks if acute HIV infection is suspected. [facility] CenterThyroid Stimulating Wtrkoit9200-38-54 03:19:21 * Test Item Value Reference Range Interpretation Comme nts TSH (test code = 7096532112) 0.43 0.45-4.70 L Biotin has been reported to cause a negative bias, interpret results relative to patient's use of biotin. Lab Interpretation (test code = 13371-7) Abnormal [facility] [id number] 03:05:42* Test Item Value Reference Range Interpretation Comme nts FREE T4 (test code = 1542607174) 1.28 0.78-2.20 Lab Interpretation (test cod e = 05151-4) Normal [facility] [id number] 03:05:42* Test Item Value Reference Range Interpretation Comme nts FREE T3 (test code = 5647939217) 4.53 pg/mL 2.77-5.27 Lab Interpretation (test cod e = 39004-7) Normal [facility] (NA, K, CL, CO2, GLUCOSE, BUN, CREATININE, CA)2024-03-31 02:47:58* Test Item Value Reference Range Interpretation Comme nts NA (test code = 1691751523) 136 mmol/L 135-145 K (test code = 6091682818) 3.8 mmol/L 3.5-5.0 CL (test code = 6531382034) 99 mmol/L 98-108 CO2 TOTAL (test code = 8949252876) 32 mmol/L 23-31 H AGAP (test code = 4198669389) 5 2-16 BUN (test code = 0561947719) 13 mg/dL 7-23 GLUCOSE (test code = 5798165609) 103 mg/dL 70-110 CREATININE (test code = 2160-0) 0.79 mg/dL 0.50-1.04 CALCIUM (test code = 4412612974) 9.8 mg/dL 8.6-10.6 eGFR (test code = 70566-4) 99.6 mL/min/1.73m2 CKD-EPI eGFR (2020). Assuming creatinine has been stable day-to-day for at least three months, the eGFR indicates Category G1 (>= 90 mL/min/1.73 m2) Lab Interpretation (test code = 32123-4) Abnormal [facility] WITH [id number] 22:07:49* Test Item Value Reference Range Interpretation Comme nts WBC (test code = 6690-2) 8.32 4.30-11.10 RBC (test code = 789-8) 3.98 3.93-5.25 HGB (test code = 718-7) 12.4 g/dL 11.6-15.0 HCT (test code = 4544-3) 38.4 % 35.7-45.2 MCV (test code = 787-2) 96.5 fL 80.6-95.5 H MCH (test code = 785-6) 31.2 pg 25.9-32.8 MCHC (test code = 786-4) 32.3 g/dL 31.6-35.1 RDW-SD (test code = 54131-0) 44.0 fL 39.0-49.9 RDW-CV (test code = 788-0) 12.4 % 12.0-15.5 PLT (test code = 777-3) 393 166-358 H MPV (test code = 87939-9) 8.7 fL 9.5-12.9 L NRBC/100 WBC (test code = 8679840648) 0.0 0.0-10.0 NRBC x10^3 (test code = 7473588098) See_Comment [Automated messa ge] The system which generated this result transmitted reference range: 10*3/?L. The reference range was not used to interpret this result as normal/abnormal. GRAN MAT (NEUT) % (test code = 770-8) 57.9 % IMM GRAN % (test code = 1979311364) 0.20 % LYMPH % (test code = 736-9) 30.6 % MONO % (test code = 5905-5) 9.6 % EOS % (test code = 713-8) 1.2 % BASO % (test code = 706-2) 0.5 % GRAN MAT x10^3(ANC) (test code = 2932668151) 4.81 10*3/uL 1.88-7.09 IMM GRAN x10^3 (test code = 9769207128) 0.00-0.06 LYMPH x10^3 (test code = 731-0) 2.55 10*3/uL 1.32-3.29 MONO x10^3 (test code = 742-7) 0.80 10*3/uL 0.33-0.92 EOS x10^3 (test code = 711-2) 0.10 10*3/uL 0.03-0.39 BASO x10^3 (test code = 704-7) 0.04 10*3/uL 0.01-0.07 Lab Interpretation (test code = 84029-4) Abnormal [facility] CenterPOCT Ckmr1321-32-92 20:20:00* Test Item Value Reference Range Interpretation Comme nts POCT PREG (test code = 1605) Negative On board controls acceptable with C Line (test code = 3574) Yes POCT PREG LOT # (test code = 3575) POCT PREG TEST DATE ( test code = 3576) [facility] CenterAnti-Nuclear Antibody Jrhxge3672-93-36 20:18:06* Test Item Value Reference Range Interpretation Comme nts MAKSIM (test code = 2172292935) Positive Negative A AREN (test code = AREN) Negative: ?No Anti-Nuclear Antibodies detected by IFA. Positive: ?MAKSIM IFA screen performed with a 1:80 dilution in adults and a 1:40 dilution in pediatrics. ?A titer is performed and reported separately when the MAKSIM is "Positive" or when "Cytoplasmic staining is observed." Lab Interpretation (test code = 73082-6) Abnormal [facility] CenterRheumatoid Sbzfoy4859-04-50 15:52:44* Test Item Value Reference Range Interpretation Comme nts RF (test code = 8764733653) See_Comment [Automated messa ge] The system which generated this result transmitted reference range: <20 IU/mL. The reference range was not used to interpret this result as normal/abnormal. Lab Interpretation (test code = 28072-7) Normal [facility] CenterFolate2024-07-13 00:34:24* Test Item Value Reference Range Interpretation Comme nts FOLATE SER (test code = 1965548087) 4.1 ng/mL 3.0-20.0 Biotin has been reported to cause a positive bias, interpret results relative to patient's use of biotin. Lab Interpretation (test code = 27274-0) Normal [facility] CenterVitamin B12, Tscqh6753-97-63 00:34:24* Test Item Value Reference Range Interpretation Comme nts VIT B12 (test code = 6142382412) 234 pg/mL 240-930 L AREN (test code = AREN) Biotin has been reported to cause a positive bias, interpret results relative to patient's use of biotin. Lab Interpretation (test code = 61897-4) Abnormal [facility] CenterFerritin Mloet4491-61-69 23:14:34* Test Item Value Reference Range Interpretation Comme nts FERRITIN (test code = 4582782491) 23.1 ng/mL 6.0-137.0 AREN (test code = AREN) Biotin has been reported to cause a negative bias, interpret results relative to patient's use of biotin. Lab Interpretation (test code = 43716-4) Normal [facility] CenterThyroid Stimulating Wsaxkvc4402-80-86 23:10:34 * Test Item Value Reference Range Interpretation Comme nts TSH (test code = 7430640839) 0.11 0.45-4.70 L Lab Interpretation (test cod e = 50898-2) Abnormal [facility] CenterIron Jpaxt4069-17-18 22:56:53* Test Item Value Reference Range Interpretation Comme nts IRON (test code = 7924119872) 104 ug/dL 50-160 TIBC (test code = 5525168499) 334 ug/dL 250-410 % FE SAT (test code = 3326072795) 31 % 20-50 Lab Interpretation (test cod e = 81934-7) Normal [facility] CenterComp. Metabolic Panel (69100)2023-12-25 22:39:31* Test Item Value Reference Range Interpretation Comme nts NA (test code = 7570594795) 140 mmol/L 135-145 K (test code = 4142055098) 3.5 mmol/L 3.5-5.0 CL (test code = 9716858546) 102 mmol/L 98-108 CO2 TOTAL (test code = 0745688945) 30 mmol/L 23-31 AGAP (test code = 4016083353) 8 2-16 BUN (test code = 6179627719) 12 mg/dL 7-23 GLUCOSE (test code = 4596141304) 79 mg/dL 70-110 CREATININE (test code = 2160-0) 0.79 mg/dL 0.50-1.04 TOTAL BILI (test code = 7945542548) 1.0 mg/dL 0.1-1.1 CALCIUM (test code = 0624581406) 9.3 mg/dL 8.6-10.6 T PROTEIN (test code = 2052437671) 7.4 g/dL 6.3-8.2 ALBUMIN (test code = 2860474043) 3.9 g/dL 3.5-5.0 ALK PHOS (test code = 8991634342) 74 U/L 34-122 ALTv (test code = 1742-6) 12 U/L 5-35 AST(SGOT) (test code = 8555410788) 18 U/L 13-40 eGFR (test code = 72037-1) 100.2 mL/min/1.73m2 CKD-EPI eGFR (20 21). Assuming creatinine has been stable day-to-day for at least three months, the eGFR indicates Category G1 (>= 90 mL/min/1.73 m2) [facility] CenterSedimentation Zeaq9019-54-57 22:17:14* Test Item Value Reference Range Interpretation Comme nts ESR (test code = 34684-8) 25 0-20 H Lab Interpretation (test cod e = 22698-5) Abnormal [facility] CenterCb with Iczv1281-04-49 21:53:48* Test Item Value Reference Range Interpretation Comme nts WBC (test code = 6690-2) 7.67 4.30-11.10 RBC (test code = 789-8) 3.85 3.93-5.25 L HGB (test code = 718-7) 12.4 g/dL 11.6-15.0 HCT (test code = 4544-3) 36.7 % 35.7-45.2 MCV (test code = 787-2) 95.3 fL 80.6-95.5 MCH (test code = 785-6) 32.2 pg 25.9-32.8 MCHC (test code = 786-4) 33.8 g/dL 31.6-35.1 RDW-SD (test code = 76937-0) 48.4 fL 39.0-49.9 RDW-CV (test code = 788-0) 13.7 % 12.0-15.5 PLT (test code = 777-3) 342 166-358 MPV (test code = 87057-3) 9.2 fL 9.5-12.9 L NRBC/100 WBC (test code = 1470545339) 0.0 0.0-10.0 NRBC x10^3 (test code = 9145834204) See_Comment [Automated messa ge] The system which generated this result transmitted reference range: 10*3/?L. The reference range was not used to interpret this result as normal/abnormal. GRAN MAT (NEUT) % (test code = 770-8) 61.5 % IMM GRAN % (test code = 2620264143) 0.30 % LYMPH % (test code = 736-9) 27.5 % MONO % (test code = 5905-5) 8.3 % EOS % (test code = 713-8) 2.0 % BASO % (test code = 706-2) 0.4 % GRAN MAT x10^3(ANC) (test code = 6686121826) 4.72 10*3/uL 1.88-7.09 IMM GRAN x10^3 (test code = 3031350101) 0.00-0.06 LYMPH x10^3 (test code = 731-0) 2.11 10*3/uL 1.32-3.29 MONO x10^3 (test code = 742-7) 0.64 10*3/uL 0.33-0.92 EOS x10^3 (test code = 711-2) 0.15 10*3/uL 0.03-0.39 BASO x10^3 (test code = 704-7) 0.03 10*3/uL 0.01-0.07 Lab Interpretation (test code = 40328-8) Abnormal [facility] CenterPregnancy Test, Nyncy4709-45-62 21:49:47* Test Item Value Reference Range Interpretation Comme nts PREG SERUM (test code = 0424667270) Negative AREN (test code = AREN) Less than 10 IU/L. ?If low titer or ectopic is suspected, resubmit specimen in 48-72 hours. [facility] CenterXR WRIST 3+ VW MVWJKTCTN0132-59-53 19:57:57XR WRIST 3+ VW BILATERAL HISTORY: ?bilateral wrist pain x months. Pain and swelling COMPARISON: ?none available. Findings:Osseous structures are intact. Mild widening of bilateral scapholunateintervals.There is soft tissue edema. ? [facility] CenterUric Acid Gwdaf3697-39-09 03:01:18* Test Item Value Reference Range Interpretation Comme [facility] URIC ACID (test code = 8319163223) 6.8 mg/dL 2.9-6.0 H Lab Interpretation (test cod e = 58315-2) Abnormal [facility] CenterAlanine Amino Transferase (SGPT)2023-07-30 03:01:18* Test Item Value Reference Range Interpretation Comme [facility] ALTv (test code = 1742-6) 28 U/L 5-35 Lab Interpretation (test cod e = 62806-4) Normal [facility] CenterLactate Dihtztdtaqyni6199-14-88 03:01:18* Test Item Value Reference Range Interpretation Comme [facility] LDH (test code = 2960529562) 441 U/L 120-246 H Lab Interpretation (test cod e = 84876-8) Abnormal [facility] CenterSerum Izrrqgidav5789-69-40 03:00:58* Test Item Value Reference Range Interpretation Comme [facility] CREATININE (test code = 2160-0) 0.61 mg/dL 0.50-1.04 eGFR (test code = 63361-9) 119.7 mL/min/1.73m2 CKD-EPI eGFR (20 21). Assuming creatinine has been stable day-to-day for at least three months, the eGFR indicates Category G1 (>= 90 mL/min/1.73 m2) [facility] CenterSGOT (Asparate Amino Transfer)2023-07-30 03:00:58* Test Item Value Reference Range Interpretation Comme nts AST(SGOT) (test code = 6804617436) 49 U/L 13-40 H Lab Interpretation (test cod e = 34685-4) Abnormal [facility] with Qvvfmrjktjtf0316-61-67 02:49:53* Test Item Value Reference Range Interpretation [...] g/dL 31.6-35.1 L RDW-SD (test code = 42435-5) 73.4 fL 39.0-49.9 H RDW-CV (test code = 788-0) 23.9 % 12.0-15.5 H PLT (test code = 777-3) 412 166-358 H MPV (test code = 61870-3) 8.3 fL 9.5-12.9 L NRBC/100 WBC (test code = 0351520952) 0.3 0.0-10.0 NRBC x10^3 (test code = 0867630131) 0.04 See_Comment [Automated messa ge] The system which generated this result transmitted reference range: 10*3/?L. The reference range was not used to interpret this result as normal/abnormal. GRAN MAT (NEUT) % (test code = 770-8) 68.5 % IMM GRAN % (test code = 9729500086) 0.80 % LYMPH % (test code = 736-9) 20.0 % MONO % (test code = 5905-5) 8.5 % EOS % (test code = 713-8) 1.9 % BASO % (test code = 706-2) 0.3 % GRAN MAT x10^3(ANC) (test code = 5412996567) 8.42 10*3/uL 1.88-7.09 H IMM GRAN x10^3 (test code = 8435935643) 0.10 10*3/uL 0.00-0.06 H LYMPH x10^3 (test code = 731-0) 2.47 10*3/uL 1.32-3.29 MONO x10^3 (test code = 742-7) 1.05 10*3/uL 0.33-0.92 H EOS x10^3 (test code = 711-2) 0.24 10*3/uL 0.03-0.39 BASO x10^3 (test code = 704-7) 0.04 10*3/uL 0.01-0.07 Lab Interpretation (test code = 74797-9) Abnormal [facility] CenterCB with Rwpmcvglgsbn5255-03-61 13:58:25* Test Item Value Reference Range Interpretation [...] 31.8 g/dL 31.6-35.1 RDW-SD (test code = 79639-2) 54.5 fL 39.0-49.9 H RDW-CV (test code = 788-0) 19.0 % 12.0-15.5 H PLT (test code = 777-3) 242 166-358 MPV (test code = 60099-3) 8.9 fL 9.5-12.9 L NRBC/100 WBC (test code = 8319803710) 0.9 0.0-10.0 NRBC x10^3 (test code = 1058676196) 0.15 See_Comment [Automated message] The system which generated this result transmitted reference range: 10*3/?L. The reference range was not used to interpret this result as normal/abnormal. SEG % (test code = 27605-9) 84 % 33-76 H BAND % (test code = 37062-7) 4 % 0-1 H LYMPH % (test code = 83096-7) 12 % 14-54 L ANC (test code = 753-4) 14.15 10*3/uL 1.88-7.09 H POLYCHROMASIA (test code = 06530-4) 2+ See_Comment [Automated message] The system which generated this result transmitted reference range: 2+. The reference range was not used to interpret this result as normal/abnormal. Lab Interpretation (test code = 95364-0) Abnormal [facility] with Nmynyvxoxady0186-33-28 13:58:25* Test Item Value Reference Range Interpretation [...] 31.8 g/dL 31.6-35.1 RDW-SD (test code = 71496-3) 54.5 fL 39.0-49.9 H RDW-CV (test code = 788-0) 19.0 % 12.0-15.5 H PLT (test code = 777-3) 242 166-358 MPV (test code = 34860-3) 8.9 fL 9.5-12.9 L NRBC/100 WBC (test code = 0666393418) 0.9 0.0-10.0 NRBC x10^3 (test code = 0567210306) 0.15 See_Comment [Automated message] The system which generated this result transmitted reference range: 10*3/?L. The reference range was not used to interpret this result as normal/abnormal. SEG % (test code = 52918-2) 84 % 33-76 H BAND % (test code = 76884-3) 4 % 0-1 H LYMPH % (test code = 70081-4) 12 % 14-54 L ANC (test code = 753-4) 14.15 10*3/uL 1.88-7.09 H POLYCHROMASIA (test code = 79144-1) 2+ See_Comment [Automated message] The system which generated this result transmitted reference range: 2+. The reference range was not used to interpret this result as normal/abnormal. Lab Interpretation (test code = 46421-5) Abnormal [facility] with Focimteipnpq0596-41-86 13:58:25* Test Item Value Reference Range Interpretation [...] 31.8 g/dL 31.6-35.1 RDW-SD (test code = 49232-7) 54.5 fL 39.0-49.9 H RDW-CV (test code = 788-0) 19.0 % 12.0-15.5 H PLT (test code = 777-3) 242 166-358 MPV (test code = 21068-7) 8.9 fL 9.5-12.9 L NRBC/100 WBC (test code = 4044551940) 0.9 0.0-10.0 NRBC x10^3 (test code = 7681272681) 0.15 See_Comment [Automated message] The system which generated this result transmitted reference range: 10*3/?L. The reference range was not used to interpret this result as normal/abnormal. SEG % (test code = 44979-2) 84 % 33-76 H BAND % (test code = 85195-5) 4 % 0-1 H LYMPH % (test code = 40806-1) 12 % 14-54 L ANC (test code = 753-4) 14.15 10*3/uL 1.88-7.09 H POLYCHROMASIA (test code = 40483-6) 2+ See_Comment [Automated message] The system which generated this result transmitted reference range: 2+. The reference range was not used to interpret this result as normal/abnormal. Lab Interpretation (test code = 13662-2) Abnormal [facility] with Potb6500-88-55 02:59:40* Test Item Value Reference Range Interpretation [...] 32.2 g/dL 31.6-35.1 RDW-SD (test code = 18694-5) 55.5 fL 39.0-49.9 H RDW-CV (test code = 788-0) 19.5 % 12.0-15.5 H PLT (test code = 777-3) 232 166-358 MPV (test code = 92862-9) 8.6 fL 9.5-12.9 L NRBC/100 WBC (test code = 2650849052) 0.8 0.0-10.0 NRBC x10^3 (test code = 4565577056) 0.14 See_Comment [Automated message] The system which generated this result transmitted reference range: 10*3/?L. The reference range was not used to interpret this result as normal/abnormal. GRAN MAT (NEUT) % (test code = 770-8) 77.6 % IMM GRAN % (test code = 7595312095) 1.20 % LYMPH % (test code = 736-9) 12.2 % MONO % (test code = 5905-5) 8.6 % EOS % (test code = 713-8) 0.1 % BASO % (test code = 706-2) 0.3 % GRAN MAT x10^3(ANC) (test code = 5692970135) 13.64 10*3/uL 1.88-7.09 H IMM GRAN x10^3 (test code = 9067189551) 0.21 10*3/uL 0.00-0.06 H LYMPH x10^3 (test code = 731-0) 2.15 10*3/uL 1.32-3.29 MONO x10^3 (test code = 742-7) 1.51 10*3/uL 0.33-0.92 H EOS x10^3 (test code = 711-2) 0.03-0.39 L BASO x10^3 (test code = 704-7) 0.06 10*3/uL 0.01-0.07 Lab Interpretation (test code = 77981-4) Abnormal [facility] with Qqfo0444-75-18 02:59:40* Test Item Value Reference Range Interpretation [...] 32.2 g/dL 31.6-35.1 RDW-SD (test code = 01050-6) 55.5 fL 39.0-49.9 H RDW-CV (test code = 788-0) 19.5 % 12.0-15.5 H PLT (test code = 777-3) 232 166-358 MPV (test code = 76185-9) 8.6 fL 9.5-12.9 L NRBC/100 WBC (test code = 4050921665) 0.8 0.0-10.0 NRBC x10^3 (test code = 5014705431) 0.14 See_Comment [Automated message] The system which generated this result transmitted reference range: 10*3/?L. The reference range was not used to interpret this result as normal/abnormal. GRAN MAT (NEUT) % (test code = 770-8) 77.6 % IMM GRAN % (test code = 4780738283) 1.20 % LYMPH % (test code = 736-9) 12.2 % MONO % (test code = 5905-5) 8.6 % EOS % (test code = 713-8) 0.1 % BASO % (test code = 706-2) 0.3 % GRAN MAT x10^3(ANC) (test code = 2668805782) 13.64 10*3/uL 1.88-7.09 H IMM GRAN x10^3 (test code = 1595258643) 0.21 10*3/uL 0.00-0.06 H LYMPH x10^3 (test code = 731-0) 2.15 10*3/uL 1.32-3.29 MONO x10^3 (test code = 742-7) 1.51 10*3/uL 0.33-0.92 H EOS x10^3 (test code = 711-2) 0.03-0.39 L BASO x10^3 (test code = 704-7) 0.06 10*3/uL 0.01-0.07 Lab Interpretation (test code = 39242-2) Abnormal [facility] with Rxib2145-83-53 02:59:40* Test Item Value Reference Range Interpretation [...] 32.2 g/dL 31.6-35.1 RDW-SD (test code = 56747-2) 55.5 fL 39.0-49.9 H RDW-CV (test code = 788-0) 19.5 % 12.0-15.5 H PLT (test code = 777-3) 232 166-358 MPV (test code = 67499-8) 8.6 fL 9.5-12.9 L NRBC/100 WBC (test code = 0524076727) 0.8 0.0-10.0 NRBC x10^3 (test code = 6502501782) 0.14 See_Comment [Automated message] The system which generated this result transmitted reference range: 10*3/?L. The reference range was not used to interpret this result as normal/abnormal. GRAN MAT (NEUT) % (test code = 770-8) 77.6 % IMM GRAN % (test code = 8440344188) 1.20 % LYMPH % (test code = 736-9) 12.2 % MONO % (test code = 5905-5) 8.6 % EOS % (test code = 713-8) 0.1 % BASO % (test code = 706-2) 0.3 % GRAN MAT x10^3(ANC) (test code = 3226436767) 13.64 10*3/uL 1.88-7.09 H IMM GRAN x10^3 (test code = 6265060291) 0.21 10*3/uL 0.00-0.06 H LYMPH x10^3 (test code = 731-0) 2.15 10*3/uL 1.32-3.29 MONO x10^3 (test code = 742-7) 1.51 10*3/uL 0.33-0.92 H EOS x10^3 (test code = 711-2) 0.03-0.39 L BASO x10^3 (test code = 704-7) 0.06 10*3/uL 0.01-0.07 Lab Interpretation (test code = 01786-2) Abnormal [facility] (D) IMMUNE QSTFBFGB0297-28-29 22:18:07* Test Item Value Reference Range Interpretation Comme nts RHIG CANDIDATE? (test code = 5188) No- see comment Patient is not a candidate for RhIg- Patient is Rh Positive.Performed at [facility] Blood [address] [place] [address] Free: [phone] No. [id number] [facility]) IMMUNE [id number] 22:18:07* Test Item Value Reference Range Interpretation Comme nts RHIG CANDIDATE? (test code = 5188) No- see comment Patient is not a candidate for RhIg- Patient is Rh Positive.Performed at [facility] Blood [address] Free: [phone] No. [id number] [facility]) IMMUNE [id number] 22:18:07* Test Item Value Reference Range Interpretation Comme nts RHIG CANDIDATE? (test code = 5188) No- see comment Patient is not a candidate for RhIg- Patient is Rh Positive.Performed at [facility] Blood [address] [place] [address] Free: [phone] No. [id number] [facility] ([facility] 2 Units 2023-07-20 21:46:07* Test Item Value Reference Range Interpretation Comme nts Cross Match Result (test code = 4409) Compatible ISBT Blood Type Code (test code = 290838) 7300 Unit Blood Type (test code = 4410) B Pos Unit Number (test code = 4411) [id number] Blood Expiration Date & Time (test code = 482510) [id number] Status Information (test code = 4412) Issued Product Identification (test code = 4413) Red Blood Cells Product Code (test code = 4414) [id number] Performed at [facility] Blood [place] [address]Toll Free: [phone] No. [id number] [facility] (in units), 2 Units 2023-07-20 21:46:07* Test Item Value Reference Range Interpretation Comme nts Cross Match Result (test code = 4409) Compatible ISBT Blood Type Code (test code = 113195) 7300 Unit Blood Type (test code = 4410) B Pos Unit Number (test code = 4411) [id number] Blood Expiration Date & Time (test code = 863846) [id number] Status Information (test code = 4412) Issued Product Identification (test code = 4413) Red Blood Cells Product Code (test code = 4414) [id number] Performed at [facility] Blood [place] [address]Toll Free: [phone] No. [id number] [facility] (in units), 2 Units 2023-07-20 21:46:07* Test Item Value Reference Range Interpretation Comme nts Cross Match Result (test code = 4409) Compatible ISBT Blood Type Code (test code = 765624) 7300 Unit Blood Type (test code = 4410) B Pos Unit Number (test code = 4411) [id number] Blood Expiration Date & Time (test code = 474509) [id number] Status Information (test code = 4412) Issued Product Identification (test code = 4413) Red Blood Cells Product Code (test code = 4414) [id number] Performed at [facility] Blood [place] [address]Toll Free: [phone] No. [id number] [facility] History and Physical Notes Date/Time Note Provider Source 2023-07-20 10:04:59 ANTEPARTUM HISTORY & PHYSICAL IDENTIFYING DATA Julisa Ball is 33 year old, Black or , 38w5d, female with RAMONE 07/29/2023, by Other Basis. : 1990 Primary Care Physician: PATIENT DOES NOT HAVE A PCP Hospital Day: 1 CHIEF COMPLAINT contractions HISTORY OF PRESENT ILLNESS 33 year old @38w5d presents with low back pain pain comes and goes. Denies vaginal bleeding or leakage. Previous CS x2. PNC: [facility] PAST OBSTETRIC HISTORY OB History Para Term AB Living 3 2 2 0 0 2 SAB IAB Ectopic Multiple Live Births 0 0 0 0 2 # Outcome Date GA Lbr Kaerl/2nd Weight Sex Delivery Anes PTL Lv 3 Current 2 Term 2012 39w0d SEC N CESAR 1 Term 2009 40w0d SEC N CESAR Complications: Preeclampsia in period Obstetric Comments CS x 2 PAST MEDICAL HISTORY Problem list: Patient Active Problem List Diagnosis Date Noted Obesity (BMI 30-39.9) 07/20/2023 38 weeks gestation of 07/20/2023 History of section 07/14/2023 Multiparity 07/14/2023 Supervision of high-risk with insufficient care 07/14/2023 History of pre-eclampsia 07/14/2023 Obesity in 07/10/2023 Tobacco use in 05/15/2017 Umbilical hernia, recurrence not specified 08/13/2015 Operations: Past Surgical History: Procedure Laterality Date SECTION 2009, 2012 x 2 DIAGNOSTIC LAPAROSCOPY 09/06/2016 DIAGNOSTIC LAPAROSCOPY N/A 09/06/2016 Surgeon: Moy Hutton MD; Location: [facility] OVARIAN CYST DRAINAGE 09/06/2016 Prior surgeries at outside hospitals: none Past Medical History: Diagnosis Date Abnormal uterine bleeding 2015 while on the depo provera Anemia 2009 during Screen for STD (sexually transmitted disease) 2009 unsure the name thinks gonorrhea Tobacco use disorder 05/15/2017 Umbilical hernia states that she was diagnosed at and was never repaired CURRENT HEALTH STATUS Medications: Current Facility-Administered Medications Medication Dose Route Frequency Last Rate Last Admin acetaminophen (TYLENOL) tablet 650 mg 650 mg Oral ONCE acetaminophen (TYLENOL) tablet 650 mg 650 mg Oral ONCE ceFAZolin (ANCEF) 2,000 mg in NaCl 0.9% (NS) 100 mL MINI-BAG 2,000 mg IV Piggyback O.R. HOLDING ONCE lactated ringers IV infusion 1,000 mL 1,000 mL IV Infusion CONTINUOUS 125 mL/hr at 07/20/23 0755 1,000 mL at 07/20/23 0755 lactated ringers IV infusion 1,000 mL 1,000 mL IV Infusion CONTINUOUS lactated ringers IV infusion 500 mL 500 mL IV Infusion ONCE sodium citrate-citric acid (BICITRA) 500-334 mg/5 mL solution 30 mL 30 mL Oral PRE-PROCEDURE ONCE Allergies and drug reactions: Patient has no known allergies. HOME MEDICATIONS Medications Prior to Admission Medication Sig Dispense Refill Last Dose Iron Fum & P-FA-Vit B & C No.9 (INTEGRA PLUS) 125 mg iron- 1 mg Cap Take 1 tablet by mouth in the morning. 30 capsule 1 cau97-vmax-utruo acid 29 mg iron- 1 mg per tablet Take 1 tablet by mouth in the morning. 90 tablet 3 ibuprofen 800 mg tablet Take 1 tablet by mouth every 8 (eight) hours as needed (HEADACHE). 21 tablet 0 Not Taking ferrous sulfate (IRON) 325 mg (65 mg iron) tablet Take 1 tablet by mouth in the morning. Not Taking metroNIDAZOLE 500 mg tablet Take 1 tablet by mouth 2 (two) times daily. 14 tablet 0 Not Taking HYDROcodone-acetaminophen 5-325 mg tablet Take 1 tablet by mouth every 6 (six) hours as needed. Not Taking Last taken: yesterday SOCIAL HISTORY Tobacco History: Social History Tobacco Use Smoking Status Every Day Packs/day: 0.50 Years: 13.00 Additional pack years: 0.00 Total pack years: 6.50 Types: Cigarettes Start date: 06/15/2003 Smokeless Tobacco Never Drug History: Social History Substance and Sexual Activity Drug Use No Alcohol History: Social History Substance and Sexual Activity Alcohol Use No Alcohol/week: 0.0 standard drinks of alcohol FAMILY HISTORY Family History Problem Relation Age of Onset Diabetes Father Cancer Maternal Aunt Unsure what kind or age Cancer Maternal Grandmother unsure what type or age Arthritis NoFHx Asthma NoFHx defects NoFHx Breast Cancer NoFHx Ovarian Cancer NoFHx Colon Cancer NoFHx Uterine Cancer NoFHx Depression NoFHx Genetic NoFHx Heart NoFHx High cholesterol NoFHx Hypertension NoFHx Mental retardation NoFHx Psychiatry NoFHx Osteoporosis NoFHx Neurological NoFHx REVIEW OF SYSTEMS General: (+) fatigue Constitutional: negative Eyes: negative ENT/Mouth: negative Cardiovascular: negative Respiratory: negative Gastrointestinal:pain Genitourinary: negative Musculoskeletal: negative Skin/breast: negative Neurological: negative Psychiatric: negative Endocrine: negative Hemat/Lymph: anemia Allergic/Immuno:none VITAL SIGNS BP: (121-135)/(78-92) Temp: [37 ?C (98.6 ?F)-37.3 ?C (99.1 ?F)] Temp source: Oral (07/20 0700) Pulse: [83-102] Resp: [18-22] SpO2: [99 %-100 %] Height: [152.4 cm (5')] Weight: [89.4 kg (197 lb 3.2 oz)] BMI (calculated): [38.51] PHYSICAL EXAMINATIONS General: well-developed, well-nourished Lungs: clear to auscultation bilaterally Cardiology: regular rate and rhythm Abdomen: tenderness - normal : OB pelvic exam performed? 1 cm by RN Extremities: no clubbing, cyanosis, or edema Neuro: cranial nerves II through XII grossly intact; sensation grossly intact; muscle strength 5 out of 5 in all four extremities REVIEW OF LABORATORY, PATHOLOGY, AND RADIOLOGY DATA Lab results: CBC BMP PT/INR WBC x10 3 (/CMM) Date Value 03/06/2010 7.6 WBC (10*3/?L) Date Value 07/20/2023 11.50 (H) NA (mmol/L) Date Value 10/03/2018 144 No results found for: "PT" RBC x10 6 (/CMM) Date Value 03/06/2010 3.48 (L) RBC (10*6/?L) Date Value 07/20/2023 2.89 (L) K (mmol/L) Date Value 10/03/2018 3.4 (L) INR (no units) Date Value 10/03/2018 1.0 PLT x10 3 (/CMM) Date Value 03/06/2010 407 (H) PLT (10*3/?L) Date Value 07/20/2023 267 CALCIUM (mg/dL) Date Value 10/03/2018 9.6 HGB Date Value 07/20/2023 6.5 g/dL (L) 03/06/2010 10.5 G/DL (L) CL (mmol/L) Date Value 10/03/2018 105 aPTT HCT (%) Date Value 07/20/2023 22.1 (L) 03/06/2010 31.9 (L) BUN (mg/dL) Date Value 10/03/2018 18 APTT Patient (Seconds) Date Value 10/03/2018 28 CREATININE Date Value 10/03/2018 0.80 mg/dL 03/06/2010 0.80 MG/DL GLUCOSE (mg/dL) Date Value 10/03/2018 93 CO2 TOTAL (mmol/L) Date Value 10/03/2018 31 Type & Screen Rubella Varicella ABO & RH (no units) Date Value 07/14/2023 B POSITIVE RUBELLA (no units) Date Value 07/16/2009 POSITIVE Rubella screen IgG (no units) Date Value 07/14/2023 Positive No results found for: "VZVG" ANTIBODY SCREEN (no units) Date Value 02/19/2010 NEGATIVE Hep B HIV Syphilis HBsAg (no units) Date Value 02/19/2010 NEGATIVE HIV 1/2 Ab (no units) Date Value 01/18/2010 NEGATIVE No results found for: "SYPG" Group B Strep Chlamydia Group B Streptococcus Screen Culture (no units) Date Value 01/18/2010 [id number] JULISA BALL 20 YRS GROUP B STREP SCREEN CULTURE DATE:836 SOURCE: VAGINAL/ANAL RECEIVE DATE: 01/19/10410 VAGANA START DATE: 01/19/10410 FINAL REPORT: 01/22/10 1137 NO GROUP B STREPTOCOCCI ISOLATED Chlamydia Amplified Assay (no units) Date Value 08/20/2009 NEGATIVE C. trachomatis Nucleic Acid (no units) Date Value 07/10/2023 Negative X-ray results: none Placenta Accreta Screening Prior ? : Yes Screening outcome: A positive screening outcome indicates a history of prior delivery or prior uterine surgery, AND the presence of either a placenta low lying/previa or ultrasound suspicion of PASD in the current . Negative screening. DELIVERY PLAN Repeat CS HEART RATE 120 cat 1 Contractions q2-3 min ASSESSMENT AND PLAN 33 year old @38w5d with painful contractions --previous CSX 2 --severe anaemia Will transfuse RBCs prior to repeat CS NPO Admit to L&D Informed consent signed Margie Newberry MD [facility]
[2024-07-16] MEDS ORDERED: LEVETIRACETAM 500 MG/5 ML VIAL IV ONE (13:30)
[2024-07-16] MEDS ORDERED: NA CHLORIDE 0.9% 100 ML ONE (13:31)
[2024-07-16 13:39] LABS: Absolute Basophils 0.1 K/uL (0-0.5); Absolute Eosinophils 0.1 K/uL (0-0.5); Absolute Lymphocytes (CBC) 1.9 K/uL (0.7-4.9); Absolute Monocytes 0.8 K/uL (0.1-1.3); Absolute Neutrophil 5.8 K/uL (1.8-8.0); Basophils % 0.6 % (0-1.3); Eosinophils % 0.9 % (0-4.4); Hematocrit 32.5 % (36.0-45.0); Hemoglobin 10.6 g/dL (12.0-15.0); Lymphocytes % 21.9 % (15.3-44.8); MCH 26.6 pg (27.0-35.0); MCHC 32.7 g/dL (32.0-36.0); MCV 81.6 fL (80-100); MPV 6.6 fL (7.6-11.3); Monocytes % 8.9 % (3.3-12.3); Neutrophils % 67.7 % (41.7-73.7); Nucleated Red Blood Cells % 0.1 % (0-0); Platelets 421 thou/uL (152-406); RBC Red Blood Cell Count 3.98 M/uL (3.86-4.86); Red Cell Distribution Width 14.8 % (12.1-15.2)
[2024-07-16 13:52] LABS: Anion Gap 9.3 mEq/L (5.0-15.0); Potassium 3.3 mEq/L (3.5-5.1)
[2024-07-16 14:18] LABS: Specific Gravity 1.012 (1.005-1.030)
[2024-07-16 14:20] LABS: Specific Gravity 1.012 (1.005-1.030); Sqamous Epithelial <5 /HPF (None Seen); Urine Bacteria <20 /HPF (<20); Urine Bilirubin NEGATIVE (Negative); Urine Blood Negative (Negative); Urine Clarity Turbid (Clear); Urine Color Light-Yellow (Yellow); Urine Culture Reflex Order NOT NEEDED; Urine Glucose 3+ (Negative); Urine Ketones 1+ (Negative); Urine Microscopic Reflex YN ORDER UMIC; Urine Mucus Slight /HPF (None Seen); Urine Nitrite NEGATIVE (Negative); Urine Protein NEGATIVE (Negative); Urine RBC <5 /HPF (None Seen); Urine Urobilinogen Normal (Normal); Urine WBC <5 /HPF (<5); Urine WBC Clump Rare /HPF (None Seen); Urine Yeast (Budding) Trace /HPF (None Seen); Urine pH 6.5 (5.0-7.0)
--- NOTE | 2024-07-16 14:27 | EDPHYS ---
Physician Documentation [facility] Name: Gayle Ball Age: 34 yrs Sex: Female : 1990 Arrival Date: 07/16/2024 Time: 12:55 Bed 4 Private MD: ED Physician Gama Osuna HPI: 07/16 14:03 This 34 yrs old Black Female presents to ER via EMS with complaints of Seizure. rn 14:03 The patient presents after having a single isolated seizure. Character of seizure(s): rn Loss of consciousness: it is not known if the patient experienced loss of consciousness, Motor activity: focal activity, Incontinence: none, Eye movements: are unknown. Seizure onset: just prior to arrival. Current symptoms: headache. The patient has experienced similar episodes in the past. Patient has known seizure disorder, reports has a seizure maybe once or twice a year. Does not like how seizure medication makes her feel so does not take seizure medicine. Denies any recent head injury or trauma. Denies . No drug use. Reports increased stress lately and is presenting from prison, likely adding to her stress. Patient otherwise states this feels like a previous seizure without new symptoms.. Historical: - Allergies: 13:09 No Known Allergies; bp - PMHx: 13:09 Anemia; Anxiety; blood transfusion; Seizure; bp - PSHx: 13:09 ; bp - Immunization history:: Adult Immunizations up to date. - Infectious Disease History:: Denies. - Social history:: Smoking status: Patient denies any tobacco usage or history of. - Family history:: not pertinent. - Hospitalizations: : No recent hospitalization is reported. ROS: 14:03 Constitutional: Negative for fever, chills, and weight loss, Neck: Negative for injury, rn pain, and swelling, Cardiovascular: Negative for chest pain, palpitations, and edema, Respiratory: Negative for shortness of breath, cough, wheezing, and pleuritic chest pain, Abdomen/GI: Negative for abdominal pain, nausea, vomiting, diarrhea, and constipation, Back: Negative for injury and pain, : Negative for injury, bleeding, discharge, and swelling, MS/Extremity: Negative for injury and deformity, Skin: Negative for injury, rash, and discoloration, Neuro: Positive for headache and seizure Exam: 14:03 Constitutional: This is a well developed, well nourished patient who is awake, alert, rn and in no acute distress. Does not seem postictal, eating turkey sandwich Head/Face: Normocephalic, atraumatic. Eyes: Pupils equal round and reactive to light, extra-ocular motions intact. Cardiovascular: Regular rate and rhythm. No pulse deficits. Respiratory: No increased work of breathing, no retractions or nasal flaring. Abdomen/GI: Soft, non-tender MS/ Extremity: Pulses equal, no cyanosis. Neuro: Awake and alert, GCS 15, oriented to person, place, time, and situation. Cranial nerves II-XII grossly intact. Motor strength 5/5 in all extremities. Sensory grossly intact. Cerebellar exam normal. Vital Signs: 13:10 BP 144 / 96; Pulse 78; Resp 14; Temp 98; Pulse Ox 98% ; bp [place] Coma Score: 13:10 Eye Response: spontaneous(4). Motor Response: obeys commands(6). Verbal Response: bp oriented(5). Total: 15. MDM: 13:09 Medical Screening Exam initiated rn 14:25 Differential diagnosis: seizure. Data reviewed: vital signs, nurses notes, lab test rn result(s), EKG, and as a result, I will discharge patient. Counseling: I had a detailed discussion with the patient and/or guardian regarding the historical points, exam findings, and any diagnostic results supporting the discharge/admit diagnosis, lab results, radiology results, the need for outpatient follow up, to return to the emergency department if symptoms worsen or persist or if there are any questions or concerns that arise at home. Response to treatment: the patient's symptoms have markedly improved after treatment, the patient's symptoms have resolved after treatment, the patient's condition has returned to base line, the patient is now symptom free, and as a result, I will discharge patient. Special discussion: I discussed with the patient/guardian in detail that at this point there is no indication for admission to the hospital. It is understood, however, that if the symptoms persist or worsen the patient needs to return immediately for re-evaluation. Based on the history and exam findings, there is no indication for further emergent testing or inpatient evaluation. I discussed with the patient/guardian the need to see the neurologist for further evaluation of the symptoms. I discussed with the patient/guardian the need to see the primary care provider for further evaluation of the symptoms. ED course: Patient declines Keppra. States that she does not like the way it makes her feel. Request to go home as she feels fine, has been ambulatory without complaint. I have personally reviewed all of the results, including but not limited to blood tests deemed necessary to safely discharge this patient at this time. All results given to and printed out for patient. I personally went over all the results with the patient and answered all questions. Patient will follow-up with PCP and or specialist as discussed. Return precautions given and understood.. 07/16 13:11 Order name: CBC with Diff; Complete Time: 13:55 rn 07/16 13:11 Order name: Basic Metabolic Panel; Complete Time: 13:55 rn 07/16 13:11 Order name: Test, Urine; Complete Time: 14:25 rn 07/16 14:06 Order name: Urinalysis w/ reflexes; Complete Time: 14:25 rn 07/16 13:11 Order name: IV Start; Complete Time: 13:16 rn 07/16 13:11 Order name: EKG - Nurse/Tech; Complete Time: 13:48 rn 07/16 13:11 Order name: Cardiac monitoring; Complete Time: 13:16 rn 07/16 13:11 Order name: O2 Sat Monitoring; Complete Time: 13:16 rn Administered Medications: 13:20 Drug: Keppra IV 1000 mg IV at calculated rate once Route: IV; Rate: calculated rate; bp Site: right antecubital; Disposition Summary: 07/16/24 14:26 Discharge Ordered Notes: Location: Home rn Problem: new rn Symptoms: have improved rn Condition: Stable rn Diagnosis - Other seizures rn Followup: rn - With: Private Physician - When: As needed - Reason: Recheck today's complaints, Re-evaluation by your physician Discharge Instructions: - Discharge Summary Sheet rn - Seizure, Adult rn Forms: - Medication Reconciliation Form rn - Antibiotic rn admissions - Prescription Opioid Use rn - Patient Portal Instructions rn - Leadership Thank You Letter rn Signatures: Dispatcher [facility] Gama Parrish MD MD rn Peltier, Brian, RN RN bp Corrections: (The following items were deleted from the chart) 13:12 13:12 CBC+H.LAB.BRZ ordered. EDMT EDMT 13:12 13:12 BASIC METABOLIC PANEL+C.LAB.BRZ ordered. EDMS EDMS 13:12 13:12 Test, Urine+UC.LAB.BRZ ordered. EDMS EDMS
--- NOTE | 2024-07-16 14:27 | ER ---
Nurse's Notes [facility] Name: Gayle Ball Age: 34 yrs Sex: Female : 1990 Arrival Date: 07/16/2024 Time: 12:55 Bed 4 Private MD: Diagnosis: Other seizures Presentation: 07/16 13:10 Chief complaint: EMS states: RECENT MX INCARCERATIONS 2/2 WARRANTS AND FOCAL MOTOR SZ bp IN CUSTODY. H/O NON-COMPLIANCE WITH SZ MEDS. Coronavirus screen: At this time, the client does not indicate any symptoms associated with coronavirus-19. Ebola Screen: No symptoms or risks identified at this time. Initial Sepsis Screen: Does the patient meet any 2 criteria? No. Patient's initial sepsis screen is negative. Does the patient have a suspected source of infection? No. Patient's initial sepsis screen is negative. Risk Assessment: Do you want to hurt yourself or someone else? Patient reports no desire to harm self or others. Note PT MENTATION RETURNED TO BASELINE. Onset of symptoms is unknown. 13:10 Method Of Arrival: EMS: [facility] bp 13:10 Acuity: CAMILA 3 bp Triage Assessment: 13:10 General: Appears in no apparent distress. Behavior is calm, cooperative, appropriate bp for age. Pain: Complains of pain in head. EENT: No deficits noted. Neuro: Seizure activity reported prior to arrival. Type of seizure: focal seizure. Seizure lasted approximately 5 minutes. Cardiovascular: No deficits noted. Respiratory: No deficits noted. GI: No signs and/or symptoms were reported involving the gastrointestinal system. : No signs and/or symptoms were reported regarding the genitourinary system. Derm: No deficits noted. Musculoskeletal: No deficits noted. Historical: - Allergies: 13:09 No Known Allergies; bp - PMHx: 13:09 Anemia; Anxiety; blood transfusion; Seizure; bp - PSHx: 13:09 ; bp - Immunization history:: Adult Immunizations up to date. - Infectious Disease History:: Denies. - Social history:: Smoking status: Patient denies any tobacco usage or history of. - Family history:: not pertinent. - Hospitalizations: : No recent hospitalization is reported. Screenin:12 [facility] ED Fall Risk Assessment (Adult) History of falling in the last 3 months, bp including since admission No falls in past 3 months (0 pts) Confusion or Disorientation No (0 pts) Intoxicated or Sedated No (0 pts) Impaired Gait No (0 pts) Mobility Assist Device Used No (0 pt) Altered Elimination No (0 pt) Score/Fall Risk Level 0 - 2 = Low Risk Oriented to surroundings. Abuse screen: Denies threats or abuse. Denies injuries from another. Nutritional screening: No deficits noted. Tuberculosis screening: No symptoms or risk factors identified. Assessment: 13:12 General: Appears in no apparent distress. Behavior is calm, cooperative, appropriate bp for age. 14:34 Reassessment: Patient appears in no apparent distress at this time. No changes from ld1 previously documented assessment. Patient and/or family updated on plan of care and expected duration. Pain level reassessed. Patient is alert, oriented x 3, equal unlabored respirations, skin warm/dry/pink. Pt requesting to go home. Notified ERP. Vital Signs: 13:10 BP 144 / 96; Pulse 78; Resp 14; Temp 98; Pulse Ox 98% ; bp [place] Coma Score: 13:10 Eye Response: spontaneous(4). Motor Response: obeys commands(6). Verbal Response: bp oriented(5). Total: 15. ED Course: 13:09 Patient arrived in ED. bp 13:09 Gama Osuna MD is Attending Physician. rn 13:10 Arm band placed on. bp 13:11 Triage completed. bp 13:12 Patient has correct armband on for positive identification. bp 13:12 Maintain EMS IV. Dressing intact. Good blood return noted. Site clean \T\ dry. Gauge \T\ bp site: 18 RAC. 13:15 Miguel Escobar, SABRINA is Primary Nurse. bp 14:28 Patient has correct armband on for positive identification. bp 14:28 No provider procedures requiring assistance completed. IV discontinued, intact, bp bleeding controlled, No redness/swelling at site. Pressure dressing applied. 14:29 Seizure precautions initiated. Provided Education on: na. bp Administered Medications: 13:20 Drug: Keppra IV 1000 mg IV at calculated rate once Route: IV; Rate: calculated rate; bp Site: right antecubital; Medication: 13:12 VIS not applicable for this client. bp Outcome: 14:26 Discharge ordered by . rn 14:28 Discharged to home ambulatory, with family, bp 14:28 Condition: stable 14:28 Discharge instructions given to patient, Instructed on discharge instructions, follow up and referral plans. 14:34 Patient left the ED. ld1 Signatures: Gama Osuna MD MD rn Peltier, Brian RN RN bp Robyn Joiner RN RN ld1
[2024-07-16 14:59] VITALS: BP 144/96; TEMP 98; O2SAT 98
== END 2024-07-16 14:34 | disposition home or self-care (01) ==
LOC: ER 12:55
DX: G40.89 Other seizures (principal)
CPT/HCPCS: 85025; 81001; 80048; 36415; 81025; 96374; 99284; J1953

== ENCOUNTER 2024-08-04 22:18 | Emergency (ER) | payer OTHER ==
--- OUTSIDE RECORDS SUMMARY | 2024-08-04 22:24 | XMS REPORT | Continuity of Care Document ---
Author Name Unknown Address [address] [facility] [address] [place] [address] [facility] thconnect Address [address] [facility]. [address] [place] [address] Care Team Providers Care Agricultural Research Director Name Role Phone Hollie Clayton Primary Care Physician [phone] ZAK GIL Attending Clinician UnavailZAK Mojica Attending Clinician Unavailadria e Doctor Unassigned, [place] Attending Clinician U navailMARGIE Lenz Attending Clinician MARGIE Arnold Attending Clinician Hollie Thompson Attending Clinician [phone] HOLLIE MACIEL Attending Clinician Unavailable Lab, Ang - Db Attending Clinician Unavailable Micki More PA-C Attending Clinician [phone] MICKI MORE Attending Clinician Unavailable MICKI MORE Attending Clinician Unavailable LEYDI ROD Attending Clinician Unavailable Hollie Clayton Attending Clinician [phone] Lab, Ang - Db Attending Clinician Unavailable RUSSELL BOTELLO Attending Clinician Unavailable Jenny Honeycutt Attending Clinician [phone] JENNY MCKEON Attending Clinician Unavailable Unknown, Attending Attending Clinician Unavailab ZAIDA Aleman Attending Clinician Unavailable SARA Attending Clinician Unavailable MARY KAY TAFOYA Attending Clinician Unavail able MOY HUTTON Attending Clinician Unavailable Reinaldo TAPIA, Moy Benavides Attending Clinician [phone] Visit, [facility] Nurse Attending Clinician Unava ilmaksim Tafoya WHMAGALIPMary Kay Attending Clinician + Doctor Unassigned, [place] Attending Clinician U inocente Pulliam MD, Mindy Charlton Attending Clinician [phone] Miguel Ambrose CRNA Attending Clinician [phone] MINDY PULLIAM Attending Clinician Unavailable Yohan Attending Clinician Unavail able Lina BENNETT, Jessie Bhagat Attending Clinician Unavailab ZAK Diallo Admitting Clinician Unavailabl e MOY HUTTON Admitting Clinician Unavailable SARA Admitting Clinician Unavailable Reinaldo TAPIA, Moy Benavides Admitting Clinician [phone] MARGIE NEWBERRY Admitting Clinician UnaMINDY Newman Admitting Clinician Unavailable PIEDAD_Stevan Admitting Clinician Unavail able Payers Payer Name Policy Type Policy Number Effective Date Expirati on Date Source [facility] [id number] 2023 00:00:00 [place] [id number] 2023 00:00:00 MAILE YATES [id number] 2023 00:00:00 Problems Condition Name Condition Details Condition Category Status Onset Date Resolution Date Last Treatment Date Treating Clinician Comments Source 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 Active 02-17 00:00: 00 [facility] Pre-op testing Pre-op testing Disease Active 02-17 00:00: 00 [facility] Liveborn , of [place] , born in hospital by delivery Liveborn infant, of [place] , born in hospital by delivery Disease Active 07-21 00:00: 00 [facility] Other immediate hemorrhage Other immediate hemorrhage Disease Active 2-06 00:00: 00 [facility] Acute on chronic anemia Acute on chronic anemia Disease Active 2 00:00: 00 [facility] Obesity (BMI 30-39.9) Obesity (BMI 30-39.9) Disease Active 2-05 00:00: 00 [facility] History of section History of section Disease Active 07-14 00:00: 00 Overview: Formattin g of this note might be different from the original. x2 [facility] Multiparit y Multiparit y Disease Active 07-14 00:00: 00 [facility] Supervisio n of high-risk with insufficie nt care Supervisio n of high-risk with insufficie nt care Disease Active 07-14 00:00: 00 [facility] History of pre-eclamp wendy History of pre-eclamp wendy Disease Active 07-14 00:00: 00 Overview: Formattin g of this note might be different from the original. With first baby in [facility] Obesity in Obesity in Disease Active 07-10 00:00: 00 [facility] Obesity (BMI 30-39.9) Obesity (BMI 30-39.9) Disease Active 07-10 00:00: 00 [facility] Tobacco use in Tobacco use in Disease Active 2016-06 00:00: 00 [facility] Tobacco use disorder Tobacco use disorder Disease Active 2016-06 00:00: 00 [facility] Umbilical hernia, recurrence not specified Umbilical hernia, recurrence not specified Disease Active 00:00: 00 [facility] 38 weeks gestation of 38 weeks gestation of Disease Resolve d 2 00:00: 00 2023-12-31 00:00:00 2023-12-31 07:59:06 [facility] Well woman exam Well woman exam Disease Resolve d 2016-06 00:00: 00 2023-07-14 00:00:00 2023-07-14 14:44:10 [facility] Depo-Prove ra contracept bowen status Depo-Prove ra contracept bowen status Disease Resolve d 09-02 00:00: 00 2023-07-14 00:00:00 2023-07-14 14:43:52 [facility] Over weight Over weight Disease Resolve d 09-02 00:00: 00 2023-07-14 00:00:00 2023-07-14 14:44:05 [facility] Screen for STD (sexually transmitte d disease) Screen for STD (sexually transmitte d disease) Disease Resolve d 09-02 00:00: 00 2017-05-15 00:00:00 2017-05-15 10:03:59 [facility] Well woman exam without gynecologi thea exam Well woman exam without gynecologi thea exam Disease Resolve d 00:00: 00 2015-09-03 00:00:00 2015-09-03 21:32:03 [facility] Pain pelvic Pain pelvic Disease Resolve d 00:00: 00 2015-09-03 00:00:00 2015-09-03 21:31:17 [facility] delivery delivered delivery delivered Disease Resolve d 02-20 00:00: 00 2015-08-13 00:00:00 2021-12-29 00:17:28 [facility] Supervisio n of other normal Supervisio n of other normal Disease Resolve d 02-19 00:00: 00 2010-02-20 00:00:00 [facility] Allergies, Adverse Reactions, Alerts Allergy Name Allergy Type Status Severity Reaction(s) Onset Date Inactive Date Treating Clinician Comments Source NO KNOWN ALLERGIE S Drug Class Active [facility] Social History Social Habit Start Date Stop Date Quantity Comments Source ASSERTION 2022-11-05 00:00:00 [facility] History of tobacco use 2003-06-15 00:00:00 Passive smoker [facility] Sexual orientation [facility] Alcoholic beverage intake 2024-02-18 00:00:00 2024-02-18 00:00:00 0 /d [facility] Tobacco use and exposure 2023-12-17 00:00:00 2023-12-17 00:00:00 Smokeless tobacco non-user [facility] Cigarettes smoked current (pack per day) - Reported 2023-12-17 00:00:00 2023-12-17 00:00:00 [facility] Cigarette pack-years 2023-12-17 00:00:00 2023-12-17 00:00:00 [facility] Alcohol intake 2023-07-29 00:00:00 2023-07-29 00:00:00 0 /d [facility] Education 2023-07-20 00:00:00 2023-07-20 00:00:00 12 [facility] History of Social function 2023-07-14 00:00:00 2023-07-14 00:00:00 [facility] Sex assigned at 1990 00:00:00 1990 00:00:00 [facility] Smoking Status Start Date Stop Date Source Ex-smoker 2023-12-17 00:00:00 2023-12-17 00:00:00 [facility] Smokes tobacco daily 2017-05-15 00:00:00 [facility] Medications Ordered Medication Name Filled Medication Name Start Date Stop Date Current Medication? Ordering Clinician Indication Dosage Frequency Signature (SIG) Comments Components Source metroNIDAZO LE 500 mg tablet 2023-06 00:00: 00 Yes [id number] 500mg Take 1 tablet by mouth every 12 (twelve) hours. [facility] metroNIDAZO LE 500 mg tablet 2023-06 00:00: 00 04-07 00:00 :00 No [id number] 500mg Take 1 tablet by mouth every 12 (twelve) hours for 7 days. [facility] iron bis-gly/FA/ C/B12/Ca/chow cc (IRON 21/7 ORAL) 2023-06 016 14:48: 07 Yes Take by mouth. [facility] triamcinolo ne acetonide (KENALOG) injection 16 mg 12-29 19:45: 00 12-29 18:52 :00 No [id number] 16mg 16 mg, Intramuscu lar, ONCE, 1 dose, On Thu12/30/23 at 1445, Routine [facility] ity [facility] dexamethaso ne (DECADRON) injection 10 mg 12-16 19:45: 00 12-16 19:01 :00 No [id number] 10mg 10 mg, Intramuscu lar, ONCE, 1 dose, On Thu12/17/23 at 1445, [facility] ketorolac (TORADOL) injection 30 mg 12-16 19:30: 00 12-16 19:02 :00 No [id number] 30mg 30 mg, Intramuscu lar, ONCE, 1 dose, On Thu12/17/23 at 1430, Routine [facility] acetaminoph en (TYLENOL) tablet 1,000 mg 07-30 03:00: 00 07-30 05:06 :00 No 1000mg 1,000 mg, Oral, ONCE, 1 dose, On Thu07/29/23 at 2100, Routine [facility] PNV 67-iron ps-folate no.1-dha (VITAFOL ULTRA) 29 mg iron- 1 mg-200 mg Cap 07-23 00:00: 00 12-24 00:00 :00 No 1{tbl} Take 1 tablet by mouth in the morning. If insurance does not cover can substituen t with any other mediation that contains components . [facility] medroxyPROG ESTERone (DEPO-PROVE RA) injection 150 mg 07-22 14:30: 00 Yes 150mg 150 mg, Intramuscu lar, [id number], First dose on Thu07/22/23 at 0830, Until Discontinu ed, [facility] HYDROcodone -acetaminop hen 5-325 mg tablet 07-22 08:33: 21 07-22 00:00 :00 No 1{tbl} Take 1 tablet by mouth every 6 (six) hours as needed. [facility] ferrous sulfate (IRON) 325 mg (65 mg iron) tablet 07-22 08:33: 21 07-22 00:00 :00 No 325mg Take 1 tablet by mouth in the morning. [facility] ferrous sulfate 325 mg (65 mg iron) tablet 07-22 00:00: 00 12-24 00:00 :00 No [id number] 325mg Take 1 tablet by mouth in the morning and 1 tablet in the evening. [facility] ibuprofen 600 mg tablet 07-22 00:00: 00 12-24 00:00 :00 No [id number] 600mg Take 1 tablet by mouth every 6 (six) hours. [facility] gabapentin 300 mg capsule 07-22 00:00: 00 12-24 00:00 :00 No [id number] 300mg Take 1 capsule by mouth in the morning and 1 capsule at noon and 1 capsule in the evening. [facility] docusate 100 mg capsule 07-22 00:00: 00 12-24 00:00 :00 No [id number] 200mg Take 2 capsules by mouth once daily as needed for Constipati on. [facility] HYDROcodone -acetaminop hen 5-325 mg tablet 07-22 00:00: 00 07-30 05:59 :00 No [id number] 1{tbl} Take 1 tablet by mouth every 6 (six) hours as needed for Pain (scale 7-10) (Alternate with Ibuprofen) for up to 7 days. Indication s: acute pain [facility] vitamin w/FA tablet 07-22 00:00: 00 07-23 00:00 :00 No [id number] 1{tbl} Take 1 tablet by mouth in the morning. [facility] ibuprofen (IBU) tablet 600 mg 07-21 20:14: 00 Yes 600mg 600 mg, Oral, Q6H ABX, First dose (after last modificati on) on Thu07/21/23 at 1415, Until Discontinu ed, Routine [facility] acetaminoph en (TYLENOL) tablet 650 mg 07-21 15:00: 00 Yes 650mg 650 mg, Oral, Q6H ABX, First dose (after last reorder) on Thu07/21/23 at 0900, Until Discontinu ed, Routine [facility] gabapentin (NEURONTIN) capsule 300 mg 07-21 14:45: 00 Yes 300mg 300 mg, Oral, TID, First dose on Thu07/21/23 at 0845, Until Discontinu ed, Routine [facility] HYDROcodone -acetaminop hen (NORCO 5) 5-325 mg tablet 1 tablet 07-21 14:34: 49 Yes 1{tbl} 1 tablet, Oral, Q6HPRN, Starting on Thu07/21/23 at 0834, Until Discontinu ed, Routine, Pain (scale 7-10), Alternate with Ibuprofen [facility] ferrous sulfate tablet 325 mg 07-21 14:00: 00 Yes 325mg 325 mg, Oral, BID, First dose on Thu07/21/23 at 0800, Until Discontinu ed, Routine [facility] ampicillin- sulbactam (UNASYN) 3 g in NaCl 0.9% (NS) 100 mL MINI-BAG 07-21 02:00: 00 07-21 02:57 :00 No 3g 3 g, IV Piggyback, ONCE, 1 dose, On Thu07/20/23 at 2014, Administer over 30 Minutes, 100 mL
Reas on for Anti-Infec tive: Empiric Non-Surgic al Prophylaxi s
Durat ion of therapy: Once (ED) [facility] methylergon ovine (METHERGINE ) injection 0.2 mg 07-20 22:00: 00 07-21 02:43 :10 No .2mg 0.2 mg, Intramuscu lar, Q4H, First dose on Thu07/20/23 at 1600, Until Discontinu ed, Routine [facility] miSOPROStoL (CYTOTEC) tablet 800 mcg 07-20 22:00: 00 07-21 02:43 :10 No 800ug 800 mcg, Oral, QID, First dose on Thu07/20/23 at 1600, Until Discontinu ed, Routine [facility] rho(D) immune globulin (RHOGAM) syringe 300 mcg 07-20 20:12: 19 Yes 300ug 300 mcg, Intramuscu lar, ONCE, For 1 dose, Conditiona l, Routine [facility] HYDROcodone -acetaminop hen (NORCO 5) 5-325 mg tablet 2 tablet 07-20 20:11: 45 07-21 14:35 :53 No 2{tbl} 2 tablet, Oral, Q6HPRN, Starting on Thu07/20/23 at 1411, Until Thu07/21/23 at 0835, Routine, Pain (scale 7-10), Alternate with Ibuprofen [facility] HYDROcodone -acetaminop hen (NORCO 5) 5-325 mg tablet 1 tablet 07-20 20:11: 41 07-21 14:35 :53 No 1{tbl} 1 tablet, Oral, Q6HPRN, Starting on Thu07/20/23 at 1411, Until Thu07/21/23 at 0835, Routine, Pain (scale 4-6), Alternate with Ibuprofen [facility] ibuprofen (IBU) tablet 600 mg 07-20 20:11: 11 07-21 14:35 :53 No 600mg 600 mg, Oral, Q6HPRN, Starting on Thu07/20/23 at 1411, Until Thu07/21/23 at 0835, Routine, Pain (scale 1-3) [facility] diphenhydrA MINE (BENADRYL) injection 25 mg 07-20 20:10: 18 Yes 25mg 25 mg, Slow IV Push, Q6HPRN, Starting on Thu07/20/23 at 1410, Until Discontinu ed, Routine, Itching [facility] diphenhydrA MINE (BENADRYL) tablet 25 mg 07-20 20:10: 18 Yes 25mg 25 mg, Oral, Q6HPRN, Starting on Thu07/20/23 at 1410, Until Discontinu ed, Routine, Sleep, Itching [facility] ondansetron (ZOFRAN (PF)) injection 4 mg 07-20 20:10: 18 Yes 4mg 4 mg, Slow IV Push, Q8HPRN, Starting on Thu07/20/23 at 1410, Until Discontinu ed, Routine, Nausea and Vomiting (N/V) [facility] bisacodyL (DULCOLAX) suppository 10 mg 07-20 20:10: 18 Yes 10mg 10 mg, Rectal, QDAILYPRN, Starting on Thu07/20/23 at 1410, Until Discontinu ed, Routine, Constipati on [facility] simethicone (GAS RELIEF (SIMETHICON E)) chewable tablet 160 mg 07-20 20:10: 18 Yes 160mg 160 mg, Oral, PC+HSPRN, Starting on Thu07/20/23 at 1410, Until Discontinu ed, Routine, Gas [facility] docusate (COLACE) capsule 200 mg 07-20 20:10: 18 Yes 200mg 200 mg, Oral, QDAILYPRN, Starting on Thu07/20/23 at 1410, Until Discontinu ed, Routine, Constipati on [facility] magnesium hydroxide (MILK OF MAGNESIA) 400 mg/5 mL suspension 30 mL 07-20 20:10: 18 Yes 30mL 30 mL, Oral, QDAILYPRN, Starting on Thu07/20/23 at 1410, Until Discontinu ed, Routine, Constipati on [facility] lactated ringers IV infusion 1,000 mL 07-20 20:10: 18 Yes 1000mL at 125 mL/hr, 1,000 mL, IV Infusion, PRN, 1 dose, Starting on Thu07/20/23 at 1410, Until Discontinu ed, Routine [facility] acetaminoph en (TYLENOL) tablet 650 mg 07-20 15:45: 00 07-20 20:12 :17 No 650mg 650 mg, Oral, ONCE, 1 dose, On Thu07/20/23 at 0945, Routine [facility] sodium citrate-cit lyn acid (BICITRA) 500-334 mg/5 mL solution 30 mL 07-20 15:34: 08 07-20 18:31 :00 No 30mL 30 mL, Oral, PRE-PROCED URE ONCE, 1 dose, Starting on Thu07/20/23 at 0934, Until Thu07/22/23 at 2359, Routine, Surgery/Pr ocedure [facility] acetaminoph en (TYLENOL) tablet 650 mg 07-20 15:30: 00 07-20 17:30 :00 No 650mg 650 mg, Oral, ONCE, 1 dose, On Thu07/20/23 at 0930, Routine [facility] lactated ringers IV infusion 1,000 mL 07-20 14:45: 00 07-20 20:12 :17 No 1000mL at 125 mL/hr, 1,000 mL, IV Infusion, CONTINUOUS , Starting on Thu07/20/23 at 0845, Until Thu07/20/23 at 1412, Routine [facility] lactated ringers IV infusion 1,000 mL 07-20 14:30: 00 07-20 13:45 :00 No 1000mL at 999 mL/hr, 1,000 mL, IV Infusion, ONCE, 1 dose, On Thu07/20/23 at 0830, STAT [facility] HYDROcodone -acetaminop hen 5-325 mg tablet 07-20 14:12: 20 Yes 1{tbl} Take 1 tablet by mouth every 6 (six) hours as needed. [facility] ferrous sulfate (IRON) 325 mg (65 mg iron) tablet 07-20 14:12: 20 Yes 325mg Take 1 tablet by mouth in the morning. [facility] Iron Fum & P-FA-Vit B & C No.9 (INTEGRA PLUS) 125 mg iron- 1 mg Cap 07-16 00:00: 00 07-22 00:00 :00 No [id number] 1{tbl} Take 1 tablet by mouth in the morning. [facility] HYDROcodone -acetaminop hen 5-325 mg tablet 07-14 14:19: 36 Yes 1{tbl} Take 1 tablet by mouth every 6 (six) hours as needed. [facility] ferrous sulfate (IRON) 325 mg (65 mg iron) tablet 07-14 14:19: 36 Yes 325mg Take 1 tablet by mouth in the morning. [facility] dta47-wksi- folic acid 29 mg iron- 1 mg per tablet 07-14 00:00: 00 07-22 00:00 :00 No [id number] 1{tbl} Take 1 tablet by mouth in the morning. [facility] fluconazole (DIFLUCAN) tablet 150 mg 07-10 18:15: 00 07-10 18:20 :00 No 150mg 150 mg, Oral, DAILY, 1 dose, First dose on Thu07/10/23 at 1215, KENDRA
Re ason for Anti-Infec tive: Empiric Therapy for Suspected Infection< br>Empiric Therapy Site: Pelvic
Duration of therapy: Once (ED) [facility] HYDROcodone -acetaminop hen 5-325 mg tablet 07-10 13:40: 20 Yes 1{tbl} Take 1 tablet by mouth every 6 (six) hours as needed. [facility] ferrous sulfate (IRON) 325 mg (65 mg iron) tablet 07-10 13:40: 20 Yes 325mg Take 325 mg by mouth daily. [facility] ibuprofen 800 mg tablet 10-03 00:00: 00 07-22 00:00 :00 No [id number] 800mg Take 1 tablet by mouth every 8 (eight) hours as needed (HEADACHE) . [facility] HYDROcodone -acetaminop hen 5-325 mg tablet 2016-06 09:52: 37 Yes 1{tbl} Take 1 tablet by mouth every 6 (six) hours as needed. [facility] ferrous sulfate (IRON) 325 mg (65 mg iron) tablet 2016-06 09:52: 37 Yes 325mg Take 325 mg by mouth daily. [facility] metroNIDAZO LE 500 mg tablet 2016-06 00:00: 00 07-22 00:00 :00 No [id number] 500mg Take 1 tablet by mouth 2 (two) times daily. [facility] Immunizations Ordered Immunization Name Filled Immunization Name Date Status Comments Source TDAP 2012-06-15 00:00:00 Completed [facility] TD, NOS 2002-06-15 00:00:00 Completed [facility] TD, NOS Unknown Completed [facility] TDAP Unknown Completed [facility] TD, NOS Unknown Completed [facility] TDAP Unknown Completed [facility] TD, NOS Unknown Completed [facility] TDAP Unknown Completed [facility] TD, NOS Unknown Completed [facility] TDAP Unknown Completed [facility] TD, NOS Unknown Completed [facility] TDAP Unknown Completed [facility] TD, NOS Unknown Completed [facility] TDAP Unknown Completed [facility] TD, NOS Unknown Completed [facility] TDAP Unknown Completed [facility] TD, NOS Unknown Completed [facility] TDAP Unknown Completed [facility] TD, NOS Unknown Completed [facility] TDAP Unknown Completed [facility] TD, NOS Unknown Completed [facility] TD, NOS Unknown Completed [facility] TDAP Unknown Completed [facility] TDAP Unknown Completed [facility] TD, NOS Unknown Completed [facility] TDAP Unknown Completed [facility] TD, NOS Unknown Completed [facility] TDAP Unknown Completed [facility] TD, NOS Unknown Completed [facility] TDAP Unknown Completed [facility] TD, NOS Unknown Completed [facility] TDAP Unknown Completed [facility] TD, NOS Unknown Completed [facility] TDAP Unknown Completed [facility] TD, NOS Unknown Completed [facility] TD, NOS Unknown Completed [facility] TDAP Unknown Completed [facility] TDAP Unknown Completed [facility] TD, NOS Unknown Completed [facility] TDAP Unknown Completed [facility] TD, NOS Unknown Completed [facility] TDAP Unknown Completed [facility] TD, NOS Unknown Completed [facility] TDAP Unknown Completed [facility] TD, NOS Unknown Completed [facility] TDAP Unknown Completed [facility] TD, NOS Unknown Completed [facility] TDAP Unknown Completed [facility] TD, NOS Unknown Completed [facility] TDAP Unknown Completed [facility] TD, NOS Unknown Completed [facility] TDAP Unknown Completed [facility] TD, NOS Unknown Completed [facility] TDAP Unknown Completed [facility] TD, NOS Unknown Completed [facility] TDAP Unknown Completed [facility] TD, NOS Unknown Completed [facility] TDAP Unknown Completed [facility] Vital Signs Vital Name Observation Time Observation Value Comments S ource Systolic blood pressure 2024-03-30 19:43:00 106 mm[Hg] [facility] Diastolic blood pressure 2024-03-30 19:43:00 75 mm[Hg] [facility] Heart rate 2024-03-30 19:43:00 88 /min [facility] Body temperature 2024-03-30 19:43:00 36.67 [facility] Body height 2024-03-30 19:43:00 152.4 cm [facility] Body weight 2024-03-30 19:43:00 77.111 kg [facility] BMI 2024-03-30 19:43:00 33.20 kg/m2 [facility] Oxygen saturation in Arterial blood by Pulse oximetry 2024-03-30 19:43:00 97 /min [facility] Body height 2024-02-18 14:44:00 152.4 cm [facility] Body weight 2024-02-18 14:44:00 76.386 kg [facility] BMI 2024-02-18 14:44:00 32.89 kg/m2 [facility] Body height 2023-12-30 18:06:00 152.4 cm [facility] Body weight 2023-12-30 18:06:00 74.208 kg [facility] BMI 2023-12-30 18:06:00 31.95 kg/m2 [facility] Systolic blood pressure 2023-12-25 18:59:00 114 mm[Hg] [facility] Diastolic blood pressure 2023-12-25 18:59:00 85 mm[Hg] [facility] Heart rate 2023-12-25 18:59:00 83 /min [facility] Body temperature 2023-12-25 18:59:00 36.94 [facility] Body height 2023-12-25 18:59:00 152.4 cm [facility] Body weight 2023-12-25 18:59:00 74.39 kg [facility] BMI 2023-12-25 18:59:00 32.03 kg/m2 [facility] Systolic blood pressure 2023-12-17 18:09:00 112 mm[Hg] [facility] Diastolic blood pressure 2023-12-17 18:09:00 80 mm[Hg] [facility] Heart rate 2023-12-17 18:09:00 113 /min [facility] Body temperature 2023-12-17 18:09:00 36.67 [facility] Respiratory rate 2023-12-17 18:09:00 16 /min [facility] Body height 2023-12-17 18:09:00 152.4 cm [facility] Body weight 2023-12-17 18:09:00 73.171 kg [facility] BMI 2023-12-17 18:09:00 31.50 kg/m2 [facility] Oxygen saturation in Arterial blood by Pulse oximetry 2023-12-17 18:09:00 98 /min [facility] Systolic blood pressure 2023-07-30 06:15:00 119 mm[Hg] [facility] Diastolic blood pressure 2023-07-30 06:15:00 76 mm[Hg] [facility] Oxygen saturation in Arterial blood by Pulse oximetry 2023-07-30 06:15:00 98 /min [facility] Heart rate 2023-07-30 06:00:00 95 /min [facility] Body temperature 2023-07-30 02:17:00 37 [facility] [facility] Respiratory rate 2023-07-30 02:17:00 16 /min [facility] Body height 2023-07-30 02:17:00 152.4 cm [facility] Body weight 2023-07-30 02:17:00 83.915 kg [facility] BMI 2023-07-30 02:17:00 36.13 kg/m2 [facility] Systolic blood pressure 2023-07-29 19:26:00 143 mm[Hg] [facility] Diastolic blood pressure 2023-07-29 19:26:00 88 mm[Hg] [facility] Heart rate 2023-07-29 19:26:00 80 /min [facility] Body temperature 2023-07-29 19:26:00 36.78 Christina [facility] Respiratory rate 2023-07-29 19:26:00 18 /min [facility] Body height 2023-07-29 19:26:00 152.4 cm [facility] Body weight 2023-07-29 19:26:00 90.175 kg [facility] BMI 2023-07-29 19:26:00 38.83 kg/m2 [facility] Systolic blood pressure 2023-07-22 14:09:00 123 mm[Hg] [facility] Diastolic blood pressure 2023-07-22 14:09:00 66 mm[Hg] [facility] Heart rate 2023-07-22 14:09:00 82 /min [facility] Body temperature 2023-07-22 14:09:00 36.61 Christina [facility] Respiratory rate 2023-07-22 14:09:00 18 /min [facility] Oxygen saturation in Arterial blood by Pulse oximetry 2023-07-22 14:09:00 100 /min [facility] Body weight 2023-07-20 16:56:00 89.4 kg [facility] BMI 2023-07-20 16:56:00 38.49 kg/m2 [facility] Body height 2023-07-20 11:05:00 152.4 cm [facility] Heart rate 2023-07-21 05:30:00 85 /min [facility] Oxygen saturation in Arterial blood by Pulse oximetry 2023-07-21 05:30:00 100 /min [facility] Systolic blood pressure 2023-07-21 05:00:00 123 mm[Hg] [facility] Diastolic blood pressure 2023-07-21 05:00:00 86 mm[Hg] [facility] Body temperature 2023-07-21 01:53:00 36.5 Christina [facility] Respiratory rate 2023-07-21 01:53:00 20 /min [facility] Body weight 2023-07-20 16:56:00 89.4 kg [facility] BMI 2023-07-20 16:56:00 38.49 kg/m2 [facility] Body height 2023-07-20 11:05:00 152.4 cm [facility] Systolic blood pressure 2023-07-14 20:18:00 118 mm[Hg] [facility] Diastolic blood pressure 2023-07-14 20:18:00 80 mm[Hg] [facility] Heart rate 2023-07-14 20:18:00 103 /min [facility] Body temperature 2023-07-14 20:18:00 36.33 Christina [facility] Respiratory rate 2023-07-14 20:18:00 18 /min [facility] Body height 2023-07-14 20:18:00 165.1 cm [facility] Body weight 2023-07-14 20:18:00 87.091 kg [facility] BMI 2023-07-14 20:18:00 31.95 kg/m2 [facility] Heart rate 2023-07-10 17:45:00 98 /min [facility] saturation in Arterial blood by Pulse oximetry 2023-07-10 17:45:00 100 /min [facility] Systolic blood pressure 2023-07-10 16:00:00 122 mm[Hg] [facility] Diastolic blood pressure 2023-07-10 16:00:00 81 mm[Hg] [facility] Body temperature 2023-07-10 16:00:00 36.67 Christina [facility] Respiratory rate 2023-07-10 16:00:00 20 /min [facility] Body height 2023-07-10 15:53:00 165.1 cm [facility] Body weight 2023-07-10 15:53:00 87.408 kg [facility] BMI 2023-07-10 15:53:00 32.07 kg/m2 [facility] Procedures Procedure Date / Time Performed Performing Clinician Source POCT TEST 2024-03-30 20:19:00 Hollie Maciel [facility] FREE T4 2024-03-30 20:05:00 Hollie Maciel [facility] THYROID STIMULATING HORMONE 2024-03-30 20:05:00 Hollie Maciel [facility] BASIC METABOLIC PANEL (NA, K, CL, CO2, GLUCOSE, BUN, CREATININE, CA) 2024-03-30 20:05:00 Zak Gil [facility] CBC WITH DIFF 2024-03-30 20:05:00 [facility]ak [facility] URINALYSIS 2024-03-30 20:05:00 [facility] HEPATITIS B SURFACE ANTIGEN 2024-03-30 20:05:00 Hollie Maciel [facility] HCV ANTIBODY 2024-03-30 20:05:00 Hollie Maciel [facility] HSV 1 AND 2 GLYCOPROTEIN G IGG 2024-03-30 20:05:00 Hollie Maciel [facility] FREE T3 2024-03-30 20:05:00 Hollie Maciel [facility] ADC OR DEBRA ONLY - RPR 2024-03-30 20:05:00 Hollie Maciel [facility] HIV 1/2 AG-AB WITH REFLEX 2024-03-30 20:05:00 Hollie Maciel [facility] DSU PRE-OP 2024-03-01 14:43:52 Doctor Unass igned, [place] [facility] FERRITIN SERUM 2023-12-25 19:37:00 [facility] VITAMIN B12, LEVEL 2023-12-25 19:37:00 Hollie Maciel [facility] FOLATE 2023-12-25 19:37:00 Hollie Maciel [facility] TEST, SERUM 2023-12-25 19:37:00 Jane Maciel [facility] RHEUMATOID FACTOR 2023-12-25 19:37:00 Hollie Maciel [facility] THYROID STIMULATING HORMONE 2023-12-25 19:37:00 Hollie Maciel [facility] COMP. METABOLIC PANEL (49772) 2023-12-25 19:37:00 Hollie Maciel [facility] IRON PANEL 2023-12-25 19:37:00 Hollie Maciel [facility] SEDIMENTATION RATE 2023-12-25 19:37:00 Hollie Maciel [facility] CBC WITH DIFF 2023-12-25 19:37:00 Hollie Maciel [facility] ANTI-NUCLEAR ANTIBODY SCREEN 2023-12-25 19:37:00 Hollie Maciel [facility] XR WRIST 3+ VW BILATERAL 2023-12-17 18:58:51 Jenny Mckeon [facility] SGOT (ASPARTATE AMINO TRANSFER) 2023-07-30 02:36:00 Moy Hutton [facility] CREATININE 2023-07-30 02:36:00 Moy Hutton [facility] ALANINE AMINO TRANSFERASE(SGPT 2023-07-30 02:36:00 Moy Hutton [facility] LACTATE DEHYDROGENASE 2023-07-30 02:36:00 Moy Hutton [facility] URIC ACID 2023-07-30 02:36:00 Moy Hutton Kennedy [facility] CBC WITH DIFF 2023-07-30 02:36:00 Moy Hutton [facility] URINALYSIS 2023-07-30 02:36:00 Moy Hutton [facility] PROTEIN CREAT RATIO URINE RANDOM 2023-07-30 02:36:00 Moy Hutton [facility] CONSENT/REFUSAL FOR DIAGNOSIS AND TREATMENT 2023-07-30 01:53:27 Doctor Unassigned, [place] [facility] NO SHOW OR MISSED APPOINTMENT POLICY ACKNOWLEDGEMENT 2023-07-29 18:54:25 Doctor Unassigned, [place] [facility] PREPARE PACKED RBC 2023-07-22 20:50:51 Tinsley-Bessie [facility] CBC WITH DIFF 2023-07-21 10:04:00 Bernadette-[facility] CBC WITH DIFF 2023-07-21 10:04:00 Coni [facility] CBC WITH DIFF 2023-07-21 02:10:00 Tinsley-[facility] CBC WITH DIFF 2023-07-21 02:10:00 Coni [facility] TRANSFUSE PACKED RBC 2023-07-21 00:35:00 Lemuel [facility] TRANSFUSE PACKED RBC 2023-07-21 00:35:00 Lemuel [facility] PREPARE PACKED RBC 2023-07-21 00:14:00 Tinsley-So sylvain [facility] PREPARE PACKED RBC 2023-07-21 00:14:00 Tinsley-[facility] PREPARE PACKED RBC 2023-07-20 21:46:07 Tinsley[facility] PREPARE PACKED RBC 2023-07-20 21:46:07 Tinsley-[facility] TRANSFUSE PACKED RBC 2023-07-20 17:38:00 Lemuel [facility] TRANSFUSE PACKED RBC 2023-07-20 17:38:00 Tinsleysarah Riceis [facility] acute [facility] HEPATITIS B SURFACE ANTIGEN 2023-07-20 15:56:00 [facility] acute [facility] HB ABO GROUPING 2023-07-20 15:56:00 [facility]ley[facility] RHO (D) IMMUNE GLOBULIN 2023-07-20 15:56:00 Estuardo io-Kobi [facility] ADC OR DEBRA ONLY - RPR 2023-07-20 15:56:00 Ca rpio-[facility] HIV 1/2 AG-AB WITH REFLEX 2023-07-20 15:56:00 Ca sarahPeace, General acute hospital HEPATITIS B SURFACE ANTIGEN 2023-07-20 15:56:00 LemuelPeace, [facility] acute hospital HB ABO GROUPING 2023-07-20 15:56:00 [facility] RHO (D) IMMUNE GLOBULIN 2023-07-20 15:56:00 Estuardo pereyra-K[facility] acute hospital ADC OR DEBRA ONLY - RPR 2023-07-20 15:56:00 Ca rpdev-[facility]ace, [facility] acute hospital HIV 1/2 AG-AB WITH REFLEX 2023-07-20 15:56:00 [facility] URINE DRUG (IMMUNOASSAY) - COMPREHENSIVE DRUG SCREEN 2023-07-20 13:38:00 Coni [facility] acute [facility] CBC WITH DIFF 2023-07-20 13:38:00 [facility] acute hospital URINE DRUG (IMMUNOASSAY) - COMPREHENSIVE DRUG SCREEN 2023-07-20 13:38:00 T[facility] acute [facility] CBC WITH DIFF 2023-07-20 13:38:00 [facility] EXTERNAL PROVIDER RECORDS 2023-07-15 06:01:00 Do ctor Unassigned, [place] [facility] NON-STRESS TEST 2023-07-14 21:58:30 Neil Tafoya [facility] GROUP B STREPTOCOCCUS BY PCR 2023-07-14 21:58:00 Mary Kay Tafoya [facility] CBC WITH DIFF 2023-07-14 21:07:00 Mary Kay Tafoya [facility] RUBELLA SCREEN IGG 2023-07-14 21:07:00 Paulina Tafoya [facility] HEPATITIS B SURFACE ANTIGEN 2023-07-14 21:07:00 Mary Kay Tafoya [facility] HB ABO GROUPING 2023-07-14 21:07:00 Mary Kay Tafoya [facility] HIV 1/2 AG-AB WITH REFLEX 2023-07-14 21:07:00 Mary Kay Tafoya [facility] SYPHILIS IGG/IGM 2023-07-14 21:07:00 Edie Tafoya [facility] AUTHORIZATION FOR RELEASE OF PHI 2023-07-14 06:01:00 Doctor Unassigned, [place] [facility] URINALYSIS 2023-07-10 16:35:00 Adum, Mindy Charlton [facility] ADC CLC OR LCC ONLY - WET PREP 2023-07-10 16:35:00 Adum, Mindy Charlton [facility] ASSIGNMENT OF BENEFITS 2023-07-10 15:52:02 Docto r Unassigned, [place] [facility] CONSENT/REFUSAL FOR DIAGNOSIS AND TREATMENT 2023-07-10 15:44:33 Doctor Unassigned, [place] [facility] SECTION [facility] SECTION [place] Encounters Start Date/Time End Date/Time Encounter Type Admission Type Attending Clinicians Care Facility Care Department Encounter ID Source 2024-02-18 16:01:58 Outpatient R ZAK GIL CRAIG [facility] [id number] [facility] 2023-07-30 01:23:24 Outpatient P [facility] [id number] [facility] 2024-03-01 00:00:00 2024-07-30 06:58:06 Orders Only Doctor Unassigned, [place] Doctor Unassigned, [place] [facility] 1.2.840.114 350.1.13.10 4.2.7.2.686 [id number] [facility] 2024-05-17 15:00:00 2024-05-17 15:00:00 Outpatient R AMI S, MARGIE AMI S, MARGIE [facility] [id number] [facility] 2024-04-15 00:00:00 2024-04-21 15:05:44 Patient Secure Msg Hollie Maciel [facility] 1.2.840.114 350.1.13.10 4.2.7.2.686 [id number] [facility] 2024-04-06 00:00:00 2024-04-07 12:32:41 Patient Secure Msg Hollie Maciel [facility] E[facility]INE?[facility] 1.2.840.114 350.1.13.10 4.2.7.2.686 [id number] [facility] 2024-04-06 00:00:00 2024-04-07 07:24:49 Telephone Hollie Maciel [facility] E[facility]INE?[facility] 1.2.840.114 350.1.13.10 4.2.7.2.686 [id number] [facility] 2024-04-06 11:00:00 2024-04-06 11:00:00 Outpatient R RAHEEMHOLLIE [facility] [id number] [facility] 2024-04-06 00:00:00 2024-04-06 08:04:32 Telephone Raheem Hollie Bhagat [facility] E[facility] 1.2.840.114 350.1.13.10 4.2.7.2.686 [id number] [facility] 2024-03-30 15:00:00 2024-03-30 15:18:07 Music 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 1.2.840.114 350.1.13.10 4.2.7.2.686 [id number] [facility] 2024-03-30 14:30:00 2024-03-30 14:56:29 Outpatient R HOLLIE MACIEL [facility] [id number] [facility] 2024-03-30 14:30:00 2024-03-30 14:56:29 Office Visit Hollie Maciel [facility] E[facility]INE?[facility] 1.2.840.114 350.1.13.10 4.2.7.2.686 [id number] [facility] 2024-03-29 00:00:00 2024-03-30 07:34:18 Patient Secure Msg Hollie Maciel [facility] 1.2.840.114 350.1.13.10 4.2.7.2.686 [id number] [facility] 2024-02-24 00:00:00 2024-03-26 18:18:28 Patient Secure Msg Micki More [facility] E[facility]INE?[facility] 1.2.840.114 350.1.13.10 4.2.7.2.686 [id number] [facility] 2024-03-15 09:30:00 2024-03-15 09:30:00 Outpatient R MICKI MORE SELENA [facility] [id number] [facility] 2024-02-18 00:00:00 2024-02-18 14:56:10 Prep For Surgery Micki More [facility] 1.2.840.114 350.1.13.10 4.2.7.2.686 [id number] [facility] 2024-02-18 09:30:00 2024-02-18 10:42:46 Outpatient R MICKI MORE SELENA [facility] [id number] [facility] 2024-02-18 09:30:00 2024-02-18 10:42:46 Office Visit Micki More [facility] 1..840.114 350.1.13.10 4.2.7.2.686 [id number] [facility] 2024-02-10 16:00:00 2024-02-10 16:00:00 Outpatient R MICKI MORE SELENA [facility] [id number] [facility] 2024-02-01 00:00:00 2024-02-09 08:21:02 Telephone Hollie Maciel [facility] 1.2.840.114 350.1.13.10 4.2.7.2.686 [id number] [facility] 2024-02-01 11:45:00 2024-02-01 11:45:00 Outpatient R [facility] [id number] [facility] 2024-01-19 12:30:00 2024-01-19 12:30:00 Outpatient R LEYDI ROD [facility] [id number] [facility] 2024-01-15 00:00:00 2024-01-15 10:29:17 Letter (Out) [facility] 1.2.840.114 350.1.13.10 4.2.7.2.686 [id number] [facility] 2024-01-08 00:00:00 2024-01-15 10:01:31 Patient Secure Msg Hollie Maciel [facility] 1.84.114 350.1.13.10 4.2.7.2.686 [id number] [facility] 2024-01-11 00:00:00 2024-01-12 14:02:[address] [facility] 1.84.114 350.1.13.10 4.2.7.2.686 [id number] [facility] 2023-12-31 00:00:00 2023-12-31 07:38:[address] [facility] 1..114 350.1.13.10 4.2.7.2.686 [id number] [facility] 2023-12-30 13:30:00 2023-12-30 13:46:00 Outpatient R MICKI MORE SELENA [facility] [id number] [facility] 2023-12-30 13:30:00 2023-12-30 13:46:00 Office [address] Rochelle Morea [facility] 1.84.114 350.1.13.10 4.2.7.2.686 [id number] [facility] 2023-12-25 14:30:00 2023-12-25 14:58:11 Music Composer Visit Lab, James - Tariq Hollie Maciel [facility] 1.84.114 350.1.13.10 4.2.7.2.686 [id number] [facility] 2023-12-25 13:30:00 2023-12-25 14:21:42 Outpatient R HOLLIE MACIEL [facility] [id number] [facility] 2023-12-25 13:30:00 2023-12-25 14:21:42 Office Visit Gutierrez Maciellie Leola [facility] 1.2.840.114 350.1.13.10 4.2.7.2.686 [id number] [facility] 2023-12-23 10:00:00 2023-12-23 10:00:00 Outpatient R RUSSELL BOTELLO [facility] [id number] [facility] 2023-12-17 13:43:48 2023-12-17 23:59:00 Hospital Encounter Jenny Mckeon [facility] 1.2.840.114 350.1.13.10 4.2.7.2.686 [id number] [facility] 2023-12-17 13:20:00 2023-12-17 14:25:54 Outpatient R JENNY MCKEON [facility] [id number] [facility] 2023-12-17 13:20:00 2023-12-17 13:40:00 Urgent Care Jenny Mckeon Unknown, Attending [facility] 1.2.840.114 350.1.13.10 4.2.7.2.686 [id number] [facility] 2023-09-09 00:00:00 2023-09-09 00:00:00 Outpatient XIMENA GALARZA LAJOSE [id number] Zamzam da [facility] 2023-08-27 09:30:00 2023-08-27 09:30:00 Outpatient R MARY KAY TAFOYA [facility] [id number] [facility] 2023-07-29 20:02:00 2023-07-30 01:20:00 Outpatient P MOY HUTTON [facility] [id number] [facility] 2023-07-29 20:02:00 2023-07-30 01:20:00 Hospital Encounter Moy Hutton [facility] 1.840.114 350.1.13.10 4.2.7.2.686 [id number] [facility] 2023-07-29 13:00:00 2023-07-29 13:44:14 Outpatient MARY KAY BARRAGAN [facility] [id number] [facility] 2023-07-29 13:00:00 2023-07-29 13:44:14 [facility] Mary Kay Tafoya [facility] IMMIGRATION PARALEGAL [facility] 1.840.114 350.1.13.10 4.2.7.2.686 [id number] [facility] 2023-07-29 00:00:00 2023-07-29 00:00:00 Orders Only Doctor Unassigned, [place] [facility] 1.2840.114 350.1.13.10 4.2.7.2.686 [id number] [facility] 2023-07-29 00:00:00 2023-07-29 00:00:00 Telephone Mary Kay Tafoya [facility] IMMIGRATION PARALEGAL [facility] 1.840.114 350.1.13.10 4.2.7.2.686 [id number] [facility] 2023-07-28 08:30:00 2023-07-28 08:30:00 Outpatient MARY KAY BARRAGAN [facility] [id number] [facility] 2023-07-23 00:00:00 2023-07-23 00:00:00 Telephone Mindy Pulliam [facility] 1.2840.114 350.1.13.10 4.2.7.2.686 [id number] [facility] 2023-07-20 05:10:00 2023-07-22 14:15:00 Inpatient P TINSLEY-MAHI S, MARGIE TINSLEY-MAHI S, MARGIE [facility] [id number] [facility] 2023-07-20 05:10:00 2023-07-22 14:15:00 Hospital Encounter Moy Hutton Tinsley-Mahi s, Margie [facility] 1.2840.114 350.1.13.10 4.2.7.2.686 [id number] [facility] 2023-07-21 20:02:04 2023-07-21 20:02:04 Anesthesia Event AbdiangelYaakovMiguel [facility] 1.2840.114 350.1.13.10 4.2.7.2.686 [id number] [facility] 2023-07-21 12:45:00 2023-07-21 12:45:00 Outpatient R MARY KAY TAFOYA [facility] [id number] [facility] 2023-07-20 00:00:00 2023-07-20 00:00:00 Surgery Tinsley-Mahi s, Margie [facility] 1.2.840.114 350.1.13.10 4.2.7.2.686 [id number] [facility] 2023-07-16 00:00:00 2023-07-16 00:00:00 Telephone Mary Kay Tafoya [facility] IMMIGRATION PARALEGAL [facility] 1.2.840.114 350.1.13.10 4.2.7.2.686 [id number] [facility] 2023-07-15 00:00:00 2023-07-15 00:00:00 Orders Only Doctor Unassigned, [place] [facility] 1.2840.114 350.1.13.10 4.2.7.2.686 [id number] [facility] 2023-07-14 13:00:00 2023-07-14 15:27:03 Initial Visit Mary Kay Tafoya [facility] I[facility]ATION PARALEGAL [facility] 1.2840.114 350.1.13.10 4.2.7.2.686 [id number] [facility] 2023-07-14 13:00:00 2023-07-14 15:27:03 Outpatient R MARY KAY TAFOYA [facility] [id number] [facility] 2023-07-14 12:30:00 2023-07-14 14:14:30 Outpatient R MARY KAY TAFOYA [facility] [id number] [facility] 2023-07-14 00:00:00 2023-07-14 00:00:00 Orders Only Doctor Unassigned, [place] [facility] 1.2840.114 350.1.13.10 4.2.7.2.686 [id number] [facility] 2023-07-10 09:54:00 2023-07-10 13:35:00 Outpatient X MINDY PULLIAM VIVIAN [facility] [place] [facility] [id number] [facility] 2023-07-10 09:54:00 2023-07-10 13:35:00 Emergency AdMindy hernandez [facility] 1.2.840.114 350.1.13.10 4.2.7.2.686 [id number] [facility] 2023-07-10 00:00:00 2023-07-10 00:00:00 Orders Only Doctor Unassigned, [place] [facility] 1.2840.114 350.1.13.10 4.2.7.2.686 [id number] [facility] 2023-07-08 13:45:00 2023-07-08 13:45:00 Outpatient R MARY KAY TAFOYA [facility] [id number] [facility] 2023-07-03 08:00:00 2023-07-03 08:00:00 Outpatient R MARY KAY TAFOYA [facility] [id number] [facility] 2023-07-03 00:00:00 2023-07-03 00:00:00 Telephone Mary Kay Tafoya [facility] [place] [facility] 1..840.114 350.1.13.10 4.2.7.2.686 [id number] [facility] 2023-07-01 00:00:00 2023-07-01 00:00:00 Outpatient [facility]_ José Luis_G PRIV PRIV [id number] [facility] 2023-06-26 00:00:00 2023-06-26 00:00:00 Outpatient [facility]_ [place]_G PRIV PRIV [id number] [facility] 2023-06-24 00:00:00 2023-06-24 00:00:00 [facility] PR[facility] PRIV [id number] [facility] 2023-06-24 00:00:00 2023-06-24 00:00:00 Nurse Triage Lina Jessie A [facility] 1..840.114 350.1.13.10 4.2.7.2.686 [id number] [facility] 2023-06-23 00:00:00 2023-06-23 00:00:00 Outpatient PRIV PRIV [id number] [facility] Results Test Description Test Time Test Comments Results Result Co mments Source [facility] CenterHcv Zmekyzbj2284-59-96 09:08:10* Test Item Value Reference Range Interpretation Comme nts HCV Ab (test code = 72583-0) Negative HCV Semi-Quantitative (test code = 50152-2) 0.02 [facility] CenterHepatitis B Surface Dxxeyrh0024-67-37 08:50:47 * Test Item Value Reference Range Interpretation Comme nts HBsAg Semi-Quantitative (la nena t code = 5195-3) 0.15 Negative [facility] CenterAD or Debra Only - Azv0358-70-25 06:30:43* Test Item Value Reference Range Interpretation Comme nts RPR (Qualitative) (test code = 11065-2) Nonreactive Nonreactive Lab Interpretation (test cod e = 70323-1) Normal [facility] CenterHIV 1/2 Ag-Ab with Ikrbqr2963-55-41 03:29:06* Test Item Value Reference Range Interpretation Comme nts HIV Semi-quantitative (test code = 19296-9) 0.15 Negative AREN (test code = AREN) Non-reactive for HIV-1 antigen and HIV-1/HIV-2 antibodies. ?No laboratory evidence of HIV infection. ?Repeat in 2-4 weeks if acute HIV infection is suspected. [facility] CenterThyroid Stimulating Amqzwxm7327-52-53 03:19:21 * Test Item Value Reference Range Interpretation Comme nts TSH (test code = 0967188325) 0.43 0.45-4.70 L Biotin has been reported to cause a negative bias, interpret results relative to patient's use of biotin. Lab Interpretation (test code = 93628-6) Abnormal [facility] Q76632-31-81 03:05:42* Test Item Value Reference Range Interpretation Comme nts FREE T4 (test code = 6854842374) 1.28 0.78-2.20 Lab Interpretation (test cod e = 17325-5) Normal [facility] K40210-80-92 03:05:42* Test Item Value Reference Range Interpretation Comme nts FREE T3 (test code = 8224448557) 4.53 pg/mL 2.77-5.27 Lab Interpretation (test cod e = 75503-6) Normal [facility] METABOLIC PANEL (NA, K, CL, CO2, GLUCOSE, BUN, CREATININE, CA)2024-03-31 02:47:58* Test Item Value Reference Range Interpretation Comme nts NA (test code = 2639927293) 136 mmol/L 135-145 K (test code = 8049558219) 3.8 mmol/L 3.5-5.0 CL (test code = 1333206193) 99 mmol/L 98-108 CO2 TOTAL (test code = 5874608198) 32 mmol/L 23-31 H AGAP (test code = 1161927909) 5 2-16 BUN (test code = 8509209971) 13 mg/dL 7-23 GLUCOSE (test code = 1956124851) 103 mg/dL 70-110 CREATININE (test code = 2160-0) 0.79 mg/dL 0.50-1.04 CALCIUM (test code = 6622314014) 9.8 mg/dL 8.6-10.6 eGFR (test code = 10955-8) 99.6 mL/min/1.73m2 CKD-EPI eGFR (2020). Assuming creatinine has been stable day-to-day for at least three months, the eGFR indicates Category G1 (>= 90 mL/min/1.73 m2) Lab Interpretation (test code = 69878-5) Abnormal [facility] WITH XPPN9304-14-08 22:07:49* Test Item Value Reference Range Interpretation [...] 32.3 g/dL 31.6-35.1 RDW-SD (test code = 29850-1) 44.0 fL 39.0-49.9 RDW-CV (test code = 788-0) 12.4 % 12.0-15.5 PLT (test code = 777-3) 393 166-358 H MPV (test code = 42806-4) 8.7 fL 9.5-12.9 L NRBC/100 WBC (test code = 5530999101) 0.0 0.0-10.0 NRBC x10^3 (test code = 5886064710) See_Comment [Automated messa ge] The system which generated this result transmitted reference range: 10*3/?L. The reference range was not used to interpret this result as normal/abnormal. GRAN MAT (NEUT) % (test code = 770-8) 57.9 % IMM GRAN % (test code = 3511124527) 0.20 % LYMPH % (test code = 736-9) 30.6 % MONO % (test code = 5905-5) 9.6 % EOS % (test code = 713-8) 1.2 % BASO % (test code = 706-2) 0.5 % GRAN MAT x10^3(ANC) (test code = 2004955246) 4.81 10*3/uL 1.88-7.09 IMM GRAN x10^3 (test code = 9376446210) 0.00-0.06 LYMPH x10^3 (test code = 731-0) 2.55 10*3/uL 1.32-3.29 MONO x10^3 (test code = 742-7) 0.80 10*3/uL 0.33-0.92 EOS x10^3 (test code = 711-2) 0.10 10*3/uL 0.03-0.39 BASO x10^3 (test code = 704-7) 0.04 10*3/uL 0.01-0.07 Lab Interpretation (test code = 58396-0) Abnormal [facility] CenterPOCT Dvdy9716-49-26 20:20:00* Test Item Value Reference Range Interpretation Comme nts POCT PREG (test code = 1605) Negative On board controls acceptable with C Line (test code = 3574) Yes POCT PREG LOT # (test code = 3575) POCT PREG TEST DATE ( test code = 3576) [facility] CenterDSU VDP-OW9522-55-17 14:43:52Ordered by an unspecified provider.[facility] CenterAnti-Nuclear Antibody Ozgnmk5342-16-99 20:18:06* Test Item Value Reference Range Interpretation Comme nts MAKSIM (test code = 2089775376) Positive Negative A AREN (test code = AREN) Negative: ?No Anti-Nuclear Antibodies detected by IFA. Positive: ?MAKSIM IFA screen performed with a 1:80 dilution in adults and a 1:40 dilution in pediatrics. ?A titer is performed and reported separately when the MAKSIM is "Positive" or when "Cytoplasmic staining is observed." Lab Interpretation (test code = 70079-6) Abnormal [facility] CenterRheumatoid Hviggf0653-04-22 15:52:44* Test Item Value Reference Range Interpretation Comme nts RF (test code = 7326361601) See_Comment [Automated Keybrokera ge] The system which generated this result transmitted reference range: <20 IU/mL. The reference range was not used to interpret this result as normal/abnormal. Lab Interpretation (test code = 63932-2) Normal [facility] CenterFolate2024-07-13 00:34:24* Test Item Value Reference Range Interpretation Comme nts FOLATE SER (test code = 7030145730) 4.1 ng/mL 3.0-20.0 Biotin has been reported to cause a positive bias, interpret results relative to patient's use of biotin. Lab Interpretation (test code = 12022-2) Normal [facility] CenterVitamin B12, Bomcn5847-14-35 00:34:24* Test Item Value Reference Range Interpretation Comme nts VIT B12 (test code = 8083663459) 234 pg/mL 240-930 L AREN (test code = AREN) Biotin has been reported to cause a positive bias, interpret results relative to patient's use of biotin. Lab Interpretation (test code = 14671-8) Abnormal [facility] CenterFerritin Xvcoo1815-08-33 23:14:34* Test Item Value Reference Range Interpretation Comme nts FERRITIN (test code = 1719545617) 23.1 ng/mL 6.0-137.0 AREN (test code = AREN) Biotin has been reported to cause a negative bias, interpret results relative to patient's use of biotin. Lab Interpretation (test code = 65288-0) Normal [facility] CenterThyroid Stimulating Uuulhqv4663-07-09 23:10:34 * Test Item Value Reference Range Interpretation Comme nts TSH (test code = 0264722044) 0.11 0.45-4.70 L Lab Interpretation (test cod e = 36134-3) Abnormal [facility] CenterIron Rsqje2139-67-90 22:56:53* Test Item Value Reference Range Interpretation Comme nts IRON (test code = 5510504819) 104 ug/dL 50-160 TIBC (test code = 5945033174) 334 ug/dL 250-410 % FE SAT (test code = 4765151293) 31 % 20-50 Lab Interpretation (test cod e = 35087-0) Normal [facility]. Metabolic Panel (21654)2023-12-25 22:39:31* Test Item Value Reference Range Interpretation Comme nts NA (test code = 6920550484) 140 mmol/L 135-145 K (test code = 3450450029) 3.5 mmol/L 3.5-5.0 CL (test code = 2899855957) 102 mmol/L 98-108 CO2 TOTAL (test code = 9167567006) 30 mmol/L 23-31 AGAP (test code = 9301572583) 8 2-16 BUN (test code = 2975272196) 12 mg/dL 7-23 GLUCOSE (test code = 5077815344) 79 mg/dL 70-110 CREATININE (test code = 2160-0) 0.79 mg/dL 0.50-1.04 TOTAL BILI (test code = 4483624365) 1.0 mg/dL 0.1-1.1 CALCIUM (test code = 6162402529) 9.3 mg/dL 8.6-10.6 T PROTEIN (test code = 6056828008) 7.4 g/dL 6.3-8.2 ALBUMIN (test code = 4772534346) 3.9 g/dL 3.5-5.0 ALK PHOS (test code = 7972581715) 74 U/L 34-122 ALTv (test code = 1742-6) 12 U/L 5-35 AST(SGOT) (test code = 2046107265) 18 U/L 13-40 eGFR (test code = 02911-6) 100.2 mL/min/1.73m2 CKD-EPI eGFR (20 21). Assuming creatinine has been stable day-to-day for at least three months, the eGFR indicates Category G1 (>= 90 mL/min/1.73 m2) [facility] CenterSedimentation Gupv6951-29-83 22:17:14* Test Item Value Reference Range Interpretation Comme nts ESR (test code = 40127-8) 25 0-20 H Lab Interpretation (test cod e = 71049-6) Abnormal [facility] CenterCbc with Bjwj1650-76-19 21:53:48* Test Item Value Reference Range Interpretation [...] 33.8 g/dL 31.6-35.1 RDW-SD (test code = 08885-8) 48.4 fL 39.0-49.9 RDW-CV (test code = 788-0) 13.7 % 12.0-15.5 PLT (test code = 777-3) 342 166-358 MPV (test code = 18233-0) 9.2 fL 9.5-12.9 L NRBC/100 WBC (test code = 2152798890) 0.0 0.0-10.0 NRBC x10^3 (test code = 1239702252) See_Comment [Automated Keybrokera ge] The system which generated this result transmitted reference range: 10*3/?L. The reference range was not used to interpret this result as normal/abnormal. GRAN MAT (NEUT) % (test code = 770-8) 61.5 % IMM GRAN % (test code = 8008098017) 0.30 % LYMPH % (test code = 736-9) 27.5 % MONO % (test code = 5905-5) 8.3 % EOS % (test code = 713-8) 2.0 % BASO % (test code = 706-2) 0.4 % GRAN MAT x10^3(ANC) (test code = 1926028445) 4.72 10*3/uL 1.88-7.09 IMM GRAN x10^3 (test code = 6392388237) 0.00-0.06 LYMPH x10^3 (test code = 731-0) 2.11 10*3/uL 1.32-3.29 MONO x10^3 (test code = 742-7) 0.64 10*3/uL 0.33-0.92 EOS x10^3 (test code = 711-2) 0.15 10*3/uL 0.03-0.39 BASO x10^3 (test code = 704-7) 0.03 10*3/uL 0.01-0.07 Lab Interpretation (test code = 48038-5) Abnormal [facility] CenterPregnancy Test, Qgtgv0399-06-00 21:49:47* Test Item Value Reference Range Interpretation Comme nts PREG SERUM (test code = 7478822669) Negative AREN (test code = AREN) Less than 10 IU/L. ?If low titer or ectopic is suspected, resubmit specimen in 48-72 hours. [facility] CenterXR WRIST 3+ VW TPHVMRPQS2702-25-75 19:57:57XR WRIST 3+ VW BILATERAL HISTORY: ?bilateral wrist pain x months. Pain and swelling COMPARISON: ?none available. Findings:Osseous structures are intact. Mild widening of bilateral scapholunateintervals.There is soft tissue edema. ? [facility] CenterUric Acid Tkbqg5309-90-15 03:01:18* Test Item Value Reference Range Interpretation Comme nts URIC ACID (test code = 0670182636) 6.8 mg/dL 2.9-6.0 H Lab Interpretation (test cod e = 39807-2) Abnormal [facility] CenterAlanine Amino Transferase (SGPT)2023-07-30 03:01:18* Test Item Value Reference Range Interpretation Comme nts ALTv (test code = 1742-6) 28 U/L 5-35 Lab Interpretation (test cod e = 42435-4) Normal [facility] CenterLactate Cjvsbiwgfatlh5747-42-07 03:01:18* Test Item Value Reference Range Interpretation Comme nts LDH (test code = 8910109521) 441 U/L 120-246 H Lab Interpretation (test cod e = 58415-2) Abnormal [facility] CenterSerum Mgehabwpgt3529-69-70 03:00:58* Test Item Value Reference Range Interpretation Comme [facility] CREATININE (test code = 2160-0) 0.61 mg/dL 0.50-1.04 eGFR (test code = 07716-4) 119.7 mL/min/1.73m2 CKD-EPI eGFR (20 21). Assuming creatinine has been stable day-to-day for at least three months, the eGFR indicates Category G1 (>= 90 mL/min/1.73 m2) [facility] CenterSGOT (Asparate Amino Transfer)2023-07-30 03:00:58* Test Item Value Reference Range Interpretation Comme [facility] AST(SGOT) (test code = 1630320509) 49 U/L 13-40 H Lab Interpretation (test cod e = 38935-2) Abnormal [facility] CenterCBC with Edwpecyqewux3168-99-91 02:49:53* Test Item Value Reference Range Interpretation [...] g/dL 31.6-35.1 L RDW-SD (test code = 01520-7) 73.4 fL 39.0-49.9 H RDW-CV (test code = 788-0) 23.9 % 12.0-15.5 H PLT (test code = 777-3) 412 166-358 H MPV (test code = 23314-6) 8.3 fL 9.5-12.9 L NRBC/100 WBC (test code = 7689960650) 0.3 0.0-10.0 NRBC x10^3 (test code = 4021571249) 0.04 See_Comment [Automated messa ge] The system which generated this result transmitted reference range: 10*3/?L. The reference range was not used to interpret this result as normal/abnormal. GRAN MAT (NEUT) % (test code = 770-8) 68.5 % IMM GRAN % (test code = 9734483605) 0.80 % LYMPH % (test code = 736-9) 20.0 % MONO % (test code = 5905-5) 8.5 % EOS % (test code = 713-8) 1.9 % BASO % (test code = 706-2) 0.3 % GRAN MAT x10^3(ANC) (test code = 3189221639) 8.42 10*3/uL 1.88-7.09 H IMM GRAN x10^3 (test code = 9896482790) 0.10 10*3/uL 0.00-0.06 H LYMPH x10^3 (test code = 731-0) 2.47 10*3/uL 1.32-3.29 MONO x10^3 (test code = 742-7) 1.05 10*3/uL 0.33-0.92 H EOS x10^3 (test code = 711-2) 0.24 10*3/uL 0.03-0.39 BASO x10^3 (test code = 704-7) 0.04 10*3/uL 0.01-0.07 Lab Interpretation (test code = 83680-7) Abnormal [facility] with Hmjozbppztgu9958-90-69 13:58:25* Test Item Value Reference Range Interpretation [...] 31.8 g/dL 31.6-35.1 RDW-SD (test code = 10517-4) 54.5 fL 39.0-49.9 H RDW-CV (test code = 788-0) 19.0 % 12.0-15.5 H PLT (test code = 777-3) 242 166-358 MPV (test code = 07751-2) 8.9 fL 9.5-12.9 L NRBC/100 WBC (test code = 8527307765) 0.9 0.0-10.0 NRBC x10^3 (test code = 2982317054) 0.15 See_Comment [Automated message] The system which generated this result transmitted reference range: 10*3/?L. The reference range was not used to interpret this result as normal/abnormal. SEG % (test code = 54072-9) 84 % 33-76 H BAND % (test code = 43121-2) 4 % 0-1 H LYMPH % (test code = 36926-8) 12 % 14-54 L ANC (test code = 753-4) 14.15 10*3/uL 1.88-7.09 H POLYCHROMASIA (test code = 00705-8) 2+ See_Comment [Automated message] The system which generated this result transmitted reference range: 2+. The reference range was not used to interpret this result as normal/abnormal. Lab Interpretation (test code = 94288-8) Abnormal [facility] with Iqrmtldevmhp6168-57-04 13:58:25* Test Item Value Reference Range Interpretation [...] 31.8 g/dL 31.6-35.1 RDW-SD (test code = 90916-3) 54.5 fL 39.0-49.9 H RDW-CV (test code = 788-0) 19.0 % 12.0-15.5 H PLT (test code = 777-3) 242 166-358 MPV (test code = 70522-7) 8.9 fL 9.5-12.9 L NRBC/100 WBC (test code = 9145229488) 0.9 0.0-10.0 NRBC x10^3 (test code = 0542014164) 0.15 See_Comment [Automated message] The system which generated this result transmitted reference range: 10*3/?L. The reference range was not used to interpret this result as normal/abnormal. SEG % (test code = 96355-7) 84 % 33-76 H BAND % (test code = 35033-0) 4 % 0-1 H LYMPH % (test code = 40175-6) 12 % 14-54 L ANC (test code = 753-4) 14.15 10*3/uL 1.88-7.09 H POLYCHROMASIA (test code = 71654-0) 2+ See_Comment [Automated message] The system which generated this result transmitted reference range: 2+. The reference range was not used to interpret this result as normal/abnormal. Lab Interpretation (test code = 83224-4) Abnormal [facility] with Hxlekjhevvln3267-67-19 13:58:25* Test Item Value Reference Range Interpretation [...] 31.8 g/dL 31.6-35.1 RDW-SD (test code = 77571-4) 54.5 fL 39.0-49.9 H RDW-CV (test code = 788-0) 19.0 % 12.0-15.5 H PLT (test code = 777-3) 242 166-358 MPV (test code = 03977-7) 8.9 fL 9.5-12.9 L NRBC/100 WBC (test code = 4225854709) 0.9 0.0-10.0 NRBC x10^3 (test code = 7640856382) 0.15 See_Comment [Automated message] The system which generated this result transmitted reference range: 10*3/?L. The reference range was not used to interpret this result as normal/abnormal. SEG % (test code = 38435-8) 84 % 33-76 H BAND % (test code = 54581-9) 4 % 0-1 H LYMPH % (test code = 92542-2) 12 % 14-54 L ANC (test code = 753-4) 14.15 10*3/uL 1.88-7.09 H POLYCHROMASIA (test code = 07551-6) 2+ See_Comment [Automated message] The system which generated this result transmitted reference range: 2+. The reference range was not used to interpret this result as normal/abnormal. Lab Interpretation (test code = 39343-9) Abnormal [facility] with Yjso3553-75-24 02:59:40* Test Item Value Reference Range Interpretation [...] 32.2 g/dL 31.6-35.1 RDW-SD (test code = 25783-3) 55.5 fL 39.0-49.9 H RDW-CV (test code = 788-0) 19.5 % 12.0-15.5 H PLT (test code = 777-3) 232 166-358 MPV (test code = 90262-7) 8.6 fL 9.5-12.9 L NRBC/100 WBC (test code = 3933376941) 0.8 0.0-10.0 NRBC x10^3 (test code = 2127637770) 0.14 See_Comment [Automated message] The system which generated this result transmitted reference range: 10*3/?L. The reference range was not used to interpret this result as normal/abnormal. GRAN MAT (NEUT) % (test code = 770-8) 77.6 % IMM GRAN % (test code = 9234271495) 1.20 % LYMPH % (test code = 736-9) 12.2 % MONO % (test code = 5905-5) 8.6 % EOS % (test code = 713-8) 0.1 % BASO % (test code = 706-2) 0.3 % GRAN MAT x10^3(ANC) (test code = 6077291892) 13.64 10*3/uL 1.88-7.09 H IMM GRAN x10^3 (test code = 4042563603) 0.21 10*3/uL 0.00-0.06 H LYMPH x10^3 (test code = 731-0) 2.15 10*3/uL 1.32-3.29 MONO x10^3 (test code = 742-7) 1.51 10*3/uL 0.33-0.92 H EOS x10^3 (test code = 711-2) 0.03-0.39 L BASO x10^3 (test code = 704-7) 0.06 10*3/uL 0.01-0.07 Lab Interpretation (test code = 95910-4) Abnormal [facility] with Jvaq2094-31-69 02:59:40* Test Item Value Reference Range Interpretation [...] 32.2 g/dL 31.6-35.1 RDW-SD (test code = 98483-5) 55.5 fL 39.0-49.9 H RDW-CV (test code = 788-0) 19.5 % 12.0-15.5 H PLT (test code = 777-3) 232 166-358 MPV (test code = 83937-4) 8.6 fL 9.5-12.9 L NRBC/100 WBC (test code = 4910949750) 0.8 0.0-10.0 NRBC x10^3 (test code = 1470386807) 0.14 See_Comment [Automated message] The system which generated this result transmitted reference range: 10*3/?L. The reference range was not used to interpret this result as normal/abnormal. GRAN MAT (NEUT) % (test code = 770-8) 77.6 % IMM GRAN % (test code = 8151375318) 1.20 % LYMPH % (test code = 736-9) 12.2 % MONO % (test code = 5905-5) 8.6 % EOS % (test code = 713-8) 0.1 % BASO % (test code = 706-2) 0.3 % GRAN MAT x10^3(ANC) (test code = 8269306264) 13.64 10*3/uL 1.88-7.09 H IMM GRAN x10^3 (test code = 9140290233) 0.21 10*3/uL 0.00-0.06 H LYMPH x10^3 (test code = 731-0) 2.15 10*3/uL 1.32-3.29 MONO x10^3 (test code = 742-7) 1.51 10*3/uL 0.33-0.92 H EOS x10^3 (test code = 711-2) 0.03-0.39 L BASO x10^3 (test code = 704-7) 0.06 10*3/uL 0.01-0.07 Lab Interpretation (test code = 90315-6) Abnormal [facility] with Mbcn0391-89-50 02:59:40* Test Item Value Reference Range Interpretation [...] 32.2 g/dL 31.6-35.1 RDW-SD (test code = 93955-1) 55.5 fL 39.0-49.9 H RDW-CV (test code = 788-0) 19.5 % 12.0-15.5 H PLT (test code = 777-3) 232 166-358 MPV (test code = 66910-8) 8.6 fL 9.5-12.9 L NRBC/100 WBC (test code = 9197805066) 0.8 0.0-10.0 NRBC x10^3 (test code = 0742764007) 0.14 See_Comment [Automated message] The system which generated this result transmitted reference range: 10*3/?L. The reference range was not used to interpret this result as normal/abnormal. GRAN MAT (NEUT) % (test code = 770-8) 77.6 % IMM GRAN % (test code = 8992002143) 1.20 % LYMPH % (test code = 736-9) 12.2 % MONO % (test code = 5905-5) 8.6 % EOS % (test code = 713-8) 0.1 % BASO % (test code = 706-2) 0.3 % GRAN MAT x10^3(ANC) (test code = 4577844655) 13.64 10*3/uL 1.88-7.09 H IMM GRAN x10^3 (test code = 3852497014) 0.21 10*3/uL 0.00-0.06 H LYMPH x10^3 (test code = 731-0) 2.15 10*3/uL 1.32-3.29 MONO x10^3 (test code = 742-7) 1.51 10*3/uL 0.33-0.92 H EOS x10^3 (test code = 711-2) 0.03-0.39 L BASO x10^3 (test code = 704-7) 0.06 10*3/uL 0.01-0.07 Lab Interpretation (test code = 98706-1) Abnormal [facility] () IMMUNE UCHMUZVE0461-69-60 22:18:07* Test Item Value Reference Range Interpretation Comme nts RHIG CANDIDATE? (test code = 5188) No- see comment Patient is not a candidate for RhIg- Patient is Rh Positive.Performed at [facility] Blood [address] [place] [address] Free: [phone] No. [id number] [facility] (D) IMMUNE BVFHOOKS2330-09-55 22:18:07* Test Item Value Reference Range Interpretation Comme nts RHIG CANDIDATE? (test code = 5188) No- see comment Patient is not a candidate for RhIg- Patient is Rh Positive.Performed at [facility] Blood [address] [place] [address] Free: [phone] No. [id number] [facility] () IMMUNE UAFWIRGH9952-76-92 22:18:07* Test Item Value Reference Range Interpretation Comme nts RHIG CANDIDATE? (test code = 5188) No- see comment Patient is not a candidate for RhIg- Patient is Rh Positive.Performed at [facility] Blood [address] Free: [phone] No. [id number] [facility] Packed RBC (in units), 2 Units 2023-07-20 21:46:07* Test Item Value Reference Range Interpretation Comme nts Cross Match Result (test code = 4409) Compatible ISBT Blood Type Code (test code = 651825) 7300 Unit Blood Type (test code = 4410) B Pos Unit Number (test code = 4411) [id number] Blood Expiration Date & Time (test code = 591050) [id number] Status Information (test code = 4412) Issued Product Identification (test code = 4413) Red Blood Cells Product Code (test code = 4414) [id number] Performed at [facility] Blood [address] Free: [phone] No. [id number] [facility] Packed RBC (in units), 2 Units 2023-07-20 21:46:07* Test Item Value Reference Range Interpretation Comme nts Cross Match Result (test code = 4409) Compatible ISBT Blood Type Code (test code = 727418) 7300 Unit Blood Type (test code = 4410) B Pos Unit Number (test code = 4411) [id number] Blood Expiration Date & Time (test code = 619735) 880900821456 Status Information (test code = 4412) Issued Product Identification (test code = 4413) Red Blood Cells Product Code (test code = 4414) [id number] Performed at [facility] Blood [address] Free: [phone] No. [id number] [facility] Packed RBC (in units), 2 Units 2023-07-20 21:46:07* Test Item Value Reference Range Interpretation Comme nts Cross Match Result (test code = 4409) Compatible ISBT Blood Type Code (test code = 141698) 7300 Unit Blood Type (test code = 4410) B Pos Unit Number (test code = 4411) [id number] Blood Expiration Date & Time (test code = 179238) [id number] Status Information (test code = 4412) Issued Product Identification (test code = 4413) Red Blood Cells Product Code (test code = 4414) [id number] Performed at [facility] B Laboratory Services - [facility] Blood [address] [place] [id number] Free: [phone] No. [id number] [facility] History and Physical Notes Date/Time Note Provider Source 2023-07-20 10:04:59 ANTEPARTUM HISTORY & PHYSICAL IDENTIFYING DATA Julisa Kaplan is 33 year old, Black or , [...] 0 2 # Outcome Date GA Lbr Karel/2nd Weight Sex Delivery Anes PTL Lv 3 [...] N/A 09/06/2016 Surgeon: Moy Hutton MD; Location: [facility] [place] HB OVARIAN CYST DRAINAGE 09/06/2016 Prior surgeries at [...] mouth in the morning. 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 [facility] 2024-04-18 16:39:44 Oral flagyl treatment is the recommended treatment. Recommend taking the full course as directed. [facility] 2024-04-15 14:36:15 Please review and advise T [facility] 2024-04-07 07:24:14 Re-sent metronidazole to [facility] [place]. Attempted to contact patient. No answer. Mailbox full. [facility] 2024-04-06 17:20:47 Julisa Kaplan is a 34 year old female Pt is calling in stating that she needs her medication transferred to [facility] in [place] Medication: Metronidazole 500 mg T Tavon Johnson [facility] 2024-04-06 15:46:54 He can look into the [facility] 2024-04-06 15:46:07 He will need to be evaluated/tested/treated by his provider. [facility] 2024-03-30 15:00:00 Images from the original note were not included. Venipuncture collection performed by clean technique on the right anticubitus. Total of 1 attempts were made. Slight pressure and a bandage/dressing were applied to the site(s). The patient experienced no complications. The following specimens were processed according to instructions and sent to [facility] laboratories per lab order on 03/30/2024 : LT BLUE SST 4 RED 1 LAV 1 PPT DK GREEN (LiHep) DK GREEN (SodH) THOMPSON DK BLUE (K2) DK BLUE (S) ACD Blood Culture NIPT/NTD Patient has been identified by and name and was provided with cup, antiseptic towelette, and clean catch instructions. 1 urine specimen(s) sent. Unpreserved 1 Urine Culture Aptima tube 1 Other urine [facility] 2024-03-30 14:30:00 Addended by: HOLLIE CLAYTON on: 03/30/2024 03:33 PM Modules accepted: Level of Service T [facility] 2024-02-09 08:20:31 Lab ordered placed. Patient notified via private, detailed voicemail. Zaida Hunt LVN 02/09/2024 8:20 AM Zaida Hunt LVN [facility] 2024-02-05 08:34:09 Called Patient, No answer, Left message to call back. Nieves Perales RN [facility] 2024-02-05 07:37:11 Labs in. T [facility] 2024-02-02 10:21:52 Please review and advise. SUSSY 12/25/23 Alma Justice LVN [facility] 2024-02-01 12:50:34 Patient came in for labs on 02/01/24 and orders on 01/31/[address] encounter since Hollie is out Please call pt or let PSS know when orders are in Mackenzie Ramirez [facility] 2024-01-15 08:24:55 Attempted to contact patient, left message on voicemail to return call. I informed of the referral, asked her to call back if to discuss any other questions. Annie Benito MA [facility] 2024-01-12 13:57:19 Attempted to contact patient, unable to leave message, voicemail not set up. 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 It is placed as an outgoing referral, but no provider info on referral. I did advise patient that if it were changed to [facility] it would be in [facility]. Patient states she would prefer a provider in [facility] but does not know of any. Kandice Luo [facility] 2024-01-08 16:39:31 Referral ordered to rheum. [facility] 2023-12-25 14:30:00 Images from the original note were not included. Venipuncture collection performed by clean technique on the right anticubitus. Total of 1 attempts were made. Slight pressure and a bandage/dressing were applied to the site(s). The patient experienced no complications. The following specimens were processed according to instructions and sent to [facility] laboratories per lab order on 12/25/2023 : LT BLUE SST 4SST 3RST RED LAV 1 PPT DK GREEN (LiHep) DK GREEN (SodH) THOMPSON DK BLUE (K2) DK BLUE (S) ACD Blood Culture NIPT/NTD Orly Adams [facility] 2023-07-29 19:58:43 Patient arrived ambulatory to ED c/o high BP and bilateral lower extremity swelling. Patient delivered 07/20/[address] Newberry. Patient states heavy vaginal bleeding stating 10+ pads changed today. BP at [facility] systolic 140's. REAMER Lianet Flores RN [facility] 2023-07-29 15:13:46 Pt called clinic to inform us she can not make it to [facility] for evaluation per providers orders at [place] today. Pt states she went to [facility] for evaluation and was turned away. Educated pt to go to [facility] for evaluation. Strict er warnings given. Pt verbalized understanding. Ena Nicolas RN 07/29/23 3:15 PM [facility] 2023-07-23 14:29:52 Pt says pharmacy is telling her med called in by Dr Pulliam is discontinued they need new rx for alternative. They do have Vitasol Ultra. REAMER Tameka Santiago [facility] 2023-07-22 07:14:25 Problem: Discharge Planning - Goal: Adequate for discharge Outcome: Progressing as expected Goal: Mood stable Outcome: Progressing as expected Problem: Complications of hemorrhage (risk or actual) Goal: Absence of active bleeding Outcome: Progressing as expected Goal: Absence of complications Outcome: Progressing as expected Problem: Pain Goal: Control of pain at or below patient's documented comfort goal Outcome: Progressing as expected Goal: Reduction in pain sensation Outcome: Progressing as expected STE Avilez RN [facility] 2023-07-21 13:50:00 Images from the original note were not included. This note was copied from a baby's chart. Stopping Breast Milk Production Breast stimulation encourages milk production. The more milk is removed the body responds by making more milk. When the breast stays full it signals the body to stop making milk. Breast fullness and swelling can be painful. This is normal and may last 3- 4 days. Helpful tips to stop breast milk production Do not bind your breast. This can lead to plugged ducts, mastitis, and increased pain. Wear a supportive bra day and night. Nursing pads are helpful for leaking milk. Talk to your provider about over the counter pain relievers such as ibuprofen or acetaminophen to help relieve pain. Ice packs or cold cabbage leaves on the breast can help decrease swelling and pain. Use 3-4 times per day for 15-20 minutes. Drink when you are thirsty. Drinking less fluids does not help and can make you dehydrated. If your breasts become very uncomfortable express just enough milk to reduce the pressure. Call your healthcare provider Call your healthcare provider right away if you have any of the following: A fever or chills Extreme tiredness and body aches, as if you have the flu Burning or pain in one or both breasts Red streaks on a breast Hard or lumpy spots in one or both breasts A feeling of warmth or heat in one or both breasts It can take some women up to 10 days or longer for the breasts to stop making milk. Please contact your primary care provider for questions or concerns. If you have a fever over 101?F (38.3?C), pain and/or redness in a specific area of the breast, feel like you are coming down with the flu, it could be a sign of breast or other infection. It may be temporarily necessary to remove a majority of the milk from the breasts by hand expression or pumping to help the infection clear, along with the use of antibiotics. Contact your primary care provider. Melissa RICHTER, RN, IBCLC REAMER Melissa Worthington RN [facility] 2023-07-21 08:53:38 Delivery Date: 07/20/2023 Delivery Time: 1:14 PM DELIVERY BY SECTION Date of Service: : 07/20/2023 at 1:14 PM Admitted for: contraction, prior CS x2, 38w5d, Repeat Lower uterine transverse section with no extension, no BTL, Pfannenstiel, Closed with 0- vicryl, EBL 500 cc, No complications none, Findings: FTLMC, some bladder adhesions Delivery Summary Sex: male Weight: 2900 g 1 Minute 5 Minute 10 Minute Totals: 8 9 Primary Indication: The patient was taken to the operating room for a repeat section due to: labor/previous CS x2 at 38w5d weeks. Procedures: Repeat Lower uterine transverse section with no extension Specimens Removed: Placenta Surgeon: Margie Newberry MD Report: Prophylactic antibiotic, Ancef 2 grams was given before patient was taken to OR. 1 unit of blood started for severe anemia. After arrival to the operating room patient was placed in the supine position with left lateral tilt after administration of spinal anesthesia. Laparotomy A pfannenstiel incision was made through the anterior [...] by lateral traction from the surgeon's and bilingual office assistant's hand. Delivery A bladder flap was not developed. A low [...] aid of fundal pressure applied by the ward assistant surgeon . The body was delivered with traction on the head along with fundal pressure. After delivery of body-bulb suction was performed from oropharynx and nostril with removal of clear amniotic fluid. Fetus was delivered in cephalic presentation. With delivery the baby, no extension was noted.Delayed cord clamping was performed for 30-60 seconds. Placenta was delivered spontaneously with steady traction on cord and manual separation of placenta from uterine wall. Closure Uterine cavity was cleaned after placental delivery with lap sponge x 2. The hysterotomy was closed in two layers using 0 vicryl with continuous locking stitches and followed by vertical imbricating stitches. Hemostasis was achieved as needed with electrocautery and 1 figure eight suture ligation. The ovaries/tubes/uterine surface were evaluated. They were found to be normal.Oozing in serosal surface so agent-powde placed. No Fascia was closed with running stitches using 0 [...] procedure considered to be complete at this time. Intraoperative Complications: none EBL: 500 Uterotonics: none Disposition: The patient tolerated the procedure well. She was recovered in Birthing Room in stable condition, with a contracted uterus and normal transvaginal bleeding. The infant was sent to Transition Nursery. A segment of the cord was obtained for umbilical cord gases. Cord blood gas was not available at time of operative note entered. Please see [facility] for update. The placenta was not sent to pathology. REAMER [facility] 2023-07-21 08:05:33 Problem: Discharge Planning - Goal: Adequate for discharge Outcome: Progressing as expected Goal: Mood stable Outcome: Progressing as expected Problem: Complications of hemorrhage (risk or actual) Goal: Absence of active bleeding Outcome: Progressing as expected Goal: Absence of complications Outcome: Progressing as expected Problem: Pain Goal: Control of pain at or below patient's documented comfort goal Outcome: Progressing as expected Goal: Reduction in pain sensation Outcome: Progressing as expected STE Cason RN [facility] 2023-07-20 20:55:40 Problem: Discharge Planning - Goal: Adequate for discharge Outcome: Progressing as expected Goal: Mood stable Outcome: Progressing as expected Problem: Complications of hemorrhage (risk or actual) Goal: Absence of active bleeding Outcome: Progressing as expected Goal: Absence of complications Outcome: Progressing as expected Problem: Pain Goal: Control of pain at or below patient's documented comfort goal Outcome: Progressing as expected Goal: Reduction in pain sensation Outcome: Progressing as expected REAMER Yanni Polanco RN [facility] 2023-07-20 07:05:39 Name/ MRN / Age / Gender: Julisa Kaplan, [id number] 33 year old female BMI: Estimated body mass index is 38.51 kg/m? as calculated from the following: Height as of this encounter: 1.524 m (5'). Weight as of this encounter: 89.4 kg (197 lb 3.2 oz). Allergies: Patient has no known allergies. Last Vitals: BP Readings from Last 1 Encounters: 07/20/23 135/89 Pulse Readings from Last 1 Encounters: 07/20/23 94 SpO2 Readings from Last 1 Encounters: 07/20/23 100% Date of Surgery: Surgeon: * Surgery not found * Procedure: LABOR CONSULT OR Location: * No surgery found * Anesthesia Preop Eval (physical exam) Anesthesia Preop: [id number]-[id number] NPO Status Verified Clear Liquids: > 2 Hours Solid Food/Non-Clear Liquids: > 8 Hours PONV Risk Factors: female and non-smoker Anesthesia History Anesthesia History Negative Previous Anesthetics/Airways Cardiovascular Negative Cardiac ROS Pulmonary (+) Cigarette use Neuro/Musculoskeletal (+) Obesity GI/Hepatic Negative GI/Hepatic ROS Hematology (+) Anemia Renal Negative Renal ROS Skin (+) Current IV access and 18g Endo/Other Negative Endo/Other ROS Other (+) Cigarette use IMMIGRATION PARALEGAL P: 2 Gestational Age: 38w5d Prior c-sections: x 2 Pediatric Pediatric N/A N/A Preoperative Medication Instructions Continue taking all prescribed medications except: JOSE CRUZ inhibitors, ARBs, diuretics, all oral diabetes medications Anticoagulant Therapy: Defer to surgeons Insulin: Take 1/2 dose the night prior to surgery. Hold on DOS. Phentermine: Alert [facility] anesthesiologist SGLT2 Inhibitors: "gliflozins" to be held for 3 days prior to elective surgeries GLP1 Agonosit: stop 7 days prior to surgery MAC Cases: Continue taking JOSE CRUZ inhibitors and ARBs ASA Classification ASA: 3 ASA Comments: 38w5d H/H 6.9/23.4 Csx2 BMI38 +smoker Current Medications: No outpatient medications have been marked as taking for the 07/20/23 encounter (Hospital Encounter). Previous Surgeries: Past Surgical History: Procedure Laterality Date SECTION 2012 x 2 DIAGNOSTIC LAPAROSCOPY 09/06/2016 DIAGNOSTIC LAPAROSCOPY N/A 09/06/2016 Surgeon: Moy Hutton MD; Location: [facility] OVARIAN CYST DRAINAGE 09/06/2016 Anesthesia Physical Exam General no apparent distress and alert and oriented x 3 Neuro/Psych neurological Dental no notable dental hx Abdominal (+) obesity and gravid Airway Mallampati score:II TM distance:> 5 cm Neck ROM: full Mouth opening:normal (+) Normal facies Extremity Normal extremity Pulmonary pulmonary exam normal Other Cardiovascular Rhythm:regular Rate: normal Anesthesia Plan ASA Status: 3 REAMER NACR-NURSE TROUBLE LOCATER,CERTIFIED REGISTERED NURSE TROUBLE LOCATER [facility] 2023-07-20 05:04:00 Pt arrived c/o contractions that began at 10pm on 07/19/2023. Pt reports contractions [id number]. Dr. Pulliam STE Marcus RN [facility] 2023-07-17 15:10:30 Report called and given to Charu BENNETT. Pt to report to L&D for iron infusion FRANCIS Allen 07/17/2023 3:10 PM REAMER [facility] 2023-07-17 14:25:53 Patient notified of low H/H and need for IV iron transfusion. Pt instructed to go to [facility] for IV iron transfusion today. Pt notified of iron/pnv rx sent to pharmacy on file. Pt states she is at [facility] appointment now and will go to L&D when she is done. Will route to provider. NORBERT SANTIAGO RN 07/17/2023 2:[address] Santiago RN [facility] 2023-07-17 09:57:44 Attempt#2. Called, no answer. Left VM. NORBERT SANTIAGO RN 07/17/2023 9:[address] Santiago RN [facility] 2023-07-16 14:24:33 Addended by: MARY KAY WELCH on: 07/16/2023 02:24 PM Modules accepted: Orders [facility] 2023-07-16 14:24:32 Attempt#1. Called, no answer. Left VM. NORBETR SANTIAGO RN 07/16/2023 2:24 PM REAMER Norbert Santiago RN [facility] 2023-07-16 14:10:10 Please notify the patient her H/H is very low, please advise her she will need to go to L&D for IV iron infusion. I will call to get her set up once she is notified Iron/pnv sent to pharmacy on file FRANCIS Allen 07/16/2023 2:11 PM [facility] 2023-07-10 09:54:07 Pt report to SABRINA Koch in L&D. Pt taken to unit via wheelchair by ERT. STE Feldman RN [facility] 2023-07-03 14:35:04 Pt in clinic for appointment. Pt scheduled this AM and no showed. Per pt she thought appointment was this afternoon. Okay to work pt in per provider. Pt declined, has no documents for financial screening. Pt reports RAMONE 07/29/2023 determined by [facility] at the [place] [facility]. Pt reports intermittent vaginal bleeding and abdominal pain 01/22. Pt ambulating with walker due to pain per pt. Pt denies any DFM and or LOF. Provider notified. Per provider pt to go to [facility] for evaluation. Pt to follow up in clinic for New ob visit. Strict er warnings given. Pt verbalized understanding and reports will go to hospital now. Ena Nicolas RN 07/03/23 2:[address] Nicolas RN [facility] 2023-06-24 11:41:00 Regardinmo preg - trouble walking - tightness in stomach - pain in vaginal area ----- Message from Ruth Daly sent at 06/24/2023 11:41 AM DIE REAMER ----- Julisa Kaplan is a 33 year old female Pt recently found out she was 5mo . she has been having trouble walking and a tight feeling in her stomach x 1.5 weeks. Pain in vaginal area as if the baby is coming out. [phone] (home) [facility] Jessie Mills RN [facility] 2023-06-24 11:41:00 Reason for Disposition Second attempt to contact family AND no contact made. Phone number verified. Protocols used: No Contact or Duplicate Contact [id number] RN makes 2 unsuccessful attempts to reach patient. Message left on voicemail, if still needing to speak with a nurse call the . RN will close this encounter. [facility]
[2024-08-05] MEDS ORDERED: KETOROLAC 30 MG/ML INJ ONE (00:08)
[2024-08-05] MEDS ORDERED: DIPHENHYDRAMINE 50 MG/ML VIAL ONE (00:08)
[2024-08-05] MEDS ORDERED: ONDANSETRON 4 MG/2 ML VIAL ONE (00:08)
[2024-08-05] MEDS ORDERED: methocarbamoL 750 MG TAB ONE (00:09)
[2024-08-05] MEDS ORDERED: NA CHLORIDE 0.9% 2,000 ML ONE (00:09)
[2024-08-05 00:32] LABS: SARS-CoV-2 Antigen Rapid Res ND (Negative)
[2024-08-05 00:47] LABS: Specific Gravity 1.026 (1.005-1.030)
[2024-08-05 00:57] LABS: Absolute Monocytes 0.9 K/uL (0.1-1.3); Absolute Neutrophil 8.6 K/uL (1.8-8.0); Basophils % 0.2 % (0-1.3); Hematocrit 31.7 % (36.0-45.0); Hemoglobin 10.4 g/dL (12.0-15.0); Lymphocytes % 9.1 % (15.3-44.8); MCH 25.9 pg (27.0-35.0); MCHC 32.9 g/dL (32.0-36.0); MCV 78.9 fL (80-100); Monocytes % 8.6 % (3.3-12.3); Neutrophils % 82.1 % (41.7-73.7); Nucleated Red Blood Cells % 0.1 % (0-0); Platelets 425 thou/uL (152-406); RBC Red Blood Cell Count 4.02 M/uL (3.86-4.86); Red Cell Distribution Width 15.7 % (12.1-15.2); Specific Gravity 1.026 (1.005-1.030); Sqamous Epithelial <5 /HPF (None Seen); Urine Bacteria None Seen /HPF (<20); Urine Bilirubin NEGATIVE (Negative); Urine Blood Trace (Negative); Urine Clarity Clear (Clear); Urine Color Light-Yellow (Yellow); Urine Crystals Unidentified Few /HPF (None Seen); Urine Culture Reflex Order NOT NEEDED; Urine Glucose NEGATIVE (Negative); Urine Ketones TRACE (Negative); Urine Microscopic Reflex YN ORDER UMIC; Urine Mucus Slight /HPF (None Seen); Urine Nitrite NEGATIVE (Negative); Urine Protein NEGATIVE (Negative); Urine Urobilinogen 1+ (Normal); Urine WBC <5 /HPF (<5)
[2024-08-05 01:07] LABS: Albumin 3.2 g/dL (3.4-5.0); Albumin/Globulin Ratio 0.6 (1.1-1.8); Anion Gap 8.3 mEq/L (5.0-15.0); Bilirubin Total 0.5 mg/dL (0.2-1.0); Potassium 3.3 mEq/L (3.5-5.1); Protein, Total 8.2 g/dL (6.4-8.2)
[2024-08-05 01:12] LABS: Influenza A Ag Negative; Influenza B Ag Negative
--- NOTE | 2024-08-05 04:33 | EDPHYS ---
Physician Documentation [facility] Name: Gayle Ball Age: 34 yrs Sex: Female : 1990 Arrival Date: 08/04/2024 Time: 22:18 Bed 6 Private MD: ED Physician Kain Reeder HPI: 08/04 22:36 This 34 yrs old Black Female presents to ER via Unassigned with complaints of Flu sp4 Symptoms. 08/05 20:39 This is a 34-year-old female presents with moderate to severe body aches chills sp4 headache and nausea. The of anemia, anxiety, blood transfusions, seizures.. 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 - Infectious Disease History:: Denies. - Social history:: Smoking status: Patient reports the use of cigarette tobacco products, denies chronic smoking, but will smoke occasionally. - Family history:: not pertinent. - Code Status:: Full code. ROS: 08/05 20:40 Constitutional: Positive for subjective fever, body aches, headache, nausea, positive sp4 for generalized malaise All other systems are negative, Exam: 20:40 Constitutional: This is a well developed, well nourished patient who is awake, alert, sp4 and in no acute distress. Head/Face: Normocephalic, atraumatic. Eyes: Pupils equal round and reactive to light, extra-ocular motions intact. Lids and lashes normal. Conjunctiva and sclera are not injected. Cornea within normal limits. Periorbital areas with no swelling, redness, or edema. ENT: Nares patent. No nasal discharge, no septal abnormalities noted. Tympanic membranes are normal and external auditory canals are clear. Oropharynx with no redness, swelling, or masses, exudates, or evidence of obstruction, uvula midline. Mucous membranes moist. Neck: Trachea midline, no thyromegaly or masses palpated, and no cervical lymphadenopathy. Supple, full range of motion without nuchal rigidity, or vertebral point tenderness. Chest/axilla: Normal chest wall appearance and motion. Nontender with no deformity. No lesions are appreciated. Cardiovascular: Regular rate and rhythm with a normal S1 and S2. No gallops, murmurs, or rubs. Normal PMI, no JVD. No pulse deficits. Respiratory: Lungs have equal breath sounds bilaterally, clear to auscultation and percussion. No rales, rhonchi or wheezes noted. No increased work of breathing, no retractions or nasal flaring. Abdomen/GI: Soft, with normal bowel sounds. No distension or tympany. No guarding or rebound. No evidence of tenderness throughout. Back: No spinal tenderness. No costovertebral tenderness. Skin: Warm, dry with normal turgor. Normal color with no rashes, no lesions, and no evidence of cellulitis. MS/ Extremity: Pulses equal, no cyanosis. Neurovascular intact. Full, normal range of motion. Neuro: Awake and alert, GCS 15, oriented to person, place, time, and situation. Cranial nerves II-XII grossly intact. Motor strength 5/5 in all extremities. Sensory grossly intact. Psych: Awake, alert, with orientation to person, place and time. Behavior, mood, and affect are within normal limits Vital Signs: 08/04 23:12 BP 145 / 84; Pulse 109; Resp 16; Temp 98.7; Pulse Ox 100% ; cg 23:12 Weight 77.11 kg; Height 5 ft. 0 in. ; Pain 10/10; cg 08/05 00:30 BP 137 / 89; Pulse 104; Resp 18; Pulse Ox 98% on R/A; al5 01:00 BP 142 / 91; Pulse 103; Resp 17; Pulse Ox 100% on R/A; al5 02:00 BP 127 / 94; Pulse 99; Resp 16; Pulse Ox 100% on R/A; al5 02:30 BP 117 / 90; Pulse 93; Resp 17; Pulse Ox 100% on R/A; al5 03:00 BP 157 / 98; Pulse 99; Resp 17; Pulse Ox 100% on R/A; al5 04:00 BP 156 / 92; Pulse 97; Resp 15; Pulse Ox 100% on R/A; al5 04:30 BP 154 / 93; Pulse 91; Resp 14; Pulse Ox 100% on R/A; al5 08/04 23:12 Body Mass Index 33.20 (77.11 kg, 152.4 cm) cg 23:12 Pain Scale: Adult cg [place] Coma Score: 20:40 Eye Response: spontaneous(4). Motor Response: obeys commands(6). Verbal Response: sp4 oriented(5). Total: 15. MDM: 08/04 23:07 Medical Screening Exam initiated 4 08/05 04:26 ED course: EXAM: XR Chest, 1 View CLINICAL HISTORY: The patient is 34 years old and is sp4 Female; CHEST PAIN TECHNIQUE: Frontal view of the chest. COMPARISON: No relevant prior studies available. FINDINGS: Lungs: Unremarkable. No consolidation. Pleural space: Unremarkable. No pneumothorax. Heart: Unremarkable. Mediastinum: Unremarkable. Normal mediastinal contour. Bones/joints: No acute findings. IMPRESSION: No acute findings in the chest.. 20:40 Differential Diagnosis altered mental status, sepsis, flu. Data reviewed: vital signs, [facility] nurses notes, EMS record, lab test result(s), radiologic studies, plain films. Consideration of Admission/Observation Escalation of care including admission/observation considered. ED course: Signs of acute viral syndrome. Prescribed as needed medications for control of bodyaches fever and nausea. 08/04 22:37 Order name: Influenza Screen (a \T\ B) [facility] 08/04 23:18 Order name: CBC with Diff; Complete Time: 01:54 [facility] 08/04 23:18 Order name: CMP; Complete Time: 01:54 [facility] 08/04 23:18 Order name: Lipase; Complete Time: 01:54 [facility] 08/04 23:18 Order name: Test, Urine; Complete Time: 01:54 4 08/04 23:18 Order name: Urinalysis w/ reflexes; Complete Time: 01:54 [facility] 08/05 00:32 Order name: COVID-19 Ag + Flu A+B Ag; Complete Time: 01:54 [facility] 08/05 01:54 Order name: Chest Single View XRAY [facility] 08/04 23:18 Order name: IV Saline Lock; Complete Time: 00:18 [facility] 08/04 23:18 Order name: Labs collected and sent; Complete Time: 00:18 [facility] Administered Medications: 00:23 Drug: diphenhydrAMINE IVP 25 mg IVP once Route: IVP; Site: right antecubital; br2 04:47 Follow up: Response: No adverse reaction al5 00:24 Drug: TORadol - Ketorolac IVP 30 mg IVP once Route: IVP; Site: right antecubital; br2 04:48 Follow up: Response: No adverse reaction al5 00:24 Drug: Ondansetron IVP 4 mg IVP once; over 2 minutes Route: IVP; Site: right antecubital;br2 04:48 Follow up: Response: No adverse reaction al5 00:24 Drug: NS 0.9% IV 1000 ml IV at 1 bolus Per protocol; to be given as a bolus over 60 br2 minutes Route: IV; Rate: 1 bolus; Site: right antecubital; 04:48 Follow up: Response: No adverse reaction; IV Status: Completed infusion; IV Intake: al5 1000ml 00:24 Drug: NS 0.9% IV 1000 ml IV at 1 bolus Per protocol; to be given as a bolus over 60 br2 minutes Route: IV; Rate: 1 bolus; Site: right antecubital; 04:48 Follow up: Response: No adverse reaction; IV Status: Completed infusion; IV Intake: al5 1000ml 00:24 Drug: Methocarbamol PO 1500 mg PO once Route: PO; br2 04:48 Follow up: Response: No adverse reaction al5 Disposition Summary: 08/05/24 04:32 Discharge Ordered Notes: Location: Home sp4 Problem: new sp4 Symptoms: have improved sp4 Condition: Stable sp4 Diagnosis - Fever, unspecified sp4 - Acute systemic viral illness, acute common cold sp4 Followup: sp4 - With: Private Physician - When: 7 - 10 days - Reason: Recheck today's complaints Discharge Instructions: - Discharge Summary Sheet sp4 - Fever, Adult sp4 Forms: - Patient Portal Instructions sp4 Prescriptions: - dextromethorphan-guaifenesin 20-400 mg Oral tablet - take 1 tablet ORAL route every 6 hours PRN; 50 tablet; Refills: 0, Product sp4 Selection Permitted - Ibuprofen 800 mg Oral Tablet - take 1 tablet ORAL route every 8 hours As needed take with food; 30 tablet; sp4 Refills: 0, Product Selection Permitted - ondansetron 8 mg Oral Tablet,disintegrating - take 1 tablet ORAL route every 8 hours PRN nausea; 30 tablet; Refills: 0, sp4 Product Selection Permitted Signatures: Dispatcher [employer] Mikala Butler, RN RN cg Kain Reeder MD MD sp4 Ayleen Zapata RN RN br2 Rosaline Grady RN al5 Corrections: (The following items were deleted from the chart) 00:34 00:32 Influenza Screen (A ordered. ED EDMS
--- NOTE | 2024-08-05 04:33 | ER ---
Nurse's Notes [facility] Name: Gayle Ball Age: 34 yrs Sex: Female : 1990 Arrival Date: 08/04/2024 Time: 22:18 Bed 6 Private MD: Diagnosis: Fever, unspecified;Acute systemic viral illness, acute common cold Presentation: 08/04 23:12 Chief complaint: Patient states: C/o body aches and headache that started today. cg Patients states she feels like she had fever but did not take temperature. Eyes sensitive to light. Coronavirus screen: Vaccine status: Patient reports being unvaccinated. Ebola Screen: Patient negative for fever greater than or equal to 101.5 degrees Fahrenheit, and additional compatible Ebola Virus Disease symptoms. Initial Sepsis Screen: Does the patient meet any 2 criteria? No. Patient's initial sepsis screen is negative. Does the patient have a suspected source of infection? No. Patient's initial sepsis screen is negative. Risk Assessment: Do you want to hurt yourself or someone else?. Onset of symptoms was 2024. 23:12 Method Of Arrival: EMS: [facility] 23:12 Acuity: CAMILA 3 cg Triage Assessment: 23:18 General: Appears well nourished, Behavior is drowsy, Reports fever for 0-12 hours. cg Pain: Complains of pain in c/o of body aches Pain currently is 10 out of 10 on a pain scale. Pain began 3 hours ago. 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 - Infectious Disease History:: Denies. - Social history:: Smoking status: Patient reports the use of cigarette tobacco products, denies chronic smoking, but will smoke occasionally. - Family history:: not pertinent. - Code Status:: Full code. Screenin/21 00:25 [facility] ED Fall Risk Assessment (Adult) History of falling in the last 3 months, al5 including since admission No falls in past 3 months (0 pts) Confusion or Disorientation No (0 pts) Intoxicated or Sedated No (0 pts) Impaired Gait No (0 pts) Mobility Assist Device Used No (0 pt) Altered Elimination No (0 pt) Score/Fall Risk Level 0 - 2 = Low Risk Oriented to surroundings, Maintained a safe environment, Hourly rounding (assess needs \T\ fall precautionary measures) done. Abuse screen: Denies threats or abuse. Denies injuries from another. Nutritional screening: No deficits noted. Tuberculosis screening: No symptoms or risk factors identified. Assessment: 00:25 General: Appears in no apparent distress. ill, Behavior is calm, cooperative. Pain: al5 Complains of pain in generalized. Neuro: Level of Consciousness is awake, alert, obeys commands, Oriented to person, place, time, situation. Cardiovascular: Capillary refill < 3 seconds Patient's skin is warm and dry. Respiratory: Airway is patent Respiratory effort is even, unlabored, Respiratory pattern is regular, symmetrical. GI: No signs and/or symptoms were reported involving the gastrointestinal system. : No signs and/or symptoms were reported regarding the genitourinary system. EENT: No signs and/or symptoms were reported regarding the EENT system. Derm: Skin is intact, is healthy with good turgor, Skin is pink, warm \T\ dry. normal. Musculoskeletal: No signs and/or symptoms reported regarding the musculoskeletal system. 01:56 Reassessment: Patient appears in no apparent distress at this time. No changes from al5 previously documented assessment. Patient and/or family updated on plan of care and expected duration. Pain level reassessed. Patient is alert, oriented x 3, equal unlabored respirations, skin warm/dry/pink. 02:42 Reassessment: Patient appears in no apparent distress at this time. No changes from al5 previously documented assessment. Patient and/or family updated on plan of care and expected duration. Pain level reassessed. Patient is alert, oriented x 3, equal unlabored respirations, skin warm/dry/pink. 04:46 Reassessment: Patient appears in no apparent distress at this time. Patient and/or al5 family updated on plan of care and expected duration. Pain level reassessed. Patient is alert, oriented x 3, equal unlabored respirations, skin warm/dry/pink. Patient states feeling better. Vital Signs: 08/04 23:12 BP 145 / 84; Pulse 109; Resp 16; Temp 98.7; Pulse Ox 100% ; cg 23:12 Weight 77.11 kg; Height 5 ft. 0 in. ; Pain 10/10; cg 08/05 00:30 BP 137 / 89; Pulse 104; Resp 18; Pulse Ox 98% on R/A; al5 01:00 BP 142 / 91; Pulse 103; Resp 17; Pulse Ox 100% on R/A; al5 02:00 BP 127 / 94; Pulse 99; Resp 16; Pulse Ox 100% on R/A; al5 02:30 BP 117 / 90; Pulse 93; Resp 17; Pulse Ox 100% on R/A; al5 03:00 BP 157 / 98; Pulse 99; Resp 17; Pulse Ox 100% on R/A; al5 04:00 BP 156 / 92; Pulse 97; Resp 15; Pulse Ox 100% on R/A; al5 04:30 BP 154 / 93; Pulse 91; Resp 14; Pulse Ox 100% on R/A; al5 08/04 23:12 Body Mass Index 33.20 (77.11 kg, 152.4 cm) cg 23:12 Pain Scale: Adult cg [place] Coma Score: 20:40 Eye Response: spontaneous(4). Motor Response: obeys commands(6). Verbal Response: sp4 oriented(5). Total: 15. ED Course: 08/04 22:31 Patient arrived in ED. mr 22:36 Kain Reeder MD is Attending Physician. sp4 23:17 Triage completed. cg 08/05 00:18 Rosaline Grady, SABRINA is Primary Nurse. al5 00:23 Inserted saline lock: 20 gauge in right antecubital area, using aseptic technique. mm11 Blood collected. Flushed with 10 mL NS. 00:23 CBC with Diff Sent. mm11 00:23 CMP Sent. mm11 00:23 Lipase Sent. mm11 00:23 Test, Urine Sent. mm11 00:23 Urinalysis w/ reflexes Sent. mm11 00:23 Influenza Screen (a \T\ B) Sent. mm11 00:25 No provider procedures requiring assistance completed. al5 00:25 Patient has correct armband on for positive identification. Bed in low position. Call al5 light in reach. Side rails up X 1. Provided Education on: plan of care. 00:28 Arm band placed on right wrist. Patient placed in the treatment room, on a stretcher, al5 on pulse oximetry. 02:32 Chest Single View XRAY In Process Unspecified. EDMS 04:47 IV discontinued, intact, bleeding controlled, No redness/swelling at site. Pressure al5 dressing applied. Administered Medications: 00:23 Drug: diphenhydrAMINE IVP 25 mg IVP once Route: IVP; Site: right antecubital; br2 04:47 Follow up: Response: No adverse reaction al5 00:24 Drug: TORadol - Ketorolac IVP 30 mg IVP once Route: IVP; Site: right antecubital; br2 04:48 Follow up: Response: No adverse reaction al5 00:24 Drug: Ondansetron IVP 4 mg IVP once; over 2 minutes Route: IVP; Site: right antecubital;br2 04:48 Follow up: Response: No adverse reaction al5 00:24 Drug: NS 0.9% IV 1000 ml IV at 1 bolus Per protocol; to be given as a bolus over 60 br2 minutes Route: IV; Rate: 1 bolus; Site: right antecubital; 04:48 Follow up: Response: No adverse reaction; IV Status: Completed infusion; IV Intake: al5 1000ml 00:24 Drug: NS 0.9% IV 1000 ml IV at 1 bolus Per protocol; to be given as a bolus over 60 br2 minutes Route: IV; Rate: 1 bolus; Site: right antecubital; 04:48 Follow up: Response: No adverse reaction; IV Status: Completed infusion; IV Intake: al5 1000ml 00:24 Drug: Methocarbamol PO 1500 mg PO once Route: PO; br2 04:48 Follow up: Response: No adverse reaction al5 Medication: 00:28 VIS not applicable for this client. al5 Intake: 04:48 IV: 1000ml; Total: 1000ml. al5 04:48 IV: 1000ml; Total: 2000ml. al5 Outcome: 04:32 Discharge ordered by MD. gordillo 04:47 Discharged to home ambulatory, al5 04:47 Condition: good 04:47 Discharge instructions given to patient, Instructed on discharge instructions, follow up and referral plans. medication usage, Demonstrated understanding of instructions, follow-up care, medications, Prescriptions given X 3, 05:09 Patient left the ED. al5 Signatures: Dispatcher [employer] Maria Luz Benitez, Vasquez Ovalle Mikala Wilkinson, RN RN cg Kain Reeder MD MD sp4 Rosaline Grady RN RN al5 Ayleen Zapata RN RN br2 jacky ashley mm11 Corrections: (The following items were deleted from the chart) 03:00 02:00 BP 89 / 45 L Arm; Pulse 61bpm; Resp 15bpm; Pulse Ox 99% RA; patient laying on R al5 side; al5 03:00 02:30 BP 99 / 54 L Arm; Pulse 63bpm; Resp 15bpm; Pulse Ox 100% RA; laying on R side; al5al5
--- NOTE | 2024-08-05 05:48 | RAD REPORT ---
EXAM: XR Chest, 1 View CLINICAL HISTORY: The patient is 34 years old and is Female; CHEST PAIN TECHNIQUE: Frontal view of the chest. COMPARISON: No relevant prior studies available. FINDINGS: Lungs: Unremarkable. No consolidation. Pleural space: Unremarkable. No pneumothorax. Heart: Unremarkable. Mediastinum: Unremarkable. Normal mediastinal contour. Bones/joints: No acute findings. IMPRESSION: No acute findings in the chest. Electronically signed by: Blayne Martinez MD 08/05/2024 02:51 AM [facility] 8 Due to temporary technical issues with the PACS/[employer] reporting system, reports are being geovany d by the in-house radiologist without review as a courtesy to ensure prompt reporting the interpreting radiologist is fully responsible for the content of the report. Transcribed Date/Time: 08/05/2024 5:48 AM
[2024-08-06 00:39] VITALS: TEMP 98.7
[2024-08-06 00:42] VITALS: O2SAT 100
[2024-08-06 00:48] VITALS: BP 154/93
== END 2024-08-05 05:09 | disposition home or self-care (01) ==
LOC: ER 22:18
DX: B34.9 Viral infection, unspecified (principal); J00 Acute nasopharyngitis [common cold]; R50.9 Fever, unspecified; Z11.52 Encounter for screening for COVID-19
CPT/HCPCS: 85025; 81001; 36415 ×2; 81025; 83690; 80053; 71045; 87428; J1200; J2405; J7030; 96361; 96374; 96375; 99285